=== PATIENT | female | born 1975 | race African-American/Black ===

== ENCOUNTER → 2019-08-10 | Outpatient (CLI) | payer OTHER ==
--- NOTE | 2019-08-10 12:00 | XR ---
EXAM TYPE: LUMBAR SPINE X RAY SERIES COMPARISON: NONE HISTORY: Pain TECHNIQUE: 4 views are submitted. FINDINGS: Alignment is anatomic. The pedicles are intact. The transverse processes are intact. There is no s pondylolysis or spondylolisthesis. Mild degenerative disc disease L4-5. IMPRESSION: 1. Mild degenerative change at L4-L5.
--- NOTE | 2019-08-10 12:00 | XR ---
EXAMINATION TYPE: XR knee limited LT DATE OF EXAM: 08/10/2019 COMPARISON: NONE HISTORY: Pain TECHNIQUE: Four views are submitted. FINDINGS: Joint spaces are preserved. Osseous structures are intact. No acute fracture seen. There is a well -corticated bony density adjacent to the medial femoral condyle. This can be associated with internal derangement of the knee and previous avulsion fracture. IMPRESSION: 1. Bony density adjacent to the medial femoral condyle could be associated with previous avulsion fra cture and internal derangement knee correlate with MRI.
== END | disposition home or self-care (01) ==
LOC: RADXRMAIN 11:30
PROVIDERS: ATTEND Family Medicine
DX: M25.562 Pain in left knee (principal); M47.816 Spondylosis without myelopathy or radiculopathy, lumbar region
CPT/HCPCS: 72110

== ENCOUNTER 2019-10-09 22:20 | Emergency (ER) | payer OTHER ==
[2019-10-09 22:45] VITALS: BP 128/80; PULSE 117; RESP 20; TEMP 98.4
[2019-10-09] MEDS ORDERED: IPRATROPIUM 0.5 MG/2.5 ML NEBU INHALATION STA (23:21)
[2019-10-10 00:13] LABS: ALT 75 U/L (4-34); AST 100 U/L (14-36); African American GFR (CKD) >90 (>60 ml/min/1.73 sqM); Albumin 4.4 g/dL (3.5-5.0); Alkaline Phosphatase 76 U/L (38-126); Anion Gap 11 mmol/L; Blood Urea Nitrogen 10 mg/dL (7-17); Calcium 9.5 mg/dL (8.4-10.2); Carbon Dioxide 27 mmol/L (22-30); Chloride 105 mmol/L (98-107); Glucose 108 mg/dL (74-99); Non-African American GFR(CKD) >90 (>60 ml/min/1.73 sqM); Potassium 3.5 mmol/L (3.5-5.1); Sodium 143 mmol/L (137-145); Total Bilirubin 0.2 mg/dL (0.2-1.3); Total Protein 7.8 g/dL (6.3-8.2)
[2019-10-10 00:20] LABS: Appearance,Urine Clear (Clear); Bilirubin,Urine Negative (Negative); Blood,Urine Negative (Negative); Color,Urine Light Yellow; Glucose,Urine (UA) Negative (Negative); Ketones,Urine Negative (Negative); Leukocyte Esterase,Urine Negative (Negative); Nitrite,Urine Negative (Negative); PH, Urine 5.5 (5.0-8.0); Protein,Urine Trace (Negative); Specific Gravity,Urine 1.008 (1.001-1.035); Urobilinogen,Urine <2.0 mg/dL (<2.0)
[2019-10-10 00:34] LABS: HCT 38.1 % (34.0-46.0); HGB 12.6 gm/dL (11.4-16.0); MCH 31.5 pg (25.0-35.0); MCHC 32.9 g/dL (31.0-37.0); MCV 95.7 fL (80.0-100.0); Mean Platelet Volume 7.3; Platelet Count 288 k/uL (150-450); RBC 3.98 m/uL (3.80-5.40); RDW 14.9 % (11.5-15.5); WBC 4.8 k/uL (3.8-10.6)
[2019-10-10 01:33] LABS: Anisocytosis (M) Present; Hypochromasia (M) Present; Lymphocytes # (M) 3.02 k/uL (1.0-4.8); Monocytes # (M) 0.38 k/uL (0-1.0); Neutrophils % (M) 27 %; Nucleated Red Blood Cells 0 /100 WBC (0-0); Total Cells Counted 100
--- NOTE | 2019-10-10 02:34 | ED ---
General Adult HPI - General Chief complaint: Shortness of Breath Stated complaint: LALITA Time Seen by Provider: 10/09/19 22:30 Source: patient, EMS, RN notes reviewed, old records reviewed Mode of arrival: EMS Limitations: no limitations - History of Present Illness Initial comments: 44-year-old female patient presents with asthma presents to ED for evaluation of shortness of breath since august. Patient reports that she has been coughing started coughing up green phlegm. Denies any chest pain. Denies any other complaints. Systemic: Pt denies fatigue, fever/chills, rash. Pt denies weakness, night sweats, weight loss. Neuro: Pt denies headache, visual disturbances, syncope or pre-syncope. HEENT: Pt denies ocular discharge or irritation, otalgia, rhinorrhea, pharyngitis or notable lymphadenopathy. Cardiopulmonary: Pt denies chest pain, heart palpitations, dyspnea on exertion. Abdominal/GI: Pt denies abdominal pain, n/v/d. : Pt denies dysuria, burning w/ urination, frequency/urgency. Denies new onset urinary or bowel incontinence. MSK: Pt denies myalgia, loss of strength or function in extremities. Neuro: Pt denies new onset weakness, paresthesias. Review of Systems ROS Statement: Those systems with pertinent positive or pertinent negative responses have been documented in the HPI. ROS Other: All systems not noted in ROS Statement are negative. Past Medical History Past Medical History: Asthma History of Any Multi-Drug Resistant Organisms: None Reported Past Surgical History: Section Past Psychological History: Anxiety, Bipolar, Depression, Schizophrenia Smoking Status: Former smoker Past Alcohol Use History: Occasional Past Drug Use History: None Reported General Exam - General Exam Comments Initial Comments: Constitutional: NAD, AOX3, Pt has pleasant affect. HEENT: NC/AT, trachea midline, neck supple, no lymphadenopathy. Posterior pharynx non erythematous, without exudates. External ears appear normal, without discharge. Mucous membranes moist. Eyes PERRLA, EOM intact. There is no scleral icterus. No pallor noted. Cardiopulmonary: RRR, no murmurs, rubs or gallops, no JVD noted. Lungs CTAB in anterior and posterior serrano. No peripheral edema. Abdominal exam: Abdomen soft and non-distended. Abdomen non-tender to palpation in all 4 quadrants. Bowel sounds active in LLQ. No hepatosplenomegaly. No ecchymosis Neuro: CN II-XII grossly intact. No nuchal rigidity. No raccon eyes, no snowden sign, no hemotympanum. No cervical spinal tenderness. MSK: No posterior calf tenderness bilaterally, homans sign negative bilaterally. Posterior tibialis and radial pulse +2 bilaterally. Sensation intact in upper and lower extremities. Full active ROM in upper and lower extremities, 5/5 stregnth. Limitations: no limitations Course Vital Signs 10/09/19 22:34 Temperature 98.4 F Pulse Rate 117 H Respiratory 20 Rate Blood Pressure 128/80 O2 Sat by Pulse 100 Oximetry Medical Decision Making - Medical Decision Making 44-year-old female patient presents with asthma presents to ED for evaluation of shortness of breath since august. Patient reports that she has been coughing st arted coughing up green phlegm. Denies any chest pain. Denies any other complaints. Patient vital signs displayed mild tachycardia. Physical exam didn't display acute pathology. Coughing was noted. Laboratory investigations obtained, overall non-impressive. Patient reportedly fell landing on her gluteal region standing out of bed. Was complaining of chest pain. Patient then reportedly declined any imaging and eloped from hospital. Signed out AMA. CXR was ordered and was not performed. Patient was not evaluated by myself after initial history and physical. Case discussed with Dr. Renteria. - Lab Data Result diagrams: 10/09/19 23:40 10/09/19 23:40 Lab Results 10/09/19 10/09/19 10/09/19 Range/Units 23:40 23:40 23:40 WBC 4.8 (3.8-10.6) k/uL RBC 3.98 (3.80-5.40) m/uL Hgb 12.6 (11.4-16.0) gm/dL Hct 38.1 (34.0-46.0) % MCV 95.7 (80.0-100.0) fL MCH 31.5 (25.0-35.0) pg MCHC 32.9 (31.0-37.0) g/dL RDW 14.9 (11.5-15.5) % Plt Count 288 (150-450) k/uL Neutrophils % (Manual) 27 % Lymphocytes % (Manual) 63 % Monocytes % (Manual) 8 % Eosinophils % (Manual) 2 % Neutrophils # (Manual) 1.30 (1.3-7.7) k/uL Lymphocytes # (Manual) 3.02 (1.0-4.8) k/uL Monocytes # (Manual) 0.38 (0-1.0) k/uL Eosinophils # (Manual) 0.10 (0-0.7) k/uL Nucleated RBCs 0 (0-0) /100 WBC Manual Slide Review Performed Hypochromasia (manual) Present Anisocytosis (manual) Present D-Dimer 0.55 (<0.60) mg/L FEU Sodium 143 (137-145) mmol/L Potassium 3.5 (3.5-5.1) mmol/L Chloride 105 (98-107) mmol/L Carbon Dioxide 27 (22-30) mmol/L Anion Gap 11 mmol/L BUN 10 (7-17) mg/dL Creatinine 0.58 (0.52-1.04) mg/dL Est GFR (CKD-EPI)AfAm >90 (>60 ml/min/1.73 sqM) Est GFR (CKD-EPI)NonAf >90 (>60 ml/min/1.73 sqM) Glucose 108 H (74-99) mg/dL Plasma Lactic Acid Zain (0.7-2.0) mmol/L Calcium 9.5 (8.4-10.2) mg/dL Total Bilirubin 0.2 (0.2-1.3) mg/dL AST 100 H (14-36) U/L ALT 75 H (4-34) U/L Alkaline Phosphatase 76 (38-126) U/L Troponin I (0.000-0.034) ng/mL NT-Pro-B Natriuret Pep pg/mL Total Protein 7.8 (6.3-8.2) g/dL Albumin 4.4 (3.5-5.0) g/dL Urine Color Urine Appearance (Clear) Urine pH (5.0-8.0) Ur Specific [place] (1.001-1.035) Urine Protein (Negative) Urine Glucose (UA) (Negative) Urine Ketones (Negative) Urine Blood (Negative) Urine Nitrite (Negative) Urine Bilirubin (Negative) Urine Urobilinogen (<2.0) mg/dL Ur Leukocyte Esterase (Negative) Urine HCG, Qual (Not Detectd) Coronavirus (PCR) (Not Detectd) 10/09/19 10/09/19 10/09/19 Range/Units 23:40 23:40 23:40 WBC (3.8-10.6) k/uL RBC (3.80-5.40) m/uL Hgb (11.4-16.0) gm/dL Hct (34.0-46.0) % MCV (80.0-100.0) fL MCH (25.0-35.0) pg MCHC (31.0-37.0) g/dL RDW (11.5-15.5) % Plt Count (150-450) k/uL Neutrophils % (Manual) % Lymphocytes % (Manual) % Monocytes % (Manual) % Eosinophils % (Manual) % Neutrophils # (Manual) (1.3-7.7) k/uL Lymphocytes # (Manual) (1.0-4.8) k/uL Monocytes # (Manual) (0-1.0) k/uL Eosinophils # (Manual) (0-0.7) k/uL Nucleated RBCs (0-0) /100 WBC Manual Slide Review Hypochromasia (manual) Anisocytosis (manual) D-Dimer (<0.60) mg/L FEU Sodium (137-145) mmol/L Potassium (3.5-5.1) mmol/L Chloride (98-107) mmol/L Carbon Dioxide (22-30) mmol/L Anion Gap mmol/L BUN (7-17) mg/dL Creatinine (0.52-1.04) mg/dL Est GFR (CKD-EPI)AfAm (>60 ml/min/1.73 sqM) Est GFR (CKD-EPI)NonAf (>60 ml/min/1.73 sqM) Glucose (74-99) mg/dL Plasma Lactic Acid Zain 1.5 (0.7-2.0) mmol/L Calcium (8.4-10.2) mg/dL Total Bilirubin (0.2-1.3) mg/dL AST (14-36) U/L ALT (4-34) U/L Alkaline Phosphatase (38-126) U/L Troponin I <0.012 (0.000-0.034) ng/mL NT-Pro-B Natriuret Pep 29 pg/mL Total Protein (6.3-8.2) g/dL Albumin (3.5-5.0) g/dL Urine Color Urine Appearance (Clear) Urine pH (5.0-8.0) Ur Specific [place] (1.001-1.035) Urine Protein (Negative) Urine Glucose (UA) (Negative) Urine Ketones (Negative) Urine Blood (Negative) Urine Nitrite (Negative) Urine Bilirubin (Negative) Urine Urobilinogen (<2.0) mg/dL Ur Leukocyte Esterase (Negative) Urine HCG, Qual (Not Detectd) Coronavirus (PCR) (Not Detectd) 10/09/19 10/10/19 10/10/19 Range/Units 23:45 00:05 00:05 WBC (3.8-10.6) k/uL RBC (3.80-5.40) m/uL Hgb (11.4-16.0) gm/dL Hct (34.0-46.0) % MCV (80.0-100.0) fL MCH (25.0-35.0) pg MCHC (31.0-37.0) g/dL RDW (11.5-15.5) % Plt Count (150-450) k/uL Neutrophils % (Manual) % Lymphocytes % (Manual) % Monocytes % (Manual) % Eosinophils % (Manual) % Neutrophils # (Manual) (1.3-7.7) k/uL Lymphocytes # (Manual) (1.0-4.8) k/uL Monocytes # (Manual) (0-1.0) k/uL Eosinophils # (Manual) (0-0.7) k/uL Nucleated RBCs (0-0) /100 WBC Manual Slide Review Hypochromasia (manual) Anisocytosis (manual) D-Dimer (<0.60) mg/L FEU Sodium (137-145) mmol/L Potassium (3.5-5.1) mmol/L Chloride (98-107) mmol/L Carbon Dioxide (22-30) mmol/L Anion Gap mmol/L BUN (7-17) mg/dL Creatinine (0.52-1.04) mg/dL Est GFR (CKD-EPI)AfAm (>60 ml/min/1.73 sqM) Est GFR (CKD-EPI)NonAf (>60 ml/min/1.73 sqM) Glucose (74-99) mg/dL Plasma Lactic Acid Zain (0.7-2.0) mmol/L Calcium (8.4-10.2) mg/dL Total Bilirubin (0.2-1.3) mg/dL AST (14-36) U/L ALT (4-34) U/L Alkaline Phosphatase (38-126) U/L Troponin I (0.000-0.034) ng/mL NT-Pro-B Natriuret Pep pg/mL Total Protein (6.3-8.2) g/dL Albumin (3.5-5.0) g/dL Urine Color Light Yellow Urine Appearance Clear (Clear) Urine pH 5.5 (5.0-8.0) Ur Specific [place] 1.008 (1.001-1.035) Urine Protein Trace H (Negative) Urine Glucose (UA) Negative (Negative) Urine Ketones Negative (Negative) Urine Blood Negative (Negative) Urine Nitrite Negative (Negative) Urine Bilirubin Negative (Negative) Urine Urobilinogen <2.0 (<2.0) mg/dL Ur Leukocyte Esterase Negative (Negative) Urine HCG, Qual Not Detected (Not Detectd) Coronavirus (PCR) Not Detected (Not Detectd) - EKG Data -: EKG Interpreted by Me (and Dr. Renteria ) EKG Comments: Ventricular while 6,. Full 96, QRS 92, QT/QTC 320/425. Sinus tachycardia short period. Nonspecific ST and T wave abnormality. Abnormal EKG. No concern for acute ischemia. Disposition Clinical Impression: Cough Disposition: Left Against Medical Advice Condition: Undetermined Is patient prescribed a controlled substance at d/c from ED?: No Referrals: Nonstaff,Physician [Primary Care Provider] - 1-2 days
== END 2019-10-10 00:50 | disposition left against medical advice (07) ==
LOC: EC 22:20
DX: Z03.818 Encounter for observation for suspected exposure to other biological agents ruled out (principal); R05 Cough; R06.02 Shortness of breath; R00.0 Tachycardia, unspecified; R07.9 Chest pain, unspecified; Z53.20 Procedure and treatment not carried out because of patient's decision for unspecified reasons; Z87.891 Personal history of nicotine dependence; Z87.09 Personal history of other diseases of the respiratory system
CPT/HCPCS: 36415; 80053; 81003; 81025; 83605; 83880; 84484; 85025; 85379; 87635; 93005; 99285

== ENCOUNTER 2021-07-01 07:32 | Inpatient (IN) | payer OTHER ==
[2021-07-01] MEDS ORDERED: LORazepam 2 MG/ML INJ IV STA (07:36)
[2021-07-01 07:37] LABS: Glucose,Whole Blood 80 mg/dL (75-99)
[2021-07-01] MEDS ORDERED: SODIUM CHLORIDE 0.9% 500 ML 500 ML IV ONE (07:49)
[2021-07-01] MEDS ORDERED: ALBUTEROL NEBULIZED 2.5 MG/3 ML INHALATION STA ×2 (07:50→11:46)
[2021-07-01] MEDS ORDERED: methylPREDNISolone SOD SUCCI 125 MG/2 ML VIAL IV STA (08:04)
[2021-07-01] MEDS ORDERED: MAGNESIUM SULFATE-D5W PMX 1 GM in DEXTROSE/WATER 1 100ML.BAG IVPB ONE ×2 (08:04→08:42)
--- NOTE | 2021-07-01 08:08 | XR ---
EXAMINATION TYPE: XR chest 1V portable DATE OF EXAM: 07/01/2021 COMPARISON: NONE HISTORY: Difficulty breathing, shortness of breath TECHNIQUE: Single frontal view of the chest is obtained. FINDINGS: Diffuse airspace disease is present in the bilateral lungs. Patient is rotated. Heart may be enlarged but is obscured. No evident pneumothorax or pleural effusion. IMPRESSION: Correlate for pneumonia, congestive heart failure not excluded
[2021-07-01 08:25] LABS: ALT 74 U/L (4-34); AST 173 U/L (14-36); African American GFR (CKD) >90 (>60 ml/min/1.73 sqM); Albumin 4.4 g/dL (3.5-5.0); Alcohol 41 mg/dL; Alkaline Phosphatase 138 U/L (38-126); Anion Gap 26 mmol/L; Blood Urea Nitrogen 8 mg/dL (7-17); Calcium 8.5 mg/dL (8.4-10.2); Carbon Dioxide 12 mmol/L (22-30); Chloride 98 mmol/L (98-107); Creatine Kinase 181 U/L (30-135); Glucose 83 mg/dL (74-99); Lipase 215 U/L (23-300); Magnesium 1.1 mg/dL (1.6-2.3); Non-African American GFR(CKD) >90 (>60 ml/min/1.73 sqM); Potassium 5.4 mmol/L (3.5-5.1); Sodium 136 mmol/L (137-145); Total Bilirubin 2.8 mg/dL (0.2-1.3); Total Protein 7.8 g/dL (6.3-8.2)
[2021-07-01 08:32] LABS: Basophils # (A) 0.1 k/uL (0-0.2); Basophils % (A) 1 %; Eosinophils # (A) 0.1 k/uL (0-0.7); Eosinophils % (A) 1 %; HCT 41.6 % (34.0-46.0); HGB 13.3 gm/dL (11.4-16.0); Hypochromasia Slight; Lymphocytes # (A) 3.2 k/uL (1.0-4.8); Lymphocytes % (A) 43 %; MCH 35.4 pg (25.0-35.0); MCHC 31.9 g/dL (31.0-37.0); MCV 110.9 fL (80.0-100.0); Macrocytosis Marked; Mean Platelet Volume 10.5; Monocytes # (A) 0.3 k/uL (0-1.0); Monocytes % (A) 5 %; Neutrophils # (A) 3.5 k/uL (1.3-7.7); Neutrophils % (A) 48 %; RBC 3.75 m/uL (3.80-5.40); RDW 14.7 % (11.5-15.5); WBC 7.4 k/uL (3.8-10.6)
[2021-07-01] MEDS ORDERED: THIAMINE 100 MG/ML 2 ML VIAL IM STA (08:40)
[2021-07-01] MEDS ORDERED: LORazepam 2 MG/ML INJ IV PRN (08:40)
--- NOTE | 2021-07-01 08:41 | ED ---
Altered Mental Status HPI - General Chief Complaint: Altered Mental Status Stated Complaint: Unresponsive Time Seen by Provider: 07/01/21 07:40 Source: EMS Mode of arrival: EMS Limitations: altered mental status, physical limitation - History of Present Illness Initial Comments: 46-year-old female past history of asthma, hypertension, tachycardia presents to the emergency department for several complaints. EMS was originally called to the house and the patient reported that she has history of alcohol abuse with low magnesium levels. She stated that she had been binging over the past week. Her last drink was last night. When EMS got to the house the patient began reporting shortness of breath. She had clear lung sounds. She was moved onto the EMS stretcher and upon transfer to the hospital the patient had a seizure. EMS states she went unresponsive, eyes rolled back in her head. Incident lasted approximately 2 minutes. No history of seizures. Upon arrival to the trauma bay the patient is confused and agitated. Patient has respiratory distress with audible rales. Remainder of HPI cannot be obtained - Related Data Home Medications Medication Instructions Recorded Confirmed Acetaminophen-Codeine 300-30mg 1 tab PO DAILY 07/01/21 07/01/21 [Tylenol w/codeine #3] Albuterol Sulfate [Ventolin HFA] 2 puff INHALATION RT-Q4H PRN 07/01/21 07/01/21 Amoxicillin 875 mg PO BID 07/01/21 07/01/21 Clotrimazole/Betamethasone Dip 1 applic TOPICAL BID 07/01/21 07/01/21 [Lotrisone Cream] Dexamethasone 6 mg PO DAILY 07/01/21 07/01/21 Ergocalciferol [Vitamin D2 (1250 1,250 mcg PO Q7D 07/01/21 07/01/21 Mcg = 70673 Iu)] Famotidine 20 mg PO BID 07/01/21 07/01/21 Ferrous Sulfate [Feosol] 325 mg PO DAILY 07/01/21 07/01/21 Fluticasone Propionate [Flovent 1 puff INHALATION RT-BID 07/01/21 07/01/21 Hfa 220 mcg] HYDROcodone/APAP 5-325MG [[place] 1 tab PO DAILY 07/01/21 07/01/21 5-325] Pnv,Calcium 72/Iron/Folic Acid 1 tab PO DAILY 07/01/21 07/01/21 [ Plus Tablet] Tiotropium 2.5 Mcg/Puff [Spiriva 2 puff INHALATION RT-DAILY 07/01/21 07/01/21 Respimat 2.5 Mcg] Allergies Allergy/AdvReac Type Severity Reaction Status Date / Time Sulfa (Sulfonamide Allergy Rash/Hives Verified 07/01/21 10:23 Antibiotics) Review of Systems ROS Statement: Those systems with pertinent positive or pertinent negative responses have been documented in the HPI. ROS Other: All systems not noted in ROS Statement are negative. Past Medical History Past Medical History: Asthma History of Any Multi-Drug Resistant Organisms: None Reported Past Surgical History: Section Past Psychological History: Anxiety, Bipolar, Depression, Schizophrenia Smoking Status: Unknown if ever smoked Past Alcohol Use History: Occasional Past Drug Use History: None Reported General Exam Limitations: altered mental status, physical limitation General appearance: obtunded, in distress Head exam: Present: atraumatic, normocephalic, normal inspection Eye exam: Present: normal appearance, PERRL, EOMI. Absent: scleral icterus, conjunctival injection, periorbital swelling ENT exam: Present: normal exam, mucous membranes moist Respiratory exam: Present: respiratory distress, rales, accessory muscle use Cardiovascular Exam: Present: normal rhythm, tachycardia GI/Abdominal exam: Present: soft, normal bowel sounds. Absent: distended, tenderness, guarding, rebound, rigid Extremities exam: Present: normal inspection, full ROM, normal capillary refill. Absent: tenderness, pedal edema, joint swelling, calf tenderness Neurological exam: Present: altered Psychiatric exam: Present: agitated Skin exam: Present: diaphoretic Course Vital Signs 07/01/21 07/01/21 07/01/21 07:39 07:45 07:58 Temperature 98.4 F Pulse Rate 145 H 163 H 165 H Pulse Rate [ Pulse Oximetery ] Respiratory 8 L 20 Rate Blood Pressure 139/106 142/112 Blood Pressure [Right Arm] O2 Sat by Pulse 83 L 99 Oximetry 07/01/21 07/01/21 07/01/21 08:04 08:09 08:20 Temperature Pulse Rate 160 H 158 H 156 H Pulse Rate [ Pulse Oximetery ] Respiratory 30 H 30 H Rate Blood Pressure 142/108 136/109 Blood Pressure [Right Arm] O2 Sat by Pulse 94 L 95 Oximetry 07/01/21 07/01/21 07/01/21 08:31 08:37 09:50 Temperature Pulse Rate 149 H 150 H 163 H Pulse Rate [ Pulse Oximetery ] Respiratory 26 H 28 H Rate Blood Pressure 132/102 146/135 Blood Pressure [Right Arm] O2 Sat by Pulse 100 92 L Oximetry 07/01/21 07/01/21 07/01/21 10:01 10:07 10:12 Temperature Pulse Rate 170 H 168 H 154 H Pulse Rate [ Pulse Oximetery ] Respiratory 18 32 H 21 Rate Blood Pressure 125/84 136/86 Blood Pressure [Right Arm] O2 Sat by Pulse 89 L 88 L 99 Oximetry 07/01/21 07/01/21 07/01/21 10:21 11:00 11:49 Temperature Pulse Rate 142 H 153 H 134 H Pulse Rate [ Pulse Oximetery ] Respiratory 34 H 36 H Rate Blood Pressure 119/76 129/93 Blood Pressure [Right Arm] O2 Sat by Pulse 100 99 Oximetry 07/01/21 07/01/21 07/01/21 12:00 12:03 12:11 Temperature 98.1 F Pulse Rate 132 H 135 H Pulse Rate [ 144 H Pulse Oximetery ] Respiratory 28 H 33 H Rate Blood Pressure 102/80 Blood Pressure 112/63 [Right Arm] O2 Sat by Pulse 99 98 Oximetry 07/01/21 12:34 Temperature 99.4 F Pulse Rate 140 H Pulse Rate [ Pulse Oximetery ] Respiratory 42 H Rate Blood Pressure 113/85 Blood Pressure [Right Arm] O2 Sat by Pulse 99 Oximetry - Reevaluation(s) Reevaluation #1: Spoke with Dr. Fam - recommends lopressor iv 5 mg, echo, 40 mg lasix in 8 hours 07/01/21 09:45 Medical Decision Making - Medical Decision Making Upon arrival patient is probably placed into trauma 1. Seizing has stopped at this time however patient is post ictal. IV was established the patient was given 2 mg of Ativan. She does slowly become arousable. Patient has increased respirations. Reports a history of asthma and therefore breathing treatments are ordered. Laboratory studies are conducted. Portable chest x-ray was performed which does demonstrate pulmonary edema. Patient swabbed for covid. 60 mg IV lasix ordered. Platelets 62. Potassium 5.4. Lactic acid 7.6. Mag 1.1. Ammonia 47. BNP 1350. Troponin 0.139. glucose 41. Chest x-ray demonstrates diffuse airspace disease consistent with pneumonia or pulmonary edema. She does have increased respiratory drive and therefore she is placed on BiPAP. She is also given a sublingual nitro. I spoke with Dr. Quiñones who rec ommended Lopressor IV. Patient's heart rate does improve from 170 to 140. She is resting comfortably at this time and will be admitted to Dr. Reid. Dr. Quiñones will evaluate the patient in the emergency department. Requesting stat echo. Echo department as called and made aware of need for urgent echo. Patient agreed to the treatment plan and remained oriented throughout her treatment - Lab Data Result diagrams: 07/10/21 02:45 07/10/21 09:15 Lab Results 07/01/21 07/01/21 07/01/21 Range/Units 07:36 07:53 07:53 WBC 7.4 (3.8-10.6) k/uL RBC 3.75 L (3.80-5.40) m/uL Hgb 13.3 (11.4-16.0) gm/dL Hct 41.6 (34.0-46.0) % MCV 110.9 H (80.0-100.0) fL MCH 35.4 H (25.0-35.0) pg MCHC 31.9 (31.0-37.0) g/dL RDW 14.7 (11.5-15.5) % Plt Count 62 L (150-450) k/uL MPV 10.5 Neutrophils % 48 % Lymphocytes % 43 % Monocytes % 5 % Eosinophils % 1 % Basophils % 1 % Neutrophils # 3.5 (1.3-7.7) k/uL Lymphocytes # 3.2 (1.0-4.8) k/uL Monocytes # 0.3 (0-1.0) k/uL Eosinophils # 0.1 (0-0.7) k/uL Basophils # 0.1 (0-0.2) k/uL Manual Slide Review Performed Hypochromasia Slight Macrocytosis Marked A PT 11.7 (9.0-12.0) sec INR 1.1 (<1.2) APTT 19.0 L (22.0-30.0) sec Sodium (137-145) mmol/L Potassium (3.5-5.1) mmol/L Chloride (98-107) mmol/L Carbon Dioxide (22-30) mmol/L Anion Gap mmol/L BUN (7-17) mg/dL Creatinine (0.52-1.04) mg/dL Est GFR (CKD-EPI)AfAm (>60 ml/min/1.73 sqM) Est GFR (CKD-EPI)NonAf (>60 ml/min/1.73 sqM) Glucose (74-99) mg/dL POC Glucose (mg/dL) 80 (75-99) mg/dL POC Glu Grocery Clerk ID Terrence Wall Lactic Ac Sepsis Rflx Plasma Lactic Acid Zain (0.7-2.0) mmol/L Calcium (8.4-10.2) mg/dL Magnesium (1.6-2.3) mg/dL Total Bilirubin (0.2-1.3) mg/dL AST (14-36) U/L ALT (4-34) U/L Alkaline Phosphatase (38-126) U/L Ammonia (<30) umol/L Creatine Kinase (30-135) U/L Troponin I (0.000-0.034) ng/mL NT-Pro-B Natriuret Pep pg/mL Total Protein (6.3-8.2) g/dL Albumin (3.5-5.0) g/dL Lipase (23-300) U/L Prolactin (2.800-29.200) ng/mL Serum Alcohol mg/dL Coronavirus (PCR) (Not Detectd) 07/01/21 07/01/21 07/01/21 Range/Units 07:53 07:53 07:53 WBC (3.8-10.6) k/uL RBC (3.80-5.40) m/uL Hgb (11.4-16.0) gm/dL Hct (34.0-46.0) % MCV (80.0-100.0) fL MCH (25.0-35.0) pg MCHC (31.0-37.0) g/dL RDW (11.5-15.5) % Plt Count (150-450) k/uL MPV Neutrophils % % Lymphocytes % % Monocytes % % Eosinophils % % Basophils % % Neutrophils # (1.3-7.7) k/uL Lymphocytes # (1.0-4.8) k/uL Monocytes # (0-1.0) k/uL Eosinophils # (0-0.7) k/uL Basophils # (0-0.2) k/uL Manual Slide Review Hypochromasia Macrocytosis PT (9.0-12.0) sec INR (<1.2) APTT (22.0-30.0) sec Sodium 136 L (137-145) mmol/L Potassium 5.4 H (3.5-5.1) mmol/L Chloride 98 (98-107) mmol/L Carbon Dioxide 12 L (22-30) mmol/L Anion Gap 26 mmol/L BUN 8 (7-17) mg/dL Creatinine 0.75 (0.52-1.04) mg/dL Est GFR (CKD-EPI)AfAm >90 (>60 ml/min/1.73 sqM) Est GFR (CKD-EPI)NonAf >90 (>60 ml/min/1.73 sqM) Glucose 83 (74-99) mg/dL POC Glucose (mg/dL) (75-99) mg/dL POC Glu Grocery Clerk ID Lactic Ac Sepsis Rflx Plasma Lactic Acid Zain 7.6 H* (0.7-2.0) mmol/L Calcium 8.5 (8.4-10.2) mg/dL Magnesium 1.1 L (1.6-2.3) mg/dL Total Bilirubin 2.8 H (0.2-1.3) mg/dL AST 173 H (14-36) U/L ALT 74 H (4-34) U/L Alkaline Phosphatase 138 H (38-126) U/L Ammonia 47 H (<30) umol/L Creatine Kinase 181 H (30-135) U/L Troponin I 0.139 H* (0.000-0.034) ng/mL NT-Pro-B Natriuret Pep pg/mL Total Protein 7.8 (6.3-8.2) g/dL Albumin 4.4 (3.5-5.0) g/dL Lipase 215 (23-300) U/L Prolactin (2.800-29.200) ng/mL Serum Alcohol 41 mg/dL Coronavirus (PCR) (Not Detectd) 07/01/21 07/01/21 07/01/21 Range/Units 07:53 07:53 08:03 WBC (3.8-10.6) k/uL RBC (3.80-5.40) m/uL Hgb (11.4-16.0) gm/dL Hct (34.0-46.0) % MCV (80.0-100.0) fL MCH (25.0-35.0) pg MCHC (31.0-37.0) g/dL RDW (11.5-15.5) % Plt Count (150-450) k/uL MPV Neutrophils % % Lymphocytes % % Monocytes % % Eosinophils % % Basophils % % Neutrophils # (1.3-7.7) k/uL Lymphocytes # (1.0-4.8) k/uL Monocytes # (0-1.0) k/uL Eosinophils # (0-0.7) k/uL Basophils # (0-0.2) k/uL Manual Slide Review Hypochromasia Macrocytosis PT (9.0-12.0) sec INR (<1.2) APTT (22.0-30.0) sec Sodium (137-145) mmol/L Potassium (3.5-5.1) mmol/L Chloride (98-107) mmol/L Carbon Dioxide (22-30) mmol/L Anion Gap mmol/L BUN (7-17) mg/dL Creatinine (0.52-1.04) mg/dL Est GFR (CKD-EPI)AfAm (>60 ml/min/1.73 sqM) Est GFR (CKD-EPI)NonAf (>60 ml/min/1.73 sqM) Glucose (74-99) mg/dL POC Glucose (mg/dL) (75-99) mg/dL POC Glu Grocery Clerk ID Lactic Ac Sepsis Rflx Plasma Lactic Acid [place]ain (0.7-2.0) mmol/L Calcium (8.4-10.2) mg/dL Magnesium (1.6-2.3) mg/dL Total Bilirubin (0.2-1.3) mg/dL AST (14-36) U/L ALT (4-34) U/L Alkaline Phosphatase (38-126) U/L Ammonia (<30) umol/L Creatine Kinase (30-135) U/L Troponin I (0.000-0.034) ng/mL NT-Pro-B Natriuret Pep 1350 pg/mL Total Protein (6.3-8.2) g/dL Albumin (3.5-5.0) g/dL Lipase (23-300) U/L Prolactin 95.300 H (2.800-29.200) ng/mL Serum Alcohol mg/dL Coronavirus (PCR) Not Detected (Not Detectd) 07/01/21 Range/Units 09:11 WBC (3.8-10.6) k/uL RBC (3.80-5.40) m/uL Hgb (11.4-16.0) gm/dL Hct (34.0-46.0) % MCV (80.0-100.0) fL MCH (25.0-35.0) pg MCHC (31.0-37.0) g/dL RDW (11.5-15.5) % Plt Count (150-450) k/uL MPV Neutrophils % % Lymphocytes % % Monocytes % % Eosinophils % % Basophils % % Neutrophils # (1.3-7.7) k/uL Lymphocytes # (1.0-4.8) k/uL Monocytes # (0-1.0) k/uL Eosinophils # (0-0.7) k/uL Basophils # (0-0.2) k/uL Manual Slide Review Hypochromasia Macrocytosis PT (9.0-12.0) sec INR (<1.2) APTT (22.0-30.0) sec Sodium (137-145) mmol/L Potassium (3.5-5.1) mmol/L Chloride (98-107) mmol/L Carbon Dioxide (22-30) mmol/L Anion Gap mmol/L BUN (7-17) mg/dL Creatinine (0.52-1.04) mg/dL Est GFR (CKD-EPI)AfAm (>60 ml/min/1.73 sqM) Est GFR (CKD-EPI)NonAf (>60 ml/min/1.73 sqM) Glucose (74-99) mg/dL POC Glucose (mg/dL) (75-99) mg/dL POC Glu Grocery Clerk ID Lactic Ac Sepsis Rflx Y Plasma Lactic Acid Zain (0.7-2.0) mmol/L Calcium (8.4-10.2) mg/dL Magnesium (1.6-2.3) mg/dL Total Bilirubin (0.2-1.3) mg/dL AST (14-36) U/L ALT (4-34) U/L Alkaline Phosphatase (38-126) U/L Ammonia (<30) umol/L Creatine Kinase (30-135) U/L Troponin I (0.000-0.034) ng/mL NT-Pro-B Natriuret Pep pg/mL Total Protein (6.3-8.2) g/dL Albumin (3.5-5.0) g/dL Lipase (23-300) U/L Prolactin (2.800-29.200) ng/mL Serum Alcohol mg/dL Coronavirus (PCR) (Not Detectd) - EKG Data EKG Comments: Demonstrates sinus tachycardia with a ventricular rate of 147. NV interval 112. QRS 68. QTC of 450. No acute ST segment elevations. Critical Care Time Critical Care Time: Yes Critical Care Time: for management of respiratory distress with bipap management Disposition Clinical Impression: Pulmonary edema, Seizure, Alcohol abuse, BiPAP (biphasic positive airway pressure) dependence, NSTEMI (non-ST elevated myocardial infarction), Thrombocytopenia, Tachycardia Disposition: ADMITTED IP TO THIS HOSP Condition: Serious Is patient prescribed a controlled substance at d/c from ED?: No Decision to Admit Reason: Admit from EC Decision Date: 07/01/21 Decision Time: 10:33
[2021-07-01 08:43] LABS: INR 1.1 (<1.2); Prothrombin Time 11.7 sec (9.0-12.0)
[2021-07-01] MEDS: LORazepam 2 MG/ML INJ IV PRN ×4 (08:46→13:16)
[2021-07-01 09:10] LABS: Lactic Acid, Venous 7.6 mmol/L (0.7-2.0)
[2021-07-01 09:11] LABS: Platelet Count 62 k/uL (150-450)
[2021-07-01] MEDS ORDERED: FUROSEMIDE 10 MG/ML 10 ML VIAL IV STA (09:20)
[2021-07-01] MEDS ORDERED: NITROGLYCERIN SL TABS 0.4 MG TAB SUBLINGUAL STA (09:44)
[2021-07-01] MEDS: METOPROLOL TARTRATE 5 MG/5 ML VIAL IVP SCH ×3 (10:14→13:16)
[2021-07-01] MEDS ORDERED: NALOXONE 0.4 MG/ML 1 ML VIAL IV PRN (10:33)
[2021-07-01 10:45] LABS: ABG Base Excess -10.6 mmol/L; ABG HCO3 16 mmol/L (21-25); ABG PCO2 33 mmHg (35-45); ABG PO2 285 mmHg (83-108); ABG TCO2 17 mmol/L (19-24); Allen Test Performed? Yes
[2021-07-01] MEDS ORDERED: SODIUM BICARB 8.4% 50 ML SYR (1 MEQ/ML) IV STA (11:27)
[2021-07-01 11:47] LABS: Appearance,Urine Clear (Clear); Bacteria,Urine Rare /hpf; Bilirubin,Urine Negative (Negative); Blood,Urine Trace (Negative); Color,Urine Light Yellow; Glucose,Urine (UA) Negative (Negative); Hyaline Casts,Urine 8 /lpf (0-2); Ketones,Urine 2+ (Negative); Leukocyte Esterase,Urine Negative (Negative); Mucus,Urine Rare /hpf; Nitrite,Urine Negative (Negative); PH, Urine 5.5 (5.0-8.0); Protein,Urine Trace (Negative); RBC,Urine 1 /hpf (0-5); Specific Gravity,Urine 1.007 (1.001-1.035); Squamous Epithelial Cell,Urine <1 /hpf (0-4); Urobilinogen,Urine <2.0 mg/dL (<2.0); WBC,Urine <1 /hpf (0-5)
[2021-07-01 12:03] LABS: Urn Cannabinoid Scrn Not Detected (NotDetected)
[2021-07-01 12:04] LABS: Amphetamine Screen,Urine Not Detected (NotDetected); Barbiturate Screen,Urine Not Detected (NotDetected); Benzodiazepines Screen,Urine Not Detected (NotDetected); Cocaine Screen,Urine Not Detected (NotDetected); Methadone Screen, Urine Not Detected (NotDetected); Opiate Screen,Urine Not Detected (NotDetected); Oxycodone Screen, Urine Not Detected (NotDetected); Phencyclidine Screen,Urine Not Detected (NotDetected); Tricyclic Antidepressant,Urine Not Detected (NotDetected)
--- NOTE | 2021-07-01 12:42 | CT ---
EXAMINATION TYPE: CT brain cspine wo con DATE OF EXAM: 07/01/2021 COMPARISON: Chest x-ray same date HISTORY: SEIZURE, AMS CT DLP: 1660.2 mGycm Automated exposure control for dose reduction was used. TECHNIQUE: CT scan of the head and cervical spine are performed without contrast. FINDINGS: There is no acute intracranial hemorrhage, mass effect, or midline shift identified. The ventricles and sulci are within normal limits in size. The globes are intact and the visualized sin uses are clear. Cervical spine is visualized in its entirety from C1 through upper thoracic levels and demonstrates s atisfactory alignment without evidence of acute fracture or dislocation. Prevertebral soft tissue ap pears within normal limits. The C1-C2 articulation is unremarkable. There is motion on exam. Degener ative disc changes are present. Extensive airspace disease present in the upper lobes as noted on ch est x-ray. IMPRESSION: Motion is present on the cervical spine exam could limit evaluation 1. There is no acute fracture or dislocation evident in the cervical spine. 2. No acute intracranial hemorrhage, mass effect, or midline shift is seen. 3. Correlate for pneumonia.
--- NOTE | 2021-07-01 13:30 | P.CRDCN ---
History of Present Illness Consult date: 07/01/21 Consult reason: shortness of breath History of present illness: 46-year-old lady with history of severe asthma alcohol abuse who has been drinking heavily for the last 1 week had seizures at home called the EMS and was brought to the emergency room. I have been consulted by the ER physician because of sinus tachycardia. It is difficult to take care of meaningful history from the patient who currently has a BiPAP on seems in significant resp iratory distress. She denies any chest pain. She has a BiPAP on. EKG shows sinus tachycardia. Troponins are mildly elevated. She had a stat echo that showed severe pulmonary hypertension. There is no history of coronary artery disease or congestive heart failure. I will obtain a d-dimer if necessary do a computed tomography scan of the chest Pulmonary has already been consulted Constitutional: Denies chills. Denies fever. Significant for seizures Eyes: Denies blurred vision. Denies pain. Ears, nose, mouth and throat: Denies headache. Denies sore throat. Cardiovascular: Denies chest pain. Denies shortness of breath. Respiratory: Denies cough. Severe shortness of breath Gastrointestinal: Denies abdominal pain. Denies diarrhea. Denies nausea. Denies vomiting. Musculoskeletal: Denies myalgias. Integumentary: Denies pruritus. Denies rash. Neurological: Denies numbness. Denies weakness. Psychiatric: Denies anxiety. Denies depression. Endocrine: Denies fatigue. Denies weight change. Genitourinary: Denies burning, hematuria, frequency of urination. Hematological: No anemia or excess bleeding. General: The patient is awake and alert, in no distress, and does not appear acutely ill. Skin: Skin is warm and dry and no rashes or lesions are noted. Eye: Pupils are equal, round and reactive to light, extra-ocular movements are intact; there is normal conjunctiva bilaterally. Ears, nose, mouth and throat: There are moist mucous membranes and no oral lesions. Neck: The neck is supple, there is no tenderness or JVD. Cardiovascular: There is a regular rate and rhythm. No murmur, rub or gallop is appreciated. Respiratory: Diminished air entry with bilateral wheeze l. Gastrointestinal: Soft, non-distended, non-tender abdomen without masses or organomegaly noted. There is no rebound or guarding present. Bowel sounds are unremarkable. Back: There is no tenderness to palpation in the midline. There is no obvious deformity. Musculoskeletal: Normal ROM, no tenderness, There is no pedal edema. There is no calf tenderness or swelling. Extremities: No edema. Vascular: Femoral pulse is normal. Posterior tibial pulses are normal .Dorsalis pedis is palpable. Neurological: CN II-XII intact. There are no obvious motor or sensory deficits. Speech is normal. Psychiatric: Cooperative, appropriate mood & affect, normal judgment. Assessment: Respiratory failure EtOH abuse Seizures Sinus tachycardia Severe pulmonary hypertension Plan: I will obtain a d-dimer if it is elevated obtain a computed tomography scan of the chest Patient has sinus tachycardia which is related to her underlying respiratory distress Pulmonary has been consulted Pulmonary hypertension may be related to underlying asthma Past Medical History Past Medical History: Asthma History of Any Multi-Drug Resistant Organisms: None Reported Past Surgical History: Section Past Psychological History: Anxiety, Bipolar, Depression, Schizophrenia Smoking Status: Unknown if ever smoked Past Alcohol Use History: Occasional Past Drug Use History: None Reported Medications and Allergies Home Medications Medication Instructions Recorded Confirmed Type Acetaminophen-Codeine 300-30mg 1 tab PO DAILY 07/01/21 07/01/21 History [Tylenol w/codeine #3] Albuterol Sulfate [Ventolin HFA] 2 puff INHALATION RT-Q4H PRN 07/01/21 07/01/21 History Amoxicillin 875 mg PO BID 07/01/21 07/01/21 History Clotrimazole/Betamethasone Dip 1 applic TOPICAL BID 07/01/21 07/01/21 History [Lotrisone Cream] Dexamethasone 6 mg PO DAILY 07/01/21 07/01/21 History Ergocalciferol [Vitamin D2 (1250 1,250 mcg PO Q7D 07/01/21 07/01/21 History Mcg = 87886 Iu)] Famotidine 20 mg PO BID 07/01/21 07/01/21 History Ferrous Sulfate [Feosol] 325 mg PO DAILY 07/01/21 07/01/21 History Fluticasone Propionate [Flovent 1 puff INHALATION RT-BID 07/01/21 07/01/21 History Hfa 220 mcg] HYDROcodone/APAP 5-325MG [[place] 1 tab PO DAILY 07/01/21 07/01/21 History 5-325] Pnv,Calcium 72/Iron/Folic Acid 1 tab PO DAILY 07/01/21 07/01/21 History [ Plus Tablet] Tiotropium 2.5 Mcg/Puff [Spiriva 2 puff INHALATION RT-DAILY 07/01/21 07/01/21 History Respimat 2.5 Mcg] Allergies Allergy/AdvReac Type Severity Reaction Status Date / Time Sulfa (Sulfonamide Allergy Rash/Hives Verified 07/01/21 10:23 Antibiotics) Physical Exam Vitals: Vital Signs Temp Pulse Pulse Resp BP BP Pulse Ox 07/01/21 12:34 99.4 F 140 H 42 H 113/85 99 07/01/21 12:11 135 H 07/01/21 12:03 132 H 33 H 102/80 98 07/01/21 12:00 98.1 F 144 H 28 H 112/63 99 07/01/21 11:49 134 H 07/01/21 11:00 153 H 36 H 129/93 99 07/01/21 10:21 142 H 34 H 119/76 100 07/01/21 10:12 154 H 21 99 07/01/21 10:07 168 H 32 H 136/86 88 L 07/01/21 10:01 170 H 18 125/84 89 L 07/01/21 09:50 163 H 28 H 146/135 92 L 07/01/21 08:37 150 H 26 H 132/102 100 07/01/21 08:31 149 H 07/01/21 08:20 156 H 30 H 136/109 95 07/01/21 08:09 158 H 07/01/21 08:04 160 H 30 H 142/108 94 L 07/01/21 07:58 165 H 07/01/21 07:45 98.4 F 163 H 20 142/112 99 07/01/21 07:39 145 H 8 L 139/106 83 L Intake and Output 06/30/21 07/01/21 07/01/21 22:59 06:59 14:59 Output Total 700 Balance -700 Output: Urine 700 Uretheral (Matos) 700 Other: Weight 99.79 kg Results 07/01/21 07:53 07/01/21 07:53 Cardiac Enzymes 07/01/21 07/01/21 07/01/21 Range/Units 07:53 07:53 12:27 AST 173 H (14-36) U/L Troponin I 0.139 H* 0.242 H* (0.000-0.034) ng/mL Coagulation 07/01/21 Range/Units 07:53 PT 11.7 (9.0-12.0) sec APTT 19.0 L (22.0-30.0) sec CBC 07/01/21 Range/Units 07:53 WBC 7.4 (3.8-10.6) k/uL RBC 3.75 L (3.80-5.40) m/uL Hgb 13.3 (11.4-16.0) gm/dL Hct 41.6 (34.0-46.0) % Plt Count 62 L (150-450) k/uL Comprehensive Metabolic Panel 07/01/21 Range/Units 07:53 Sodium 136 L (137-145) mmol/L Potassium 5.4 H (3.5-5.1) mmol/L Chloride 98 (98-107) mmol/L Carbon Dioxide 12 L (22-30) mmol/L BUN 8 (7-17) mg/dL Creatinine 0.75 (0.52-1.04) mg/dL Glucose 83 (74-99) mg/dL Calcium 8.5 (8.4-10.2) mg/dL AST 173 H (14-36) U/L ALT 74 H (4-34) U/L Alkaline Phosphatase 138 H (38-126) U/L Total Protein 7.8 (6.3-8.2) g/dL Albumin 4.4 (3.5-5.0) g/dL Current Medications Generic Name Dose Route Start Last Admin Trade Name Freq PRN Reason Stop Dose Admin Furosemide 40 mg 07/01/21 21:00 Furosemide 10 Mg/Ml 4 Ml Vial IV BID DIVYA Lorazepam 1 mg 07/01/21 08:40 07/01/21 13:16 Lorazepam 2 Mg/Ml Inj IV 1 mg Q2HR PRN Administration CIWA 8 or 9 Lorazepam 1 mg 07/01/21 08:40 07/01/21 11:03 Lorazepam 2 Mg/Ml Inj IV 1 mg Q1HR PRN Administration CIWA 10 to 15 Lorazepam 2 mg 07/01/21 08:40 Lorazepam 2 Mg/Ml Inj IV 07/03/21 08:41 Q10M PRN CIWA 16 or higher Naloxone HCl 0.2 mg 07/01/21 10:33 Naloxone 0.4 Mg/Ml 1 Ml Vial IV Q2M PRN Opioid Reversal Thiamine HCl 100 mg 07/01/21 17:30 Thiamine 100 Mg Tab PO BID-W/MEALS DIVYA Intake and Output 06/30/21 07/01/21 07/01/21 22:59 06:59 14:59 Output Total 700 Balance -700 Output: Urine 700 Uretheral (Matos) 700 Other: Weight 99.79 kg Patient Weight 07/02/21 06:59 Weight 99.79 kg 07/01/21 07:53 07/01/21 07:53
--- NOTE | 2021-07-01 14:00 | ECHOF ---
Referral Reason:pulmonary edema MEASUREMENTS -------- HEIGHT: 165.1 cm WEIGHT: 99.8 kg BP: RVIDd: 3.6 cm (< 3.3) IVSd: 0.5 cm (0.6 - 1.1) LVIDd: 4.9 cm (3.9 - 5.3) LVPWd: 1.0 cm (0.6 - 1.1) IVSs: 1.0 cm LVIDs: 4.1 cm LVPWs: 1.2 cm LA Diam: 3.9 cm (2.7 - 3.8) Ao Diam: 2.9 cm (2.0 - 3.7) AV Cusp: 1.8 cm (1.5 - 2.6) LA Diam: 3.8 cm (2.7 - 3.8) MV EXCURSION: 19.783 mm (> 18.000) MV EF SLOPE: 128 mm/s (70 - 150) EPSS: 1.0 cm RAP: 5.00 mmHg RVSP: 91.69 mmHg FINDINGS -------- Resting tachycardia (HR>100bpm). This was a techncally difficult study with suboptimal views, , Definity utilized for enhancement of i mages. There is severe global hypokinesis of LV . Overall left ventricular systolic function is severely i mpaired with, an EF < 20%. The right ventricle is mild to moderately enlarged. The left atrial size is normal. The right atrial size is normal. Lumason used The aortic valve is trileaflet, and appears structurally normal. No aortic stenosis or regurgitation. Moderate mitral regurgitation is present. Severe tricuspid regurgitation present. There is severe pulmonary hypertension. The right ventric ular systolic pressure, as measured by Doppler, is 91.69mmHg. There is no pulmonic regurgitation present. There is no pericardial effusion. CONCLUSIONS -------- 1. This was a techncally difficult study with suboptimal views, , Definity utilized for enhancement o f images. 2. There is severe global hypokinesis of LV . 3. Overall left ventricular systolic function is severely impaired with, an EF < 20%. 4. The right ventricle is mild to moderately enlarged. 5. The left atrial size is normal. 6. The right atrial size is normal. 7. Lumason used 8. The aortic valve is trileaflet, and appears structurally normal. No aortic stenosis or regurgitati on. 9. Moderate mitral regurgitation is present. 10. Severe tricuspid regurgitation present. 11. There is severe pulmonary hypertension. 12. The right ventricular systolic pressure, as measured by Doppler, is 91.69mmHg. 13. There is no pulmonic regurgitation present. 14. There is no pericardial effusion. LEACH RUNNER: Dolores Wilks RDCS
--- NOTE | 2021-07-01 14:44 | P.HPIM ---
History of Present Illness H&P Date: 07/01/21 Chief Complaint: Multiple complaints This is a 46-year-old patient of Dr. CarlosA Reid, for whom I'm rounding today. Patient is very short of breath on the BiPAP unable to give much of a history. History is obtained by the ER notes, physician, nurse. EMS was recently called in the house because patient saturated alcohol abuse and low magnesium levels. She had been binging over the last week. At her last drink was the previous night. When the EMS got there they found her to be short of breath. She was reported to have clear lung serrano. And when patient was being transferred patient became unresponsive and had a witnessed seizure. Her eyes had rolled back and neck. Episodes last about 2 minutes. No prior history of seizures. Initial presentation to the ER in the trauma bay patient was confused and agitated. Patient was found to have respiratory distress with audible rails. Patient did receive 2 mg of IV Ativan in the ER and also nebulized breathing treatment. Also IV magnesium and a dose of IV Solu-Medrol. Also given a dose of IV Lasix. Check stat x-rays showed pulmonary edema. Also 2-D echo showed EF of less than 20% with severe MR pulmonary hypertension. Patient was earlier seen by Dr. Courtney Fam from cardiology. Because of significant tachypnea patient not able to give any history Review of systems: GEN.: Tired EYES: None HEENT: None NECK: None RESPIRATORY: Short of breath CARDIOVASCULAR: Short of breath GASTROINTESTINAL: None GENITOURINARY: None MUSCULOSKELETAL: None LYMPHATICS: None HEMATOLOGICAL: None PSYCHIATRY: Anxious NEUROLOGICAL: None Past medical history to include: Asthma, bipolar disorder, schizophrenia Social history: Patient does live with some family members. Cannot tell. Has been doing binge alcohol for at least 2 weeks. Unclear about smoking Family history: Patient unable to tell Physical examination: VITAL SIGNS: 98.1, 132, 33, 102/80, 98% on BiPAP 70% GENERAL: BMI 35.5, sitting up in bed, short of breath, uncomfortable. EYES: Pupils equal. Conjunctiva normal. HEENT: External appearance of nose and ears normal, oral cavity grossly normal. NECK: JVD unable to assess; masses not palpable. HEART: First and second heart sounds are normal; no edema. LUNGS: Unable to speak in full sentences. Accessory muscles are working. Respiratory rate increased; decreased breath sounds with expiratory crackles. ABDOMEN: Soft, nontender, liver spleen not palpable, no masses palpable. PSYCH: Alert and oriented x3; mood and affect very anxiousl. MUSCULOSKELETAL:No Clubbing/cyanosis;muscles-grossly intact NEUROLOGICAL: Cranial nerves grossly intact; no facial asymmetry, power and sensation grossly intact. LYMPHATICS: No lymph nodes palpable in the axilla and neck INVESTIGATIONS, reviewed in the clinical context: Urine drug screen: Negative Coronavirus [PCR]: Not detected UA positive for ketones 2+ ABG: PH 7.3 pCO2 33 pO2 285 White count 7.4 hemoglobin 13.3 platelets 62 sodium 136 potassium 5.4 BUN 8 creatinine 0.75 Lactic acid 7.6 Total bilirubin 2.8 AST 173 ALT 74 ammonia 47 lipase 215 Chest x-ray film personally reviewed by me-pulmonary edema EKG tracing personally reviewed by me-sinus tachycardia. Rate 147, nonspecific ST abnormality. 2-D echocardiogram: Severe global hypokinesis, EF less than 20% right ventricle mild to moderately enlarged, moderate MR, severe TR, severe pulmonary hypertension Assessment and plan: -Acute congestive heart failure exacerbation, could be acute flashbulb edema given that the patient was not short of breath when EMS had initially arrived to the house. Patient has global hypokinesis. They could be a component of alcohol and/or viral cardiomyopathy. Acute systolic dysfunction. EF less than 20% IV Lasix. Cardiology consulted. Aldactone. Cozaar. -Severe tricuspid regurgitation, moderate mitral regurgitation Follow clinically -Severe pulmonary hypertension secondary to acute congestive heart failure, with a contribution from asthma Follow clinically and with pulmonary -Acute hypoxic respiratory failure from pulmonary edema and possible aspiration following seizure and possible asthma exacerbation Patient currently on BiPAP. Pulmonary consulted -Acute seizure episode, could be from alcohol related Ativan. Valium. -Alcohol use disorder Thiamine -Patient has been acute binge alcohol intake for last 2 weeks history. Component of alcohol withdrawal syndrome. CIWA scale -Acute exacerbation of intermittent asthma Bronchodilators. Steroids. -Obesity BMI 35.5 -Alcoholic hepatitis Follow LFTs. Liver ultrasound. -Positive troponin might likely from acute pulmonary edema Telemetric Consultation to cardiology and pulmonary. BiPAP. DuoNeb. Nebulized Pulmicort, perform wrist. IV Solu-Medrol. Valium. CIWA scale. Thiamine. Subcu Lovenox. Prognosis guarded. Past Medical History Past Medical History: Asthma History of Any Multi-Drug Resistant Organisms: None Reported Past Surgical History: Section Past Psychological History: Anxiety, Bipolar, Depression, Schizophrenia Smoking Status: Unknown if ever smoked Past Alcohol Use History: Occasional Past Drug Use History: None Reported Medications and Allergies Home Medications Medication Instructions Recorded Confirmed Type Acetaminophen-Codeine 300-30mg 1 tab PO DAILY 07/01/21 07/01/21 History [Tylenol w/codeine #3] Albuterol Sulfate [Ventolin HFA] 2 puff INHALATION RT-Q4H PRN 07/01/21 07/01/21 History Amoxicillin 875 mg PO BID 07/01/21 07/01/21 History Clotrimazole/Betamethasone Dip 1 applic TOPICAL BID 07/01/21 07/01/21 History [Lotrisone Cream] Dexamethasone 6 mg PO DAILY 07/01/21 07/01/21 History Ergocalciferol [Vitamin D2 (1250 1,250 mcg PO Q7D 07/01/21 07/01/21 History Mcg = 81766 Iu)] Famotidine 20 mg PO BID 07/01/21 07/01/21 History Ferrous Sulfate [Feosol] 325 mg PO DAILY 07/01/21 07/01/21 History Fluticasone Propionate [Flovent 1 puff INHALATION RT-BID 07/01/21 07/01/21 History Hfa 220 mcg] HYDROcodone/APAP 5-325MG [[place] 1 tab PO DAILY 07/01/21 07/01/21 History 5-325] Pnv,Calcium 72/Iron/Folic Acid 1 tab PO DAILY 07/01/21 07/01/21 History [ Plus Tablet] Tiotropium 2.5 Mcg/Puff [Spiriva 2 puff INHALATION RT-DAILY 07/01/21 07/01/21 History Respimat 2.5 Mcg] Allergies Allergy/AdvReac Type Severity Reaction Status Date / Time Sulfa (Sulfonamide Allergy Rash/Hives Verified 07/01/21 10:23 Antibiotics) Physical Exam Vitals: Vital Signs Temp Pulse Resp BP Pulse Ox 07/01/21 11:00 153 H 36 H 129/93 99 07/01/21 10:21 142 H 34 H 119/76 100 07/01/21 10:12 154 H 21 99 07/01/21 10:07 168 H 32 H 136/86 88 L 07/01/21 10:01 170 H 18 125/84 89 L 07/01/21 09:50 163 H 28 H 146/135 92 L 07/01/21 08:37 150 H 26 H 132/102 100 07/01/21 08:31 149 H 07/01/21 08:20 156 H 30 H 136/109 95 07/01/21 08:09 158 H 07/01/21 08:04 160 H 30 H 142/108 94 L 07/01/21 07:58 165 H 07/01/21 07:45 98.4 F 163 H 20 142/112 99 07/01/21 07:39 145 H 8 L 139/106 83 L Intake and Output 06/30/21 07/01/21 07/01/21 22:59 06:59 14:59 Output Total 700 Balance -700 Output: Urine 700 Uretheral (Matos) 700 Other: Weight 99.79 kg Results CBC & Chem 7: 07/01/21 07:53 07/01/21 07:53 Labs: Abnormal Lab Results - Last 24 Hours (Table) 07/01/21 07/01/21 07/01/21 Range/Units 07:53 07:53 07:53 RBC 3.75 L (3.80-5.40) m/uL MCV 110.9 H (80.0-100.0) fL MCH 35.4 H (25.0-35.0) pg Plt Count 62 L (150-450) k/uL Macrocytosis Marked A APTT 19.0 L (22.0-30.0) sec ABG pH (7.35-7.45) ABG pCO2 (35-45) mmHg ABG pO2 (83-108) mmHg ABG HCO3 (21-25) mmol/L ABG Total CO2 (19-24) mmol/L ABG O2 Saturation (94-97) % Sodium 136 L (137-145) mmol/L Potassium 5.4 H (3.5-5.1) mmol/L Carbon Dioxide 12 L (22-30) mmol/L Plasma Lactic Acid Zain (0.7-2.0) mmol/L Magnesium 1.1 L (1.6-2.3) mg/dL Total Bilirubin 2.8 H (0.2-1.3) mg/dL AST 173 H (14-36) U/L ALT 74 H (4-34) U/L Alkaline Phosphatase 138 H (38-126) U/L Ammonia (<30) umol/L Creatine Kinase 181 H (30-135) U/L Troponin I (0.000-0.034) ng/mL 07/01/21 07/01/21 07/01/21 Range/Units 07:53 07:53 10:37 RBC (3.80-5.40) m/uL MCV (80.0-100.0) fL MCH (25.0-35.0) pg Plt Count (150-450) k/uL Macrocytosis APTT (22.0-30.0) sec ABG pH 7.30 L (7.35-7.45) ABG pCO2 33 L (35-45) mmHg ABG pO2 285 H (83-108) mmHg ABG HCO3 16 L (21-25) mmol/L ABG Total CO2 17 L (19-24) mmol/L ABG O2 Saturation 100.0 H (94-97) % Sodium (137-145) mmol/L Potassium (3.5-5.1) mmol/L Carbon Dioxide (22-30) mmol/L Plasma Lactic Acid Zain 7.6 H* (0.7-2.0) mmol/L Magnesium (1.6-2.3) mg/dL Total Bilirubin (0.2-1.3) mg/dL AST (14-36) U/L ALT (4-34) U/L Alkaline Phosphatase (38-126) U/L Ammonia 47 H (<30) umol/L Creatine Kinase (30-135) U/L Troponin I 0.139 H* (0.000-0.034) ng/mL
[2021-07-01] MEDS ORDERED: SPIRONOLACTONE 25 MG TAB PO SCH (14:45)
[2021-07-01] MEDS ORDERED: ENOXAPARIN 40 MG/0.4 ML SYRINGE SQ SCH (14:45)
[2021-07-01] MEDS ORDERED: DEXMEDETOMIDINE/0.9% NACL(PMX) 400 MCG in EMPTY BAG 1 BAG IV SCH (16:00)
[2021-07-01 16:05] LABS: Glucose,Whole Blood 151 mg/dL (75-99)
[2021-07-01] MEDS: IPRATROPIUM-ALBUTEROL 3 ML NEB INHALATION SCH ×3 (16:08→19:41)
[2021-07-01] MEDS: BUDESONIDE 1 MG/2 ML NEBU INHALATION SCH ×2 (16:08→19:41)
[2021-07-01] MEDS: FORMOTEROL FUMARATE 20 MCG/2 ML NEBU INHALATION SCH ×2 (16:08→19:41)
[2021-07-01] MEDS ORDERED: propofoL 100 ML IV ONE (17:35)
[2021-07-01] MEDS ORDERED: NOREPINEPHRIN 4 MG-0.9% NS PMX 4 MG/250 ML ML IV ONE (18:02)
[2021-07-01] MEDS ORDERED: CISATRACURIUM 2 MG/ML 5 ML VIAL IV ONE ×2 (18:29→18:30)
--- NOTE | 2021-07-01 19:04 | XR ---
EXAMINATION TYPE: XR chest 1V portable DATE OF EXAM: 07/01/2021 COMPARISON: 07/01/2021 HISTORY: Recurrent failure TECHNIQUE: Single view FINDINGS: Endotracheal tube is 3 cm from the dona. There is pulmonary interstitial and airspace mod erate edema. Trachea is midline. There is nasogastric tube in the stomach. There are chest leads. IMPRESSION: Tubing in good position. Pulmonary edema appears not significantly different than exam ea rlier today. This could relate to RDS.
[2021-07-01] MEDS: CISATRACURIUM 200 MG in SODIUM CHLORIDE 0.9% 180 ML IV SCH (19:08)
[2021-07-01 19:35] LABS: ABG Base Excess -6.6 mmol/L; ABG HCO3 18 mmol/L (21-25); ABG PCO2 30 mmHg (35-45); ABG PO2 316 mmHg (83-108); ABG TCO2 19 mmol/L (19-24); Allen Test Performed? Yes
[2021-07-01] MEDS ORDERED: HEPARIN SODIUM 1,000 UN/ML (10ML VL) IV PRN (19:44)
[2021-07-01] MEDS ORDERED: HEPARIN SODIUM 1,000 UN/ML (10ML VL) IV ONE (19:44)
[2021-07-01] MEDS ORDERED: HEPARIN SOD,PORK IN 0.45% NACL 25,000 UNIT in 0.45% NACL 1 250ML.BAG IV SCH (19:45)
[2021-07-01] MEDS: LOSARTAN 25 MG TAB PO SCH (20:06)
[2021-07-01] MEDS: THIAMINE 100 MG TAB PO SCH (20:07)
[2021-07-01] MEDS: diazePAM 2 MG TAB PO SCH ×2 (20:07→23:57)
[2021-07-01] MEDS: methylPREDNISolone SOD SUCCI 40 MG/ML 1 ML VIAL IV SCH (20:07)
[2021-07-01] MEDS: NOREPINEPHRINE 4 MG in SODIUM CHLORIDE 0.9% 250 ML IV SCH ×2 (20:36→22:43)
[2021-07-01 20:41] LABS: Basophils % (A) 0 %; Eosinophils % (A) 0 %; HGB 11.5 gm/dL (11.4-16.0); Lymphocytes # (A) 0.3 k/uL (1.0-4.8); Lymphocytes % (A) 5 %; MCH 35.1 pg (25.0-35.0); MCHC 31.9 g/dL (31.0-37.0); Macrocytosis Marked; Mean Platelet Volume 9.3; Monocytes # (A) 0.2 k/uL (0-1.0); Monocytes % (A) 3 %; Neutrophils # (A) 6.7 k/uL (1.3-7.7); Neutrophils % (A) 91 %; RBC 3.27 m/uL (3.80-5.40); RDW 14.9 % (11.5-15.5); WBC 7.4 k/uL (3.8-10.6)
[2021-07-01 20:44] LABS: Platelet Count 73 k/uL (150-450)
[2021-07-01 20:49] LABS: INR 1.2 (<1.2); Partial Thromboplastin Time 22.4 sec (22.0-30.0); Prothrombin Time 12.8 sec (9.0-12.0)
[2021-07-01] MEDS ORDERED: FUROSEMIDE 10 MG/ML 4 ML VIAL IV SCH (21:00)
[2021-07-01] MEDS: FUROSEMIDE 100 MG in SODIUM CHLORIDE 0.9% 90 ML IV SCH (22:18)
[2021-07-01] MEDS: CHLORHEXIDINE GLUCONATE 15 ML CUP MUCOUS MEM SCH (22:18)
[2021-07-01] MEDS: SODIUM CHLORIDE 0.9% 500 ML 500 ML IV SCH (22:55)
[2021-07-01] MEDS: PANTOPRAZOLE 40 MG/10 ML VIAL IVP SCH (22:55)
[2021-07-01] MEDS: PIPERACILLIN-TAZOBACTAM 3.375 GM in SODIUM CHLORIDE 0.9% 100 ML IVPB SCH (22:56)
[2021-07-01 23:57] LABS: Glucose,Whole Blood 215 mg/dL (75-99)
[2021-07-02] MEDS: methylPREDNISolone SOD SUCCI 40 MG/ML 1 ML VIAL IV SCH ×3 (00:42→16:15)
[2021-07-02] MEDS: INSULIN ASPART (NovoLOG) 100 UNIT/ML VIAL SQ SCH ×4 (01:31→18:20)
[2021-07-02] MEDS: NOREPINEPHRINE 4 MG in SODIUM CHLORIDE 0.9% 250 ML IV SCH ×9 (01:35→22:24)
[2021-07-02] MEDS ORDERED: TERBUTALINE 1 MG/ML VIAL SQ ONE (02:58)
[2021-07-02] MEDS: IPRATROPIUM-ALBUTEROL 3 ML NEB INHALATION SCH ×7 (03:26→23:42)
[2021-07-02 03:39] LABS: Basophils % (A) 0 %; Eosinophils # (A) 0.1 k/uL (0-0.7); Eosinophils % (A) 1 %; HCT 34.9 % (34.0-46.0); HGB 11.4 gm/dL (11.4-16.0); Lymphocytes # (A) 0.3 k/uL (1.0-4.8); Lymphocytes % (A) 3 %; MCH 35.5 pg (25.0-35.0); MCHC 32.6 g/dL (31.0-37.0); Macrocytosis Marked; Mean Platelet Volume 9.8; Monocytes # (A) 0.3 k/uL (0-1.0); Monocytes % (A) 2 %; Neutrophils # (A) 9.6 k/uL (1.3-7.7); Neutrophils % (A) 93 %; RDW 14.8 % (11.5-15.5); WBC 10.3 k/uL (3.8-10.6)
[2021-07-02 03:40] LABS: Platelet Count 81 k/uL (150-450)
[2021-07-02 03:49] LABS: INR 1.3 (<1.2); Partial Thromboplastin Time 54.3 sec (22.0-30.0); Prothrombin Time 13.2 sec (9.0-12.0)
[2021-07-02 04:21] LABS: ALT 67 U/L (4-34); African American GFR (CKD) >90 (>60 ml/min/1.73 sqM); Anion Gap 19 mmol/L; Blood Urea Nitrogen 16 mg/dL (7-17); Calcium 7.5 mg/dL (8.4-10.2); Carbon Dioxide 21 mmol/L (22-30); Chloride 94 mmol/L (98-107); Glucose 214 mg/dL (74-99); Non-African American GFR(CKD) 82 (>60 ml/min/1.73 sqM); Sodium 134 mmol/L (137-145); Total Bilirubin 1.8 mg/dL (0.2-1.3); Total Protein 7.2 g/dL (6.3-8.2)
[2021-07-02 04:29] LABS: AST 159 U/L (14-36); Alkaline Phosphatase 100 U/L (38-126)
[2021-07-02 05:25] LABS: Glucose,Whole Blood 187 mg/dL (75-99)
[2021-07-02] MEDS: FUROSEMIDE 100 MG in SODIUM CHLORIDE 0.9% 90 ML IV SCH ×2 (05:28→22:21)
[2021-07-02 05:44] LABS: ABG Base Excess 5.5 mmol/L; ABG HCO3 29 mmol/L (21-25); ABG PCO2 37 mmHg (35-45); ABG PO2 113 mmHg (83-108); ABG TCO2 30 mmol/L (19-24); Allen Test Performed? Yes
[2021-07-02] MEDS: THIAMINE 100 MG TAB PO SCH ×2 (06:44→18:21)
[2021-07-02] MEDS: BUDESONIDE 1 MG/2 ML NEBU INHALATION SCH ×2 (07:09→19:14)
[2021-07-02] MEDS: FORMOTEROL FUMARATE 20 MCG/2 ML NEBU INHALATION SCH ×2 (07:09→19:14)
--- NOTE | 2021-07-02 07:48 | P.PN ---
Subjective Progress Note Date: 07/02/21 Principal diagnosis: Severe cardiomyopathy The patient is a 46-year-old -[place] female patient with a past medical history significant for excessive alcohol use as well as history of asthma who was admitted to the hospital after she presented with seizure and subsequently she developed respiratory failure requiring intubation and mechanical ventilation. We felt that the respiratory failure secondary to heart failure. The patient underwent an echocardiogram that revealed severe cardiomyopathy with EF of 20% was evidence of moderate mitral regurgitation and severe tricuspid regurgitation as well as severe pulmonary hypertension. Currently the patient is intubated and she is on mechanical ventilation. She is also in sinus tachycardia. Currently also she is on vasopressors was norepinephrine. The patient was seen this morning. She remains intubated and sedated. She remains on norepinephrine at this point with a small dose. She is in sinus tachycardia with a resting heart rate around 120 beats per minutes. She is also on Lasix drip. Her d-dimer came in to be elevated and because she is unstable to undergo a computed tomography scan or VQ scan she was started on heparin IV for possible pulmonary embolism. At this point I would continue the current medical regimen. I'm going to obtain a TSH and free T4 to rule out any thyroid disease contributing to the patient tachycardia. I would avoid any beta simon at this point in view of the acute exacerbation of heart failure. She is on losartan at a small dose which we will continue. Would add Aldactone down the line. And once she is a stable into above heart failure she will benefit from beta simon. Continue IV heparin at this point until we have a definitive diagnosis regarding pulmonary embolism. Objective - Vital Signs Vital signs: Vital Signs Temp 99.3 F 07/02/21 04:00 Pulse 137 H 07/02/21 07:30 Resp 26 H 07/02/21 07:30 BP 110/82 07/02/21 03:45 Pulse Ox 98 07/02/21 07:30 Intake & Output 07/01/21 07/02/21 07/02/21 18:59 06:59 18:59 Intake Total 2.578 1190.579 Output Total 1000 3115 Balance -997.422 -1924.421 Weight 99.79 kg Intake: Intake, IV Titration 2.578 1190.579 Amount Cisatracurium 200 mg In 17.663 Sodium Chloride 0.9% 180 ml @ 1 MCG/KG/MIN 5.987 mls/hr IV .Q24H [facility]YA Rx#: [id number] Dexmedetomidine/0.9% NaCl 2.578 (Pmx) 400 mcg In Empty Bag 1 bag @ 0.2 MCG/KG/HR 4.99 mls/hr IV .Q20H3M [facility]YA Rx#:[id number] Furosemide 100 mg In 71.667 Sodium Chloride 0.9% 90 ml @ 10 MG/HR 10 mls/hr IV .Q10H [facility]YA Rx#: [id number] Norepinephrine 4 mg In 601.249 Sodium Chloride 0.9% 250 ml @ 0.3 MCG/KG/MIN 114. 06 mls/hr IV .Q2H14M [facility]YA Rx#:[id number] Piperacillin-Tazobactam 3 100 .375 gm In Sodium Chloride 0.9% 100 ml @ 25 mls/hr IVPB Q12H [facility]YA Rx# :[id number] Sodium Chloride 0.9% 500 200 ml 500 ml @ 20 mls/hr IV .Q24H [facility]YA Rx#:[id number] propofoL 1,000 mg In 200 Empty Bag 1 bag @ Titrate IV .Q0M DIVYA Rx#: [id number] Output: Urine 1000 3115 Uretheral (Matos) 700 700 Other: Voiding Method Indwelling Catheter Indwelling Catheter ABP, PAP, CO, CI - Last Documented Arterial Blood Pressure 98/67 - Constitutional General appearance: Present: no acute distress - Respiratory Respiratory: bilateral: diminished - Cardiovascular Rhythm: regular - Labs CBC & Chem 7: 07/02/21 03:20 07/02/21 03:20 Labs: Abnormal Lab Results - Last 24 Hours (Table) 07/01/21 07/01/21 07/01/21 Range/Units 07:53 07:53 07:53 RBC 3.75 L (3.80-5.40) m/uL MCV 110.9 H (80.0-100.0) fL MCH 35.4 H (25.0-35.0) pg Plt Count 62 L (150-450) k/uL Neutrophils # (1.3-7.7) k/uL Lymphocytes # (1.0-4.8) k/uL Macrocytosis Marked A PT (9.0-12.0) sec INR (<1.2) APTT 19.0 L (22.0-30.0) sec D-Dimer (<0.60) mg/L FEU ABG pH (7.35-7.45) ABG pCO2 (35-45) mmHg ABG pO2 (83-108) mmHg ABG HCO3 (21-25) mmol/L ABG Total CO2 (19-24) mmol/L ABG O2 Saturation (94-97) % Sodium 136 L (137-145) mmol/L Potassium 5.4 H (3.5-5.1) mmol/L Chloride (98-107) mmol/L Carbon Dioxide 12 L (22-30) mmol/L Glucose (74-99) mg/dL POC Glucose (mg/dL) (75-99) mg/dL Plasma Lactic Acid Zain (0.7-2.0) mmol/L Calcium (8.4-10.2) mg/dL Magnesium 1.1 L (1.6-2.3) mg/dL Total Bilirubin 2.8 H (0.2-1.3) mg/dL AST 173 H (14-36) U/L ALT 74 H (4-34) U/L Alkaline Phosphatase 138 H (38-126) U/L Ammonia (<30) umol/L Creatine Kinase 181 H (30-135) U/L Troponin I (0.000-0.034) ng/mL Prolactin (2.800-29.200) ng/mL Urine Protein (Negative) Urine Ketones (Negative) Urine Blood (Negative) Urine Bacteria (None) /hpf Hyaline Casts (0-2) /lpf Urine Mucus (None) /hpf 07/01/21 07/01/21 07/01/21 Range/Units 07:53 07:53 07:53 RBC (3.80-5.40) m/uL MCV (80.0-100.0) fL MCH (25.0-35.0) pg Plt Count (150-450) k/uL Neutrophils # (1.3-7.7) k/uL Lymphocytes # (1.0-4.8) k/uL Macrocytosis PT (9.0-12.0) sec INR (<1.2) APTT (22.0-30.0) sec D-Dimer (<0.60) mg/L FEU ABG pH (7.35-7.45) ABG pCO2 (35-45) mmHg ABG pO2 (83-108) mmHg ABG HCO3 (21-25) mmol/L ABG Total CO2 (19-24) mmol/L ABG O2 Saturation (94-97) % Sodium (137-145) mmol/L Potassium (3.5-5.1) mmol/L Chloride (98-107) mmol/L Carbon Dioxide (22-30) mmol/L Glucose (74-99) mg/dL POC Glucose (mg/dL) (75-99) mg/dL Plasma Lactic Acid Zain 7.6 H* (0.7-2.0) mmol/L Calcium (8.4-10.2) mg/dL Magnesium (1.6-2.3) mg/dL Total Bilirubin (0.2-1.3) mg/dL AST (14-36) U/L ALT (4-34) U/L Alkaline Phosphatase (38-126) U/L Ammonia 47 H (<30) umol/L Creatine Kinase (30-135) U/L Troponin I 0.139 H* (0.000-0.034) ng/mL Prolactin 95.300 H (2.800-29.200) ng/mL Urine Protein (Negative) Urine Ketones (Negative) Urine Blood (Negative) Urine Bacteria (None) /hpf Hyaline Casts (0-2) /lpf Urine Mucus (None) /hpf 07/01/21 07/01/21 07/01/21 Range/Units 10:37 10:54 12:27 RBC (3.80-5.40) m/uL MCV (80.0-100.0) fL MCH (25.0-35.0) pg Plt Count (150-450) k/uL Neutrophils # (1.3-7.7) k/uL Lymphocytes # (1.0-4.8) k/uL Macrocytosis PT (9.0-12.0) sec INR (<1.2) APTT (22.0-30.0) sec D-Dimer (<0.60) mg/L FEU ABG pH 7.30 L (7.35-7.45) ABG pCO2 33 L (35-45) mmHg ABG pO2 285 H (83-108) mmHg ABG HCO3 16 L (21-25) mmol/L ABG Total CO2 17 L (19-24) mmol/L ABG O2 Saturation 100.0 H (94-97) % Sodium (137-145) mmol/L Potassium (3.5-5.1) mmol/L Chloride (98-107) mmol/L Carbon Dioxide (22-30) mmol/L Glucose (74-99) mg/dL POC Glucose (mg/dL) (75-99) mg/dL Plasma Lactic Acid Zain (0.7-2.0) mmol/L Calcium (8.4-10.2) mg/dL Magnesium (1.6-2.3) mg/dL Total Bilirubin (0.2-1.3) mg/dL AST (14-36) U/L ALT (4-34) U/L Alkaline Phosphatase (38-126) U/L Ammonia (<30) umol/L Creatine Kinase (30-135) U/L Troponin I 0.242 H* (0.000-0.034) ng/mL Prolactin (2.800-29.200) ng/mL Urine Protein Trace H (Negative) Urine Ketones 2+ H (Negative) Urine Blood Trace H (Negative) Urine Bacteria Rare H (None) /hpf Hyaline Casts 8 H (0-2) /lpf Urine Mucus Rare H (None) /hpf 07/01/21 07/01/21 07/01/21 Range/Units 12:27 14:51 15:04 RBC (3.80-5.40) m/uL MCV (80.0-100.0) fL MCH (25.0-35.0) pg Plt Count (150-450) k/uL Neutrophils # (1.3-7.7) k/uL Lymphocytes # (1.0-4.8) k/uL Macrocytosis PT (9.0-12.0) sec INR (<1.2) APTT (22.0-30.0) sec D-Dimer (<0.60) mg/L FEU ABG pH (7.35-7.45) ABG pCO2 (35-45) mmHg ABG pO2 (83-108) mmHg ABG HCO3 (21-25) mmol/L ABG Total CO2 (19-24) mmol/L ABG O2 Saturation (94-97) % Sodium (137-145) mmol/L Potassium (3.5-5.1) mmol/L Chloride (98-107) mmol/L Carbon Dioxide (22-30) mmol/L Glucose (74-99) mg/dL POC Glucose (mg/dL) (75-99) mg/dL Plasma Lactic Acid Zain 3.8 H* 3.4 H* (0.7-2.0) mmol/L Calcium (8.4-10.2) mg/dL Magnesium (1.6-2.3) mg/dL Total Bilirubin (0.2-1.3) mg/dL AST (14-36) U/L ALT (4-34) U/L Alkaline Phosphatase (38-126) U/L Ammonia (<30) umol/L Creatine Kinase (30-135) U/L Troponin I 0.286 H* (0.000-0.034) ng/mL Prolactin (2.800-29.200) ng/mL Urine Protein (Negative) Urine Ketones (Negative) Urine Blood (Negative) Urine Bacteria (None) /hpf Hyaline Casts (0-2) /lpf Urine Mucus (None) /hpf 07/01/21 07/01/21 07/01/21 Range/Units 15:36 16:04 18:14 RBC (3.80-5.40) m/uL MCV (80.0-100.0) fL MCH (25.0-35.0) pg Plt Count (150-450) k/uL Neutrophils # (1.3-7.7) k/uL Lymphocytes # (1.0-4.8) k/uL Macrocytosis PT (9.0-12.0) sec INR (<1.2) APTT (22.0-30.0) sec D-Dimer 2.30 H (<0.60) mg/L FEU ABG pH (7.35-7.45) ABG pCO2 (35-45) mmHg ABG pO2 (83-108) mmHg ABG HCO3 (21-25) mmol/L ABG Total CO2 (19-24) mmol/L ABG O2 Saturation (94-97) % Sodium (137-145) mmol/L Potassium (3.5-5.1) mmol/L Chloride (98-107) mmol/L Carbon Dioxide (22-30) mmol/L Glucose (74-99) mg/dL POC Glucose (mg/dL) 151 H (75-99) mg/dL Plasma Lactic Acid Zain 3.3 H* (0.7-2.0) mmol/L Calcium (8.4-10.2) mg/dL Magnesium (1.6-2.3) mg/dL Total Bilirubin (0.2-1.3) mg/dL AST (14-36) U/L ALT (4-34) U/L Alkaline Phosphatase (38-126) U/L Ammonia (<30) umol/L Creatine Kinase (30-135) U/L Troponin I (0.000-0.034) ng/mL Prolactin (2.800-29.200) ng/mL Urine Protein (Negative) Urine Ketones (Negative) Urine Blood (Negative) Urine Bacteria (None) /hpf Hyaline Casts (0-2) /lpf Urine Mucus (None) /hpf 07/01/21 07/01/21 07/01/21 Range/Units 19:30 19:50 19:50 RBC 3.27 L (3.80-5.40) m/uL MCV 110.0 H (80.0-100.0) fL MCH 35.1 H (25.0-35.0) pg Plt Count 73 L (150-450) k/uL Neutrophils # (1.3-7.7) k/uL Lymphocytes # 0.3 L (1.0-4.8) k/uL Macrocytosis Marked A PT 12.8 H (9.0-12.0) sec INR 1.2 H (<1.2) APTT (22.0-30.0) sec D-Dimer (<0.60) mg/L FEU ABG pH (7.35-7.45) ABG pCO2 30 L (35-45) mmHg ABG pO2 316 H (83-108) mmHg ABG HCO3 18 L (21-25) mmol/L ABG Total CO2 (19-24) mmol/L ABG O2 Saturation 100.0 H (94-97) % Sodium (137-145) mmol/L Potassium (3.5-5.1) mmol/L Chloride (98-107) mmol/L Carbon Dioxide (22-30) mmol/L Glucose (74-99) mg/dL POC Glucose (mg/dL) (75-99) mg/dL Plasma Lactic Acid Zain (0.7-2.0) mmol/L Calcium (8.4-10.2) mg/dL Magnesium (1.6-2.3) mg/dL Total Bilirubin (0.2-1.3) mg/dL AST (14-36) U/L ALT (4-34) U/L Alkaline Phosphatase (38-126) U/L Ammonia (<30) umol/L Creatine Kinase (30-135) U/L Troponin I (0.000-0.034) ng/mL Prolactin (2.800-29.200) ng/mL Urine Protein (Negative) Urine Ketones (Negative) Urine Blood (Negative) Urine Bacteria (None) /hpf Hyaline Casts (0-2) /lpf Urine Mucus (None) /hpf 07/01/21 07/02/21 07/02/21 Range/Units 23:55 03:20 03:20 RBC 3.20 L (3.80-5.40) m/uL MCV 109.0 H (80.0-100.0) fL MCH 35.5 H (25.0-35.0) pg Plt Count 81 L (150-450) k/uL Neutrophils # 9.6 H (1.3-7.7) k/uL Lymphocytes # 0.3 L (1.0-4.8) k/uL Macrocytosis Marked A PT (9.0-12.0) sec INR (<1.2) APTT (22.0-30.0) sec D-Dimer (<0.60) mg/L FEU ABG pH (7.35-7.45) ABG pCO2 (35-45) mmHg ABG pO2 (83-108) mmHg ABG HCO3 (21-25) mmol/L ABG Total CO2 (19-24) mmol/L ABG O2 Saturation (94-97) % Sodium 134 L (137-145) mmol/L Potassium (3.5-5.1) mmol/L Chloride 94 L (98-107) mmol/L Carbon Dioxide 21 L (22-30) mmol/L Glucose 214 H (74-99) mg/dL POC Glucose (mg/dL) 215 H (75-99) mg/dL Plasma Lactic Acid Zain (0.7-2.0) mmol/L Calcium 7.5 L (8.4-10.2) mg/dL Magnesium 1.0 L (1.6-2.3) mg/dL Total Bilirubin 1.8 H (0.2-1.3) mg/dL AST 159 H (14-36) U/L ALT 67 H (4-34) U/L Alkaline Phosphatase (38-126) U/L Ammonia (<30) umol/L Creatine Kinase (30-135) U/L Troponin I (0.000-0.034) ng/mL Prolactin (2.800-29.200) ng/mL Urine Protein (Negative) Urine Ketones (Negative) Urine Blood (Negative) Urine Bacteria (None) /hpf Hyaline Casts (0-2) /lpf Urine Mucus (None) /hpf 07/02/21 07/02/21 07/02/21 Range/Units 03:20 05:20 05:40 RBC (3.80-5.40) m/uL MCV (80.0-100.0) fL MCH (25.0-35.0) pg Plt Count (150-450) k/uL Neutrophils # (1.3-7.7) k/uL Lymphocytes # (1.0-4.8) k/uL Macrocytosis PT 13.2 H (9.0-12.0) sec INR 1.3 H (<1.2) APTT 54.3 H (22.0-30.0) sec D-Dimer (<0.60) mg/L FEU ABG pH 7.50 H (7.35-7.45) ABG pCO2 (35-45) mmHg ABG pO2 113 H (83-108) mmHg ABG HCO3 29 H (21-25) mmol/L ABG Total CO2 30 H (19-24) mmol/L ABG O2 Saturation 99.0 H (94-97) % Sodium (137-145) mmol/L Potassium (3.5-5.1) mmol/L Chloride (98-107) mmol/L Carbon Dioxide (22-30) mmol/L Glucose (74-99) mg/dL POC Glucose (mg/dL) 187 H (75-99) mg/dL Plasma Lactic Acid Zain (0.7-2.0) mmol/L Calcium (8.4-10.2) mg/dL Magnesium (1.6-2.3) mg/dL Total Bilirubin (0.2-1.3) mg/dL AST (14-36) U/L ALT (4-34) U/L Alkaline Phosphatase (38-126) U/L Ammonia (<30) umol/L Creatine Kinase (30-135) U/L Troponin I (0.000-0.034) ng/mL Prolactin (2.800-29.200) ng/mL Urine Protein (Negative) Urine Ketones (Negative) Urine Blood (Negative) Urine Bacteria (None) /hpf Hyaline Casts (0-2) /lpf Urine Mucus (None) /hpf Microbiology - Last 24 Hours (Table) 07/01/21 20:07 Gram Stain - Preliminary Sputum Sputum Culture - Preliminary Assessment and Plan Assessment: Assessment #1 acute hypoxic respiratory failure #2 acute exacerbation of heart failure with reduced ejection fraction #3 severe cardiomyopathy likely to be EtOH-induced versus tachycardia induced versus myocarditis #4 disease with mitral and tricuspid regurgitation secondary to cardiomyopathy #5 sinus tachycardia #6 possible thromboembolic disease #7 excessive alcohol use #8 an episode of seizure Plan #1 try to wean the patient from norepinephrine #2 avoid any beta simon at this point in view of the exacerbation of heart failure and unstable hemodynamics #3 continue diuretics #4 continue monitor the kidney function and electrolytes #5 add Aldactone once the potassium improved #6 continue losartan #7 the patient need to undergo coronary angiogram down the line #8 monitor for arrhythmia #9 obtain sed rate #10 the whole picture could be consistent with myocarditis as well
[2021-07-02] MEDS: CHLORHEXIDINE GLUCONATE 15 ML CUP MUCOUS MEM SCH ×2 (08:30→21:56)
[2021-07-02] MEDS: PANTOPRAZOLE 40 MG/10 ML VIAL IVP SCH (08:30)
--- NOTE | 2021-07-02 09:37 | XR ---
EXAMINATION TYPE: XR chest 1V portable DATE OF EXAM: 07/02/2021 COMPARISON: 07/01/2021 HISTORY: Shortness of breath TECHNIQUE: Single frontal view of the chest is obtained. FINDINGS: ET and NG tube noted and aren't bilateral diffuse infiltrate and pleural effusion and card iomegaly. No pneumothorax. IMPRESSION: Diffuse bilateral infiltrates correlate for CHF versus diffuse pneumonia greater on the left.
--- NOTE | 2021-07-02 10:36 | PCN ---
PROCEDURE NOTE PULMONARY/CRITICAL CARE PROCEDURE NOTE: Placement of left subclavian triple-lumen catheter. PREOPERATIVE DIAGNOSIS: Administration of fluids and pressors. POSTOPERATIVE DIAGNOSIS: Administration of fluids and pressors. OPERATORS: 1. Dr. Thomas. 2. Dr. Escudero. PROCEDURE DESCRIPTION: There was informed consent and universal timeout. A time-out was completed verifying correct patient, procedure, site, positioning, and implant(s) or special equipment if applicable. The patient was placed in a dependent position appropriate for triple lumen catheter placement based on the vein to be cannulated. The patient's left shoulder was prepped and draped in sterile fashion. 1% Lidocaine was used to anesthetize the surrounding skin area. A triple lumen 9F Cordis catheter was introduced into the left subclavian vein using Seldinger technique. The catheter was threaded smoothly over the guide wire and appropriate blood return was obtained. There was good blood return from all 3 ports and good waveform. Each lumen of the catheter was evacuated of air and flushed with sterile saline. The catheter was then sutured in place to the skin and a sterile dressing applied by the nurse. Perfusion to the extremity distal to the point of catheter insertion was checked and found to be adequate. There was no immediate complication. The patient tolerated the procedure well. The tip of the catheter was seen in the junction between the superior vena cava and right atrium. A chest x-ray was ordered. JENNY / NIVIAN: [id number] /
--- NOTE | 2021-07-02 10:55 | XR ---
EXAMINATION TYPE: XR chest 1V portable DATE OF EXAM: 07/02/2021 Comparison: Earlier today Clinical History: 46-year-old female central line placement Findings: ET tube tip just above the level of the medial clavicular heads. NG tube courses below the diaphragm. Left subclavian CVC tip malpositioned, tip in the right axilla. Heart remains mildly enlarged. Diffuse interstitial opacities persist. Previous confluent opacities h ave slightly improved. No sizable pleural effusion or pneumothorax. Impression: 1. Left subclavian CVC tip malpositioned, tip at the right axilla. 2. Diffuse interstitial infiltrates continue with slight interval improvement.
--- NOTE | 2021-07-02 11:24 | P.CNPUL ---
History of Present Illness Consult date: 07/02/21 Requesting physician: Carlos A Reid Reason for consult: hypoxemia, abnormal CXR/CT Chief complaint: Mental status changes, seizure disorder, alcohol withdrawal syndrome. History of present illness: Pulmonary consult dated 07/02/2021. 46-year-old black female, with a history of asthma, and hypertension, who presents to the emergency department, with mental status changes, and being poorly responsive. EMS was called to the house, and the patient apparently has had significant alcohol abuse, and was thought to have alcohol withdrawal syndrome. Apparently, the patient complained about being short of breath. In transport, the patient apparently had a seizure. She became unresponsive in the eyes rolled back in her head. That episode lasted 2 minutes. When she arrived to the trauma bay, she was confused and agitated. She apparently was intubated on the in the emergency department. She came to the intensive care unit on the . She remains on the mechanical ventilator. She is on the volume assist control mode, rate 26, tidal volume 450, FiO2 60%, to be dropped down to 45%, and PEEP of 5. Blood gases show pO2 of 113, pCO2 37, and pH is 7.5. The patient's receiving saline at 20 mL an hour, propofol at 50 mcg/kg/m, norepinephrine 5 mcg/m, Nimbex at 3 mcg/kg/m, heparin via weightbase protocol, Lasix, 10 mg an hour. Lab data includes a white count of 10.3, hemoglobin 11.4, hematocrit 34.9, and platelet count 81,000. PT 13.2, INR 1.3, and PTT 54.3. Sodium 134, potassium 5, chlorides 94, CO2 21, anion gap 19, BUN 16, creatinine 0.87. Calcium 7.5, magnesium 1.0, AST 159, ALT 67. The central line that was placed, was malpositioned. Chest x-ray shows diffuse bilateral infiltrates. Review of Systems REVIEW OF SYSTEMS: CONSTITUTIONAL: [Negative.] NEUROLOGIC: Mental status changes. HEENT: [ Negative.] CARDIAC: [Negative.] PULMONARY: Shortness of breath GI: [Negative.] : [Negative.] RHEUMATOLOGIC: [ Negative.] IMMUNOLOGIC: [ Negative.] ENDOCRINE: [Negative. ] DERMATOLOGIC: [Negative.] Past Medical History Past Medical History: Asthma History of Any Multi-Drug Resistant Organisms: None Reported Past Surgical History: Section Past Anesthesia/Blood Transfusion Reactions: Unable to Obtain Past Psychological History: Anxiety, Bipolar, Depression, Schizophrenia Smoking Status: Unknown if ever smoked Past Alcohol Use History: Occasional Past Drug Use History: None Reported Medications and Allergies Home Medications Medication Instructions Recorded Confirmed Type Acetaminophen-Codeine 300-30mg 1 tab PO DAILY 07/01/21 07/01/21 History [Tylenol w/codeine #3] Albuterol Sulfate [Ventolin HFA] 2 puff INHALATION RT-Q4H PRN 07/01/21 07/01/21 History Amoxicillin 875 mg PO BID 07/01/21 07/01/21 History Clotrimazole/Betamethasone Dip 1 applic TOPICAL BID 07/01/21 07/01/21 History [Lotrisone Cream] Dexamethasone 6 mg PO DAILY 07/01/21 07/01/21 History Ergocalciferol [Vitamin D2 (1250 1,250 mcg PO Q7D 07/01/21 07/01/21 History Mcg = 35162 Iu)] Famotidine 20 mg PO BID 07/01/21 07/01/21 History Ferrous Sulfate [Feosol] 325 mg PO DAILY 07/01/21 07/01/21 History Fluticasone Propionate [Flovent 1 puff INHALATION RT-BID 07/01/21 07/01/21 History Hfa 220 mcg] HYDROcodone/APAP 5-325MG [[place] 1 tab PO DAILY 07/01/21 07/01/21 History 5-325] Pnv,Calcium 72/Iron/Folic Acid 1 tab PO DAILY 07/01/21 07/01/21 History [ Plus Tablet] Tiotropium 2.5 Mcg/Puff [Spiriva 2 puff INHALATION RT-DAILY 07/01/21 07/01/21 History Respimat 2.5 Mcg] Allergies Allergy/AdvReac Type Severity Reaction Status Date / Time Sulfa (Sulfonamide Allergy Rash/Hives Verified 07/01/21 10:23 Antibiotics) Physical Exam Osteopathic Statement: *. No significant issues noted on an osteopathic structural exam other than those noted in the History and Physical/Consult. Vitals: Vital Signs Temp Pulse Pulse Resp BP BP Pulse Ox 07/02/21 11:02 141 H 07/02/21 10:00 137 H 26 H 110/82 94 L 07/02/21 09:30 138 H 26 H 110/82 96 07/02/21 09:15 140 H 26 H 110/82 98 07/02/21 09:00 142 H 26 H 110/82 97 07/02/21 08:45 141 H 26 H 110/82 97 07/02/21 08:30 140 H 26 H 110/82 98 07/02/21 08:15 142 H 26 H 97 07/02/21 08:00 144 H 26 H 97 07/02/21 07:45 142 H 26 H 97 07/02/21 07:30 137 H 26 H 98 07/02/21 07:26 136 H 07/02/21 07:19 138 H 07/02/21 07:18 138 H 07/02/21 07:15 141 H 26 H 99 07/02/21 07:09 140 H 07/02/21 07:00 146 H 26 H 99 07/02/21 06:45 140 H 26 H 98 07/02/21 06:30 140 H 26 H 99 07/02/21 06:15 135 H 26 H 99 07/02/21 06:00 135 H 26 H 100 07/02/21 05:45 133 H 26 H 100 07/02/21 05:30 130 H 26 H 99 07/02/21 05:15 131 H 26 H 97 07/02/21 05:00 131 H 26 H 96 07/02/21 04:45 130 H 26 H 95 07/02/21 04:30 130 H 26 H 95 07/02/21 04:15 126 H 26 H 97 07/02/21 04:00 99.3 F 121 H 26 H 98 07/02/21 03:45 120 H 26 H 110/82 98 07/02/21 03:43 120 H 07/02/21 03:30 122 H 26 H 98 07/02/21 03:26 97 07/02/21 03:15 122 H 26 H 110/82 100 07/02/21 03:00 123 H 26 H 98 07/02/21 02:45 121 H 26 H 98 07/02/21 02:30 120 H 26 H 98 07/02/21 02:15 120 H 26 H 98 07/02/21 02:00 117 H 26 H 98 07/02/21 01:45 117 H 26 H 98 07/02/21 01:30 116 H 26 H 99 07/02/21 01:15 115 H 26 H 97 07/02/21 01:00 117 H 26 H 97 07/02/21 00:45 116 H 26 H 97 07/02/21 00:30 115 H 26 H 98 07/02/21 00:15 115 H 26 H 98 07/02/21 00:00 99.2 F 115 H 26 H 98 07/01/21 23:45 115 H 26 H 102/81 98 07/01/21 23:30 114 H 26 H 98 07/01/21 23:15 115 H 26 H 98 07/01/21 23:11 115 H 26 H 98 07/01/21 23:00 116 H 26 H 98 07/01/21 22:45 118 H 26 H 97 07/01/21 22:30 120 H 26 H 97 07/01/21 22:15 120 H 26 H 96 07/01/21 22:00 120 H 26 H 95 07/01/21 21:45 120 H 26 H 113/86 95 07/01/21 21:30 121 H 26 H 113/86 96 07/01/21 21:15 122 H 26 H 113/86 96 07/01/21 21:00 121 H 26 H 96 07/01/21 20:45 121 H 26 H 96 07/01/21 20:30 120 H 26 H 96 07/01/21 20:15 118 H 26 H 97 07/01/21 20:05 96 07/01/21 20:00 98.8 F 114 H 26 H 99 07/01/21 19:55 100 07/01/21 19:54 100 07/01/21 19:45 110 H 121/89 99 07/01/21 19:42 100 07/01/21 19:30 111 H 121/89 100 07/01/21 19:15 112 H 121/89 100 07/01/21 19:00 114 H 121/89 100 07/01/21 18:45 117 H 133/102 99 07/01/21 18:30 110 H 123/89 100 07/01/21 18:15 108 H 48/30 100 07/01/21 18:00 110 H 19 70/53 100 07/01/21 17:45 138 H 36 H 93/27 75 L 07/01/21 17:30 111 H 45 H 97/24 99 07/01/21 17:15 112 H 63 H 98/22 99 07/01/21 17:00 117 H 37 H 119/35 100 07/01/21 16:45 125 H 63 H 124/68 98 07/01/21 16:30 133 H 82 H 122/62 99 07/01/21 16:18 137 H 07/01/21 16:15 140 H 41 H 119/93 100 07/01/21 16:12 98.6 F 142 H 23 110/76 98 07/01/21 16:09 140 H 07/01/21 16:00 144 H 43 H 07/01/21 12:34 99.4 F 140 H 42 H 113/85 99 07/01/21 12:11 135 H 07/01/21 12:03 132 H 33 H 102/80 98 07/01/21 12:00 98.1 F 144 H 28 H 112/63 99 07/01/21 11:49 134 H Intake and Output 07/01/21 07/02/21 07/02/21 22:59 06:59 14:59 Intake Total 245.905 947.252 248.725 Output Total 890 2525 875 Balance -644.095 -3857.748 -626.275 Intake: Intake, IV Titration 245.905 947.252 248.725 Amount Cisatracurium 200 mg In 17.663 Sodium Chloride 0.9% 180 ml @ 1 MCG/KG/MIN 5.987 mls/hr IV .Q24H [facility]YA Rx#: [id number] Dexmedetomidine/0.9% NaCl 2.578 (Pmx) 400 mcg In Empty Bag 1 bag @ 0.2 MCG/KG/HR 4.99 mls/hr IV .Q20H3M [facility]YA Rx#:[id number] Furosemide 100 mg In 71.667 Sodium Chloride 0.9% 90 ml @ 10 MG/HR 10 mls/hr IV .Q10H DIVYA Rx#: [id number] Heparin Sod,Pork in 0.45% 124.321 NaCl 25,000 unit In 0.45 % NaCl 1 250ml.bag @ 10. 02 UNITS/KG/HR 9.999 mls/ hr IV .Q24H [facility]YA Rx#: [id number] Norepinephrine 4 mg In 185.664 415.585 84.404 Sodium Chloride 0.9% 250 ml @ 0.3 MCG/KG/MIN 114. 06 mls/hr IV .Q2H14M [facility]YA Rx#:[id number] Piperacillin-Tazobactam 3 100 .375 gm In Sodium Chloride 0.9% 100 ml @ 25 mls/hr IVPB Q12H [facility] Rx# :[id number] Sodium Chloride 0.9% 500 40 160 40 ml 500 ml @ 20 mls/hr IV .Q24H [facility]YA Rx#:[id number] propofoL 1,000 mg In 200 Empty Bag 1 bag @ Titrate IV .Q0M DIVYA Rx#: [id number] Output: Urine 890 2525 875 Uretheral (Matos) 700 Other: Voiding Method Indwelling Catheter Indwelling Catheter ABP, PAP, CO, CI - Last 8 Hours Arterial Blood Pressure 89/66 Arterial Blood Pressure 97/69 Arterial Blood Pressure 91/64 Arterial Blood Pressure 86/61 Arterial Blood Pressure 101/70 Arterial Blood Pressure 96/67 Arterial Blood Pressure 100/70 Arterial Blood Pressure 98/68 Arterial Blood Pressure 102/71 Arterial Blood Pressure 98/67 Arterial Blood Pressure 98/74 Arterial Blood Pressure 114/81 Arterial Blood Pressure 108/82 Arterial Blood Pressure 116/80 Arterial Blood Pressure 109/84 Arterial Blood Pressure 119/87 Arterial Blood Pressure 118/86 Arterial Blood Pressure 106/83 Arterial Blood Pressure 87/66 Arterial Blood Pressure 96/71 Arterial Blood Pressure 94/69 Arterial Blood Pressure 98/73 Arterial Blood Pressure 93/73 Arterial Blood Pressure 97/71 Arterial Blood Pressure 104/82 Arterial Blood Pressure 116/93 Arterial Blood Pressure 119/95 No acute distress, sedated, with an orally placed endotracheal tube and NG tube. HEENT examination is grossly unremarkable. Neck supple. Full range of motion. No adenopathy thyromegaly or neck vein distention. Cardiovascular examination reveals regular rhythm rate. S1-S2 normal. No S3 or S4. No discernible murmur noted. Heart rate 140 bpm. Heart sounds are distant. Lungs reveal diffuse coarse bilateral breath sounds. Breath sounds equal bilaterally. Diffuse rhonchi are noted. No crackles. No wheezes. Abdomen soft bowel sounds are heard. No masses or tenderness. Extremities are intact. No cyanosis clubbing or edema. Skin is without rash or lesion. Neurologic examination cannot be adequately assessed as the patient is currently on Nimbex, and propofol. Results - Laboratory Findings CBC and BMP: 07/02/21 03:20 07/02/21 03:20 ABG ABG pH 7.50 (7.35-7.45) H 07/02/21 05:40 ABG pCO2 37 mmHg (35-45) 07/02/21 05:40 ABG pO2 113 mmHg (83-108) H 07/02/21 05:40 ABG O2 Saturation 99.0 % (94-97) H 07/02/21 05:40 PT/INR, D-dimer PT 13.2 sec (9.0-12.0) H 07/02/21 03:20 INR 1.3 (<1.2) H 07/02/21 03:20 D-Dimer 2.30 mg/L FEU (<0.60) H 07/01/21 15:36 Abnormal lab findings: Abnormal Labs 07/01/21 07/01/21 07/01/21 07:53 07:53 07:53 RBC 3.75 L MCV 110.9 H MCH 35.4 H Plt Count 62 L Neutrophils # Lymphocytes # Macrocytosis Marked A PT INR APTT 19.0 L D-Dimer ABG pH ABG pCO2 ABG pO2 ABG HCO3 ABG Total CO2 ABG O2 Saturation Sodium 136 L Potassium 5.4 H Chloride Carbon Dioxide 12 L Glucose POC Glucose (mg/dL) Plasma Lactic Acid Zain Calcium Magnesium 1.1 L Total Bilirubin 2.8 H AST 173 H ALT 74 H Alkaline Phosphatase 138 H Ammonia Creatine Kinase 181 H Troponin I Prolactin Urine Protein Urine Ketones Urine Blood Urine Bacteria Hyaline Casts Urine Mucus 07/01/21 07/01/21 07/01/21 07:53 07:53 07:53 RBC MCV MCH Plt Count Neutrophils # Lymphocytes # Macrocytosis PT INR APTT D-Dimer ABG pH ABG pCO2 ABG pO2 ABG HCO3 ABG Total CO2 ABG O2 Saturation Sodium Potassium Chloride Carbon Dioxide Glucose POC Glucose (mg/dL) Plasma Lactic Acid Zain 7.6 H* Calcium Magnesium Total Bilirubin AST ALT Alkaline Phosphatase Ammonia 47 H Creatine Kinase Troponin I 0.139 H* Prolactin 95.300 H Urine Protein Urine Ketones Urine Blood Urine Bacteria Hyaline Casts Urine Mucus 07/01/21 07/01/21 07/01/21 10:37 10:54 12:27 RBC MCV MCH Plt Count Neutrophils # Lymphocytes # Macrocytosis PT INR APTT D-Dimer ABG pH 7.30 L ABG pCO2 33 L ABG pO2 285 H ABG HCO3 16 L ABG Total CO2 17 L ABG O2 Saturation 100.0 H Sodium Potassium Chloride Carbon Dioxide Glucose POC Glucose (mg/dL) Plasma Lactic Acid Zain Calcium Magnesium Total Bilirubin AST ALT Alkaline Phosphatase Ammonia Creatine Kinase Troponin I 0.242 H* Prolactin Urine Protein Trace H Urine Ketones 2+ H Urine Blood Trace H Urine Bacteria Rare H Hyaline Casts 8 H Urine Mucus Rare H 07/01/21 07/01/21 07/01/21 12:27 14:51 15:04 RBC MCV MCH Plt Count Neutrophils # Lymphocytes # Macrocytosis PT INR APTT D-Dimer ABG pH ABG pCO2 ABG pO2 ABG HCO3 ABG Total CO2 ABG O2 Saturation Sodium Potassium Chloride Carbon Dioxide Glucose POC Glucose (mg/dL) Plasma Lactic Acid Zain 3.8 H* 3.4 H* Calcium Magnesium Total Bilirubin AST ALT Alkaline Phosphatase Ammonia Creatine Kinase Troponin I 0.286 H* Prolactin Urine Protein Urine Ketones Urine Blood Urine Bacteria Hyaline Casts Urine Mucus 07/01/21 07/01/21 07/01/21 15:36 16:04 18:14 RBC MCV MCH Plt Count Neutrophils # Lymphocytes # Macrocytosis PT INR APTT D-Dimer 2.30 H ABG pH ABG pCO2 ABG pO2 ABG HCO3 ABG Total CO2 ABG O2 Saturation Sodium Potassium Chloride Carbon Dioxide Glucose POC Glucose (mg/dL) 151 H Plasma Lactic Acid Zain 3.3 H* Calcium Magnesium Total Bilirubin AST ALT Alkaline Phosphatase Ammonia Creatine Kinase Troponin I Prolactin Urine Protein Urine Ketones Urine Blood Urine Bacteria Hyaline Casts Urine Mucus 07/01/21 07/01/21 07/01/21 19:30 19:50 19:50 RBC 3.27 L MCV 110.0 H MCH 35.1 H Plt Count 73 L Neutrophils # Lymphocytes # 0.3 L Macrocytosis Marked A PT 12.8 H INR 1.2 H APTT D-Dimer ABG pH ABG pCO2 30 L ABG pO2 316 H ABG HCO3 18 L ABG Total CO2 ABG O2 Saturation 100.0 H Sodium Potassium Chloride Carbon Dioxide Glucose POC Glucose (mg/dL) Plasma Lactic Acid Zain Calcium Magnesium Total Bilirubin AST ALT Alkaline Phosphatase Ammonia Creatine Kinase Troponin I Prolactin Urine Protein Urine Ketones Urine Blood Urine Bacteria Hyaline Casts Urine Mucus 07/01/21 07/02/21 07/02/21 23:55 03:20 03:20 RBC 3.20 L MCV 109.0 H MCH 35.5 H Plt Count 81 L Neutrophils # 9.6 H Lymphocytes # 0.3 L Macrocytosis Marked A PT INR APTT D-Dimer ABG pH ABG pCO2 ABG pO2 ABG HCO3 ABG Total CO2 ABG O2 Saturation Sodium 134 L Potassium Chloride 94 L Carbon Dioxide 21 L Glucose 214 H POC Glucose (mg/dL) 215 H Plasma Lactic Acid Zain Calcium 7.5 L Magnesium 1.0 L Total Bilirubin 1.8 H AST 159 H ALT 67 H Alkaline Phosphatase Ammonia Creatine Kinase Troponin I Prolactin Urine Protein Urine Ketones Urine Blood Urine Bacteria Hyaline Casts Urine Mucus 07/02/21 07/02/21 07/02/21 03:20 05:20 05:40 RBC MCV MCH Plt Count Neutrophils # Lymphocytes # Macrocytosis PT 13.2 H INR 1.3 H APTT 54.3 H D-Dimer ABG pH 7.50 H ABG pCO2 ABG pO2 113 H ABG HCO3 29 H ABG Total CO2 30 H ABG O2 Saturation 99.0 H Sodium Potassium Chloride Carbon Dioxide Glucose POC Glucose (mg/dL) 187 H Plasma Lactic Acid Zain Calcium Magnesium Total Bilirubin AST ALT Alkaline Phosphatase Ammonia Creatine Kinase Troponin I Prolactin Urine Protein Urine Ketones Urine Blood Urine Bacteria Hyaline Casts Urine Mucus - Diagnostic Findings Chest x-ray: image reviewed Assessment and Plan Assessment: Acute respiratory failure, with alcohol related seizures, status post intubation on 07/01/2021. Routine ventilator management. Mental status changes, secondary to alcohol withdrawal syndrome and seizure disorder. History of chronic alcohol abuse. History of asthma. History of hypertension. History of anxiety/depression. History of bipolar disorder. Transaminitis secondary to alcohol abuse. Plan: Plan dated 07/02/2021. The patient has a arterial line replaced. His apparently placed by the [employer]ERSON[employer]. A central line will be placed. The patient's FiO2 was dropped down to 45%. 2 feedings will be started. Additional recommendations and suggestions are forthcoming. Prognosis is guarded. The patient remains on propofol, and Nimbex. The patient is also on heparin as per cardiology. In addition, patient remains on norepinephrine at 5 mcg/m. We will continue to follow make recommendations where appropriate. Prognosis is guarded. Time with Patient: Greater than 30
[2021-07-02 11:39] LABS: Glucose,Whole Blood 159 mg/dL (75-99)
[2021-07-02] MEDS: PIPERACILLIN-TAZOBACTAM 3.375 GM in SODIUM CHLORIDE 0.9% 100 ML IVPB SCH ×2 (13:45→21:56)
[2021-07-02] MEDS ORDERED: LIDOCAINE 1% INJ 10MG/ML (20 ML MDV) ONE (14:30)
[2021-07-02] MEDS ORDERED: LIDOCAINE 1% INJ 10MG/ML (20 ML MDV) SQ ONE (15:15)
--- NOTE | 2021-07-02 16:06 | US ---
EXAMINATION TYPE: US venous doppler duplex LE DATE OF EXAM: 07/02/2021 3:02 PM COMPARISON: NONE CLINICAL HISTORY: elevated d-dimer. ICU pt-vented, Elevated D-dimer SIDE PERFORMED: Bilateral TECHNIQUE: The lower extremity deep venous system is examined utilizing real time linear array sonog ying with graded compression, doppler sonography and color-flow sonography. VESSELS IMAGED: Common Femoral Vein Deep Femoral Vein Greater Saphenous Vein * Femoral Vein Popliteal Vein Small Saphenous Vein * Proximal Calf Veins (* superficial vessels) Right Leg: Negative for DVT Left Leg: Negative for DVT IMPRESSION: Grayscale, color doppler, spectral doppler imaging performed of the deep veins of the lo wer extremities. There is normal flow, compressibility, vascular waveforms.
[2021-07-02] MEDS: LOSARTAN 25 MG TAB PO SCH (16:15)
--- NOTE | 2021-07-02 16:20 | XR ---
EXAMINATION TYPE: XR chest 1V portable DATE OF EXAM: 07/02/2021 Comparison: 07/02/2021, earlier today Clinical History: 46-year-old female PICC PLACEMENT Findings: Interval repositioning of the right-sided PICC line. Tip now at the mid SVC level. ET tube satisfacto ry. G-tube courses below the diaphragm. Slight rightward patient rotation. There is some slight asymm etric volume loss in the left hemithorax suggested. Diffuse interstitial change and patchy opacity. L eft hilar prominence is unchanged. Impression: 1. Right PICC tip at the mid SVC level. 2. Continued diffuse interstitial and patchy infiltrates. 3. Continued left hilar soft tissue prominence. When patient able, recommend CT of the chest to estab salima the etiology of this density. Mass, lymphadenopathy, or vascular pathology should be excluded.
--- NOTE | 2021-07-02 16:31 | XR ---
EXAMINATION TYPE: XR chest 1V confirm line [facility] DATE OF EXAM: 07/02/2021 at 0321 hours COMPARISON: Earlier today HISTORY: 46-year-old female confirm PICC line, attempt #1. TECHNIQUE: Single frontal view of the chest is obtained. FINDINGS: ET tube tip at the level of the medial clavicular heads. NG tube courses below the diaphragm. Slight rightward patient rotation. Heart border line in size. Patchy and confluent bilateral airspace opacit ies. Left hilar prominence evaluated with CT when patient able. Right PICC tip heads up into the righ t side of the neck beyond the [id number]. IMPRESSION: 1. Right PICC tip heads up into the right neck the on the [id number]. 2. Continued interstitial changes and left greater right airspace disease. 3. Asymmetric left hilar prominence may be projectional. CT recommended to assess etiology when patie nt able.
[2021-07-02] MEDS: CISATRACURIUM 200 MG in SODIUM CHLORIDE 0.9% 180 ML IV SCH (16:46)
--- NOTE | 2021-07-02 16:55 | XR ---
EXAMINATION TYPE: XR chest 1V confirm line plcde DATE OF EXAM: 07/02/2021 at 0345 hours COMPARISON: Earlier today HISTORY: 46-year-old female confirm line placement, attempt #2. TECHNIQUE: Single frontal view of the chest is obtained. FINDINGS: The right PICC line pulled back slightly. Tip now in the mid right neck/internal jugular vein. Remain montserrat of exam is stable. CT when patient able to assess the left hilar region. IMPRESSION: Malpositioned right PICC line pulled back slightly. Tip now in the right mid neck/internal jugular ve in. CT when patient able to assess the left hilar region.
--- NOTE | 2021-07-02 16:56 | XR ---
EXAMINATION TYPE: XR chest 1V portable DATE OF EXAM: 07/02/2021 at 348 hours Comparison: Earlier today Clinical History: 46-year-old female PICC PLACEMENT, attempt #3. Findings: Unchanged positioning of the right PICC line. Tip in the right mid neck. Similar left hilar prominenc e and otherwise stable exam. Impression: Stable malpositioned right PICC line, tip at the right mid neck. CT with patient unable to assess the left hilum.
--- NOTE | 2021-07-02 16:58 | XR ---
EXAMINATION TYPE: XR chest 1V portable DATE OF EXAM: 07/02/2021 at 0352 hours Comparison: Earlier today Clinical History: 46-year-old female PICC PLACEMENT, attempt # 4. Findings: Right PICC line remains malpositioned, unchanged, tip in the right side of the neck. Left hilar promi nence unchanged as are the interstitial changes and patchy opacity throughout the left lung. Impression: Stable exam. Malpositioned right PICC line. Left hilar prominence. CT to further assess when patient able.
[2021-07-02 17:57] LABS: Glucose,Whole Blood 146 mg/dL (75-99)
--- NOTE | 2021-07-02 17:57 | HP ---
HISTORY AND PHYSICAL This is a 46-year-old -[place] female with a history of asthma and atrial fibrillation. She came in with mental status changes, poorly responsive. EMS was called to the house. She has significant alcohol abuse be going into alcohol withdrawal. She came to the hospital. She was found unresponsive, in possible heart failure. She was admitted to the ICU, intubated in the emergency room. Remains on mechanical ventilator, on propofol, Nimbex, heparin, Lasix. Potassium was 5, CO2 21, anion gap 19, BUN 16, creatinine 0.87, calcium 7.5, magnesium 1. AST is 159, ALT 67. Fourteen-point review of systems positive for shortness of breath. Otherwise negative. PAST MEDICAL HISTORY: History of asthma, COPD, alcohol abuse, possible atrial fibrillation in the past. C- section, anxiety, bipolar depression, schizophrenia. MEDICATIONS AT HOME: See list. ALLERGIES: SULFA. Pulse has been running 140s to 130s on the vent, respiratory rate 18 to 26, blood pressure 110 over 80s. Pulse is 90s. On ET tube, NG tube. HEENT unremarkable. Neck is supple. No thyromegaly. Cardiovascular S1, S2, tachy, regular. Lungs with scattered rhonchi and wheeze. Abdomen is soft. Extremities no edema. Skin no rash, excoriation or bruising. Labs were reviewed. ABGs reviewed. ASSESSMENT: 1. Acute respiratory failure. 2. Alcohol-related seizures. 3. Status post intubation. 4. Alcohol withdrawal syndrome. 5. Seizure disorder. 6. Chronic alcohol abuse. 7. Asthma. 8. Hypertension. 9. Possible congestive heart failure. 10.Elevated transaminases. 11.Bipolar. 12.Anxiety. 13.Depression. Will get Cardiology and Pulmonary involved. Cardiology gave heparin, norepinephrine. Prognosis guarded. MMODL / IJN: [id number] /
--- NOTE | 2021-07-02 18:14 | CT ---
EXAMINATION TYPE: CT chest angio for PE CT DLP: 545.2 mGycm, Automated exposure control for dose reduction was used. DATE OF EXAM: 07/02/2021 5:19 PM COMPARISON: Chest radiograph from 09/26/2021. CLINICAL INDICATION:Female, 46 years old with history of elevated d-dimer; TECHNIQUE/CONTRAST: CTA scan of the thorax is performed with IV Contrast, patient injected with 100 mL of Isovue 370, pul monary embolism protocol. MIP images are created and reviewed. FINDINGS: Motion limits evaluation. Pulmonary Artery: There is no evidence for a filling defect within the pulmonary vasculature to sugge st acute pulmonary embolism. The pulmonary artery is of normal size. Lungs/Pleura: No evidence of focal consolidation, pleural effusion or pneumothorax. Peripheral ground glass opacities are seen throughout the lungs. Airway: Patent and grossly unremarkable. Heart: Within normal limits for size. Vasculature: No evidence of aortic aneurysm. Mediastinum: No gross evidence of adenopathy. Nasogastric tube with distal tip terminating the field of view and likely within the gastric lumen. Musculoskeletal: No acute osseous abnormalities Soft Tissues: Unremarkable. Lower neck: No significant findings. Upper Abdomen: Diffuse low-attenuation to the liver parenchyma. A retrocrural lymph node near the the aorta measures up to 9 mm in short axis likely reactive. IMPRESSION: 1. No evidence of pulmonary embolism. 2. Peripheral groundglass pulmonary opacities consistent with atypical pulmonary infection such as CO VID-19.
[2021-07-02] MEDS: ENOXAPARIN 40 MG/0.4 ML SYRINGE SQ SCH (21:56)
[2021-07-02] MEDS: SODIUM CHLORIDE 0.9% 500 ML 500 ML IV SCH (22:21)
[2021-07-03] MEDS: NOREPINEPHRINE 4 MG in SODIUM CHLORIDE 0.9% 250 ML IV SCH ×11 (00:16→21:25)
[2021-07-03] MEDS: FUROSEMIDE 100 MG in SODIUM CHLORIDE 0.9% 90 ML IV SCH (00:19)
[2021-07-03 00:25] LABS: Glucose,Whole Blood 188 mg/dL (75-99)
[2021-07-03] MEDS: INSULIN ASPART (NovoLOG) 100 UNIT/ML VIAL SQ SCH ×6 (00:42→20:40)
[2021-07-03] MEDS: methylPREDNISolone SOD SUCCI 40 MG/ML 1 ML VIAL IV SCH ×2 (00:42→07:56)
[2021-07-03] MEDS: CISATRACURIUM 200 MG in SODIUM CHLORIDE 0.9% 180 ML IV SCH (02:14)
[2021-07-03] MEDS: IPRATROPIUM-ALBUTEROL 3 ML NEB INHALATION SCH ×6 (03:56→23:12)
[2021-07-03 04:22] LABS: Basophils % (A) 0 %; Eosinophils # (A) 0.1 k/uL (0-0.7); Eosinophils % (A) 1 %; HCT 33.6 % (34.0-46.0); HGB 11.1 gm/dL (11.4-16.0); Lymphocytes # (A) 0.2 k/uL (1.0-4.8); Lymphocytes % (A) 2 %; MCH 34.8 pg (25.0-35.0); MCHC 33.1 g/dL (31.0-37.0); MCV 105.1 fL (80.0-100.0); Macrocytosis Moderate; Mean Platelet Volume 10.9; Monocytes # (A) 0.5 k/uL (0-1.0); Monocytes % (A) 4 %; Neutrophils # (A) 11.7 k/uL (1.3-7.7); Neutrophils % (A) 93 %; RDW 14.3 % (11.5-15.5); WBC 12.5 k/uL (3.8-10.6)
[2021-07-03 04:27] LABS: Platelet Count 95 k/uL (150-450)
[2021-07-03 04:35] LABS: Albumin 3.6 g/dL (3.5-5.0); Calcium 7.3 mg/dL (8.4-10.2); Total Bilirubin 1.4 mg/dL (0.2-1.3); Total Protein 6.7 g/dL (6.3-8.2)
[2021-07-03] MEDS ORDERED: Potassium Replacement Protocol 1 EACH MISC MISCELLANE PRN ×3 (05:14→19:18)
[2021-07-03 05:20] LABS: Glucose,Whole Blood 174 mg/dL (75-99)
[2021-07-03] MEDS: POTASSIUM BICARBONATE/CIT AC 20 MEQ TABLET.EFF NG-TUBE SCH ×6 (05:23→22:26)
[2021-07-03 06:04] LABS: ABG Base Excess 13.9 mmol/L; ABG HCO3 36 mmol/L (21-25); ABG PCO2 38 mmHg (35-45); ABG PO2 139 mmHg (83-108); ABG TCO2 37 mmol/L (19-24)
[2021-07-03 06:08] LABS: ABG PH 7.58 (7.35-7.45); Allen Test Performed? No
[2021-07-03] MEDS ORDERED: Magnesium Replacement Protocol 1 EACH MISC MISCELLANE PRN (06:48)
[2021-07-03] MEDS: MAGNESIUM SULFATE-D5W PMX 1 GM in DEXTROSE/WATER 1 100ML.BAG IVPB SCH ×4 (07:00→10:47)
[2021-07-03] MEDS: THIAMINE 100 MG TAB PO SCH ×2 (07:06→18:27)
--- NOTE | 2021-07-03 07:30 | P.PN ---
Subjective Progress Note Date: 07/03/21 Principal diagnosis: Severe cardiomyopathy The patient is a 46-year-old -[place] female patient with a past medical history significant for excessive alcohol use as well as history of asthma who was admitted to the hospital after she presented with seizure and subsequently she developed respiratory failure requiring intubation and mechanical ventilation. We felt that the respiratory failure secondary to heart failure. The patient underwent an echocardiogram that revealed severe cardiomyopathy with EF of 20% was evidence of moderate mitral regurgitation and severe tricuspid regurgitation as well as severe pulmonary hypertension. Currently the patient is intubated and she is on mechanical ventilation. She is also in sinus tachycardia. Currently also she is on vasopressors was norepinephrine. The patient was seen and evaluated this morning. She remains intubated on mechanical ventilation. She remains hemodynamically unstable and requiring norepinephrine. She continues to be on Lasix drip and she has been diuresing very well. Beside that she is also tachycardic with a resting heart rate of 120 beats per minutes. The echo showed severe cardiomyopathy as noted before. The chest x-ray was if she would as well. I'm going to DC the Lasix drip and start the patient on Lasix IV at 60 mg twice a day hoping that her pressure would get slightly better and we get her off norepinephrine. Beside that on going to start the patient on small dose of beta simon with Toprol-XL because she continues to be tachycardic. Would avoid any vasodilator like losartan which we are going to stop. Continue following up with her and try to wean her from the norepinephrine as soon as possible. The TSH was checked and came in to be within normal limits Objective - Vital Signs Vital signs: Vital Signs Temp 99.2 F 07/03/21 04:00 Pulse 125 H 07/03/21 06:30 Resp 26 H 07/03/21 06:30 BP 103/68 07/03/21 02:30 Pulse Ox 98 07/03/21 06:30 Intake & Output 07/02/21 07/03/21 07/03/21 18:59 06:59 18:59 Intake Total 9721.608 5839.513 146 Output Total 1875 2060 150 Balance -726.472 -843.487 -4 Weight 99.79 kg 80.4 kg Intake: IV 220 240 20 Sodium Chloride 0.9% 500 220 240 20 ml 500 ml @ 20 mls/hr IV .Q24H [facility] Rx#:[id number] Intake, IV Titration 928.528 690.513 100 Amount Cisatracurium 200 mg In 182.337 233.506 Sodium Chloride 0.9% 180 ml @ 1 MCG/KG/MIN 5.987 mls/hr IV .Q24H [facility] Rx#: [id number] Furosemide 100 mg In 100 19.667 Sodium Chloride 0.9% 90 ml @ 10 MG/HR 10 mls/hr IV .Q10H [facility] Rx#: [id number] Heparin Sod,Pork in 0.45% 124.321 NaCl 25,000 unit In 0.45 % NaCl 1 250ml.bag @ 10. 02 UNITS/KG/HR 9.999 mls/ hr IV .Q24H [facility] Rx#: [id number] Norepinephrine 4 mg In 241.870 317.340 Sodium Chloride 0.9% 250 ml @ 0.3 MCG/KG/MIN 114. 06 mls/hr IV .Q2H14M [facility] Rx#:[id number] Sodium Chloride 0.9% 500 180 20 ml 500 ml @ 20 mls/hr IV .Q24H [facility] Rx#:[id number] propofoL 1,000 mg In 100 100 100 Empty Bag 1 bag @ Titrate IV .Q0M [facility] Rx#: [id number] Tube Feeding 286 26 Output: Urine 1875 2060 150 Other: Voiding Method Indwelling Catheter Indwelling Catheter ABP, PAP, CO, CI - Last Documented Arterial Blood Pressure 104/75 - Constitutional General appearance: Present: no acute distress - Respiratory Respiratory: bilateral: diminished - Cardiovascular Rhythm: regular Heart sounds: normal: S1, S2 - Labs CBC & Chem 7: 07/03/21 03:45 07/03/21 03:45 Labs: Abnormal Lab Results - Last 24 Hours (Table) 07/02/21 07/02/21 07/03/21 Range/Units 11:37 17:55 00:24 WBC (3.8-10.6) k/uL RBC (3.80-5.40) m/uL Hgb (11.4-16.0) gm/dL Hct (34.0-46.0) % MCV (80.0-100.0) fL Plt Count (150-450) k/uL Neutrophils # (1.3-7.7) k/uL Lymphocytes # (1.0-4.8) k/uL ABG pH (7.35-7.45) ABG pO2 (83-108) mmHg ABG HCO3 (21-25) mmol/L ABG Total CO2 (19-24) mmol/L ABG O2 Saturation (94-97) % Sodium (137-145) mmol/L Potassium (3.5-5.1) mmol/L Chloride (98-107) mmol/L Carbon Dioxide (22-30) mmol/L BUN (7-17) mg/dL Glucose (74-99) mg/dL POC Glucose (mg/dL) 159 H 146 H 188 H (75-99) mg/dL Calcium (8.4-10.2) mg/dL Magnesium (1.6-2.3) mg/dL Total Bilirubin (0.2-1.3) mg/dL AST (14-36) U/L ALT (4-34) U/L 07/03/21 07/03/21 07/03/21 Range/Units 03:45 03:45 03:45 WBC 12.5 H (3.8-10.6) k/uL RBC 3.20 L (3.80-5.40) m/uL Hgb 11.1 L (11.4-16.0) gm/dL Hct 33.6 L (34.0-46.0) % MCV 105.1 H (80.0-100.0) fL Plt Count 95 L (150-450) k/uL Neutrophils # 11.7 H (1.3-7.7) k/uL Lymphocytes # 0.2 L (1.0-4.8) k/uL ABG pH (7.35-7.45) ABG pO2 (83-108) mmHg ABG HCO3 (21-25) mmol/L ABG Total CO2 (19-24) mmol/L ABG O2 Saturation (94-97) % Sodium 134 L (137-145) mmol/L Potassium 3.0 L (3.5-5.1) mmol/L Chloride 88 L (98-107) mmol/L Carbon Dioxide 34 H (22-30) mmol/L BUN 19 H (7-17) mg/dL Glucose 160 H (74-99) mg/dL POC Glucose (mg/dL) (75-99) mg/dL Calcium 7.3 L (8.4-10.2) mg/dL Magnesium 0.8 L* (1.6-2.3) mg/dL Total Bilirubin 1.4 H (0.2-1.3) mg/dL AST 121 H (14-36) U/L ALT 54 H (4-34) U/L 07/03/21 07/03/21 Range/Units 05:19 05:50 WBC (3.8-10.6) k/uL RBC (3.80-5.40) m/uL Hgb (11.4-16.0) gm/dL Hct (34.0-46.0) % MCV (80.0-100.0) fL Plt Count (150-450) k/uL Neutrophils # (1.3-7.7) k/uL Lymphocytes # (1.0-4.8) k/uL ABG pH 7.58 H* (7.35-7.45) ABG pO2 139 H (83-108) mmHg ABG HCO3 36 H (21-25) mmol/L ABG Total CO2 37 H (19-24) mmol/L ABG O2 Saturation 100.0 H (94-97) % Sodium (137-145) mmol/L Potassium (3.5-5.1) mmol/L Chloride (98-107) mmol/L Carbon Dioxide (22-30) mmol/L BUN (7-17) mg/dL Glucose (74-99) mg/dL POC Glucose (mg/dL) 174 H (75-99) mg/dL Calcium (8.4-10.2) mg/dL Magnesium (1.6-2.3) mg/dL Total Bilirubin (0.2-1.3) mg/dL AST (14-36) U/L ALT (4-34) U/L Assessment and Plan Assessment: Assessment #1 acute hypoxic respiratory failure #2 acute exacerbation of heart failure with reduced ejection fraction #3 severe cardiomyopathy likely to be EtOH-induced versus tachycardia induced versus myocarditis #4 disease with mitral and tricuspid regurgitation secondary to cardiomyopathy #5 sinus tachycardia #6 possible thromboembolic disease #7 excessive alcohol use #8 abnormal liver function tests Plan #1 try to wean the patient from norepinephrine #2 start the patient on a small dose of metoprolol succinate 25 mg by mouth daily trying to slow her heart rate #3 continue diuretics but DC the drip of Lasix and start the patient on IV Lasix #4 continue monitor the kidney function and electrolytes #5 add Aldactone once she is off vasopressors #6 continue monitor for arrhythmia #7 monitor the electrolytes and replace accordingly #8 the patient's picture could be also consistent with myocarditis We will continue following up with the patient
[2021-07-03] MEDS: BUDESONIDE 1 MG/2 ML NEBU INHALATION SCH ×2 (07:41→20:07)
[2021-07-03] MEDS: FORMOTEROL FUMARATE 20 MCG/2 ML NEBU INHALATION SCH ×2 (07:42→20:07)
[2021-07-03 08:17] LABS: Glucose,Whole Blood 215 mg/dL (75-99)
[2021-07-03] MEDS ORDERED: FUROSEMIDE 10 MG/ML 10 ML VIAL IV SCH (09:00)
[2021-07-03] MEDS ORDERED: METOPROLOL SUCCINATE (ER) 25 MG TAB.ER.24H PO SCH (09:00)
[2021-07-03] MEDS: CHLORHEXIDINE GLUCONATE 15 ML CUP MUCOUS MEM SCH ×2 (09:08→21:25)
[2021-07-03] MEDS: PIPERACILLIN-TAZOBACTAM 3.375 GM in SODIUM CHLORIDE 0.9% 100 ML IVPB SCH ×2 (09:08→16:08)
[2021-07-03] MEDS: ENOXAPARIN 40 MG/0.4 ML SYRINGE SQ SCH (09:10)
[2021-07-03] MEDS: PANTOPRAZOLE 40 MG/10 ML VIAL IVP SCH (09:10)
--- NOTE | 2021-07-03 09:11 | IR ---
PICC LINE PLACEMENT: HISTORY: Infection requiring long-term antibiotic therapy PROCEDURE: Ultrasound guidance of PICC line placement. COMPLICATIONS: None ANESTHESIA: 1. 1% Lidocaine locally. FINDINGS/TECHNIQUE: The procedure was explained to the patient. The risks, complications, benefits and alternatives were discussed and any questions were answered. Informed consent was obtained. The patient was placed supine on the fluoroscopic table and prepped and draped in the usual sterile fash ion. Utilizing a 21 gauge needle and sonographic guidance, access in the left right brachial vein w as achieved and there is placement of a 0.018 guidewire. The vein is patent. A 5-F. sheath was plac ed over the guidewire. The guidewire and dilator were removed and a 5-F. Double lumen PICC line was placed through the sheath with the chest x-ray confirming the tip at the level of the SVC. The sheat h was removed, the catheter was flushed and sutured into position. The patient was stable throughout the procedure and remained stable upon discharge from the Department of Radiology. The vein puncture was patent under ultrasound. A colvin scale image was obtained to document patency of the vein punctured. All elements of the maximal barrier technique were utilized. IMPRESSION: 1. Successful PICC line placement under ultrasound performed bedside within the ICU.
--- NOTE | 2021-07-03 09:22 | XR ---
EXAMINATION TYPE: XR chest 1V portable DATE OF EXAM: 07/03/2021 COMPARISON: 07/02/2021 HISTORY: PICC line placement TECHNIQUE: Single frontal view of the chest is obtained. FINDINGS: Right-sided PICC line seen with tip overlying the SVC. Bilateral interstitial changes are noted with more confluent density in the left upper lobe. Tiny bilateral effusions. Heart size stable no suggestion of volume loss on the left. ET and NG tube stable. IMPRESSION: 1. Stable diffuse interstitial and patchy bilateral and drains.
[2021-07-03] MEDS ORDERED: METOPROLOL TARTRATE 12.5 MG TAB PO SCH (09:45)
--- NOTE | 2021-07-03 09:52 | P.PN ---
Subjective Progress Note Date: 07/03/21 Principal diagnosis: Respiratory failure. Pulmonary consult dated 07/02/2021. 46-year-old black female, with a history of asthma, and hypertension, who presents to the emergency department, with mental status changes, and being poorly responsive. EMS was called to the house, and the patient apparently has had significant alcohol abuse, and was thought to have alcohol withdrawal syndrome. Apparently, the patient complained about being short of breath. In transport, the patient apparently had a seizure. She became unresponsive in the eyes rolled back in her head. That episode lasted 2 minutes. When she arrived to the trauma bay, she was confused and agitated. She apparently was intubated on the in the emergency department. She came to the intensive care unit on the . She remains on the mechanical ventilator. She is on the volume assist control mode, rate 26, tidal volume 450, FiO2 60%, to be dropped down to 45%, and PEEP of 5. Blood gases show pO2 of 113, pCO2 37, and pH is 7.5. The patient's receiving saline at 20 mL an hour, propofol at 50 mcg/kg/m, norepinephrine 5 mcg/m, Nimbex at 3 mcg/kg/m, heparin via weightbase protocol, Lasix, 10 mg an hour. Lab data includes a white count of 10.3, hemoglobin 11.4, hematocrit 34.9, and platelet count 81,000. PT 13.2, INR 1.3, and PTT 54.3. Sodium 134, potassium 5, chlorides 94, CO2 21, anion gap 19, BUN 16, creatinine 0.87. Calcium 7.5, magnesium 1.0, AST 159, ALT 67. The central line that was placed, was malpositioned. Chest x-ray shows diffuse bilateral infiltrates. Progress note dated 07/03/2021. 46-year-old white female, seen yesterday in consultation. She has a history of both asthma, and hypertension. The patient was brought to the emergency department with mental status changes, and she was very poorly responsive and was intubated. She was found to have a seizure, and was having alcohol withdrawal syndrome. Currently, the patient remains on the volume assist contro l mode, rate 26, tidal volume 450, FiO2 45%, and PEEP of 5. Blood gases show pO2 of 139, pCO2 of 38, and a pH is 7.58. She's currently on norepinephrine at 0.08 mcg/kg/m, Nimbex at 2 mcg/kg/m, propofol at 50 mcg/kg/m, and vital high protein at 26 mL an hour, which is goal. The patient's currently on Zosyn. We are going to do a daily interruption of sedation, and a spontaneous breathing trial today. We'll hoping to get the patient extubated. The FiO2 was dropped down to 35%. White count 12.5, hemoglobin 11.1, hematocrit 33.6, platelet count 95,000. Sodium 134, potassium 3.2, chloride 88, CO2 34, anion gap 12, BUN 19, creatinine 0.96. Magnesium 0.8. AST was 121. ALT 54. Chest x-ray shows a stable diffuse interstitial/patchy pattern. Objective - Vital Signs Vital signs: Vital Signs Temp 98.8 F 07/03/21 08:00 Pulse 121 H 07/03/21 09:00 Resp 26 H 07/03/21 09:00 BP 103/68 07/03/21 09:00 Pulse Ox 96 07/03/21 09:00 Intake & Output 07/02/21 07/03/21 07/03/21 18:59 06:59 18:59 Intake Total 2489.854 1493.513 431.488 Output Total 1875 2060 575 Balance -726.472 -743.487 -143.512 Weight 99.79 kg 80.4 kg Intake: IV 220 240 60 Sodium Chloride 0.9% 500 220 240 60 ml 500 ml @ 20 mls/hr IV .Q24H [facility] Rx#:[id number] Intake, IV Titration 928.528 790.513 345.488 Amount Cisatracurium 200 mg In 182.337 233.506 47.452 Sodium Chloride 0.9% 180 ml @ 1 MCG/KG/MIN 5.987 mls/hr IV .Q24H [facility] Rx#: [id number] Furosemide 100 mg In 100 19.667 Sodium Chloride 0.9% 90 ml @ 10 MG/HR 10 mls/hr IV .Q10H [facility] Rx#: [id number] Heparin Sod,Pork in 0.45% 124.321 NaCl 25,000 unit In 0.45 % NaCl 1 250ml.bag @ 10. 02 UNITS/KG/HR 9.999 mls/ hr IV .Q24H [facility] Rx#: [id number] Norepinephrine 4 mg In 241.870 317.340 123.692 Sodium Chloride 0.9% 250 ml @ 0.3 MCG/KG/MIN 114. 06 mls/hr IV .Q2H14M [facility] Rx#:[id number] Piperacillin-Tazobactam 3 100 .375 gm In Sodium Chloride 0.9% 100 ml @ 25 mls/hr IVPB Q12H [facility] Rx# :[id number] Sodium Chloride 0.9% 500 180 20 ml 500 ml @ 20 mls/hr IV .Q24H [facility] Rx#:[id number] propofoL 1,000 mg In 100 100 174.344 Empty Bag 1 bag @ Titrate IV .Q0M [facility] Rx#: [id number] Tube Feeding 286 26 Output: Urine 1875 2060 575 Other: Voiding Method Indwelling Catheter Indwelling Catheter Indwelling Catheter ABP, PAP, CO, CI - Last Documented Arterial Blood Pressure 93/64 - Exam No acute distress, sedated, with an orally placed endotracheal tube and NG tube. HEENT examination is grossly unremarkable. Neck supple. Full range of motion. No adenopathy thyromegaly or neck vein distention. Cardiovascular examination reveals regular rhythm rate. S1-S2 normal. No S3 or S4. No discernible murmur noted. Heart rate 121 bpm. Heart sounds are distant. Lungs reveal diffuse coarse bilateral breath sounds. Breath sounds equal bilat erally. Diffuse rhonchi are noted. No crackles. No wheezes. Abdomen soft bowel sounds are heard. No masses or tenderness. Extremities are intact. No cyanosis clubbing or edema. Skin is without rash or lesion. Neurologic examination cannot be adequately assessed as the patient is currently on Nimbex, and propofol. - Labs CBC & Chem 7: 07/03/21 03:45 07/03/21 08:15 Labs: Abnormal Lab Results - Last 24 Hours (Table) 07/02/21 07/02/21 07/03/21 Range/Units 11:37 17:55 00:24 WBC (3.8-10.6) k/uL RBC (3.80-5.40) m/uL Hgb (11.4-16.0) gm/dL Hct (34.0-46.0) % MCV (80.0-100.0) fL Plt Count (150-450) k/uL Neutrophils # (1.3-7.7) k/uL Lymphocytes # (1.0-4.8) k/uL ABG pH (7.35-7.45) ABG pO2 (83-108) mmHg ABG HCO3 (21-25) mmol/L ABG Total CO2 (19-24) mmol/L ABG O2 Saturation (94-97) % Sodium (137-145) mmol/L Potassium (3.5-5.1) mmol/L Chloride (98-107) mmol/L Carbon Dioxide (22-30) mmol/L BUN (7-17) mg/dL Glucose (74-99) mg/dL POC Glucose (mg/dL) 159 H 146 H 188 H (75-99) mg/dL Calcium (8.4-10.2) mg/dL Magnesium (1.6-2.3) mg/dL Total Bilirubin (0.2-1.3) mg/dL AST (14-36) U/L ALT (4-34) U/L 07/03/21 07/03/21 07/03/21 Range/Units 03:45 03:45 03:45 WBC 12.5 H (3.8-10.6) k/uL RBC 3.20 L (3.80-5.40) m/uL Hgb 11.1 L (11.4-16.0) gm/dL Hct 33.6 L (34.0-46.0) % MCV 105.1 H (80.0-100.0) fL Plt Count 95 L (150-450) k/uL Neutrophils # 11.7 H (1.3-7.7) k/uL Lymphocytes # 0.2 L (1.0-4.8) k/uL ABG pH (7.35-7.45) ABG pO2 (83-108) mmHg ABG HCO3 (21-25) mmol/L ABG Total CO2 (19-24) mmol/L ABG O2 Saturation (94-97) % Sodium 134 L (137-145) mmol/L Potassium 3.0 L (3.5-5.1) mmol/L Chloride 88 L (98-107) mmol/L Carbon Dioxide 34 H (22-30) mmol/L BUN 19 H (7-17) mg/dL Glucose 160 H (74-99) mg/dL POC Glucose (mg/dL) (75-99) mg/dL Calcium 7.3 L (8.4-10.2) mg/dL Magnesium 0.8 L* (1.6-2.3) mg/dL Total Bilirubin 1.4 H (0.2-1.3) mg/dL AST 121 H (14-36) U/L ALT 54 H (4-34) U/L 07/03/21 07/03/21 07/03/21 Range/Units 05:19 05:50 08:15 WBC (3.8-10.6) k/uL RBC (3.80-5.40) m/uL Hgb (11.4-16.0) gm/dL Hct (34.0-46.0) % MCV (80.0-100.0) fL Plt Count (150-450) k/uL Neutrophils # (1.3-7.7) k/uL Lymphocytes # (1.0-4.8) k/uL ABG pH 7.58 H* (7.35-7.45) ABG pO2 139 H (83-108) mmHg ABG HCO3 36 H (21-25) mmol/L ABG Total CO2 37 H (19-24) mmol/L ABG O2 Saturation 100.0 H (94-97) % Sodium (137-145) mmol/L Potassium (3.5-5.1) mmol/L Chloride (98-107) mmol/L Carbon Dioxide (22-30) mmol/L BUN (7-17) mg/dL Glucose (74-99) mg/dL POC Glucose (mg/dL) 174 H 215 H (75-99) mg/dL Calcium (8.4-10.2) mg/dL Magnesium (1.6-2.3) mg/dL Total Bilirubin (0.2-1.3) mg/dL AST (14-36) U/L ALT (4-34) U/L 07/03/21 Range/Units 08:15 WBC (3.8-10.6) k/uL RBC (3.80-5.40) m/uL Hgb (11.4-16.0) gm/dL Hct (34.0-46.0) % MCV (80.0-100.0) fL Plt Count (150-450) k/uL Neutrophils # (1.3-7.7) k/uL Lymphocytes # (1.0-4.8) k/uL ABG pH (7.35-7.45) ABG pO2 (83-108) mmHg ABG HCO3 (21-25) mmol/L ABG Total CO2 (19-24) mmol/L ABG O2 Saturation (94-97) % Sodium (137-145) mmol/L Potassium 3.2 L (3.5-5.1) mmol/L Chloride (98-107) mmol/L Carbon Dioxide (22-30) mmol/L BUN (7-17) mg/dL Glucose (74-99) mg/dL POC Glucose (mg/dL) (75-99) mg/dL Calcium (8.4-10.2) mg/dL Magnesium (1.6-2.3) mg/dL Total Bilirubin (0.2-1.3) mg/dL AST (14-36) U/L ALT (4-34) U/L Assessment and Plan Assessment: Acute respiratory failure, with alcohol related seizures, status post intubation on 07/01/2021. Routine ventilator management. Mental status changes, secondary to alcohol withdrawal syndrome and seizure disorder. History of chronic alcohol abuse. History of asthma. History of hypertension. History of anxiety/depression. History of bipolar disorder. Transaminitis secondary to alcohol abuse. Plan: Plan dated 07/02/2021. The patient has a arterial line replaced. His apparently placed by the [employer]. A central line will be placed. The patient's FiO2 was dropped down to 45%. 2 feedings will be started. Additional recommendations and suggestions are forthcoming. Prognosis is guarded. The patient remains on propofol, and Nimbex. The patient is also on heparin as per cardiology. In addition, patient remains on norepinephrine at 5 mcg/m. We will continue to follow make recommendations where appropriate. Prognosis is guarded. Plan dated 07/03/2021. Patient's FiO2 was dropped from 45%, down to 35%. Her blood gases were excellent. The patient's currently on Nimbex at 2 mcg/kg/m, and propofol at 50 mcg/kg/m. The patient remains on a small amount of norepinephrine. The patient is currently also on Zosyn. Today, we will do a daily interruption of sedation and a spontaneous breathing trial. Chest x-ray, labs, and medications are all reviewed. The patient is receiving tube feedings at goal. Overall prognosis remains guarded. We will continue to follow make recommendations where ap propriate. Her Time with Patient: Greater than 30
[2021-07-03] MEDS ORDERED: SODIUM CHLORIDE 0.9% 1,000 ML IV ONE (10:53)
[2021-07-03 11:17] LABS: ABG Base Excess 12.2 mmol/L; ABG HCO3 35 mmol/L (21-25); ABG Oxygen Saturation 96.5 % (94-97); ABG PCO2 40 mmHg (35-45); ABG PH 7.55 (7.35-7.45); ABG PO2 79 mmHg (83-108); ABG TCO2 36 mmol/L (19-24)
[2021-07-03 12:23] LABS: Glucose,Whole Blood 172 mg/dL (75-99)
[2021-07-03 16:04] LABS: Glucose,Whole Blood 161 mg/dL (75-99)
[2021-07-03 18:07] LABS: Glucose,Whole Blood 155 mg/dL (75-99)
[2021-07-03 19:50] LABS: Glucose,Whole Blood 144 mg/dL (75-99)
[2021-07-03 20:26] LABS: Glucose,Whole Blood 131 mg/dL (75-99)
[2021-07-03] MEDS: SODIUM CHLORIDE 0.9% 500 ML 500 ML IV SCH (21:45)
[2021-07-03 23:40] LABS: Glucose,Whole Blood 142 mg/dL (75-99)
[2021-07-04] MEDS: PIPERACILLIN-TAZOBACTAM 3.375 GM in SODIUM CHLORIDE 0.9% 100 ML IVPB SCH ×4 (00:50→23:41)
[2021-07-04] MEDS: INSULIN ASPART (NovoLOG) 100 UNIT/ML VIAL SQ SCH ×6 (00:50→20:52)
[2021-07-04] MEDS: NOREPINEPHRINE 4 MG in SODIUM CHLORIDE 0.9% 250 ML IV SCH ×10 (00:52→20:45)
[2021-07-04] MEDS: IPRATROPIUM-ALBUTEROL 3 ML NEB INHALATION SCH ×6 (03:21→23:40)
[2021-07-04 04:08] LABS: Glucose,Whole Blood 131 mg/dL (75-99)
[2021-07-04 04:28] LABS: Basophils % (A) 0 %; Eosinophils # (A) 0.1 k/uL (0-0.7); Eosinophils % (A) 1 %; HCT 35.3 % (34.0-46.0); HGB 11.2 gm/dL (11.4-16.0); Lymphocytes # (A) 0.6 k/uL (1.0-4.8); Lymphocytes % (A) 5 %; MCH 34.2 pg (25.0-35.0); MCHC 31.7 g/dL (31.0-37.0); MCV 107.9 fL (80.0-100.0); Macrocytosis Marked; Mean Platelet Volume 9.8; Monocytes # (A) 0.7 k/uL (0-1.0); Monocytes % (A) 5 %; Neutrophils # (A) 10.7 k/uL (1.3-7.7); Neutrophils % (A) 88 %; Platelet Count 124 k/uL (150-450); RBC 3.27 m/uL (3.80-5.40); WBC 12.1 k/uL (3.8-10.6)
[2021-07-04 04:43] LABS: Sodium 133 mmol/L (137-145)
[2021-07-04 04:46] LABS: African American GFR (CKD) >90 (>60 ml/min/1.73 sqM); Anion Gap 9 mmol/L; Blood Urea Nitrogen 23 mg/dL (7-17); Calcium 7.2 mg/dL (8.4-10.2); Carbon Dioxide 35 mmol/L (22-30); Chloride 89 mmol/L (98-107); Glucose 146 mg/dL (74-99); Magnesium 1.7 mg/dL (1.6-2.3); Non-African American GFR(CKD) >90 (>60 ml/min/1.73 sqM)
--- NOTE | 2021-07-04 04:57 | PN ---
PROGRESS NOTE 46-year-old female. Remains on the ventilator. Intensive consult noted. Hemoglobin 11.1, white count 12.5, platelets 95, BUN 19, creatinine 0.96, magnesium 0.8. Chest x-ray shows stable interstitial diffuse pattern. Blood pressure 103/68, respiratory 18-20, 100-120, temp 98.8. Cardiovascular S1, S2. Lungs clear. GI soft, hematology: Negative Homans. ASSESSMENT: 1. Acute respiratory failure. 2. Alcohol-related seizures. 3. Post intubation. 4. Alcohol withdrawal syndrome. 5. Seizure disorder. 6. Asthma. 7. Hypertension. 8. Anxiety. 9. Depression. 10.Bipolar. Continue current treatment. Wean vent as tolerated. Seizure precautions. MMODL / NIVIAN: [id number] /
[2021-07-04 05:42] LABS: Glucose,Whole Blood 140 mg/dL (75-99)
[2021-07-04 05:59] LABS: ABG Base Excess 15.1 mmol/L; ABG HCO3 37 mmol/L (21-25); ABG Oxygen Saturation 98.4 % (94-97); ABG PCO2 42 mmHg (35-45); ABG PO2 95 mmHg (83-108); ABG TCO2 39 mmol/L (19-24); Allen Test Performed? Yes
[2021-07-04 06:00] LABS: ABG PH 7.56 (7.35-7.45)
[2021-07-04] MEDS: MAGNESIUM SULFATE-D5W PMX 1 GM in DEXTROSE/WATER 1 100ML.BAG IVPB SCH ×2 (06:23→10:37)
--- NOTE | 2021-07-04 07:34 | P.PN ---
Subjective Progress Note Date: 07/04/21 Principal diagnosis: Severe cardiomyopathy The patient is a 46-year-old -Citizen Of [place] female patient with a past medical history significant for excessive alcohol use as well as history of asthma who was admitted to the hospital after she presented with seizure and subsequently she developed respiratory failure requiring intubation and mechanical ventilation. We felt that the respiratory failure secondary to heart failure. The patient underwent an echocardiogram that revealed severe cardiomyopathy with EF of 20% was evidence of moderate mitral regurgitation and severe tricuspid regurgitation as well as severe pulmonary hypertension. Currently the patient is intubated and she is on mechanical ventilation. She is also in sinus tachycardia. Currently also she is on vasopressors was norepinephrine. The patient was seen this morning. Her heart rate has came down slightly beach she continues to be hemodynamically unstable and requiring norepinephrine. She was on metoprolol succinate which we stopped yesterday because of the low blood pressure. I could not open her chest x-ray to evaluate if she still have any pulmonary edema at this point. Currently she is not on Lasix and told. I'll I discussed that with the critical care team to see if the patient would benefit from small dose of Lasix IV and stent of the drip. She failed an attempt of weaning him yesterday in trying to extubate the patient which would be very helpful in terms off blood pressure. Objective - Vital Signs Vital signs: Vital Signs Temp 98.5 F 07/04/21 04:00 Pulse 112 H 07/04/21 06:00 Resp 26 H 07/04/21 06:00 BP 89/55 07/04/21 05:00 Pulse Ox 95 07/04/21 06:00 Intake & Output 07/03/21 07/04/21 07/04/21 18:59 06:59 18:59 Intake Total 2095.418 1257.282 Output Total 1255 570 Balance 840.418 687.282 Weight 83.8 kg Intake: IV 1240 310 Sodium Chloride 0.9% 500 1240 310 ml 500 ml @ 20 mls/hr IV .Q24H [facility] Rx#:[id number] Intake, IV Titration 724.418 362.282 Amount Cisatracurium 200 mg In 51.244 Sodium Chloride 0.9% 180 ml @ 1 MCG/KG/MIN 5.987 mls/hr IV .Q24H [facility] Rx#: [id number] Norepinephrine 4 mg In 473.174 125.085 Sodium Chloride 0.9% 250 ml @ 0.3 MCG/KG/MIN 114. 06 mls/hr IV .Q2H14M [facility] Rx#:[id number] propofoL 1,000 mg In 200.000 237.197 Empty Bag 1 bag @ Titrate IV .Q0M [facility] Rx#: [id number] Tube Feeding 101 375 Other 30 210 Output: Urine 1255 570 Other: Voiding Method Indwelling Catheter Indwelling Catheter ABP, PAP, CO, CI - Last Documented Arterial Blood Pressure 123/82 - Constitutional General appearance: Present: no acute distress - Respiratory Respiratory: bilateral: diminished - Cardiovascular Rhythm: regular - Labs CBC & Chem 7: 07/04/21 04:00 07/04/21 04:00 Labs: Abnormal Lab Results - Last 24 Hours (Table) 07/03/21 07/03/21 07/03/21 Range/Units 08:15 08:15 08:15 WBC (3.8-10.6) k/uL RBC (3.80-5.40) m/uL Hgb (11.4-16.0) gm/dL MCV (80.0-100.0) fL Plt Count (150-450) k/uL Neutrophils # (1.3-7.7) k/uL Lymphocytes # (1.0-4.8) k/uL Macrocytosis ABG pH (7.35-7.45) ABG pO2 (83-108) mmHg ABG HCO3 (21-25) mmol/L ABG Total CO2 (19-24) mmol/L ABG O2 Saturation (94-97) % Sodium (137-145) mmol/L Potassium 3.2 L (3.5-5.1) mmol/L Chloride (98-107) mmol/L Carbon Dioxide (22-30) mmol/L BUN (7-17) mg/dL Glucose (74-99) mg/dL POC Glucose (mg/dL) 215 H (75-99) mg/dL Calcium (8.4-10.2) mg/dL Procalcitonin 0.80 H (0.02-0.09) ng/mL 07/03/21 07/03/21 07/03/21 Range/Units 11:14 12:22 16:03 WBC (3.8-10.6) k/uL RBC (3.80-5.40) m/uL Hgb (11.4-16.0) gm/dL MCV (80.0-100.0) fL Plt Count (150-450) k/uL Neutrophils # (1.3-7.7) k/uL Lymphocytes # (1.0-4.8) k/uL Macrocytosis ABG pH 7.55 H (7.35-7.45) ABG pO2 79 L (83-108) mmHg ABG HCO3 35 H (21-25) mmol/L ABG Total CO2 36 H (19-24) mmol/L ABG O2 Saturation (94-97) % Sodium (137-145) mmol/L Potassium (3.5-5.1) mmol/L Chloride (98-107) mmol/L Carbon Dioxide (22-30) mmol/L BUN (7-17) mg/dL Glucose (74-99) mg/dL POC Glucose (mg/dL) 172 H 161 H (75-99) mg/dL Calcium (8.4-10.2) mg/dL Procalcitonin (0.02-0.09) ng/mL 07/03/21 07/03/21 07/03/21 Range/Units 18:05 19:48 20:24 WBC (3.8-10.6) k/uL RBC (3.80-5.40) m/uL Hgb (11.4-16.0) gm/dL MCV (80.0-100.0) fL Plt Count (150-450) k/uL Neutrophils # (1.3-7.7) k/uL Lymphocytes # (1.0-4.8) k/uL Macrocytosis ABG pH (7.35-7.45) ABG pO2 (83-108) mmHg ABG HCO3 (21-25) mmol/L ABG Total CO2 (19-24) mmol/L ABG O2 Saturation (94-97) % Sodium (137-145) mmol/L Potassium (3.5-5.1) mmol/L Chloride (98-107) mmol/L Carbon Dioxide (22-30) mmol/L BUN (7-17) mg/dL Glucose (74-99) mg/dL POC Glucose (mg/dL) 155 H 144 H 131 H (75-99) mg/dL Calcium (8.4-10.2) mg/dL Procalcitonin (0.02-0.09) ng/mL 07/03/21 07/04/21 07/04/21 Range/Units 23:38 04:00 04:00 WBC 12.1 H (3.8-10.6) k/uL RBC 3.27 L (3.80-5.40) m/uL Hgb 11.2 L (11.4-16.0) gm/dL MCV 107.9 H (80.0-100.0) fL Plt Count 124 L (150-450) k/uL Neutrophils # 10.7 H (1.3-7.7) k/uL Lymphocytes # 0.6 L (1.0-4.8) k/uL Macrocytosis Marked A ABG pH (7.35-7.45) ABG pO2 (83-108) mmHg ABG HCO3 (21-25) mmol/L ABG Total CO2 (19-24) mmol/L ABG O2 Saturation (94-97) % Sodium 133 L (137-145) mmol/L Potassium (3.5-5.1) mmol/L Chloride 89 L (98-107) mmol/L Carbon Dioxide 35 H (22-30) mmol/L BUN 23 H (7-17) mg/dL Glucose 146 H (74-99) mg/dL POC Glucose (mg/dL) 142 H (75-99) mg/dL Calcium 7.2 L (8.4-10.2) mg/dL Procalcitonin (0.02-0.09) ng/mL 07/04/21 07/04/21 07/04/21 Range/Units 04:06 05:41 05:55 WBC (3.8-10.6) k/uL RBC (3.80-5.40) m/uL Hgb (11.4-16.0) gm/dL MCV (80.0-100.0) fL Plt Count (150-450) k/uL Neutrophils # (1.3-7.7) k/uL Lymphocytes # (1.0-4.8) k/uL Macrocytosis ABG pH 7.56 H* (7.35-7.45) ABG pO2 (83-108) mmHg ABG HCO3 37 H (21-25) mmol/L ABG Total CO2 39 H (19-24) mmol/L ABG O2 Saturation 98.4 H (94-97) % Sodium (137-145) mmol/L Potassium (3.5-5.1) mmol/L Chloride (98-107) mmol/L Carbon Dioxide (22-30) mmol/L BUN (7-17) mg/dL Glucose (74-99) mg/dL POC Glucose (mg/dL) 131 H 140 H (75-99) mg/dL Calcium (8.4-10.2) mg/dL Procalcitonin (0.02-0.09) ng/mL Microbiology - Last 24 Hours (Table) 07/01/21 20:07 Gram Stain - Final Sputum Sputum Culture - Final Assessment and Plan Assessment: Assessment #1 acute hypoxic respiratory failure #2 acute exacerbation of heart failure with reduced ejection fraction #3 severe cardiomyopathy likely to be EtOH-induced versus tachycardia induced versus myocarditis #4 disease with mitral and tricuspid regurgitation secondary to cardiomyopathy #5 sinus tachycardia which has improved #6 possible thromboembolic disease #7 excessive alcohol use #8 abnormal liver function tests Plan #1 the patient failed an attempt of weaning him yesterday #2 she might benefit from small dose of Lasix IV #3 avoid any medication can lower her blood pressure including beta simon #4 continue monitor the kidney function and electrolytes #5 follow-up with the patient
--- NOTE | 2021-07-04 08:13 | XR ---
EXAMINATION TYPE: XR chest 1V portable DATE OF EXAM: 07/04/2021 COMPARISON: Chest x-ray 07/03/2021 HISTORY: Intubated TECHNIQUE: Single frontal view of the chest is obtained. FINDINGS: Endotracheal tube and NG tube, right-sided PICC line are overlying stable and appropriate positions. Patient is rotated. There is no evident pneumothorax or pleural effusion. Heart is likely enlarged. Bilateral airspace disease is again seen. Lung volumes are lower. Apical pleural thickening on the left is again noted. There are overlying artifacts. IMPRESSION: Correlate for pneumonia, congestive heart failure and pulmonary edema not excluded, ther e is cardiomegaly
[2021-07-04] MEDS: FORMOTEROL FUMARATE 20 MCG/2 ML NEBU INHALATION SCH ×2 (08:24→19:40)
[2021-07-04] MEDS: BUDESONIDE 1 MG/2 ML NEBU INHALATION SCH ×2 (08:24→19:40)
--- NOTE | 2021-07-04 09:31 | P.PN ---
Subjective Progress Note Date: 07/04/21 Principal diagnosis: Respiratory failure. Pulmonary consult dated 07/02/2021. 46-year-old black female, with a history of asthma, and hypertension, who presents to the emergency department, with mental status changes, and being poorly responsive. EMS was called to the house, and the patient apparently has had significant alcohol abuse, and was thought to have alcohol withdrawal syndrome. Apparently, the patient complained about being short of breath. In transport, the patient apparently had a seizure. She became unresponsive in the eyes rolled back in her head. That episode lasted 2 minutes. When she arrived to the trauma bay, she was confused and agitated. She apparently was intubated on the in the emergency department. She came to the intensive care unit on the . She remains on the mechanical ventilator. She is on the volume assist control mode, rate 26, tidal volume 450, FiO2 60%, to be dropped down to 45%, and PEEP of 5. Blood gases show pO2 of 113, pCO2 37, and pH is 7.5. The patient's receiving saline at 20 mL an hour, propofol at 50 mcg/kg/m, norepinephrine 5 mcg/m, Nimbex at 3 mcg/kg/m, heparin via weightbase protocol, Lasix, 10 mg an hour. Lab data includes a white count of 10.3, hemoglobin 11.4, hematocrit 34.9, and platelet count 81,000. PT 13.2, INR 1.3, and PTT 54.3. Sodium 134, potassium 5, chlorides 94, CO2 21, anion gap 19, BUN 16, creatinine 0.87. Calcium 7.5, magnesium 1.0, AST 159, ALT 67. The central line that was placed, was malpositioned. Chest x-ray shows diffuse bilateral infiltrates. Progress note dated 07/03/2021. 46-year-old white female, seen yesterday in consultation. She has a history of both asthma, and hypertension. The patient was brought to the emergency department with mental status changes, and she was very poorly responsive and was intubated. She was found to have a seizure, and was having alcohol withdrawal syndrome. Currently, the patient remains on the volume assist contro l mode, rate 26, tidal volume 450, FiO2 45%, and PEEP of 5. Blood gases show pO2 of 139, pCO2 of 38, and a pH is 7.58. She's currently on norepinephrine at 0.08 mcg/kg/m, Nimbex at 2 mcg/kg/m, propofol at 50 mcg/kg/m, and vital high protein at 26 mL an hour, which is goal. The patient's currently on Zosyn. We are going to do a daily interruption of sedation, and a spontaneous breathing trial today. We'll hoping to get the patient extubated. The FiO2 was dropped down to 35%. White count 12.5, hemoglobin 11.1, hematocrit 33.6, platelet count 95,000. Sodium 134, potassium 3.2, chloride 88, CO2 34, anion gap 12, BUN 19, creatinine 0.96. Magnesium 0.8. AST was 121. ALT 54. Chest x-ray shows a stable diffuse interstitial/patchy pattern. Progress note dated 07/04/2021. 46-year-old black female who was seen 2 days ago consultation. She is again seen today in room 264. She has a history of hypertension and asthma. She was initially brought into the emergency department with mental status changes, and was very poorly responsive. The patient was found to have a seizure, and was intubated in the emergency department. Yesterday, we attempted a daily interruption of sedation, a spontaneous breathing trial, but her weaning parameters were not very good, hence, she was not extubated. The patient remains on the volume assist control mode of ventilation, rate 26, tidal volume at 375, FiO2 35%, and PEEP of 5. Blood gases show pO2 of 95, pCO2 42, and a pH is 7.56. Her chest x-ray shows some left lower lobe atelectasis and/or infiltrate. There is also some volume loss in the left hemithorax. We will attempt another daily interruption of sedation and spontaneous breathing trial today. Currently, the patient's on saline at 30 mL an hour, propofol at 60 mcg/kg/m, and norepinephrine at 0.08 mcg/kg/m. The patient's getting vital high protein at 25 mL an hour, which is goal. The patient did have some bright red blood from her endotracheal tube earlier today. White count 12.1, hemoglobin 11.2, hematocrit 35.3, platelet count 124,000. Sodium 133, potassium 4, chlo rides 89, CO2 35, anion gap 9, BUN 23, creatinine 0.8. Objective - Vital Signs Vital signs: Vital Signs Temp 98.5 F 07/04/21 04:00 Pulse 98 07/04/21 08:45 Resp 26 H 07/04/21 07:45 BP 89/55 07/04/21 05:00 Pulse Ox 94 L 07/04/21 07:45 Intake & Output 07/03/21 07/04/21 07/04/21 18:59 06:59 18:59 Intake Total 2095.418 1257.282 Output Total 1255 570 Balance 840.418 687.282 Weight 83.8 kg Intake: IV 1240 310 Sodium Chloride 0.9% 500 1240 310 ml 500 ml @ 20 mls/hr IV .Q24H [facility] Rx#:[id number] Intake, IV Titration 724.418 362.282 Amount Cisatracurium 200 mg In 51.244 Sodium Chloride 0.9% 180 ml @ 1 MCG/KG/MIN 5.987 mls/hr IV .Q24H [facility] Rx#: [id number] Norepinephrine 4 mg In 473.174 125.085 Sodium Chloride 0.9% 250 ml @ 0.3 MCG/KG/MIN 114. 06 mls/hr IV .Q2H14M [facility] Rx#:[id number] propofoL 1,000 mg In 200.000 237.197 Empty Bag 1 bag @ Titrate IV .Q0M [facility] Rx#: [id number] Tube Feeding 101 375 Other 30 210 Output: Urine 1255 570 Other: Voiding Method Indwelling Catheter Indwelling Catheter ABP, PAP, CO, CI - Last Documented Arterial Blood Pressure 97/66 - Exam No acute distress, sedated, with an orally placed endotracheal tube and NG tube. Saturations are 94%. HEENT examination is grossly unremarkable. Neck supple. Full range of motion. No adenopathy thyromegaly or neck vein distention. Cardiovascular examination reveals regular rhythm rate. S1-S2 normal. No S3 or S4. No discernible murmur noted. Heart rate 98 bpm. Heart sounds are distant. Lungs reveal diffuse coarse bilateral breath sounds. Breath sounds equal bilaterally. Diffuse rhonchi are noted. No crackles. No wheezes. Abdomen soft bowel sounds are heard. No masses or tenderness. Extremities are intact. No cyanosis clubbing or edema. Skin is without rash or lesion. Neurologic examination cannot be adequately assessed as the patient is currently on propofol. - Labs CBC & Chem 7: 07/04/21 04:00 07/04/21 04:00 Labs: Abnormal Lab Results - Last 24 Hours (Table) 07/03/21 07/03/21 07/03/21 Range/Units 08:15 11:14 12:22 WBC (3.8-10.6) k/uL RBC (3.80-5.40) m/uL Hgb (11.4-16.0) gm/dL MCV (80.0-100.0) fL Plt Count (150-450) k/uL Neutrophils # (1.3-7.7) k/uL Lymphocytes # (1.0-4.8) k/uL Macrocytosis ABG pH 7.55 H (7.35-7.45) ABG pO2 79 L (83-108) mmHg ABG HCO3 35 H (21-25) mmol/L ABG Total CO2 36 H (19-24) mmol/L ABG O2 Saturation (94-97) % Sodium (137-145) mmol/L Chloride (98-107) mmol/L Carbon Dioxide (22-30) mmol/L BUN (7-17) mg/dL Glucose (74-99) mg/dL POC Glucose (mg/dL) 172 H (75-99) mg/dL Calcium (8.4-10.2) mg/dL Procalcitonin 0.80 H (0.02-0.09) ng/mL 07/03/21 07/03/21 07/03/21 Range/Units 16:03 18:05 19:48 WBC (3.8-10.6) k/uL RBC (3.80-5.40) m/uL Hgb (11.4-16.0) gm/dL MCV (80.0-100.0) fL Plt Count (150-450) k/uL Neutrophils # (1.3-7.7) k/uL Lymphocytes # (1.0-4.8) k/uL Macrocytosis ABG pH (7.35-7.45) ABG pO2 (83-108) mmHg ABG HCO3 (21-25) mmol/L ABG Total CO2 (19-24) mmol/L ABG O2 Saturation (94-97) % Sodium (137-145) mmol/L Chloride (98-107) mmol/L Carbon Dioxide (22-30) mmol/L BUN (7-17) mg/dL Glucose (74-99) mg/dL POC Glucose (mg/dL) 161 H 155 H 144 H (75-99) mg/dL Calcium (8.4-10.2) mg/dL Procalcitonin (0.02-0.09) ng/mL 07/03/21 07/03/21 07/04/21 Range/Units 20:24 23:38 04:00 WBC (3.8-10.6) k/uL RBC (3.80-5.40) m/uL Hgb (11.4-16.0) gm/dL MCV (80.0-100.0) fL Plt Count (150-450) k/uL Neutrophils # (1.3-7.7) k/uL Lymphocytes # (1.0-4.8) k/uL Macrocytosis ABG pH (7.35-7.45) ABG pO2 (83-108) mmHg ABG HCO3 (21-25) mmol/L ABG Total CO2 (19-24) mmol/L ABG O2 Saturation (94-97) % Sodium 133 L (137-145) mmol/L Chloride 89 L (98-107) mmol/L Carbon Dioxide 35 H (22-30) mmol/L BUN 23 H (7-17) mg/dL Glucose 146 H (74-99) mg/dL POC Glucose (mg/dL) 131 H 142 H (75-99) mg/dL Calcium 7.2 L (8.4-10.2) mg/dL Procalcitonin (0.02-0.09) ng/mL 07/04/21 07/04/21 07/04/21 Range/Units 04:00 04:06 05:41 WBC 12.1 H (3.8-10.6) k/uL RBC 3.27 L (3.80-5.40) m/uL Hgb 11.2 L (11.4-16.0) gm/dL MCV 107.9 H (80.0-100.0) fL Plt Count 124 L (150-450) k/uL Neutrophils # 10.7 H (1.3-7.7) k/uL Lymphocytes # 0.6 L (1.0-4.8) k/uL Macrocytosis Marked A ABG pH (7.35-7.45) ABG pO2 (83-108) mmHg ABG HCO3 (21-25) mmol/L ABG Total CO2 (19-24) mmol/L ABG O2 Saturation (94-97) % Sodium (137-145) mmol/L Chloride (98-107) mmol/L Carbon Dioxide (22-30) mmol/L BUN (7-17) mg/dL Glucose (74-99) mg/dL POC Glucose (mg/dL) 131 H 140 H (75-99) mg/dL Calcium (8.4-10.2) mg/dL Procalcitonin (0.02-0.09) ng/mL 07/04/21 Range/Units 05:55 WBC (3.8-10.6) k/uL RBC (3.80-5.40) m/uL Hgb (11.4-16.0) gm/dL MCV (80.0-100.0) fL Plt Count (150-450) k/uL Neutrophils # (1.3-7.7) k/uL Lymphocytes # (1.0-4.8) k/uL Macrocytosis ABG pH 7.56 H* (7.35-7.45) ABG pO2 (83-108) mmHg ABG HCO3 37 H (21-25) mmol/L ABG Total CO2 39 H (19-24) mmol/L ABG O2 Saturation 98.4 H (94-97) % Sodium (137-145) mmol/L Chloride (98-107) mmol/L Carbon Dioxide (22-30) mmol/L BUN (7-17) mg/dL Glucose (74-99) mg/dL POC Glucose (mg/dL) (75-99) mg/dL Calcium (8.4-10.2) mg/dL Procalcitonin (0.02-0.09) ng/mL Microbiology - Last 24 Hours (Table) 07/01/21 20:07 Gram Stain - Final Sputum Sputum Culture - Final Assessment and Plan Assessment: Acute respiratory failure, with alcohol related seizures, status post intubation on 07/01/2021. Routine ventilator management. Mental status changes, secondary to alcohol withdrawal syndrome and seizure disorder. History of chronic alcohol abuse. History of asthma. History of hypertension. History of anxiety/depression. History of bipolar disorder. Transaminitis secondary to alcohol abuse. Plan: Plan dated 07/02/2021. The patient has a arterial line replaced. His apparently placed by the [employer]. A central line will be placed. The patient's FiO2 was dropped down to 45%. 2 feedings will be started. Additional recommendations and suggestions are forthcoming. Prognosis is guarded. The patient remains on propofol, and Nimbex. The patient is also on heparin as per cardiology. In addition, patient remains on norepinephrine at 5 mcg/m. We will continue to follow make recommendations where appropriate. Prognosis is guarded. Plan dated 07/03/2021. Patient's FiO2 was dropped from 45%, down to 35%. Her blood gases were excellen t. The patient's currently on Nimbex at 2 mcg/kg/m, and propofol at 50 mcg/kg/m. The patient remains on a small amount of norepinephrine. The patient is currently also on Zosyn. Today, we will do a daily interruption of sedation and a spontaneous breathing trial. Chest x-ray, labs, and medications are all reviewed. The patient is receiving tube feedings at goal. Overall prognosis remains guarded. We will continue to follow make recommendations where appropriate. Plan dated 07/04/2021. The patient will have another attempt at extubation today. We would do a daily interruption of sedation. The patient remains on propofol, and norepinephrine. The patient is receiving tube feeds. Labs, x-rays, medications are reviewed. The patient did have some additional bright red blood from the endotracheal tube earlier today. We will continue to monitor that. We will continue to follow make recommendations where appropriate. Microbiology is negative. The patient remains on Zosyn. Time with Patient: Greater than 30
[2021-07-04] MEDS: CHLORHEXIDINE GLUCONATE 15 ML CUP MUCOUS MEM SCH (10:32)
[2021-07-04] MEDS: THIAMINE 100 MG TAB PO SCH ×2 (10:32→17:53)
[2021-07-04] MEDS: ENOXAPARIN 40 MG/0.4 ML SYRINGE SQ SCH (10:37)
[2021-07-04] MEDS: PANTOPRAZOLE 40 MG/10 ML VIAL IVP SCH (10:37)
[2021-07-04 11:00] LABS: Glucose,Whole Blood 131 mg/dL (75-99)
[2021-07-04 17:02] LABS: Glucose,Whole Blood 123 mg/dL (75-99)
[2021-07-04] MEDS: LORazepam 2 MG/ML INJ IV PRN (17:19)
[2021-07-04] MEDS ORDERED: SODIUM CHLORIDE 0.9% 500 ML 500 ML IV ONE (18:36)
[2021-07-04] MEDS: METOPROLOL TARTRATE 12.5 MG TAB PO SCH (20:40)
[2021-07-04] MEDS: SODIUM CHLORIDE 0.9% 500 ML 500 ML IV SCH (20:41)
[2021-07-04 20:49] LABS: Glucose,Whole Blood 145 mg/dL (75-99)
[2021-07-05] MEDS: IPRATROPIUM-ALBUTEROL 3 ML NEB INHALATION SCH ×6 (03:53→23:37)
[2021-07-05] MEDS: NOREPINEPHRINE 4 MG in SODIUM CHLORIDE 0.9% 250 ML IV SCH ×6 (04:35→23:46)
[2021-07-05 04:53] LABS: Basophils % (A) 0 %; Eosinophils # (A) 0.1 k/uL (0-0.7); Eosinophils % (A) 2 %; HCT 35.4 % (34.0-46.0); HGB 11.1 gm/dL (11.4-16.0); Lymphocytes # (A) 1.1 k/uL (1.0-4.8); Lymphocytes % (A) 15 %; MCH 34.3 pg (25.0-35.0); MCHC 31.5 g/dL (31.0-37.0); MCV 108.8 fL (80.0-100.0); Macrocytosis Marked; Mean Platelet Volume 8.8; Monocytes # (A) 0.3 k/uL (0-1.0); Monocytes % (A) 5 %; Neutrophils # (A) 5.7 k/uL (1.3-7.7); Neutrophils % (A) 77 %; Platelet Count 149 k/uL (150-450); RBC 3.25 m/uL (3.80-5.40); WBC 7.3 k/uL (3.8-10.6)
[2021-07-05 05:13] LABS: African American GFR (CKD) >90 (>60 ml/min/1.73 sqM); Anion Gap 5 mmol/L; Blood Urea Nitrogen 20 mg/dL (7-17); Calcium 7.8 mg/dL (8.4-10.2); Carbon Dioxide 33 mmol/L (22-30); Chloride 95 mmol/L (98-107); Glucose 126 mg/dL (74-99); Non-African American GFR(CKD) >90 (>60 ml/min/1.73 sqM); Potassium 3.4 mmol/L (3.5-5.1); Sodium 133 mmol/L (137-145)
[2021-07-05 06:49] LABS: Glucose,Whole Blood 119 mg/dL (75-99)
--- NOTE | 2021-07-05 07:56 | P.PN ---
Subjective Progress Note Date: 07/05/21 Principal diagnosis: Severe cardiomyopathy The patient is a 46-year-old -[place] female patient with a past medical history significant for excessive alcohol use as well as history of asthma who was admitted to the hospital after she presented with seizure and subsequently she developed respiratory failure requiring intubation and mechanical ventilation. We felt that the respiratory failure secondary to heart failure. The patient underwent an echocardiogram that revealed severe cardiomyopathy with EF of 20% was evidence of moderate mitral regurgitation and severe tricuspid regurgitation as well as severe pulmonary hypertension. Currently the patient is intubated and she is on mechanical ventilation. She is also in sinus tachycardia. Currently also she is on vasopressors was norepinephrine. The patient was evaluated today. She was extubated yesterday. Unfortunately she continues to be unstable hemodynamically terms off low blood pressure requiring norepinephrine and also tachycardia with a resting heart rate in the 130 beats per minutes. She stated that she is short of breath at this point. On examination she seems to be euvolemic. I really had heart bypass assessing her fluid status and I think she will benefit from at least a right heart c atheterization to assess her right and left filling pressures and the need for diuretics. With that being seated going to schedule her to have that. Also would do coronary angiogram at the same setting to rule out severe underlying coronary artery disease. Meanwhile we'll try small dose of Primacor to assess if she improved her contractility and potentially improve her blood pressure. The tachycardia could be related to hypovolemia. Further information will be obtained after the right heart catheterization and knowing her filling pressure. Meanwhile we'll continue supportive care including norepinephrine to achieve a systolic pressure above 90 or immune a pressure of 65 mmHg. Continue the small dose of metoprolol she was started on yesterday. Objective - Vital Signs Vital signs: Vital Signs Temp 98.2 F 07/05/21 04:00 Pulse 138 H 07/05/21 07:00 Resp 14 07/05/21 07:00 BP 112/90 07/05/21 07:00 Pulse Ox 92 L 07/05/21 07:00 Intake & Output 07/04/21 07/05/21 07/05/21 18:59 06:59 18:59 Intake Total 254.363 5509.634 23 Output Total 560 405 20 Balance 39.738 986.634 3 Weight 83.8 kg 86.8 kg Intake: IV 160 873 23 Fluid bolus 500 Pressure Bag 33 3 Sodium Chloride 0.9% 500 160 240 20 ml 500 ml @ 20 mls/hr IV .Q24H [facility] Rx#:[id number] Zosyn IVPB 100 Intake, IV Titration 439.738 318.634 Amount Norepinephrine 4 mg In 372.876 318.634 Sodium Chloride 0.9% 250 ml @ 0.3 MCG/KG/MIN 114. 06 mls/hr IV .Q2H14M [facility] Rx#:[id number] propofoL 1,000 mg In 66.862 Empty Bag 1 bag @ Titrate IV .Q0M [facility] Rx#: [id number] Oral 200 Output: Urine 560 405 20 Other: Voiding Method Indwelling Catheter Indwelling Catheter ABP, PAP, CO, CI - Last Documented Arterial Blood Pressure 101/95 - Constitutional General appearance: Present: no acute distress - Respiratory Respiratory: bilateral: CTA - Cardiovascular Rhythm: regular - Labs CBC & Chem 7: 07/05/21 04:30 07/05/21 04:30 Labs: Abnormal Lab Results - Last 24 Hours (Table) 07/04/21 07/04/21 07/04/21 Range/Units 10:58 16:59 20:47 RBC (3.80-5.40) m/uL Hgb (11.4-16.0) gm/dL MCV (80.0-100.0) fL Plt Count (150-450) k/uL Macrocytosis Sodium (137-145) mmol/L Potassium (3.5-5.1) mmol/L Chloride (98-107) mmol/L Carbon Dioxide (22-30) mmol/L BUN (7-17) mg/dL Glucose (74-99) mg/dL POC Glucose (mg/dL) 131 H 123 H 145 H (75-99) mg/dL Calcium (8.4-10.2) mg/dL 07/05/21 07/05/21 07/05/21 Range/Units 04:30 04:30 06:47 RBC 3.25 L (3.80-5.40) m/uL Hgb 11.1 L (11.4-16.0) gm/dL MCV 108.8 H (80.0-100.0) fL Plt Count 149 L (150-450) k/uL Macrocytosis Marked A Sodium 133 L (137-145) mmol/L Potassium 3.4 L (3.5-5.1) mmol/L Chloride 95 L (98-107) mmol/L Carbon Dioxide 33 H (22-30) mmol/L BUN 20 H (7-17) mg/dL Glucose 126 H (74-99) mg/dL POC Glucose (mg/dL) 119 H (75-99) mg/dL Calcium 7.8 L (8.4-10.2) mg/dL Assessment and Plan Assessment: Assessment #1 acute hypoxic respiratory failure. The patient was extubated yesterday #2 acute exacerbation of heart failure with reduced ejection fraction #3 severe cardiomyopathy likely to be EtOH-induced versus tachycardia induced versus myocarditis #4 disease with mitral and tricuspid regurgitation secondary to cardiomyopathy #5 sinus tachycardia which has improved #6 possible thromboembolic disease #7 excessive alcohol use #8 abnormal liver function tests Plan #1 continue supporting the blood pressure using norepinephrine #2 continue the current small dose of metoprolol tartrate #3 try to start the patient on Ivabradine #4 proceed with a right and left heart catheterization to assess the filling pressure #5 follow-up with the patient
[2021-07-05] MEDS: FORMOTEROL FUMARATE 20 MCG/2 ML NEBU INHALATION SCH ×2 (08:10→21:32)
[2021-07-05] MEDS: BUDESONIDE 1 MG/2 ML NEBU INHALATION SCH ×2 (08:10→21:32)
[2021-07-05] MEDS ORDERED: ASPIRIN 325 MG TAB PO STA (09:06)
[2021-07-05] MEDS ORDERED: ALPRAZolam 0.5 MG TAB PO PRN (09:06)
[2021-07-05] MEDS ORDERED: ALPRAZolam 0.25 MG TAB PO PRN (09:06)
[2021-07-05] MEDS ORDERED: NITROGLYCERIN SL TABS 0.4 MG TAB SUBLINGUAL PRN (09:06)
[2021-07-05] MEDS ORDERED: ATORVASTATIN 80 MG TAB PO STA (09:06)
[2021-07-05] MEDS: INSULIN ASPART (NovoLOG) 100 UNIT/ML VIAL SQ SCH ×4 (09:21→20:44)
[2021-07-05] MEDS: POTASSIUM CHLORIDE 10 MEQ in WATER FOR INJECTION 1 100ML.BAG IVPB SCH ×4 (09:27→15:02)
[2021-07-05] MEDS: PIPERACILLIN-TAZOBACTAM 3.375 GM in SODIUM CHLORIDE 0.9% 100 ML IVPB SCH ×2 (09:27→17:18)
[2021-07-05] MEDS: THIAMINE 100 MG TAB PO SCH ×2 (09:27→17:06)
[2021-07-05] MEDS: ENOXAPARIN 40 MG/0.4 ML SYRINGE SQ SCH (09:28)
[2021-07-05] MEDS: METOPROLOL TARTRATE 12.5 MG TAB PO SCH ×2 (09:28→20:44)
[2021-07-05] MEDS: PANTOPRAZOLE 40 MG/10 ML VIAL IVP SCH (09:28)
--- NOTE | 2021-07-05 10:12 | XR ---
EXAMINATION TYPE: XR chest 1V portable DATE OF EXAM: 07/05/2021 COMPARISON: Chest x-ray dated 07/04/2021, chest CT 120 07/02/2021 HISTORY: Extubated abnormal chest x-ray TECHNIQUE: Single frontal view of the chest is obtained. FINDINGS: Endotracheal tube and NG tube have been removed. Right-sided PICC line shows a loop, there is prolapse into the internal jugular vein on the right distal tips overlying the distal innominate vein on the right or superior vena cava. The heart is markedly enlarged. Interstitium is increased, a s bilateral airspace disease. Bilateral apical pleural thickening is noted. There is no evident pneum othorax or pleural effusion. Lung volumes are somewhat low, right hemidiaphragm is elevated. There ar e overlying artifacts. IMPRESSION: There is underlying cardiomegaly. Correlate for pneumonia, pulmonary edema with congesti ve heart failure.
[2021-07-05] MEDS: MILRINONE-D5W PMX 20 MG in DEXTROSE/WATER 1 100ML.BAG IV SCH ×2 (10:20→20:14)
--- NOTE | 2021-07-05 10:23 | P.PN ---
Subjective Progress Note Date: 07/05/21 Principal diagnosis: Respiratory failure. Pulmonary consult dated 07/02/2021. 46-year-old black female, with a history of asthma, and hypertension, who presents to the emergency department, with mental status changes, and being poorly responsive. EMS was called to the house, and the patient apparently has had significant alcohol abuse, and was thought to have alcohol withdrawal syndrome. Apparently, the patient complained about being short of breath. In transport, the patient apparently had a seizure. She became unresponsive in the eyes rolled back in her head. That episode lasted 2 minutes. When she arrived to the trauma bay, she was confused and agitated. She apparently was intubated on the in the emergency department. She came to the intensive care unit on the . She remains on the mechanical ventilator. She is on the volume assist control mode, rate 26, tidal volume 450, FiO2 60%, to be dropped down to 45%, and PEEP of 5. Blood gases show pO2 of 113, pCO2 37, and pH is 7.5. The patient's receiving saline at 20 mL an hour, propofol at 50 mcg/kg/m, norepinephrine 5 mcg/m, Nimbex at 3 mcg/kg/m, heparin via weightbase protocol, Lasix, 10 mg an hour. Lab data includes a white count of 10.3, hemoglobin 11.4, hematocrit 34.9, and platelet count 81,000. PT 13.2, INR 1.3, and PTT 54.3. Sodium 134, potassium 5, chlorides 94, CO2 21, anion gap 19, BUN 16, creatinine 0.87. Calcium 7.5, magnesium 1.0, AST 159, ALT 67. The central line that was placed, was malpositioned. Chest x-ray shows diffuse bilateral infiltrates. Progress note dated 07/03/2021. 46-year-old white female, seen yesterday in consultation. She has a history of both asthma, and hypertension. The patient was brought to the emergency department with mental status changes, and she was very poorly responsive and was intubated. She was found to have a seizure, and was having alcohol withdrawal syndrome. Currently, the patient remains on the volume assist contro l mode, rate 26, tidal volume 450, FiO2 45%, and PEEP of 5. Blood gases show pO2 of 139, pCO2 of 38, and a pH is 7.58. She's currently on norepinephrine at 0.08 mcg/kg/m, Nimbex at 2 mcg/kg/m, propofol at 50 mcg/kg/m, and vital high protein at 26 mL an hour, which is goal. The patient's currently on Zosyn. We are going to do a daily interruption of sedation, and a spontaneous breathing trial today. We'll hoping to get the patient extubated. The FiO2 was dropped down to 35%. White count 12.5, hemoglobin 11.1, hematocrit 33.6, platelet count 95,000. Sodium 134, potassium 3.2, chloride 88, CO2 34, anion gap 12, BUN 19, creatinine 0.96. Magnesium 0.8. AST was 121. ALT 54. Chest x-ray shows a stable diffuse interstitial/patchy pattern. Progress note dated 07/04/2021. 46-year-old black female who was seen 2 days ago consultation. She is again seen today in room 264. She has a history of hypertension and asthma. She was initially brought into the emergency department with mental status changes, and was very poorly responsive. The patient was found to have a seizure, and was intubated in the emergency department. Yesterday, we attempted a daily interruption of sedation, a spontaneous breathing trial, but her weaning parameters were not very good, hence, she was not extubated. The patient remains on the volume assist control mode of ventilation, rate 26, tidal volume at 375, FiO2 35%, and PEEP of 5. Blood gases show pO2 of 95, pCO2 42, and a pH is 7.56. Her chest x-ray shows some left lower lobe atelectasis and/or infiltrate. There is also some volume loss in the left hemithorax. We will attempt another daily interruption of sedation and spontaneous breathing trial today. Currently, the patient's on saline at 30 mL an hour, propofol at 60 mcg/kg/m, and norepinephrine at 0.08 mcg/kg/m. The patient's getting vital high protein at 25 mL an hour, which is goal. The patient did have some bright red blood from her endotracheal tube earlier today. White count 12.1, hemoglobin 11.2, hematocrit 35.3, platelet count 124,000. Sodium 133, potassium 4, chlo rides 89, CO2 35, anion gap 9, BUN 23, creatinine 0.8. Progress note dated 07/05/2021. 46-year-old black female who was seen in consultation 3 days ago. She is again seen in room 264. Yesterday, we were able to successfully extubate her from the mechanical ventilator. The patient is currently on 6 L nasal cannula. She's getting saline at 20 mL an hour. She is on norepinephrine at 9 mcg/m. Today, she's scheduled for a left and right heart catheterization, and soon be placed on Primacor. In addition, we asked for a stat random cortisol level, and a urinalysis. White count 7.3, hemoglobin 11.1, hematocrit 35.4, and platelet count 149,000. Sodium 133, potassium 3.4, chlorides 95, CO2 33, anion gap 5, BUN 20, creatinine 0.67. Chest x-ray shows significant cardiomegaly, with diffuse bilateral infiltrates, most likely related to fluid overload/CHF. The patient did admit to us that she drinks a pint of [place] liquor, 2-3 times per week. Objective - Vital Signs Vital signs: Vital Signs Temp 98.2 F 07/05/21 04:00 Pulse 141 H 07/05/21 09:00 Resp 28 H 07/05/21 09:00 BP 87/70 07/05/21 08:30 Pulse Ox 91 L 07/05/21 09:00 Intake & Output 07/04/21 07/05/21 07/05/21 18:59 06:59 18:59 Intake Total 259.835 2920.634 69 Output Total 560 405 40 Balance 39.738 986.634 29 Weight 83.8 kg 86.8 kg Intake: IV 160 873 69 Fluid bolus 500 Pressure Bag 33 9 Sodium Chloride 0.9% 500 160 240 60 ml 500 ml @ 20 mls/hr IV .Q24H [facility] Rx#:[id number] Zosyn IVPB 100 Intake, IV Titration 439.738 318.634 Amount Norepinephrine 4 mg In 372.876 318.634 Sodium Chloride 0.9% 250 ml @ 0.3 MCG/KG/MIN 114. 06 mls/hr IV .Q2H14M [facility] Rx#:[id number] propofoL 1,000 mg In 66.862 Empty Bag 1 bag @ Titrate IV .Q0M [facility]YA Rx#: [id number] Oral 200 Output: Urine 560 405 40 Other: Voiding Method Indwelling Catheter Indwelling Catheter ABP, PAP, CO, CI - Last Documented Arterial Blood Pressure 114/77 - Exam No acute distress, on 6 L nasal cannula, with adequate saturations. HEENT examination is grossly unremarkable. Neck supple. Full range of motion. No adenopathy thyromegaly or neck vein distention. Cardiovascular examination reveals regular rhythm rate. S1-S2 normal. No S3 or S4. No discernible murmur noted. Heart rate 122 bpm. Heart sounds are distant. Lungs reveal diffuse coarse bilateral breath sounds. Breath sounds equal bilaterally. Diffuse rhonchi are noted. No crackles. No wheezes. Abdomen soft bowel sounds are heard. No masses or tenderness. Extremities are intact. No cyanosis clubbing or edema. Skin is without rash or lesion. Neurologic examination is brief but nonfocal. - Labs CBC & Chem 7: 07/05/21 04:30 07/05/21 04:30 Labs: Abnormal Lab Results - Last 24 Hours (Table) 07/04/21 07/04/21 07/04/21 Range/Units 10:58 16:59 20:47 RBC (3.80-5.40) m/uL Hgb (11.4-16.0) gm/dL MCV (80.0-100.0) fL Plt Count (150-450) k/uL Macrocytosis Sodium (137-145) mmol/L Potassium (3.5-5.1) mmol/L Chloride (98-107) mmol/L Carbon Dioxide (22-30) mmol/L BUN (7-17) mg/dL Glucose (74-99) mg/dL POC Glucose (mg/dL) 131 H 123 H 145 H (75-99) mg/dL Calcium (8.4-10.2) mg/dL 07/05/21 07/05/21 07/05/21 Range/Units 04:30 04:30 06:47 RBC 3.25 L (3.80-5.40) m/uL Hgb 11.1 L (11.4-16.0) gm/dL MCV 108.8 H (80.0-100.0) fL Plt Count 149 L (150-450) k/uL Macrocytosis Marked A Sodium 133 L (137-145) mmol/L Potassium 3.4 L (3.5-5.1) mmol/L Chloride 95 L (98-107) mmol/L Carbon Dioxide 33 H (22-30) mmol/L BUN 20 H (7-17) mg/dL Glucose 126 H (74-99) mg/dL POC Glucose (mg/dL) 119 H (75-99) mg/dL Calcium 7.8 L (8.4-10.2) mg/dL Assessment and Plan Assessment: Acute respiratory failure, with alcohol related seizures, status post intubation on 07/01/2021. Routine ventilator management, status post successful extubation on 07/04/2021. Mental status changes, secondary to alcohol withdrawal syndrome and seizure disorder. Severe cardiomyopathy with an ejection fraction of about 20%. History of chronic alcohol abuse. History of asthma. History of hypertension. History of anxiety/depression. History of bipolar disorder. Transaminitis secondary to alcohol abuse. Plan: Plan dated 07/02/2021. The patient has a arterial line replaced. His apparently placed by the [facility]. A central line will be placed. The patient's FiO2 was dropped down to 45%. 2 feedings will be started. Additional recommendations and suggestions are forthcoming. Prognosis is guarded. The patient remains on propofol, and Nimbex. The patient is also on heparin as per cardiology. In addition, patient remains on norepinephrine at 5 mcg/m. We will continue to follow make recommendations where appropriate. Prognosis is guarded. Plan dated 07/03/2021. Patient's FiO2 was dropped from 45%, down to 35%. Her blood gases were excellent. The patient's currently on Nimbex at 2 mcg/kg/m, and propofol at 50 mcg/kg/m. The patient remains on a small amount of norepinephrine. The patient is currently also on Zosyn. Today, we will do a daily interruption of sedation and a spontaneous breathing trial. Chest x-ray, labs, and medications are all reviewed. The patient is receiving tube feedings at goal. Overall prognosis remains guarded. We will continue to follow make recommendations where appropriate. Plan dated 07/04/2021. The patient will have another attempt at extubation today. We would do a daily interruption of sedation. The patient remains on propofol, and norepinephrine. The patient is receiving tube feeds. Labs, x-rays, medications are reviewed. The patient did have some additional bright red blood from the endotracheal tube earlier today. We will continue to monitor that. We will continue to follow make recommendations where appropriate. Microbiology is negative. The patient remains on Zosyn. Plan dated 07/05/2021. The patient is scheduled for a right and left heart catheterization today. The patient is going to be placed on Primacor by cardiology. She remains on norepinephrine at 9 mcg/m. She was successfully extubated yesterday, 07/04/2021. She has a severe cardiomyopathy. Chest x-ray shows significant ca rdiomegaly, and diffuse infiltrates, consistent with fluid overload. I've asked for a urinalysis, and a stat cortisol level. Additional recommendations and suggestions are forthcoming. Prognosis is guarded. We will continue to follow make recommendations where appropriate. Time with Patient: Greater than 30
[2021-07-05] MEDS: SODIUM CHLORIDE 0.9% 500 ML 500 ML IV SCH (10:25)
[2021-07-05 12:04] LABS: Glucose,Whole Blood 115 mg/dL (75-99)
[2021-07-05 17:14] LABS: Glucose,Whole Blood 107 mg/dL (75-99)
[2021-07-05] MEDS: LORazepam 2 MG/ML INJ IV PRN (18:35)
[2021-07-05] MEDS: SODIUM CHLORIDE 0.9% 1,000 ML in EMPTY BAG 1 BAG IV SCH ×2 (20:29→20:30)
[2021-07-05 20:40] LABS: Glucose,Whole Blood 113 mg/dL (75-99)
[2021-07-06] MEDS: PIPERACILLIN-TAZOBACTAM 3.375 GM in SODIUM CHLORIDE 0.9% 100 ML IVPB SCH ×3 (00:49→16:47)
[2021-07-06] MEDS: ACETAMINOPHEN IV (For NPO) 1,000 MG in EMPTY BAG 1 BAG IVPB STA ×2 (00:54→00:55)
[2021-07-06] MEDS: LORazepam 2 MG/ML INJ IV PRN ×4 (01:57→08:00)
[2021-07-06] MEDS: NOREPINEPHRINE 4 MG in SODIUM CHLORIDE 0.9% 250 ML IV SCH ×6 (02:30→13:59)
[2021-07-06] MEDS: IPRATROPIUM-ALBUTEROL 3 ML NEB INHALATION SCH ×5 (03:47→21:29)
[2021-07-06 04:18] LABS: Basophils % (A) 0 %; Eosinophils # (A) 0.1 k/uL (0-0.7); Eosinophils % (A) 1 %; HCT 31.9 % (34.0-46.0); HGB 10.5 gm/dL (11.4-16.0); Lymphocytes # (A) 0.7 k/uL (1.0-4.8); Lymphocytes % (A) 10 %; MCH 35.3 pg (25.0-35.0); MCHC 32.8 g/dL (31.0-37.0); MCV 107.6 fL (80.0-100.0); Macrocytosis Moderate; Mean Platelet Volume 9.4; Monocytes # (A) 0.6 k/uL (0-1.0); Monocytes % (A) 8 %; Neutrophils # (A) 6.1 k/uL (1.3-7.7); Neutrophils % (A) 80 %; Platelet Count 181 k/uL (150-450); RBC 2.97 m/uL (3.80-5.40); RDW 14.3 % (11.5-15.5); WBC 7.5 k/uL (3.8-10.6)
[2021-07-06 04:46] LABS: ALT 60 U/L (4-34); AST 142 U/L (14-36); African American GFR (CKD) >90 (>60 ml/min/1.73 sqM); Albumin 2.9 g/dL (3.5-5.0); Alkaline Phosphatase 139 U/L (38-126); Anion Gap 8 mmol/L; Blood Urea Nitrogen 21 mg/dL (7-17); Calcium 7.9 mg/dL (8.4-10.2); Carbon Dioxide 28 mmol/L (22-30); Chloride 98 mmol/L (98-107); Glucose 119 mg/dL (74-99); Non-African American GFR(CKD) >90 (>60 ml/min/1.73 sqM); Potassium 3.7 mmol/L (3.5-5.1); Sodium 134 mmol/L (137-145); Total Protein 5.7 g/dL (6.3-8.2)
[2021-07-06] MEDS: POTASSIUM CHLORIDE 10 MEQ in WATER FOR INJECTION 1 100ML.BAG IVPB SCH ×2 (04:52→05:00)
[2021-07-06] MEDS: INSULIN ASPART (NovoLOG) 100 UNIT/ML VIAL SQ SCH ×3 (06:40→18:42)
[2021-07-06] MEDS ORDERED: HEPARIN SODIUM,PORCINE 2,500 UNIT in SODIUM CHLORIDE 0.9% 250 ML IRRIGATION PRN (07:00)
[2021-07-06] MEDS ORDERED: HEPARIN SODIUM,PORCINE 10,000 UNIT in SODIUM CHLORIDE 0.9% 1,000 ML IRRIGATION PRN (07:00)
[2021-07-06] MEDS: MILRINONE-D5W PMX 20 MG in DEXTROSE/WATER 1 100ML.BAG IV SCH (07:12)
[2021-07-06] MEDS ORDERED: CHLORHEXIDINE GLUCONATE 15 ML CUP MUCOUS MEM ONE (07:15)
[2021-07-06] MEDS: BUDESONIDE 1 MG/2 ML NEBU INHALATION SCH (07:20)
[2021-07-06] MEDS: FORMOTEROL FUMARATE 20 MCG/2 ML NEBU INHALATION SCH (07:20)
--- NOTE | 2021-07-06 07:42 | P.PN ---
Subjective Progress Note Date: 07/06/21 Principal diagnosis: Severe cardiomyopathy The patient is a 46-year-old -[place] female patient with a past medical history significant for excessive alcohol use as well as history of asthma and sarcoidosis who was admitted to the hospital after she presented with seizure and subsequently she developed respiratory failure requiring intubation and mechanical ventilation. We felt that the respiratory failure secondary to heart failure. The patient underwent an echocardiogram that revealed severe cardiomyopathy with EF of 20% was evidence of moderate mitral regurgitation and severe tricuspid regurgitation as well as severe pulmonary hypertension. The patient was seen and evaluated this morning. Unfortunately she is worse and she is in mild respiratory distress and potentially need to be reintubated again. She is tachycardic with a resting heart rate around 130 beats per minutes. Currently she is on milrinone as well as norepinephrine. We are trying to wean her from norepinephrine. She is not on any blood pressure medication in terms of beta simon or a sore artery at this point. On examination she does have crackles in both lung serrano. The chest x-ray showed findings consistent with pulmonary edema. I'm going to start the patient on Lasix 40 mg IV twice a day. Continue supporting her blood pressure and hopefully we can wean the patient from norepinephrine. Continue monitor her kidney function as well as electrolytes. Please note that the patient also febrile and her temperature was handed Fahrenheit which has been contributing to the sinus tachycardia as well. Overall the prognosis is poor getting her severe cardiomyopathy as well as pulmonary hypertension. Objective - Vital Signs Vital signs: Vital Signs Temp 100.8 F H 07/06/21 04:00 Pulse 144 H 07/06/21 07:00 Resp 33 H 07/06/21 07:00 BP 109/98 07/06/21 07:00 Pulse Ox 96 07/06/21 07:00 Intake & Output 07/05/21 07/06/21 07/06/21 18:59 06:59 18:59 Intake Total 950.200 793.327 85.672 Output Total 203 165 Balance 747.200 628.327 85.672 Weight 91.2 kg Intake: IV 546.2 283.8 Milrinone-D5w Pmx 20 mg 70.2 7.8 In Dextrose/Water 1 100ml .bag @ 0.3 MCG/KG/MIN 7. 812 mls/hr IV .[id number] [facility] Rx#:[id number] Piperacillin-Tazobactam 3 200 .375 gm In Sodium Chloride 0.9% 100 ml @ 25 mls/hr IVPB Q8HR [facility] Rx# :[id number] Pressure Bag 36 36 Sodium Chloride 0.9% 500 240 240 ml 500 ml @ 20 mls/hr IV .Q24H [facility] Rx#:[id number] Intake, IV Titration 254.000 509.527 85.672 Amount Milrinone-D5w Pmx 20 mg 77.339 85.672 In Dextrose/Water 1 100ml .bag @ 0.3 MCG/KG/MIN 7. 812 mls/hr IV .[id number] [facility] Rx#:[id number] Norepinephrine 4 mg In 254.000 432.188 Sodium Chloride 0.9% 250 ml @ 0.3 MCG/KG/MIN 114. 06 mls/hr IV .Q2H14M [facility] Rx#:[id number] Oral 100 Other 50 Output: Urine 203 165 Other: Voiding Method Indwelling Catheter Indwelling Catheter # Bowel Movements 1 1 ABP, PAP, CO, CI - Last Documented Arterial Blood Pressure 111/92 - Constitutional General appearance: Present: no acute distress - Respiratory Respiratory: bilateral: rales - Cardiovascular Rhythm: regular - Labs CBC & Chem 7: 07/06/21 03:28 07/06/21 03:28 Labs: Abnormal Lab Results - Last 24 Hours (Table) 07/05/21 07/05/21 07/05/21 Range/Units 12:02 17:13 20:38 RBC (3.80-5.40) m/uL Hgb (11.4-16.0) gm/dL Hct (34.0-46.0) % MCV (80.0-100.0) fL MCH (25.0-35.0) pg Lymphocytes # (1.0-4.8) k/uL Sodium (137-145) mmol/L BUN (7-17) mg/dL Glucose (74-99) mg/dL POC Glucose (mg/dL) 115 H 107 H 113 H (75-99) mg/dL Calcium (8.4-10.2) mg/dL Total Bilirubin (0.2-1.3) mg/dL AST (14-36) U/L ALT (4-34) U/L Alkaline Phosphatase (38-126) U/L Total Protein (6.3-8.2) g/dL Albumin (3.5-5.0) g/dL 07/06/21 07/06/21 Range/Units 03:28 03:28 RBC 2.97 L (3.80-5.40) m/uL Hgb 10.5 L (11.4-16.0) gm/dL Hct 31.9 L (34.0-46.0) % MCV 107.6 H (80.0-100.0) fL MCH 35.3 H (25.0-35.0) pg Lymphocytes # 0.7 L (1.0-4.8) k/uL Sodium 134 L (137-145) mmol/L BUN 21 H (7-17) mg/dL Glucose 119 H (74-99) mg/dL POC Glucose (mg/dL) (75-99) mg/dL Calcium 7.9 L (8.4-10.2) mg/dL Total Bilirubin 2.0 H (0.2-1.3) mg/dL AST 142 H (14-36) U/L ALT 60 H (4-34) U/L Alkaline Phosphatase 139 H (38-126) U/L Total Protein 5.7 L (6.3-8.2) g/dL Albumin 2.9 L (3.5-5.0) g/dL Microbiology - Last 24 Hours (Table) 07/05/21 12:08 Urine Culture - Preliminary Urine,Catheterized Assessment and Plan Assessment: Assessment #1 mild respiratory distress #2 heart failure exacerbation related to heart failure with reduced ejection fraction #3 severe cardiomyopathy, differential diagnosis sarcoidosis versus tachycardia- induced cardiomyopathy versus other etiology #4 pulmonary hypertension, group 2 #5 possible underlying pneumonia #6 shock likely to be multi-factorial including septic shock and cardiogenic shock Plan #1 continue supporting the blood pressure #2 start the patient on Lasix #3 monitor the kidney function and electrolytes #4 cancel a heart catheterization at this point #5 follow-up with the patient
--- NOTE | 2021-07-06 08:06 | XR ---
EXAMINATION TYPE: XR chest 1V portable DATE OF EXAM: 07/06/2021 COMPARISON: Chest x-ray 07/05/2021 HISTORY: Shortness of breath TECHNIQUE: Single frontal view of the chest is obtained. FINDINGS: Right-sided PICC line shows interval reposition, distal tip overlying the superior vena ca va. Bilateral airspace disease is again noted. No evident pneumothorax or pleural effusion. Heart is enlarged and patient is rotated. There are overlying artifacts. IMPRESSION: Cardiomegaly, correlate for pneumonia, congestive heart failure is not excluded.
[2021-07-06 08:25] LABS: ABG Base Excess 3.3 mmol/L; ABG HCO3 28 mmol/L (21-25); ABG Oxygen Saturation 86.9 % (94-97); ABG PCO2 42 mmHg (35-45); ABG PH 7.43 (7.35-7.45); ABG TCO2 29 mmol/L (19-24); Allen Test Performed? Yes
[2021-07-06] MEDS ORDERED: DEXMEDETOMIDINE/0.9% NACL(PMX) 400 MCG in EMPTY BAG 1 BAG IV SCH (08:30)
[2021-07-06] MEDS ORDERED: FUROSEMIDE 10 MG/ML 4 ML VIAL IV SCH (09:00)
[2021-07-06] MEDS ORDERED: LORazepam 2 MG/ML INJ IV STA (09:08)
[2021-07-06] MEDS ORDERED: MORPHINE SULFATE 10 MG/ML 1ML VIAL IVP STA (09:10)
[2021-07-06] MEDS ORDERED: CISATRACURIUM 2 MG/ML 5 ML VIAL IV ONE (09:10)
[2021-07-06] MEDS ORDERED: SUCCINYLCHOLINE CHLORIDE VIAL 200 MG/10 ML VIAL IV ONE (09:19)
[2021-07-06] MEDS ORDERED: propofoL 100 ML IV ONE (09:29)
[2021-07-06] MEDS: SODIUM CHLORIDE 0.9% 1,000 ML in EMPTY BAG 1 BAG IV SCH (09:41)
[2021-07-06] MEDS: ENOXAPARIN 40 MG/0.4 ML SYRINGE SQ SCH (09:44)
[2021-07-06] MEDS: THIAMINE 100 MG TAB PO SCH (09:44)
[2021-07-06] MEDS: PANTOPRAZOLE 40 MG/10 ML VIAL IVP SCH (09:44)
--- NOTE | 2021-07-06 09:49 | PCN ---
PROCEDURE NOTE PROCEDURE: Endotracheal intubation. PREOPERATIVE DIAGNOSIS: Respiratory failure. POSTOPERATIVE DIAGNOSIS: Respiratory failure. OPERATORS: 1. Dr. Thomas. 2. Dr. Gordillo. PROCEDURE DESCRIPTION: The patient was sedated prior to intubation with 2 mg of Ativan, 5 mg of morphine, and 3 mL or 60 mg of succinylcholine. A number 7-1/2 endotracheal tube was used. We used a number 3 Heron blade with a standard laryngoscope. There was direct visualization of the glottic opening. The endotracheal tube was seen to go through the glottic opening into the trachea. There was good change on the qualitative capnography. The patient's tube was secured. The patient was connected to the mechanical ventilator. A chest x-ray will be ordered. There was no immediate complication. The patient tolerated the procedure well. MMODL / IJN: [id number] /
--- NOTE | 2021-07-06 10:13 | XR ---
EXAMINATION TYPE: XR chest 1V portable DATE OF EXAM: 07/06/2021 COMPARISON: Chest x-ray same dated earlier time HISTORY: Intubated TECHNIQUE: Single frontal view of the chest is obtained. FINDINGS: Endotracheal tube and NG tube have been placed in the interval and are overlying appropria te positions. No other significant interval change. IMPRESSION: No evident complication status post intubation.
[2021-07-06] MEDS ORDERED: SODIUM CHLORIDE 0.9% 500 ML 500 ML IV ONE ×3 (10:23→20:16)
[2021-07-06] MEDS: METOPROLOL TARTRATE 12.5 MG TAB PO SCH ×3 (10:56→21:16)
--- NOTE | 2021-07-06 11:01 | P.PN ---
Subjective Progress Note Date: 07/06/21 Principal diagnosis: Respiratory failure. Pulmonary consult dated 07/02/2021. 46-year-old black female, with a history of asthma, and hypertension, who presents to the emergency department, with mental status changes, and being poorly responsive. EMS was called to the house, and the patient apparently has had significant alcohol abuse, and was thought to have alcohol withdrawal syndrome. Apparently, the patient complained about being short of breath. In transport, the patient apparently had a seizure. She became unresponsive in the eyes rolled back in her head. That episode lasted 2 minutes. When she arrived to the trauma bay, she was confused and agitated. She apparently was intubated on the in the emergency department. She came to the intensive care unit on the . She remains on the mechanical ventilator. She is on the volume assist control mode, rate 26, tidal volume 450, FiO2 60%, to be dropped down to 45%, and PEEP of 5. Blood gases show pO2 of 113, pCO2 37, and pH is 7.5. The patient's receiving saline at 20 mL an hour, propofol at 50 mcg/kg/m, norepinephrine 5 mcg/m, Nimbex at 3 mcg/kg/m, heparin via weightbase protocol, Lasix, 10 mg an hour. Lab data includes a white count of 10.3, hemoglobin 11.4, hematocrit 34.9, and platelet count 81,000. PT 13.2, INR 1.3, and PTT 54.3. Sodium 134, potassium 5, chlorides 94, CO2 21, anion gap 19, BUN 16, creatinine 0.87. Calcium 7.5, magnesium 1.0, AST 159, ALT 67. The central line that was placed, was malpositioned. Chest x-ray shows diffuse bilateral infiltrates. Progress note dated 07/03/2021. 46-year-old white female, seen yesterday in consultation. She has a history of both asthma, and hypertension. The patient was brought to the emergency department with mental status changes, and she was very poorly responsive and was intubated. She was found to have a seizure, and was having alcohol withdrawal syndrome. Currently, the patient remains on the volume assist contro l mode, rate 26, tidal volume 450, FiO2 45%, and PEEP of 5. Blood gases show pO2 of 139, pCO2 of 38, and a pH is 7.58. She's currently on norepinephrine at 0.08 mcg/kg/m, Nimbex at 2 mcg/kg/m, propofol at 50 mcg/kg/m, and vital high protein at 26 mL an hour, which is goal. The patient's currently on Zosyn. We are going to do a daily interruption of sedation, and a spontaneous breathing trial today. We'll hoping to get the patient extubated. The FiO2 was dropped down to 35%. White count 12.5, hemoglobin 11.1, hematocrit 33.6, platelet count 95,000. Sodium 134, potassium 3.2, chloride 88, CO2 34, anion gap 12, BUN 19, creatinine 0.96. Magnesium 0.8. AST was 121. ALT 54. Chest x-ray shows a stable diffuse interstitial/patchy pattern. Progress note dated 07/04/2021. 46-year-old black female who was seen 2 days ago consultation. She is again seen today in room 264. She has a history of hypertension and asthma. She was initially brought into the emergency department with mental status changes, and was very poorly responsive. The patient was found to have a seizure, and was intubated in the emergency department. Yesterday, we attempted a daily interruption of sedation, a spontaneous breathing trial, but her weaning parameters were not very good, hence, she was not extubated. The patient remains on the volume assist control mode of ventilation, rate 26, tidal volume at 375, FiO2 35%, and PEEP of 5. Blood gases show pO2 of 95, pCO2 42, and a pH is 7.56. Her chest x-ray shows some left lower lobe atelectasis and/or infiltrate. There is also some volume loss in the left hemithorax. We will attempt another daily interruption of sedation and spontaneous breathing trial today. Currently, the patient's on saline at 30 mL an hour, propofol at 60 mcg/kg/m, and norepinephrine at 0.08 mcg/kg/m. The patient's getting vital high protein at 25 mL an hour, which is goal. The patient did have some bright red blood from her endotracheal tube earlier today. White count 12.1, hemoglobin 11.2, hematocrit 35.3, platelet count 124,000. Sodium 133, potassium 4, chlo rides 89, CO2 35, anion gap 9, BUN 23, creatinine 0.8. Progress note dated 07/05/2021. 46-year-old black female who was seen in consultation 3 days ago. She is again seen in room 264. Yesterday, we were able to successfully extubate her from the mechanical ventilator. The patient is currently on 6 L nasal cannula. She's getting saline at 20 mL an hour. She is on norepinephrine at 9 mcg/m. Today, she's scheduled for a left and right heart catheterization, and soon be placed on Primacor. In addition, we asked for a stat random cortisol level, and a urinalysis. White count 7.3, hemoglobin 11.1, hematocrit 35.4, and platelet count 149,000. Sodium 133, potassium 3.4, chlorides 95, CO2 33, anion gap 5, BUN 20, creatinine 0.67. Chest x-ray shows significant cardiomegaly, with diffuse bilateral infiltrates, most likely related to fluid overload/CHF. The patient did admit to us that she drinks a pint of [place] liquor, 2-3 times per week. Progress note dated 07/06/2021. 46-year-old black female, again seen in room 264. Unfortunately, the patient's respiratory status has declined, and she was reintubated today by myself. We used a #7-1/2 endotracheal tube, a standard laryngoscope, the #3 Flora blade. She was sedated with Ativan, and morphine prior to the procedure, and had succinylcholine administered, before the procedure. Afterwards, she received Nimbex. Prior to this, she was on BiPAP at 15/5 and 100%. On BiPAP, at 80%, her pO2 is 67, pCO2 was 42, pH is 7.43. She was breathing at about 40 breast per minute. She also was on saline at 20 mL an hour, Primacor at 0.3 mcg/kg/m, Precedex at 0.5 mcg/kg/h, and norepinephrine at 0.12 mcg/kg/m. Post intubation, the Precedex was discontinued in favor of propofol. The patient was to go to the catheterization laboratory today for a right and left heart catheterization. It could probably still be done and we will notify cardiology of the fact the patient is intubated. White count 7.5, hemoglobin 10.5, pako tocrit 31.9, and platelet count 181,000. Sodium 134, potassium 3.7, chlorides 98, CO2 28, anion gap 8, BUN 21, creatinine 0.75. Chest x-ray shows a properly placed NG tube and endotracheal tube. Objective - Vital Signs Vital signs: Vital Signs Temp 97.7 F 07/06/21 08:00 Pulse 156 H 07/06/21 10:00 Resp 37 H 07/06/21 10:00 BP 100/75 07/06/21 10:00 Pulse Ox 93 L 07/06/21 10:00 Intake & Output 07/05/21 07/06/21 07/06/21 18:59 06:59 18:59 Intake Total 950.200 971.604 3790.608 Output Total 203 165 110 Balance 747.200 628.327 891.608 Weight 91.2 kg Intake: IV 546.2 283.8 169 Milrinone-D5w Pmx 20 mg 70.2 7.8 In Dextrose/Water 1 100ml .bag @ 0.3 MCG/KG/MIN 7. 812 mls/hr IV .[id number] [facility] Rx#:[id number] Piperacillin-Tazobactam 3 200 100 .375 gm In Sodium Chloride 0.9% 100 ml @ 25 mls/hr IVPB Q8HR [facility] Rx# :[id number] Pressure Bag 36 36 9 Sodium Chloride 0.9% 500 240 240 60 ml 500 ml @ 20 mls/hr IV .Q24H [facility] Rx#:[id number] Intake, IV Titration 254.000 509.527 832.608 Amount Dexmedetomidine/0.9% NaCl 9.576 (Pmx) 400 mcg In Empty Bag 1 bag @ 0.4 MCG/KG/HR 9.12 mls/hr IV .[id number] [facility] Rx#:[id number] Milrinone-D5w Pmx 20 mg 77.339 85.672 In Dextrose/Water 1 100ml .bag @ 0.3 MCG/KG/MIN 7. 812 mls/hr IV .[id number] [facility] Rx#:[id number] Norepinephrine 4 mg In 254.000 432.188 206.133 Sodium Chloride 0.9% 250 ml @ 0.3 MCG/KG/MIN 114. 06 mls/hr IV .Q2H14M [facility] Rx#:[id number] Sodium Chloride 0.9% 500 500 ml 500 ml @ 999 mls/hr IV .Q31M ONE Rx#:[id number] propofoL 1,000 mg In 31.227 Empty Bag 1 bag @ Titrate IV .Q0M [facility] Rx#: [id number] Oral 100 Other 50 Output: Urine 203 165 110 Other: Voiding Method Indwelling Catheter Indwelling Catheter # Bowel Movements 1 1 ABP, PAP, CO, CI - Last Documented Arterial Blood Pressure 66/51 - Exam Sedated, and paralyzed, with an orally placed endotracheal tube and NG tube. HEENT examination is grossly unremarkable. Neck supple. Full range of motion. No adenopathy thyromegaly or neck vein distention. Cardiovascular examination reveals regular rhythm rate. S1-S2 normal. No S3 or S4. No discernible murmur noted. Heart rate 141 bpm. Heart sounds are distant. Lungs reveal diffuse coarse bilateral breath sounds. Breath sounds equal bilaterally. Diffuse rhonchi are noted. No crackles. No wheezes. Abdomen soft, without bowel sounds. No masses. Extremities are intact. No cyanosis clubbing or edema. Skin is without rash or lesion. Neurologic examination cannot be assessed as the patient is now sedated and paralyzed. - Labs CBC & Chem 7: 07/06/21 03:28 07/06/21 03:28 Labs: Abnormal Lab Results - Last 24 Hours (Table) 07/05/21 07/05/21 07/05/21 Range/Units 12:02 17:13 20:38 RBC (3.80-5.40) m/uL Hgb (11.4-16.0) gm/dL Hct (34.0-46.0) % MCV (80.0-100.0) fL MCH (25.0-35.0) pg Lymphocytes # (1.0-4.8) k/uL Sodium (137-145) mmol/L BUN (7-17) mg/dL Glucose (74-99) mg/dL POC Glucose (mg/dL) 115 H 107 H 113 H (75-99) mg/dL Calcium (8.4-10.2) mg/dL Total Bilirubin (0.2-1.3) mg/dL AST (14-36) U/L ALT (4-34) U/L Alkaline Phosphatase (38-126) U/L Total Protein (6.3-8.2) g/dL Albumin (3.5-5.0) g/dL 07/06/21 07/06/21 Range/Units 03:28 03:28 RBC 2.97 L (3.80-5.40) m/uL Hgb 10.5 L (11.4-16.0) gm/dL Hct 31.9 L (34.0-46.0) % MCV 107.6 H (80.0-100.0) fL MCH 35.3 H (25.0-35.0) pg Lymphocytes # 0.7 L (1.0-4.8) k/uL Sodium 134 L (137-145) mmol/L BUN 21 H (7-17) mg/dL Glucose 119 H (74-99) mg/dL POC Glucose (mg/dL) (75-99) mg/dL Calcium 7.9 L (8.4-10.2) mg/dL Total Bilirubin 2.0 H (0.2-1.3) mg/dL AST 142 H (14-36) U/L ALT 60 H (4-34) U/L Alkaline Phosphatase 139 H (38-126) U/L Total Protein 5.7 L (6.3-8.2) g/dL Albumin 2.9 L (3.5-5.0) g/dL Microbiology - Last 24 Hours (Table) 07/05/21 12:08 Urine Culture - Preliminary Urine,Catheterized Assessment and Plan Assessment: Acute respiratory failure, with alcohol related seizures, status post intubation on 07/01/2021. Routine ventilator management, status post successful extubation on 07/04/2021, with worsening respiratory status, and reintubation on 07/06/2021. Mental status changes, secondary to alcohol withdrawal syndrome and seizure disorder. Severe cardiomyopathy with an ejection fraction of about 20%. History of chronic alcohol abuse. History of asthma. History of hypertension. History of anxiety/depression. History of bipolar disorder. Transaminitis secondary to alcohol abuse. Plan: Plan dated 07/02/2021. The patient has a arterial line replaced. His apparently placed by the STRATEGIES ANALYST. A central line will be placed. The patient's FiO2 was dropped down to 45%. 2 feedings will be started. Additional recommendations and suggestions are forthcoming. Prognosis is guarded. The patient remains on propofol, and Nimbex. The patient is also on heparin as per cardiology. In addition, patient remains on norepinephrine at 5 mcg/m. We will continue to follow make recomme ndations where appropriate. Prognosis is guarded. Plan dated 07/03/2021. Patient's FiO2 was dropped from 45%, down to 35%. Her blood gases were excellent. The patient's currently on Nimbex at 2 mcg/kg/m, and propofol at 50 mcg/kg/m. The patient remains on a small amount of norepinephrine. The patient is currently also on Zosyn. Today, we will do a daily interruption of sedation and a spontaneous breathing trial. Chest x-ray, labs, and medications are all reviewed. The patient is receiving tube feedings at goal. Overall prognosis remains guarded. We will continue to follow make recommendations where appropriate. Plan dated 07/04/2021. The patient will have another attempt at extubation today. We would do a daily interruption of sedation. The patient remains on propofol, and norepinephrine. The patient is receiving tube feeds. Labs, x-rays, medications are reviewed. The patient did have some additional bright red blood from the endotracheal tube earlier today. We will continue to monitor that. We will continue to follow make recommendations where appropriate. Microbiology is negative. The patient remains on Zosyn. Plan dated 07/05/2021. The patient is scheduled for a right and left heart catheterization today. The patient is going to be placed on Primacor by cardiology. She remains on norepinephrine at 9 mcg/m. She was successfully extubated yesterday, 07/04/2021. She has a severe cardiomyopathy. Chest x-ray shows significant cardiomegaly, and diffuse infiltrates, consistent with fluid overload. I've asked for a urinalysis, and a stat cortisol level. Additional recommendations and suggestions are forthcoming. Prognosis is guarded. We will continue to follow make recommendations where appropriate. Plan dated 07/06/2021. The patient was scheduled for a right and left heart catheterization today. Unfortunately, because of worsening respiratory status, and a respiratory rate is a 40 breaths per minute, I went ahead and reintubated the patient for her safety. The patient is now on the ventilator. A chest x-ray shows a properly placed endotracheal tube and NG tube. The patient was placed on propofol in place of Precedex. She remains on Primacor and norepinephrine. A repeat blood gas will be done. She does have a PICC line in, and an arterial line in. Additional recommendations and suggestions are forthcoming. Prognosis is poor. Time with Patient: Greater than 30
[2021-07-06] MEDS: NOREPINEPHRINE 32 MG in SODIUM CHLORIDE 0.9% 218 ML IV SCH ×2 (11:16→15:22)
[2021-07-06 11:32] LABS: ABG Base Excess -5.7 mmol/L; ABG HCO3 22 mmol/L (21-25); ABG Oxygen Saturation 82.8 % (94-97); ABG PCO2 49 mmHg (35-45); ABG PH 7.25 (7.35-7.45); ABG PO2 61 mmHg (83-108); ABG TCO2 23 mmol/L (19-24); Allen Test Performed? Yes
[2021-07-06 11:33] LABS: ABG PO2 57 mmHg (83-108)
[2021-07-06] MEDS: SODIUM CHLORIDE 0.9% 150 ML with VASOPRESSIN 60 UNIT IV SCH ×2 (11:56)
[2021-07-06 12:20] LABS: ALT 60 U/L (4-34); AST 206 U/L (14-36); African American GFR (CKD) 72 (>60 ml/min/1.73 sqM); Albumin 3.1 g/dL (3.5-5.0); Alkaline Phosphatase 161 U/L (38-126); Anion Gap 13 mmol/L; Blood Urea Nitrogen 22 mg/dL (7-17); Calcium 7.9 mg/dL (8.4-10.2); Carbon Dioxide 17 mmol/L (22-30); Chloride 104 mmol/L (98-107); Glucose 66 mg/dL (74-99); Non-African American GFR(CKD) 63 (>60 ml/min/1.73 sqM); Potassium 4.8 mmol/L (3.5-5.1); Sodium 134 mmol/L (137-145); Total Bilirubin 3.4 mg/dL (0.2-1.3)
[2021-07-06] MEDS ORDERED: DEXTROSE 50% SYRINGE 50 ML IVP STA (12:28)
[2021-07-06] MEDS ORDERED: LIDOCAINE 1% INJ 10MG/ML (20 ML MDV) ONE (13:01)
[2021-07-06] MEDS ORDERED: LIDOCAINE 1% INJ 10MG/ML (20 ML MDV) SQ ONE (13:31)
[2021-07-06] MEDS: HEPARIN SODIUM 1,000 UN/ML (10ML VL) IVP ONE ×2 (13:40→13:42)
[2021-07-06 13:59] LABS: T4, Free (Free Thyroxine) 1.35 ng/dL (0.78-2.19)
[2021-07-06] MEDS: DEXTROSE 50% SYRINGE 50 ML IVP ONE ×2 (14:00→15:11)
[2021-07-06] MEDS ORDERED: SODIUM CHLORIDE 0.9% 1,000 ML IV ONE ×2 (14:15→14:43)
[2021-07-06] MEDS: PHENYLEPHRINE-0.9% NACL SYG 1,000 MCG/10 ML SYRINGE IV ONE ×2 (14:17→14:22)
[2021-07-06] MEDS ORDERED: SODIUM BICARB 8.4% 50 ML SYR (1 MEQ/ML) IV ONE (14:19)
[2021-07-06] MEDS ORDERED: IOPAMIDOL-370 100ML BTL INJ ONE (14:27)
[2021-07-06 14:28] LABS: O2 Sat Blood Gas 27.6 %
[2021-07-06] MEDS: EPINEPHrine 4 MG in DEXTROSE 5% IN WATER 250 ML IV SCH ×4 (14:29→17:16)
[2021-07-06 14:31] LABS: O2 Sat Blood Gas 26.2 %
[2021-07-06 14:33] LABS: O2 Sat Blood Gas 28.5 %
[2021-07-06] MEDS ORDERED: HEPARIN SODIUM 1,000 UN/ML (10ML VL) ONE (14:35)
[2021-07-06] MEDS ORDERED: HEPARIN SOD,PORK IN 0.45% NACL 25,000 UNIT in 0.45% NACL 1 250ML.BAG IV ONE (14:38)
[2021-07-06] MEDS ORDERED: EPINEPHrine 10 ML SYRINGE (0.1 MG/ML) IV ONE (14:40)
[2021-07-06] MEDS ORDERED: methylPREDNISolone SOD SUCCI 125 MG/2 ML VIAL IV STA (14:41)
[2021-07-06 14:52] LABS: ABG Base Excess -6.8 mmol/L; ABG HCO3 20 mmol/L (21-25); ABG Oxygen Saturation 91.1 % (94-97); ABG PCO2 53 mmHg (35-45); ABG PH 7.21 (7.35-7.45); ABG PO2 77 mmHg (83-108)
[2021-07-06 14:54] LABS: Allen Test Performed? Yes
[2021-07-06 15:03] LABS: Glucose,Whole Blood 26 mg/dL (75-99)
[2021-07-06 15:22] LABS: Glucose,Whole Blood 105 mg/dL (75-99)
[2021-07-06] MEDS ORDERED: HEPARIN SODIUM 1,000 UN/ML (10ML VL) IV PRN (15:24)
[2021-07-06] MEDS ORDERED: HEPARIN SOD,PORK IN 0.45% NACL 25,000 UNIT in 0.45% NACL 1 250ML.BAG IV SCH (15:30)
[2021-07-06 15:48] LABS: ABG Base Excess -11.7 mmol/L; ABG HCO3 18 mmol/L (21-25); ABG Oxygen Saturation 84.2 % (94-97); ABG PCO2 53 mmHg (35-45); ABG PO2 68 mmHg (83-108); ABG TCO2 19 mmol/L (19-24); Allen Test Performed? Yes
[2021-07-06 15:53] LABS: ABG PH 7.13 (7.35-7.45)
[2021-07-06] MEDS ORDERED: methylPREDNISolone SOD SUCCI 125 MG/2 ML VIAL IV SCH (16:00)
[2021-07-06] MEDS: DEXTROSE 5% IN WATER 1,000 ML with SODIUM BICARB (1 MEQ/ML) 100 ML IV SCH ×2 (17:15→17:17)
[2021-07-06] MEDS: LEVOTHYROXINE IVP 100 MCG/5 ML VIAL IV SCH (17:16)
[2021-07-06] MEDS: HYDROCORTISONE SUCCINATE 100 MG/2 ML VIAL IV SCH (17:17)
--- NOTE | 2021-07-06 17:29 | P.PCN ---
Date of Procedure: 07/06/21 Operative Findings: CARDIAC CATHETERIZATION PERFORMING PHYSICIAN: Darius Estrella MD, RPVI PROCEDURE PERFORMED: #1 Placement of into less Impella CP in the left ventricle #2 Left heart catheterization #3 Right heart catheterization #4 Selective left and right coronary angiogram #5 Ultrasound-guided access of the right common femoral artery and left common femoral vein INDICATION: Cardiogenic shock in this 46-year-old female patient who continues to be in shock in spite of multiple vasopressors and inotropic. COMPLICATION: None APPROACH: Right common femoral artery and left common femoral vein LEVEL OF SEDATION: Moderate with a sedation length of stay 30 minutes PROCEDURE DESCRIPTION: After obtaining an informed consent, the patient was brought to cardiac chemical lab supervisor. Local anesthesia was performed using lidocaine subcutaneously. The right common femoral artery was cannulated using Stefan puncture technique under ultrasound guidance, the micropuncture wire passed easily then I placed a 6-Ugandan sheath at the right common femoral artery. Initially I placed 2 Perclose at 2 and 10:00. Subsequently I predilated the artery using an 8-Ugandan and then 10-Ugandan and subsequently a placed a 14-Ugandan sheath at the right common femoral artery. At that point anticoagulation was initiated using heparin with continuous ACT monitoring throughout the case. After that and under fluoroscopy guidance I advanced a pigtail catheter. Left ventricle overall 35 regular J-wire. Subsequently I pulled the J-wire and I advanced an 018 wire. After that the Impella was advanced over the 018 wire to the LV where we made sure that the position was good under fluoroscopy guidance without any ectopy. Subsequently the ampulla was turned on. Before that I did left heart catheterization using the pigtail catheter. After that I did right heart catheterization after that I did access the left common femoral vein using micropuncture technique under ultrasound guidance. We did cardiac output using Yahaira method. Then I did by the end selective right common femoral artery angiogram. That was performed with injection through the femoral sheath. The procedure was completed there was no complication. HEMODYNAMICS: #1 the pulmonary capillary wedge pressure was 45 mmHg #2 PA pressures where systolic 68 and diastolic of 27 and mean of 45 mmHg #3 RV pressures where systolic 64 and end-diastolic of 26 mmHg #4 RA pressure was 23 mmHg #5 cardiac output using Yahaira method was 4.4 L/m with a cardiac index of 2.2 L/m. Meter square #6 the left ventricular end-diastolic pressure was 14 mmHg SELECTIVE CORONARY ANGIOGRAM: The right coronary artery: Is a large caliber vessel and dominant vessel and appears to be angiographically normal. Left main: Is angiographically normal. Bifurcates into LCx and LAD The left circumflex: Is a large caliber vessel and nondominant vessel. Its angiographically normal. Gives rises to an OM branch which has mild disease only. The left anterior descending artery: Is angiographically normal. It is a large caliber vessel. CONCLUSION: 1. Placement of Impella CP in the left ventricle was performed and was successful 2. Severly elevated right-sided filling pressure and mildly elevated left-sided filling pressure 3. Severe pulmonary hypertension, group II
[2021-07-06 18:36] LABS: Glucose,Whole Blood 152 mg/dL (75-99)
[2021-07-06] MEDS: EPINEPHrine 16 MG in DEXTROSE 5% IN WATER 250 ML IV SCH ×2 (18:41)
[2021-07-06 19:58] LABS: Glucose,Whole Blood 139 mg/dL (75-99)
[2021-07-06] MEDS: DEXTROSE 5% IN WATER 1,000 ML with SODIUM BICARB (1 MEQ/ML) 150 ML IV SCH (21:16)
[2021-07-06 23:59] LABS: Glucose,Whole Blood 135 mg/dL (75-99)
[2021-07-07] MEDS: HYDROCORTISONE SUCCINATE 100 MG/2 ML VIAL IV SCH ×5 (00:08→23:08)
[2021-07-07] MEDS: INSULIN ASPART (NovoLOG) 100 UNIT/ML VIAL SQ SCH ×5 (00:08→22:51)
[2021-07-07] MEDS: PIPERACILLIN-TAZOBACTAM 3.375 GM in SODIUM CHLORIDE 0.9% 100 ML IVPB SCH ×4 (00:08→23:09)
[2021-07-07] MEDS: EPINEPHrine 16 MG in DEXTROSE 5% IN WATER 250 ML IV SCH ×10 (00:43→22:55)
[2021-07-07] MEDS: NOREPINEPHRINE 32 MG in SODIUM CHLORIDE 0.9% 218 ML IV SCH ×3 (00:43→11:49)
[2021-07-07] MEDS: SODIUM CHLORIDE 0.9% 150 ML with VASOPRESSIN 60 UNIT IV SCH ×4 (00:44→23:50)
[2021-07-07] MEDS: IPRATROPIUM-ALBUTEROL 3 ML NEB INHALATION SCH ×6 (02:33→23:30)
[2021-07-07 04:17] LABS: INR 2.9 (<1.2); Prothrombin Time 28.7 sec (9.0-12.0)
[2021-07-07 04:43] LABS: Albumin 2.8 g/dL (3.5-5.0); Calcium 6.5 mg/dL (8.4-10.2); Potassium 5.2 mmol/L (3.5-5.1); Total Bilirubin 7.5 mg/dL (0.2-1.3); Total Protein 5.9 g/dL (6.3-8.2)
[2021-07-07 04:47] LABS: HCT 35.3 % (34.0-46.0); HGB 10.4 gm/dL (11.4-16.0); Hypochromasia Marked; MCHC 29.6 g/dL (31.0-37.0); Macrocytosis Marked; Mean Platelet Volume 12.3; Platelet Count 184 k/uL (150-450); RBC 2.99 m/uL (3.80-5.40); RDW 14.7 % (11.5-15.5); WBC 11.6 k/uL (3.8-10.6)
[2021-07-07 04:48] LABS: MCV 118.2 fL (80.0-100.0)
[2021-07-07 06:07] LABS: Anisocytosis (M) Present; Band Neutrophils % 8 %; Lymphocytes # (M) 0.81 k/uL (1.0-4.8); Neutrophils % (M) 79 %; Nucleated Red Blood Cells 0 /100 WBC (0-0); Total Cells Counted 100
[2021-07-07 06:08] LABS: Polychromasia Present
--- NOTE | 2021-07-07 06:29 | XR ---
EXAMINATION TYPE: XR chest 1V portable DATE OF EXAM: 07/07/2021 COMPARISON: 07/06/2021 HISTORY: Tube placement TECHNIQUE: Single frontal view of the chest is obtained. FINDINGS: There are diffuse interstitial and airspace infiltrates unchanged compared to previous. Th ere is an ET tube 3.5 cm above the dona. No change in right No pneumothorax. The osseous structures are intact. IMPRESSION: No change in the diffuse lung infiltrates when allowing for differences in technique. Th e ET tube is 3.5 cm above the dona.
[2021-07-07 06:30] LABS: ABG HCO3 15 mmol/L (21-25); ABG Oxygen Saturation 91.7 % (94-97); ABG PCO2 47 mmHg (35-45); ABG PO2 77 mmHg (83-108); ABG TCO2 16 mmol/L (19-24); Allen Test Performed? Yes
[2021-07-07] MEDS ORDERED: SODIUM BICARB 8.4% 50 ML SYR (1 MEQ/ML) IV STA (06:50)
[2021-07-07 07:24] LABS: Glucose,Whole Blood 178 mg/dL (75-99)
--- NOTE | 2021-07-07 07:24 | P.PN ---
Subjective Progress Note Date: 07/07/21 Principal diagnosis: Severe cardiomyopathy The patient is a 46-year-old -[place] female patient with a past medical history significant for excessive alcohol use as well as history of asthma and sarcoidosis who was admitted to the hospital after she presented with seizure and subsequently she developed respiratory failure requiring intubation and mechanical ventilation. We felt that the respiratory failure secondary to heart failure. The patient underwent an echocardiogram that revealed severe cardiomyopathy with EF of 20% was evidence of moderate mitral regurgitation and severe tricuspid regurgitation as well as severe pulmonary hypertension. Because the patient continues to deteriorate hemodynamically yesterday and because we could not find any other tertiary center to be transferred to, we took the patient to the [facility] and replaced Impella CP after right and left heart catheterization performed. Right heart catheterization revealed severe group to pulmonary hypertension with elevated left-sided and right-sided filling pressures. The left heart catheterization revealed normal coronaries. The patient was seen this morning. She seems to be requiring less vasopressors and we are coming down with them. Hair creatinine has increased which is expected because of the low blood pressure and the shock. Nephrology is on the case. Her potassium is elevated. Her hemoglobin seems to be stable. At this point we'll continue the hemodynamic support using mechanical and pharmacological support. We'll try to wean the patient from vasopressors. Continue monitor her kidney function and electrolytes. Continue following up with the patient. C ontinue IV heparin. Objective - Vital Signs Vital signs: Vital Signs Temp 98.3 F 07/07/21 04:00 Pulse 134 H 07/07/21 07:00 Resp 26 H 07/07/21 07:00 BP 122/85 07/06/21 22:00 Pulse Ox 86 L 07/07/21 01:45 Intake & Output 07/06/21 07/07/21 07/07/21 18:59 06:59 18:59 Intake Total 3657.081 2714.280 150.831 Output Total 165 99 0 Balance 3492.081 2615.280 150.831 Weight 91.2 kg 105.2 kg Intake: IV 1327 1216 63 Dextrose 5% in Water 1, 660 60 000 ml @ 60 mls/hr IV . [id number] [facility] with Sodium Bicarb (1 Meq/ml) 150 ml Rx#:[id number] Piperacillin-Tazobactam 3 200 .375 gm In Sodium Chloride 0.9% 100 ml @ 25 mls/hr IVPB Q8HR [facility] Rx# :[id number] Pressure Bag 24 36 3 Sodium Chloride 0.9% 500 150 520 ml 500 ml @ 10 mls/hr IV .Q24H [facility] Rx#:[id number] Intake, IV Titration 2330.081 1298.280 67.831 Amount Dexmedetomidine/0.9% NaCl 9.576 (Pmx) 400 mcg In Empty Bag 1 bag @ 0.4 MCG/KG/HR 9.12 mls/hr IV .[id number] [facility] Rx#:[id number] Dextrose 5% in Water 1, 150 75 000 ml @ 75 mls/hr IV . [id number] [facility] with Sodium Bicarb (1 Meq/ml) 100 ml Rx#:[id number] EPINEPHrine 16 mg In 543 Dextrose 5% in Water 250 ml @ 0.5 MCG/KG/MIN 42.75 mls/hr IV .Q5H51M [facility] Rx #:[id number] EPINEPHrine 4 mg In 464.85 Dextrose 5% in Water 250 ml @ 0.01 MCG/KG/MIN 3.42 mls/hr IV .Q24H [facility] Rx#: [id number] Heparin Sod,Pork in 0.45% 27.3 90.359 NaCl 25,000 unit In 0.45 % NaCl 1 250ml.bag @ 10 UNITS/KG/HR 9.12 mls/hr IV .Q24H [facility] Rx#: [id number] Milrinone-D5w Pmx 20 mg 85.672 In Dextrose/Water 1 100ml .bag @ 0.3 MCG/KG/MIN 7. 812 mls/hr IV .H29C43M [facility] Rx#:[id number] Norepinephrine 32 mg In 185.249 397.951 67.831 Sodium Chloride 0.9% 218 ml @ 0.4 MCG/KG/MIN 17.1 mls/hr IV .[id number] [facility] Rx #:[id number] Norepinephrine 4 mg In 272.034 Sodium Chloride 0.9% 250 ml @ 0.3 MCG/KG/MIN 114. 06 mls/hr IV .Q2H14M [facility] Rx#:[id number] Sodium Chloride 0.9% 150 18.4 4.6 ml @ 0.03 UNITS/MIN 4.59 mls/hr IV .Q24H [facility] with Vasopressin 60 unit Rx#: [id number] Sodium Chloride 0.9% 500 1000 ml 500 ml @ 999 mls/hr IV .Q31M ONE Rx#:[id number] propofoL 1,000 mg In 117.000 187.370 Empty Bag 1 bag @ Titrate IV .Q0M [facility] Rx#: [id number] Tube Feeding 140 20 Other 60 Output: Urine 165 99 0 Other: Voiding Method Indwelling Catheter Indwelling Catheter ABP, PAP, CO, CI - Last Documented Arterial Blood Pressure 137/96 - Constitutional General appearance: Present: no acute distress - Respiratory Respiratory: bilateral: diminished - Cardiovascular Rhythm: regular Heart sounds: normal: S1, S2 - Labs CBC & Chem 7: 07/07/21 03:25 07/07/21 03:25 Labs: Abnormal Lab Results - Last 24 Hours (Table) 07/06/21 07/06/21 07/06/21 Range/Units 11:30 11:30 11:50 WBC (3.8-10.6) k/uL RBC (3.80-5.40) m/uL Hgb (11.4-16.0) gm/dL MCV (80.0-100.0) fL MCHC (31.0-37.0) g/dL Neutrophils # (Manual) (1.3-7.7) k/uL Lymphocytes # (Manual) (1.0-4.8) k/uL Macrocytosis PT (9.0-12.0) sec INR (<1.2) APTT (22.0-30.0) sec ABG pH (7.35-7.45) ABG pCO2 (35-45) mmHg ABG pO2 57 L* (83-108) mmHg ABG HCO3 28 H (21-25) mmol/L ABG Total CO2 29 H (19-24) mmol/L ABG O2 Saturation 86.9 L (94-97) % ABG Lactic Acid 7.7 H* (0.5-1.6) mmol/L Sodium 134 L (137-145) mmol/L Potassium (3.5-5.1) mmol/L Carbon Dioxide 17 L (22-30) mmol/L BUN 22 H (7-17) mg/dL Creatinine 1.08 H (0.52-1.04) mg/dL Glucose 66 L (74-99) mg/dL POC Glucose (mg/dL) (75-99) mg/dL Plasma Lactic Acid Zain (0.7-2.0) mmol/L Calcium 7.9 L (8.4-10.2) mg/dL Total Bilirubin 3.4 H (0.2-1.3) mg/dL AST 206 H (14-36) U/L ALT 60 H (4-34) U/L Alkaline Phosphatase 161 H (38-126) U/L Total Protein 6.0 L (6.3-8.2) g/dL Albumin 3.1 L (3.5-5.0) g/dL Procalcitonin (0.02-0.09) ng/mL TSH 4.900 H (0.465-4.680) mIU/L 07/06/21 07/06/21 07/06/21 Range/Units 11:50 14:25 15:02 WBC (3.8-10.6) k/uL RBC (3.80-5.40) m/uL Hgb (11.4-16.0) gm/dL MCV (80.0-100.0) fL MCHC (31.0-37.0) g/dL Neutrophils # (Manual) (1.3-7.7) k/uL Lymphocytes # (Manual) (1.0-4.8) k/uL Macrocytosis PT (9.0-12.0) sec INR (<1.2) APTT (22.0-30.0) sec ABG pH 7.21 L (7.35-7.45) ABG pCO2 53 H (35-45) mmHg ABG pO2 77 L (83-108) mmHg ABG HCO3 20 L (21-25) mmol/L ABG Total CO2 (19-24) mmol/L ABG O2 Saturation 91.1 L (94-97) % ABG Lactic Acid (0.5-1.6) mmol/L Sodium (137-145) mmol/L Potassium (3.5-5.1) mmol/L Carbon Dioxide (22-30) mmol/L BUN (7-17) mg/dL Creatinine (0.52-1.04) mg/dL Glucose (74-99) mg/dL POC Glucose (mg/dL) 26 L (75-99) mg/dL Plasma Lactic Acid Zain (0.7-2.0) mmol/L Calcium (8.4-10.2) mg/dL Total Bilirubin (0.2-1.3) mg/dL AST (14-36) U/L ALT (4-34) U/L Alkaline Phosphatase (38-126) U/L Total Protein (6.3-8.2) g/dL Albumin (3.5-5.0) g/dL Procalcitonin 1.19 H (0.02-0.09) ng/mL TSH (0.465-4.680) mIU/L 07/06/21 07/06/21 07/06/21 Range/Units 15:10 15:19 15:46 WBC (3.8-10.6) k/uL RBC (3.80-5.40) m/uL Hgb (11.4-16.0) gm/dL MCV (80.0-100.0) fL MCHC (31.0-37.0) g/dL Neutrophils # (Manual) (1.3-7.7) k/uL Lymphocytes # (Manual) (1.0-4.8) k/uL Macrocytosis PT (9.0-12.0) sec INR (<1.2) APTT (22.0-30.0) sec ABG pH 7.13 L* (7.35-7.45) ABG pCO2 53 H (35-45) mmHg ABG pO2 68 L (83-108) mmHg ABG HCO3 18 L (21-25) mmol/L ABG Total CO2 (19-24) mmol/L ABG O2 Saturation 84.2 L (94-97) % ABG Lactic Acid (0.5-1.6) mmol/L Sodium (137-145) mmol/L Potassium (3.5-5.1) mmol/L Carbon Dioxide (22-30) mmol/L BUN (7-17) mg/dL Creatinine (0.52-1.04) mg/dL Glucose (74-99) mg/dL POC Glucose (mg/dL) 105 H (75-99) mg/dL Plasma Lactic Acid Zain 6.9 H* (0.7-2.0) mmol/L Calcium (8.4-10.2) mg/dL Total Bilirubin (0.2-1.3) mg/dL AST (14-36) U/L ALT (4-34) U/L Alkaline Phosphatase (38-126) U/L Total Protein (6.3-8.2) g/dL Albumin (3.5-5.0) g/dL Procalcitonin (0.02-0.09) ng/mL TSH (0.465-4.680) mIU/L 07/06/21 07/06/21 07/06/21 Range/Units 15:47 18:33 19:57 WBC (3.8-10.6) k/uL RBC (3.80-5.40) m/uL Hgb (11.4-16.0) gm/dL MCV (80.0-100.0) fL MCHC (31.0-37.0) g/dL Neutrophils # (Manual) (1.3-7.7) k/uL Lymphocytes # (Manual) (1.0-4.8) k/uL Macrocytosis PT (9.0-12.0) sec INR (<1.2) APTT (22.0-30.0) sec ABG pH 7.25 L (7.35-7.45) ABG pCO2 49 H (35-45) mmHg ABG pO2 61 L (83-108) mmHg ABG HCO3 (21-25) mmol/L ABG Total CO2 (19-24) mmol/L ABG O2 Saturation 82.8 L (94-97) % ABG Lactic Acid (0.5-1.6) mmol/L Sodium (137-145) mmol/L Potassium (3.5-5.1) mmol/L Carbon Dioxide (22-30) mmol/L BUN (7-17) mg/dL Creatinine (0.52-1.04) mg/dL Glucose (74-99) mg/dL POC Glucose (mg/dL) 152 H 139 H (75-99) mg/dL Plasma Lactic Acid Zain (0.7-2.0) mmol/L Calcium (8.4-10.2) mg/dL Total Bilirubin (0.2-1.3) mg/dL AST (14-36) U/L ALT (4-34) U/L Alkaline Phosphatase (38-126) U/L Total Protein (6.3-8.2) g/dL Albumin (3.5-5.0) g/dL Procalcitonin (0.02-0.09) ng/mL TSH (0.465-4.680) mIU/L 07/06/21 07/06/21 07/06/21 Range/Units 20:33 21:18 23:57 WBC (3.8-10.6) k/uL RBC (3.80-5.40) m/uL Hgb (11.4-16.0) gm/dL MCV (80.0-100.0) fL MCHC (31.0-37.0) g/dL Neutrophils # (Manual) (1.3-7.7) k/uL Lymphocytes # (Manual) (1.0-4.8) k/uL Macrocytosis PT (9.0-12.0) sec INR (<1.2) APTT >200.0 H* (22.0-30.0) sec ABG pH (7.35-7.45) ABG pCO2 (35-45) mmHg ABG pO2 (83-108) mmHg ABG HCO3 (21-25) mmol/L ABG Total CO2 (19-24) mmol/L ABG O2 Saturation (94-97) % ABG Lactic Acid (0.5-1.6) mmol/L Sodium (137-145) mmol/L Potassium (3.5-5.1) mmol/L Carbon Dioxide (22-30) mmol/L BUN (7-17) mg/dL Creatinine (0.52-1.04) mg/dL Glucose (74-99) mg/dL POC Glucose (mg/dL) 135 H (75-99) mg/dL Plasma Lactic Acid Zain 12.8 H* (0.7-2.0) mmol/L Calcium (8.4-10.2) mg/dL Total Bilirubin (0.2-1.3) mg/dL AST (14-36) U/L ALT (4-34) U/L Alkaline Phosphatase (38-126) U/L Total Protein (6.3-8.2) g/dL Albumin (3.5-5.0) g/dL Procalcitonin (0.02-0.09) ng/mL TSH (0.465-4.680) mIU/L 07/07/21 07/07/21 07/07/21 Range/Units 03:25 03:25 03:25 WBC 11.6 H (3.8-10.6) k/uL RBC 2.99 L (3.80-5.40) m/uL Hgb 10.4 L (11.4-16.0) gm/dL MCV 118.2 H D (80.0-100.0) fL MCHC 29.6 L (31.0-37.0) g/dL Neutrophils # (Manual) 10.00 H (1.3-7.7) k/uL Lymphocytes # (Manual) 0.81 L (1.0-4.8) k/uL Macrocytosis Marked A PT 28.7 H (9.0-12.0) sec INR 2.9 H (<1.2) APTT (22.0-30.0) sec ABG pH (7.35-7.45) ABG pCO2 (35-45) mmHg ABG pO2 (83-108) mmHg ABG HCO3 (21-25) mmol/L ABG Total CO2 (19-24) mmol/L ABG O2 Saturation (94-97) % ABG Lactic Acid (0.5-1.6) mmol/L Sodium 133 L (137-145) mmol/L Potassium 5.2 H (3.5-5.1) mmol/L Carbon Dioxide 12 L (22-30) mmol/L BUN 24 H (7-17) mg/dL Creatinine 2.20 H (0.52-1.04) mg/dL Glucose 158 H (74-99) mg/dL POC Glucose (mg/dL) (75-99) mg/dL Plasma Lactic Acid Zain (0.7-2.0) mmol/L Calcium 6.5 L (8.4-10.2) mg/dL Total Bilirubin 7.5 H (0.2-1.3) mg/dL AST 8515 H (14-36) U/L ALT 804 H (4-34) U/L Alkaline Phosphatase 130 H (38-126) U/L Total Protein 5.9 L (6.3-8.2) g/dL Albumin 2.8 L (3.5-5.0) g/dL Procalcitonin (0.02-0.09) ng/mL TSH (0.465-4.680) mIU/L 07/07/21 07/07/21 Range/Units 03:25 06:25 WBC (3.8-10.6) k/uL RBC (3.80-5.40) m/uL Hgb (11.4-16.0) gm/dL MCV (80.0-100.0) fL MCHC (31.0-37.0) g/dL Neutrophils # (Manual) (1.3-7.7) k/uL Lymphocytes # (Manual) (1.0-4.8) k/uL Macrocytosis PT (9.0-12.0) sec INR (<1.2) APTT 89.9 H (22.0-30.0) sec ABG pH 7.10 L* (7.35-7.45) ABG pCO2 47 H (35-45) mmHg ABG pO2 77 L (83-108) mmHg ABG HCO3 15 L (21-25) mmol/L ABG Total CO2 16 L (19-24) mmol/L ABG O2 Saturation 91.7 L (94-97) % ABG Lactic Acid (0.5-1.6) mmol/L Sodium (137-145) mmol/L Potassium (3.5-5.1) mmol/L Carbon Dioxide (22-30) mmol/L BUN (7-17) mg/dL Creatinine (0.52-1.04) mg/dL Glucose (74-99) mg/dL POC Glucose (mg/dL) (75-99) mg/dL Plasma Lactic Acid Zain (0.7-2.0) mmol/L Calcium (8.4-10.2) mg/dL Total Bilirubin (0.2-1.3) mg/dL AST (14-36) U/L ALT (4-34) U/L Alkaline Phosphatase (38-126) U/L Total Protein (6.3-8.2) g/dL Albumin (3.5-5.0) g/dL Procalcitonin (0.02-0.09) ng/mL TSH (0.465-4.680) mIU/L Microbiology - Last 24 Hours (Table) 07/06/21 11:00 Gram Stain - Preliminary Sputum Sputum Culture - Preliminary 07/05/21 12:08 Urine Culture - Final Urine,Catheterized Assessment and Plan Assessment: Assessment #1 acute hypoxic respiratory failure #2 cardiogenic and septic shock #3 severe cardiomyopathy of unknown etiology, the fatty nonischemic #4 severe pulmonary hypertension, group 2 #5 acute renal failure #6 history of sarcoidosis Plan #1 right wean the patient from vasopressors as soon as possible #2 continue mechanical support using Impella #3 continue monitor the kidney function and electrolytes #4 continue heparin IV #5 follow-up with the patient
--- NOTE | 2021-07-07 08:26 | PN ---
PROGRESS NOTE 46-year-old female, systolic heart failure who went and had Impella placed today due to poor cardiac output. Failing all treatments at this point. Failed transfer for ECMO machine turned down by two hospitals. She had Impella placed as mentioned above today. She was reintubated yesterday. Remains in severe cardiac arrest. She is on norepinephrine, Nimbex, propofol, Ativan, morphine. Impella procedure done. BiPAP prior to the ventilator. Labs reviewed. Pulse is in the 150s. Blood pressure 100/75, O2 93 on the vent. IV Zosyn. Cardiovascular S1, S2, tachy. Lungs: Rales at the bases. Hematology: Negative Homans. Psych: Fair mood and affect. ASSESSMENT: 1. Acute respiratory failure. 2. Alcohol-related seizures. 3. Alcohol withdrawal syndrome. 4. Severe cardiomyopathy. 5. Chronic alcohol abuse. 6. Asthma. 7. Hypertension. 8. Anxiety. 9. Depression. 10.Bipolar. 11.Systolic heart failure. PROGNOSIS: Extremely guarded. Unable to transfer for ECMO machine. Will see how Impella machine works. Prognosis poor. MMODL / IJN: [id number] /
[2021-07-07] MEDS: SODIUM CHLORIDE 0.9% 500 ML 500 ML IV SCH ×2 (08:45→22:54)
[2021-07-07] MEDS: LEVOTHYROXINE IVP 100 MCG/5 ML VIAL IV SCH (08:51)
[2021-07-07] MEDS: PANTOPRAZOLE 40 MG/10 ML VIAL IVP SCH (08:51)
[2021-07-07] MEDS: CHLORHEXIDINE GLUCONATE 15 ML CUP MUCOUS MEM SCH ×2 (08:52→20:03)
--- NOTE | 2021-07-07 09:10 | P.NPCON ---
History of Present Illness - Reason for Consult acute renal failure - History of Present Illness Reason for consultation: Acute kidney injury History of present illness: Patient is a 46-year-old female seen in renal consultation for acute kidney injury. Patient's baseline creatinine is near 1 and is up to 2.2 today. Patient is oliguric. She presented to the hospital on 07/01/2021 with electrolyte imbalance. Patient has history of alcohol abuse. She is also complaining of shortness of breath and was brought to the hospital by the EMS. Patient had seizures and was intubated. She was subsequently extubated but then had to be reintubated. Patient is noted to have severe cardiomyopathy with eje ction fraction of 20% with moderate mitral regurgitation, severe tricuspid regurgitation and severe pulmonary hypertension. Patient subsequently went into cardiogenic shock and had Impella placed on 07/06/2021. She is currently on Levophed, vasopressin and epinephrine. She is noted to be acidotic and is maintained on bicarb drip. On 100% FiO2. Vital signs are unstable. On multiple vasopressors. HEENT: Intubated. LUNGS: Breath sounds decreased. HEART: Tachycardic. ABDOMEN: Obese. No distention. EXTREMITITES: No edema. Past Medical History Past Medical History: Asthma Additional Past Medical History / Comment(s): Sarcoidosis History of Any Multi-Drug Resistant Organisms: None Reported Past Surgical History: Section Past Anesthesia/Blood Transfusion Reactions: Unable to Obtain Past Psychological History: Anxiety, Bipolar, Depression, Schizophrenia Smoking Status: Unknown if ever smoked Past Alcohol Use History: Occasional Past Drug Use History: None Reported Medications and Allergies Home Medications Medication Instructions Recorded Confirmed Type Acetaminophen-Codeine 300-30mg 1 tab PO DAILY 07/01/21 07/01/21 History [Tylenol w/codeine #3] Albuterol Sulfate [Ventolin HFA] 2 puff INHALATION RT-Q4H PRN 07/01/21 07/01/21 History Amoxicillin 875 mg PO BID 07/01/21 07/01/21 History Clotrimazole/Betamethasone Dip 1 applic TOPICAL BID 07/01/21 07/01/21 History [Lotrisone Cream] Dexamethasone 6 mg PO DAILY 07/01/21 07/01/21 History Ergocalciferol [Vitamin D2 (1250 1,250 mcg PO Q7D 07/01/21 07/01/21 History Mcg = 56462 Iu)] Famotidine 20 mg PO BID 07/01/21 07/01/21 History Ferrous Sulfate [Feosol] 325 mg PO DAILY 07/01/21 07/01/21 History Fluticasone Propionate [Flovent 1 puff INHALATION RT-BID 07/01/21 07/01/21 History Hfa 220 mcg] HYDROcodone/APAP 5-325MG [Keene 1 tab PO DAILY 07/01/21 07/01/21 History 5-325] Pnv,Calcium 72/Iron/Folic Acid 1 tab PO DAILY 07/01/21 07/01/21 History [ Plus Tablet] Tiotropium 2.5 Mcg/Puff [Spiriva 2 puff INHALATION RT-DAILY 07/01/21 07/01/21 History Respimat 2.5 Mcg] Allergies Allergy/AdvReac Type Severity Reaction Status Date / Time Sulfa (Sulfonamide Allergy Rash/Hives Verified 07/01/21 10:23 Antibiotics) Physical Exam Vitals: Vital Signs Temp Pulse Resp BP Pulse Ox 07/07/21 08:00 98.7 F 141 H 34 H 119/50 07/07/21 07:45 138 H 33 H 07/07/21 07:30 138 H 34 H 07/07/21 07:15 138 H 34 H 07/07/21 07:00 134 H 26 H 07/07/21 06:45 134 H 22 07/07/21 06:30 134 H 24 07/07/21 06:15 133 H 30 H 07/07/21 06:00 133 H 07/07/21 05:45 133 H 38 H 07/07/21 05:30 133 H 07/07/21 05:15 134 H 39 H 07/07/21 05:00 134 H 38 H 07/07/21 04:45 133 H 38 H 07/07/21 04:30 134 H 36 H 07/07/21 04:15 133 H 36 H 07/07/21 04:00 98.3 F 133 H 36 H 07/07/21 03:45 133 H 36 H 07/07/21 03:30 133 H 36 H 07/07/21 03:15 133 H 40 H 07/07/21 03:00 133 H 40 H 07/07/21 02:45 134 H 40 H 07/07/21 02:30 135 H 38 H 07/07/21 02:15 135 H 34 H 07/07/21 02:00 98.5 F 135 H 34 H 07/07/21 01:45 137 H 86 L 07/07/21 01:30 137 H 07/07/21 01:15 138 H 96 07/07/21 01:00 138 H 34 H 07/07/21 00:45 140 H 07/07/21 00:30 141 H 07/07/21 00:15 142 H 07/07/21 00:10 142 H 07/07/21 00:00 100.4 F H 142 H 35 H 07/06/21 23:45 142 H 34 H 07/06/21 23:30 144 H 34 H 07/06/21 23:25 36 H 07/06/21 23:15 146 H 34 H 07/06/21 23:00 100.4 F H 146 H 54 H 07/06/21 22:45 147 H 71 H 07/06/21 22:30 146 H 33 H 07/06/21 22:15 149 H 43 H 07/06/21 22:00 151 H 35 H 122/85 27 L 07/06/21 21:45 152 H 35 H 33 L 07/06/21 21:30 152 H 34 H 105/58 83 L 07/06/21 21:15 101 F H 154 H 105/58 94 L 07/06/21 21:00 156 H 34 H 07/06/21 20:45 158 H 85 L 07/06/21 20:30 160 H 107/29 97 07/06/21 20:15 160 H 107/29 97 07/06/21 20:00 163 H 34 H 07/06/21 19:45 160 H 34 H 98/49 07/06/21 19:30 102.1 F H 160 H 34 H 92/34 07/06/21 18:00 160 H 32 H 07/06/21 17:45 160 H 38 H 07/06/21 17:30 160 H 32 H 07/06/21 17:15 156 H 44 H 131/30 85 L 07/06/21 17:00 160 H 31 H 07/06/21 16:45 158 H 40 H 07/06/21 16:30 158 H 38 H 07/06/21 16:15 160 H 30 H 07/06/21 16:00 100 F H 160 H 38 H 90 L 07/06/21 15:45 152 H 45 H 07/06/21 15:30 161 H 39 H 07/06/21 15:15 156 H 34 H 90 L 07/06/21 12:30 163 H 34 H 114/59 86 L 07/06/21 12:15 165 H 34 H 99/45 92 L 07/06/21 12:00 161 H 35 H 82/28 87 L 07/06/21 11:45 165 H 34 H 86 L 07/06/21 11:30 170 H 36 H 84/68 07/06/21 11:15 163 H 37 H 81/27 85 L 07/06/21 11:00 115 H 30 H 71/49 95 07/06/21 10:45 156 H 41 H 60/24 88 L 07/06/21 10:30 158 H 43 H 64/50 90 L 07/06/21 10:00 156 H 37 H 100/75 93 L Intake and Output 07/06/21 07/07/21 07/07/21 22:59 06:59 14:59 Intake Total 5844.994 1449.722 587.334 Output Total 115 39 0 Balance 2934.259 5850.722 587.334 Intake: IV 894 504 236 Dextrose 5% in Water 1, 180 480 120 000 ml @ 60 mls/hr IV . [id number] [facility] with Sodium Bicarb (1 Meq/ml) 150 ml Rx#:[id number] Piperacillin-Tazobactam 3 100 100 .375 gm In Sodium Chloride 0.9% 100 ml @ 25 mls/hr IVPB Q8HR [facility] Rx# :[id number] Pressure Bag 24 24 6 Sodium Chloride 0.9% 500 590 10 ml 500 ml @ 10 mls/hr IV .Q24H [facility] Rx#:[id number] Intake, IV Titration 0880.471 2806.722 111.334 Amount Dextrose 5% in Water 1, 225 000 ml @ 75 mls/hr IV . [id number] [facility] with Sodium Bicarb (1 Meq/ml) 100 ml Rx#:[id number] EPINEPHrine 16 mg In 43 500 Dextrose 5% in Water 250 ml @ 0.5 MCG/KG/MIN 42.75 mls/hr IV .Q5H51M [facility] Rx #:[id number] EPINEPHrine 4 mg In 464.85 Dextrose 5% in Water 250 ml @ 0.01 MCG/KG/MIN 3.42 mls/hr IV .Q24H [facility] Rx#: [id number] Heparin Sod,Pork in 0.45% 84.888 32.771 NaCl 25,000 unit In 0.45 % NaCl 1 250ml.bag @ 10 UNITS/KG/HR 9.12 mls/hr IV .Q24H [facility] Rx#: [id number] Norepinephrine 32 mg In 154.612 397.951 106.734 Sodium Chloride 0.9% 218 ml @ 0.4 MCG/KG/MIN 17.1 mls/hr IV .Q97H13M [facility] Rx #:[id number] Sodium Chloride 0.9% 150 23.0 4.6 ml @ 0.03 UNITS/MIN 4.59 mls/hr IV .Q24H [facility] with Vasopressin 60 unit Rx#: [id number] propofoL 1,000 mg In 87.370 100 Empty Bag 1 bag @ Titrate IV .Q0M [facility] Rx#: [id number] Tube Feeding 140 40 Other 60 200 Output: Urine 115 39 0 Other: Voiding Method Indwelling Catheter Indwelling Catheter Weight 105.2 kg ABP, PAP, CO, CI - Last 8 Hours Arterial Blood Pressure 110/89 Arterial Blood Pressure 92/76 Arterial Blood Pressure 94/77 Arterial Blood Pressure 100/80 Arterial Blood Pressure 137/96 Arterial Blood Pressure 91/78 Arterial Blood Pressure 91/77 Arterial Blood Pressure 85/74 Arterial Blood Pressure 105/88 Arterial Blood Pressure 83/73 Arterial Blood Pressure 99/83 Arterial Blood Pressure 98/86 Arterial Blood Pressure 96/85 Arterial Blood Pressure 90/81 Arterial Blood Pressure 94/83 Arterial Blood Pressure 88/79 Arterial Blood Pressure 89/80 Arterial Blood Pressure 88/78 Arterial Blood Pressure 86/77 Arterial Blood Pressure 92/80 Arterial Blood Pressure 94/82 Arterial Blood Pressure 99/84 Arterial Blood Pressure 94/82 Arterial Blood Pressure 92/81 Arterial Blood Pressure 94/82 Arterial Blood Pressure 88/79 Arterial Blood Pressure 94/83 Results - Lab Results Most recent lab results ABG pH 7.10 (7.35-7.45) L* 07/07/21 06:25 ABG pCO2 47 mmHg (35-45) H 07/07/21 06:25 ABG pO2 77 mmHg (83-108) L 07/07/21 06:25 ABG HCO3 15 mmol/L (21-25) L 07/07/21 06:25 ABG O2 Saturation 91.7 % (94-97) L 07/07/21 06:25 Calcium 6.5 mg/dL (8.4-10.2) L 07/07/21 03:25 Magnesium 2.0 mg/dL (1.6-2.3) 07/05/21 04:30 07/07/21 03:25 07/07/21 03:25 Assessment and Plan Plan: Assessment: 1. Acute kidney injury secondary to ATN secondary to cardiogenic shock. Creatinine 2.2 today. Oliguric. Baseline creatinine near 1 - 2.2 today. UA fairly benign. 2. Severe cardiomyopathy with ejection fraction of 20% with moderate mitral regurgitation, severe tricuspid regurgitation and severe pulmonary hypertension. 3. Metabolic acidosis secondary to acute kidney injury. 4. Cardiogenic shock on multiple vasopressors. 5. Mild hyperkalemia secondary to acute kidney injury and metabolic acidosis. Plan: Maintain bicarb drip. Patient also received sodium bicarb IV push this morning. Lokelma 10 g once now. Repeat BMP this evening. Wean FiO2 and vasopressors. Continue to assess daily for need for renal replacement therapy. Currently the patient is hemodynamically unstable to tolerate renal replacement therapy. Thank you for the consultation. I will continue to follow the patient with you during her hospital stay.
[2021-07-07] MEDS ORDERED: SODIUM ZIRCONIUM CYCLOSILICATE 10 GM PACKET PO ONE (09:15)
[2021-07-07] MEDS: METOPROLOL TARTRATE 12.5 MG TAB PO SCH ×2 (09:43→20:03)
[2021-07-07 11:16] LABS: Glucose,Whole Blood 182 mg/dL (75-99)
--- NOTE | 2021-07-07 11:53 | P.PN ---
Subjective Progress Note Date: 07/07/21 Principal diagnosis: Respiratory failure. Pulmonary consult dated 07/02/2021. 46-year-old black female, with a history of asthma, and hypertension, who presents to the emergency department, with mental status changes, and being poorly responsive. EMS was called to the house, and the patient apparently has had significant alcohol abuse, and was thought to have alcohol withdrawal syndrome. Apparently, the patient complained about being short of breath. In transport, the patient apparently had a seizure. She became unresponsive in the eyes rolled back in her head. That episode lasted 2 minutes. When she arrived to the trauma bay, she was confused and agitated. She apparently was intubated on the in the emergency department. She came to the intensive care unit on the . She remains on the mechanical ventilator. She is on the volume assist control mode, rate 26, tidal volume 450, FiO2 60%, to be dropped down to 45%, and PEEP of 5. Blood gases show pO2 of 113, pCO2 37, and pH is 7.5. The patient's receiving saline at 20 mL an hour, propofol at 50 mcg/kg/m, norepinephrine 5 mcg/m, Nimbex at 3 mcg/kg/m, heparin via weightbase protocol, Lasix, 10 mg an hour. Lab data includes a white count of 10.3, hemoglobin 11.4, hematocrit 34.9, and platelet count 81,000. PT 13.2, INR 1.3, and PTT 54.3. Sodium 134, potassium 5, chlorides 94, CO2 21, anion gap 19, BUN 16, creatinine 0.87. Calcium 7.5, magnesium 1.0, AST 159, ALT 67. The central line that was placed, was malpositioned. Chest x-ray shows diffuse bilateral infiltrates. Progress note dated 07/03/2021. 46-year-old white female, seen yesterday in consultation. She has a history of both asthma, and hypertension. The patient was brought to the emergency department with mental status changes, and she was very poorly responsive and was intubated. She was found to have a seizure, and was having alcohol withdrawal syndrome. Currently, the patient remains on the volume assist contro l mode, rate 26, tidal volume 450, FiO2 45%, and PEEP of 5. Blood gases show pO2 of 139, pCO2 of 38, and a pH is 7.58. She's currently on norepinephrine at 0.08 mcg/kg/m, Nimbex at 2 mcg/kg/m, propofol at 50 mcg/kg/m, and vital high protein at 26 mL an hour, which is goal. The patient's currently on Zosyn. We are going to do a daily interruption of sedation, and a spontaneous breathing trial today. We'll hoping to get the patient extubated. The FiO2 was dropped down to 35%. White count 12.5, hemoglobin 11.1, hematocrit 33.6, platelet count 95,000. Sodium 134, potassium 3.2, chloride 88, CO2 34, anion gap 12, BUN 19, creatinine 0.96. Magnesium 0.8. AST was 121. ALT 54. Chest x-ray shows a stable diffuse interstitial/patchy pattern. Progress note dated 07/04/2021. 46-year-old black female who was seen 2 days ago consultation. She is again seen today in room 264. She has a history of hypertension and asthma. She was initially brought into the emergency department with mental status changes, and was very poorly responsive. The patient was found to have a seizure, and was intubated in the emergency department. Yesterday, we attempted a daily interruption of sedation, a spontaneous breathing trial, but her weaning parameters were not very good, hence, she was not extubated. The patient remains on the volume assist control mode of ventilation, rate 26, tidal volume at 375, FiO2 35%, and PEEP of 5. Blood gases show pO2 of 95, pCO2 42, and a pH is 7.56. Her chest x-ray shows some left lower lobe atelectasis and/or infiltrate. There is also some volume loss in the left hemithorax. We will attempt another daily interruption of sedation and spontaneous breathing trial today. Currently, the patient's on saline at 30 mL an hour, propofol at 60 mcg/kg/m, and norepinephrine at 0.08 mcg/kg/m. The patient's getting vital high protein at 25 mL an hour, which is goal. The patient did have some bright red blood from her endotracheal tube earlier today. White count 12.1, hemoglobin 11.2, hematocrit 35.3, platelet count 124,000. Sodium 133, potassium 4, chlo rides 89, CO2 35, anion gap 9, BUN 23, creatinine 0.8. Progress note dated 07/05/2021. 46-year-old black female who was seen in consultation 3 days ago. She is again seen in room 264. Yesterday, we were able to successfully extubate her from the mechanical ventilator. The patient is currently on 6 L nasal cannula. She's getting saline at 20 mL an hour. She is on norepinephrine at 9 mcg/m. Today, she's scheduled for a left and right heart catheterization, and soon be placed on Primacor. In addition, we asked for a stat random cortisol level, and a urinalysis. White count 7.3, hemoglobin 11.1, hematocrit 35.4, and platelet count 149,000. Sodium 133, potassium 3.4, chlorides 95, CO2 33, anion gap 5, BUN 20, creatinine 0.67. Chest x-ray shows significant cardiomegaly, with diffuse bilateral infiltrates, most likely related to fluid overload/CHF. The patient did admit to us that she drinks a pint of [place] liquor, 2-3 times per week. Progress note dated 07/06/2021. 46-year-old black female, again seen in room 264. Unfortunately, the patient's respiratory status has declined, and she was reintubated today by myself. We used a #7-1/2 endotracheal tube, a standard laryngoscope, the #3 Flora blade. She was sedated with Ativan, and morphine prior to the procedure, and had succinylcholine administered, before the procedure. Afterwards, she received Nimbex. Prior to this, she was on BiPAP at 15/5 and 100%. On BiPAP, at 80%, her pO2 is 67, pCO2 was 42, pH is 7.43. She was breathing at about 40 breast per minute. She also was on saline at 20 mL an hour, Primacor at 0.3 mcg/kg/m, Precedex at 0.5 mcg/kg/h, and norepinephrine at 0.12 mcg/kg/m. Post intubation, the Precedex was discontinued in favor of propofol. The patient was to go to the catheterization laboratory today for a right and left heart catheterization. It could probably still be done and we will notify cardiology of the fact the patient is intubated. White count 7.5, hemoglobin 10.5, pako tocrit 31.9, and platelet count 181,000. Sodium 134, potassium 3.7, chlorides 98, CO2 28, anion gap 8, BUN 21, creatinine 0.75. Chest x-ray shows a properly placed NG tube and endotracheal tube. Progress note dated 07/07/2021. 46-year-old black female, again seen in room 264. The patient had an Impella device placed yesterday. This was done to augment her cardiac output. The patient was intubated on July 06, because of worsening respiratory status. She remains on the ventilator. She is on the volume assist control, rate 34, tidal volume 350, FiO2 100%, and PEEP of 10. Blood gases show pO2 76, CO2 47, and a pH is 7.10. She is currently on saline at 20 mL an hour, norepinephrine at 64 mcg/m, vasopressin at 0.03 units per minute, epinephrine of 0.5 mcg/kg/m, heparin via weightbase protocol, D5W with 3 ampules of sodium bicarbonate at 60 mL an hour, propofol at 30 mcg/kg/m, and vital high protein at 30 mL an hour, with a goal of 40 mL an hour. The patient's also getting hydrocortisone 50 mg IV push every 6 hours for anticipated adrenal insufficiency. The Impella device was placed yesterday. Microbiology is currently on negative. She remains on Zosyn empirically. White count 11.6, hemoglobin 10.4, hematocrit 35.3, and platelet count 184,000. PTT was 28.7, INR 2.9, PTT was 89.9. Sodium 133, potassium 5.2, chlorides 101, CO2 12, anion gap 20, BUN 24, and creatinine 2.20. AST was 8515. ALT 804. Albumin 2.8. Chest x-ray shows diffuse bilateral infiltrates, with an endotracheal tube 3.5 cm above the dona. Objective - Vital Signs Vital signs: Vital Signs Temp 98.7 F 07/07/21 08:00 Pulse 147 H 07/07/21 11:00 Resp 33 H 07/07/21 11:00 BP 119/50 07/07/21 08:00 Pulse Ox 85 L 07/07/21 10:15 Intake & Output 07/06/21 07/07/21 07/07/21 18:59 06:59 18:59 Intake Total 3657.081 2714.280 1233.629 Output Total 165 99 15 Balance 3492.081 2615.280 1218.629 Weight 91.2 kg 105.2 kg Intake: IV 1327 1216 500 Dextrose 5% in Water 1, 660 345 000 ml @ 75 mls/hr IV . [id number] [facility] with Sodium Bicarb (1 Meq/ml) 150 ml Rx#:[id number] Piperacillin-Tazobactam 3 200 100 .375 gm In Sodium Chloride 0.9% 100 ml @ 25 mls/hr IVPB Q8HR [facility] Rx# :[id number] Pressure Bag 24 36 15 Sodium Chloride 0.9% 500 150 520 40 ml 500 ml @ 10 mls/hr IV .Q24H [facility] Rx#:[id number] Intake, IV Titration 2330.081 1298.280 383.629 Amount Dexmedetomidine/0.9% NaCl 9.576 (Pmx) 400 mcg In Empty Bag 1 bag @ 0.4 MCG/KG/HR 9.12 mls/hr IV .[id number] [facility] Rx#:[id number] Dextrose 5% in Water 1, 150 75 000 ml @ 75 mls/hr IV . [id number] [facility] with Sodium Bicarb (1 Meq/ml) 100 ml Rx#:[id number] EPINEPHrine 16 mg In 543 168.863 Dextrose 5% in Water 250 ml @ 0.5 MCG/KG/MIN 42.75 mls/hr IV .Q5H51M [facility] Rx #:[id number] EPINEPHrine 4 mg In 464.85 Dextrose 5% in Water 250 ml @ 0.01 MCG/KG/MIN 3.42 mls/hr IV .Q24H [facility] Rx#: [id number] Heparin Sod,Pork in 0.45% 27.3 90.359 NaCl 25,000 unit In 0.45 % NaCl 1 250ml.bag @ 10 UNITS/KG/HR 9.12 mls/hr IV .Q24H [facility] Rx#: [id number] Milrinone-D5w Pmx 20 mg 85.672 In Dextrose/Water 1 100ml .bag @ 0.3 MCG/KG/MIN 7. 812 mls/hr IV .[id number] [facility] Rx#:[id number] Norepinephrine 32 mg In 185.249 397.951 196.366 Sodium Chloride 0.9% 218 ml @ 0.4 MCG/KG/MIN 17.1 mls/hr IV .[id number] [facility] Rx #:[id number] Norepinephrine 4 mg In 272.034 Sodium Chloride 0.9% 250 ml @ 0.3 MCG/KG/MIN 114. 06 mls/hr IV .Q2H14M [facility] Rx#:[id number] Sodium Chloride 0.9% 150 18.4 4.6 18.4 ml @ 0.03 UNITS/MIN 4.59 mls/hr IV .Q24H [facility] with Vasopressin 60 unit Rx#: [id number] Sodium Chloride 0.9% 500 1000 ml 500 ml @ 999 mls/hr IV .Q31M [facility] Rx#:[id number] propofoL 1,000 mg In 117.000 187.370 Empty Bag 1 bag @ Titrate IV .Q0M [facility] Rx#: [id number] Tube Feeding 140 130 Other 60 220 Output: Urine 165 99 15 Other: Voiding Method Indwelling Catheter Indwelling Catheter Indwelling Catheter ABP, PAP, CO, CI - Last Documented Arterial Blood Pressure 82/71 - Exam Sedated, with an orally placed endotracheal tube and NG tube. HEENT examination is grossly unremarkable. Neck supple. Full range of motion. No adenopathy thyromegaly or neck vein distention. Cardiovascular examination reveals regular rhythm rate. S1-S2 normal. No S3 or S4. No discernible murmur noted. Heart rate 147 bpm. Heart sounds are dista nt. Lungs reveal diffuse coarse bilateral breath sounds. Breath sounds equal bilaterally. Diffuse rhonchi are noted. No crackles. No wheezes. Abdomen soft, without bowel sounds. No masses. Extremities are intact. No cyanosis clubbing or edema. Skin is without rash or lesion. Neurologic examination cannot be assessed as the patient is sedated. - Labs CBC & Chem 7: 07/07/21 03:25 07/07/21 03:25 Labs: Abnormal Lab Results - Last 24 Hours (Table) 07/06/21 07/06/21 07/06/21 Range/Units 11:30 11:50 11:50 WBC (3.8-10.6) k/uL RBC (3.80-5.40) m/uL Hgb (11.4-16.0) gm/dL MCV (80.0-100.0) fL MCHC (31.0-37.0) g/dL Neutrophils # (Manual) (1.3-7.7) k/uL Lymphocytes # (Manual) (1.0-4.8) k/uL Macrocytosis PT (9.0-12.0) sec INR (<1.2) APTT (22.0-30.0) sec ABG pH (7.35-7.45) ABG pCO2 (35-45) mmHg ABG pO2 (83-108) mmHg ABG HCO3 (21-25) mmol/L ABG Total CO2 (19-24) mmol/L ABG O2 Saturation (94-97) % ABG Lactic Acid 7.7 H* (0.5-1.6) mmol/L Sodium 134 L (137-145) mmol/L Potassium (3.5-5.1) mmol/L Carbon Dioxide 17 L (22-30) mmol/L BUN 22 H (7-17) mg/dL Creatinine 1.08 H (0.52-1.04) mg/dL Glucose 66 L (74-99) mg/dL POC Glucose (mg/dL) (75-99) mg/dL Plasma Lactic Acid Zain (0.7-2.0) mmol/L Calcium 7.9 L (8.4-10.2) mg/dL Total Bilirubin 3.4 H (0.2-1.3) mg/dL AST 206 H (14-36) U/L ALT 60 H (4-34) U/L Alkaline Phosphatase 161 H (38-126) U/L Total Protein 6.0 L (6.3-8.2) g/dL Albumin 3.1 L (3.5-5.0) g/dL Procalcitonin 1.19 H (0.02-0.09) ng/mL TSH 4.900 H (0.465-4.680) mIU/L 07/06/21 07/06/21 07/06/21 Range/Units 14:25 15:02 15:10 WBC (3.8-10.6) k/uL RBC (3.80-5.40) m/uL Hgb (11.4-16.0) gm/dL MCV (80.0-100.0) fL MCHC (31.0-37.0) g/dL Neutrophils # (Manual) (1.3-7.7) k/uL Lymphocytes # (Manual) (1.0-4.8) k/uL Macrocytosis PT (9.0-12.0) sec INR (<1.2) APTT (22.0-30.0) sec ABG pH 7.21 L (7.35-7.45) ABG pCO2 53 H (35-45) mmHg ABG pO2 77 L (83-108) mmHg ABG HCO3 20 L (21-25) mmol/L ABG Total CO2 (19-24) mmol/L ABG O2 Saturation 91.1 L (94-97) % ABG Lactic Acid (0.5-1.6) mmol/L Sodium (137-145) mmol/L Potassium (3.5-5.1) mmol/L Carbon Dioxide (22-30) mmol/L BUN (7-17) mg/dL Creatinine (0.52-1.04) mg/dL Glucose (74-99) mg/dL POC Glucose (mg/dL) 26 L (75-99) mg/dL Plasma Lactic Acid Zain 6.9 H* (0.7-2.0) mmol/L Calcium (8.4-10.2) mg/dL Total Bilirubin (0.2-1.3) mg/dL AST (14-36) U/L ALT (4-34) U/L Alkaline Phosphatase (38-126) U/L Total Protein (6.3-8.2) g/dL Albumin (3.5-5.0) g/dL Procalcitonin (0.02-0.09) ng/mL TSH (0.465-4.680) mIU/L 07/06/21 07/06/21 07/06/21 Range/Units 15:19 15:46 15:47 WBC (3.8-10.6) k/uL RBC (3.80-5.40) m/uL Hgb (11.4-16.0) gm/dL MCV (80.0-100.0) fL MCHC (31.0-37.0) g/dL Neutrophils # (Manual) (1.3-7.7) k/uL Lymphocytes # (Manual) (1.0-4.8) k/uL Macrocytosis PT (9.0-12.0) sec INR (<1.2) APTT (22.0-30.0) sec ABG pH 7.13 L* 7.25 L (7.35-7.45) ABG pCO2 53 H 49 H (35-45) mmHg ABG pO2 68 L 61 L (83-108) mmHg ABG HCO3 18 L (21-25) mmol/L ABG Total CO2 (19-24) mmol/L ABG O2 Saturation 84.2 L 82.8 L (94-97) % ABG Lactic Acid (0.5-1.6) mmol/L Sodium (137-145) mmol/L Potassium (3.5-5.1) mmol/L Carbon Dioxide (22-30) mmol/L BUN (7-17) mg/dL Creatinine (0.52-1.04) mg/dL Glucose (74-99) mg/dL POC Glucose (mg/dL) 105 H (75-99) mg/dL Plasma Lactic Acid Zain (0.7-2.0) mmol/L Calcium (8.4-10.2) mg/dL Total Bilirubin (0.2-1.3) mg/dL AST (14-36) U/L ALT (4-34) U/L Alkaline Phosphatase (38-126) U/L Total Protein (6.3-8.2) g/dL Albumin (3.5-5.0) g/dL Procalcitonin (0.02-0.09) ng/mL TSH (0.465-4.680) mIU/L 07/06/21 07/06/21 07/06/21 Range/Units 18:33 19:57 20:33 WBC (3.8-10.6) k/uL RBC (3.80-5.40) m/uL Hgb (11.4-16.0) gm/dL MCV (80.0-100.0) fL MCHC (31.0-37.0) g/dL Neutrophils # (Manual) (1.3-7.7) k/uL Lymphocytes # (Manual) (1.0-4.8) k/uL Macrocytosis PT (9.0-12.0) sec INR (<1.2) APTT (22.0-30.0) sec ABG pH (7.35-7.45) ABG pCO2 (35-45) mmHg ABG pO2 (83-108) mmHg ABG HCO3 (21-25) mmol/L ABG Total CO2 (19-24) mmol/L ABG O2 Saturation (94-97) % ABG Lactic Acid (0.5-1.6) mmol/L Sodium (137-145) mmol/L Potassium (3.5-5.1) mmol/L Carbon Dioxide (22-30) mmol/L BUN (7-17) mg/dL Creatinine (0.52-1.04) mg/dL Glucose (74-99) mg/dL POC Glucose (mg/dL) 152 H 139 H (75-99) mg/dL Plasma Lactic Acid Zain 12.8 H* (0.7-2.0) mmol/L Calcium (8.4-10.2) mg/dL Total Bilirubin (0.2-1.3) mg/dL AST (14-36) U/L ALT (4-34) U/L Alkaline Phosphatase (38-126) U/L Total Protein (6.3-8.2) g/dL Albumin (3.5-5.0) g/dL Procalcitonin (0.02-0.09) ng/mL TSH (0.465-4.680) mIU/L 07/06/21 07/06/21 07/07/21 Range/Units 21:18 23:57 03:25 WBC 11.6 H (3.8-10.6) k/uL RBC 2.99 L (3.80-5.40) m/uL Hgb 10.4 L (11.4-16.0) gm/dL MCV 118.2 H D (80.0-100.0) fL MCHC 29.6 L (31.0-37.0) g/dL Neutrophils # (Manual) 10.00 H (1.3-7.7) k/uL Lymphocytes # (Manual) 0.81 L (1.0-4.8) k/uL Macrocytosis Marked A PT (9.0-12.0) sec INR (<1.2) APTT >200.0 H* (22.0-30.0) sec ABG pH (7.35-7.45) ABG pCO2 (35-45) mmHg ABG pO2 (83-108) mmHg ABG HCO3 (21-25) mmol/L ABG Total CO2 (19-24) mmol/L ABG O2 Saturation (94-97) % ABG Lactic Acid (0.5-1.6) mmol/L Sodium (137-145) mmol/L Potassium (3.5-5.1) mmol/L Carbon Dioxide (22-30) mmol/L BUN (7-17) mg/dL Creatinine (0.52-1.04) mg/dL Glucose (74-99) mg/dL POC Glucose (mg/dL) 135 H (75-99) mg/dL Plasma Lactic Acid Zain (0.7-2.0) mmol/L Calcium (8.4-10.2) mg/dL Total Bilirubin (0.2-1.3) mg/dL AST (14-36) U/L ALT (4-34) U/L Alkaline Phosphatase (38-126) U/L Total Protein (6.3-8.2) g/dL Albumin (3.5-5.0) g/dL Procalcitonin (0.02-0.09) ng/mL TSH (0.465-4.680) mIU/L 07/07/21 07/07/21 07/07/21 Range/Units 03:25 03:25 03:25 WBC (3.8-10.6) k/uL RBC (3.80-5.40) m/uL Hgb (11.4-16.0) gm/dL MCV (80.0-100.0) fL MCHC (31.0-37.0) g/dL Neutrophils # (Manual) (1.3-7.7) k/uL Lymphocytes # (Manual) (1.0-4.8) k/uL Macrocytosis PT 28.7 H (9.0-12.0) sec INR 2.9 H (<1.2) APTT 89.9 H (22.0-30.0) sec ABG pH (7.35-7.45) ABG pCO2 (35-45) mmHg ABG pO2 (83-108) mmHg ABG HCO3 (21-25) mmol/L ABG Total CO2 (19-24) mmol/L ABG O2 Saturation (94-97) % ABG Lactic Acid (0.5-1.6) mmol/L Sodium 133 L (137-145) mmol/L Potassium 5.2 H (3.5-5.1) mmol/L Carbon Dioxide 12 L (22-30) mmol/L BUN 24 H (7-17) mg/dL Creatinine 2.20 H (0.52-1.04) mg/dL Glucose 158 H (74-99) mg/dL POC Glucose (mg/dL) (75-99) mg/dL Plasma Lactic Acid Zain (0.7-2.0) mmol/L Calcium 6.5 L (8.4-10.2) mg/dL Total Bilirubin 7.5 H (0.2-1.3) mg/dL AST 8515 H (14-36) U/L ALT 804 H (4-34) U/L Alkaline Phosphatase 130 H (38-126) U/L Total Protein 5.9 L (6.3-8.2) g/dL Albumin 2.8 L (3.5-5.0) g/dL Procalcitonin (0.02-0.09) ng/mL TSH (0.465-4.680) mIU/L 07/07/21 07/07/21 07/07/21 Range/Units 06:25 07:22 11:14 WBC (3.8-10.6) k/uL RBC (3.80-5.40) m/uL Hgb (11.4-16.0) gm/dL MCV (80.0-100.0) fL MCHC (31.0-37.0) g/dL Neutrophils # (Manual) (1.3-7.7) k/uL Lymphocytes # (Manual) (1.0-4.8) k/uL Macrocytosis PT (9.0-12.0) sec INR (<1.2) APTT (22.0-30.0) sec ABG pH 7.10 L* (7.35-7.45) ABG pCO2 47 H (35-45) mmHg ABG pO2 77 L (83-108) mmHg ABG HCO3 15 L (21-25) mmol/L ABG Total CO2 16 L (19-24) mmol/L ABG O2 Saturation 91.7 L (94-97) % ABG Lactic Acid (0.5-1.6) mmol/L Sodium (137-145) mmol/L Potassium (3.5-5.1) mmol/L Carbon Dioxide (22-30) mmol/L BUN (7-17) mg/dL Creatinine (0.52-1.04) mg/dL Glucose (74-99) mg/dL POC Glucose (mg/dL) 178 H 182 H (75-99) mg/dL Plasma Lactic Acid Zain (0.7-2.0) mmol/L Calcium (8.4-10.2) mg/dL Total Bilirubin (0.2-1.3) mg/dL AST (14-36) U/L ALT (4-34) U/L Alkaline Phosphatase (38-126) U/L Total Protein (6.3-8.2) g/dL Albumin (3.5-5.0) g/dL Procalcitonin (0.02-0.09) ng/mL TSH (0.465-4.680) mIU/L 07/07/21 Range/Units 11:18 WBC (3.8-10.6) k/uL RBC (3.80-5.40) m/uL Hgb (11.4-16.0) gm/dL MCV (80.0-100.0) fL MCHC (31.0-37.0) g/dL Neutrophils # (Manual) (1.3-7.7) k/uL Lymphocytes # (Manual) (1.0-4.8) k/uL Macrocytosis PT (9.0-12.0) sec INR (<1.2) APTT 40.6 H (22.0-30.0) sec ABG pH (7.35-7.45) ABG pCO2 (35-45) mmHg ABG pO2 (83-108) mmHg ABG HCO3 (21-25) mmol/L ABG Total CO2 (19-24) mmol/L ABG O2 Saturation (94-97) % ABG Lactic Acid (0.5-1.6) mmol/L Sodium (137-145) mmol/L Potassium (3.5-5.1) mmol/L Carbon Dioxide (22-30) mmol/L BUN (7-17) mg/dL Creatinine (0.52-1.04) mg/dL Glucose (74-99) mg/dL POC Glucose (mg/dL) (75-99) mg/dL Plasma Lactic Acid Zain (0.7-2.0) mmol/L Calcium (8.4-10.2) mg/dL Total Bilirubin (0.2-1.3) mg/dL AST (14-36) U/L ALT (4-34) U/L Alkaline Phosphatase (38-126) U/L Total Protein (6.3-8.2) g/dL Albumin (3.5-5.0) g/dL Procalcitonin (0.02-0.09) ng/mL TSH (0.465-4.680) mIU/L Microbiology - Last 24 Hours (Table) 07/06/21 11:00 Gram Stain - Preliminary Sputum Sputum Culture - Preliminary 07/05/21 12:08 Urine Culture - Final Urine,Catheterized Assessment and Plan Assessment: Acute respiratory failure, with alcohol related seizures, status post intubation on 07/01/2021. Routine ventilator management, status post successful extubation on 07/04/2021, with worsening respiratory status, and reintubation on 07/06/2021. Cardiogenic shock, and possibly septic shock, status post placement of a Impella device on 07/06/2021. Acute kidney injury. Anion gap metabolic acidosis. Mental status changes, secondary to alcohol withdrawal syndrome and seizure disorder. Severe cardiomyopathy with an ejection fraction of about 20%. History of chronic alcohol abuse. History of asthma. History of hypertension. History of anxiety/depression. History of bipolar disorder. Septic and congestive hepatopathy. Plan: Plan dated 07/02/2021. The patient has a arterial line replaced. His apparently placed by the [facility]. A central line will be placed. The patient's FiO2 was dropped down to 45%. 2 feedings will be started. Additional recommendations and suggestions are forthcoming. Prognosis is guarded. The patient remains on propofol, and Nimbex. The patient is also on heparin as per cardiology. In addition, patient remains on norepinephrine at 5 mcg/m. We will continue to follow make recommendations where appropriate. Prognosis is guarded. Plan dated 07/03/2021. Patient's FiO2 was dropped from 45%, down to 35%. Her blood gases were excellent. The patient's currently on Nimbex at 2 mcg/kg/m, and propofol at 50 mcg/kg/m. The patient remains on a small amount of norepinephrine. The patient is currently also on Zosyn. Today, we will do a daily interruption of sedation and a spontaneous breathing trial. Chest x-ray, labs, and medications are all reviewed. The patient is receiving tube feedings at goal. Overall prognosis remains guarded. We will continue to follow make recommendations where appropriate. Plan dated 07/04/2021. The patient will have another attempt at extubation today. We would do a daily interruption of sedation. The patient remains on propofol, and norepinephrine. The patient is receiving tube feeds. Labs, x-rays, medications are reviewed. The patient did have some additional bright red blood from the endotracheal tube earlier today. We will continue to monitor that. We will continue to follow make recommendations where appropriate. Microbiology is negative. The patient remains on Zosyn. Plan dated 07/05/2021. The patient is scheduled for a right and left heart catheterization today. The patient is going to be placed on Primacor by cardiology. She remains on norepinephrine at 9 mcg/m. She was successfully extubated yesterday, 07/04/2021. She has a severe cardiomyopathy. Chest x-ray shows significant cardiomegaly, and diffuse infiltrates, consistent with fluid overload. I've asked for a urinalysis, and a stat cortisol level. Additional recommendations and suggestions are forthcoming. Prognosis is guarded. We will continue to follow make recommendations where appropriate. Plan dated 07/06/2021. The patient was scheduled for a right and left heart catheterization today. Unfortunately, because of worsening respiratory status, and a respiratory rate is a 40 breaths per minute, I went ahead and reintubated the patient for her safety. The patient is now on the ventilator. A chest x-ray shows a properly placed endotracheal tube and NG tube. The patient was placed on propofol in [facility]. She remains on Primacor and norepinephrine. A repeat blood gas will be done. She does have a PICC line in, and an arterial line in. Additional recommendations and suggestions are forthcoming. Prognosis is poor. Plan dated 07/07/2021. The patient was reintubated yesterday, July 06. Because of cardiogenic shock, cardiology placed an Impella device to augment the patient's cardiac output. The patient remains on Zosyn empirically. Culture data thus far is negative. The patient is not on a number of vasopressors including norepinephrine, vasopressin, and epinephrine. The patient also remains on IV heparin, and propofol for sedation. We will continue to follow make recommendations where appropriate. We have consult dated nephrology, for poor urine output, acute kidney injury, and developing anion gap metabolic acidosis. The patient is on a sodium bicarbonate drip. Prognosis is very poor. Time with Patient: Greater than 30
[2021-07-07] MEDS ORDERED: CISATRACURIUM 2 MG/ML 5 ML VIAL IV ONE (12:15)
[2021-07-07] MEDS: CISATRACURIUM 200 MG in SODIUM CHLORIDE 0.9% 180 ML IV SCH (12:31)
[2021-07-07] MEDS: HEPARIN SOD,PORK IN 0.45% NACL 25,000 UNIT in 0.45% NACL 1 250ML.BAG IV SCH (14:36)
[2021-07-07] MEDS: HEPARIN SODIUM,PORCINE 12,500 UNIT in DEXTROSE 5% IN WATER 500 ML IV SCH ×2 (16:02)
[2021-07-07] MEDS: ARTIFICIAL TEARS-HYPROMELLOSE DROPS 15 ML BTL BOTH EYES SCH ×3 (16:11→23:08)
[2021-07-07] MEDS: DEXTROSE 5% IN WATER 1,000 ML with SODIUM BICARB (1 MEQ/ML) 150 ML IV SCH ×2 (16:11→22:53)
[2021-07-07 16:47] LABS: African American GFR (CKD) 24 (>60 ml/min/1.73 sqM); Albumin 2.9 g/dL (3.5-5.0); Alkaline Phosphatase 155 U/L (38-126); Anion Gap 14 mmol/L; Blood Urea Nitrogen 30 mg/dL (7-17); Carbon Dioxide 23 mmol/L (22-30); Chloride 95 mmol/L (98-107); Glucose 170 mg/dL (74-99); Non-African American GFR(CKD) 21 (>60 ml/min/1.73 sqM); Potassium 4.5 mmol/L (3.5-5.1); Sodium 132 mmol/L (137-145); Total Bilirubin 9.3 mg/dL (0.2-1.3)
[2021-07-07 17:19] LABS: ALT 2207 U/L (4-34); AST >15000 U/L (14-36)
[2021-07-07] MEDS ORDERED: CALCIUM GLUCONATE 2 GM in SODIUM CHLORIDE 0.9% 100 ML IVPB ONE (17:32)
[2021-07-07 17:47] LABS: Glucose,Whole Blood 177 mg/dL (75-99)
[2021-07-07] MEDS: HEPARIN SODIUM 1,000 UN/ML (10ML VL) IV PRN (19:09)
[2021-07-07] MEDS: METOCLOPRAMIDE 5 MG/ML 2 ML VIAL IVP SCH (21:13)
[2021-07-07 21:26] LABS: Hepatitis B Surface AB- Quant 3.5 mIU/mL; Hepatitis B Surface Antibody Nonreactive (Nonreactive)
[2021-07-07 22:24] LABS: Glucose,Whole Blood 181 mg/dL (75-99)
[2021-07-07 23:10] LABS: Hepatitis B Surface Antigen Nonreactive (Nonreactive)
[2021-07-08] MEDS: HEPARIN SODIUM 1,000 UN/ML (10ML VL) IV PRN (01:31)
[2021-07-08] MEDS: METOCLOPRAMIDE 5 MG/ML 2 ML VIAL IVP SCH ×4 (01:33→19:05)
[2021-07-08] MEDS: IPRATROPIUM-ALBUTEROL 3 ML NEB INHALATION SCH ×6 (03:34→23:18)
[2021-07-08] MEDS: ARTIFICIAL TEARS-HYPROMELLOSE DROPS 15 ML BTL BOTH EYES SCH ×5 (04:00→20:16)
[2021-07-08] MEDS: EPINEPHrine 16 MG in DEXTROSE 5% IN WATER 250 ML IV SCH ×4 (04:22→10:09)
[2021-07-08 04:30] LABS: HCT 27.2 % (34.0-46.0); Hypochromasia Slight; MCH 35.2 pg (25.0-35.0); MCHC 32.3 g/dL (31.0-37.0); Macrocytosis Marked; Platelet Count 149 k/uL (150-450); RBC 2.49 m/uL (3.80-5.40)
[2021-07-08 04:32] LABS: HGB 8.8 gm/dL (11.4-16.0)
[2021-07-08 04:33] LABS: MCV 109.1 fL (80.0-100.0)
[2021-07-08 04:44] LABS: African American GFR (CKD) 19 (>60 ml/min/1.73 sqM); Anion Gap 14 mmol/L; Blood Urea Nitrogen 34 mg/dL (7-17); Carbon Dioxide 24 mmol/L (22-30); Chloride 93 mmol/L (98-107); Glucose 169 mg/dL (74-99); Magnesium 1.6 mg/dL (1.6-2.3); Non-African American GFR(CKD) 16 (>60 ml/min/1.73 sqM); Potassium 4.1 mmol/L (3.5-5.1); Sodium 131 mmol/L (137-145)
[2021-07-08 04:46] LABS: INR 3.4 (<1.2); Prothrombin Time 33.5 sec (9.0-12.0)
[2021-07-08 05:03] LABS: Band Neutrophils % 7 %; Large Platelets Present; Metamyelocytes # (M) 0.26 k/uL (0); Metamyelocytes % 2 %; Monocytes # (M) 0.52 k/uL (0-1.0); Neutrophils % (M) 81 %; Nucleated Red Blood Cells 9 /100 WBC (0-0); Polychromasia Present; Total Cells Counted 200; WBC 12.9 k/uL (3.8-10.6)
[2021-07-08 05:04] LABS: Poikilocytosis (M) Present
[2021-07-08 05:31] LABS: Calcium 6.2 mg/dL (8.4-10.2)
[2021-07-08 05:32] LABS: LDH >21500 U/L (313-618)
[2021-07-08 05:56] LABS: Glucose,Whole Blood 182 mg/dL (75-99)
[2021-07-08 06:06] LABS: ABG Base Excess -0.3 mmol/L; ABG HCO3 26 mmol/L (21-25); ABG PCO2 53 mmHg (35-45); ABG PO2 279 mmHg (83-108); ABG TCO2 28 mmol/L (19-24)
[2021-07-08] MEDS: HYDROCORTISONE SUCCINATE 100 MG/2 ML VIAL IV SCH ×3 (06:06→17:44)
[2021-07-08] MEDS: INSULIN ASPART (NovoLOG) 100 UNIT/ML VIAL SQ SCH ×3 (06:06→17:52)
[2021-07-08 06:07] LABS: Allen Test Performed? no
--- NOTE | 2021-07-08 06:38 | XR ---
EXAMINATION TYPE: XR chest 1V portable DATE OF EXAM: 07/08/2021 COMPARISON: 07/07/2021 HISTORY: Shortness of breath TECHNIQUE: Single frontal view of the chest is obtained. FINDINGS: ET tube 4.2 cm above the dona. NG tube within the stomach. The LVAD tube appears to be i n appropriate position projecting over the left ventricle and aorta. Decreased lung opacity bilateral ly but mild to moderate diffuse interstitial infiltrates persist particularly in the left upper lung zone. No pneumothorax or large pleural effusion. Osseous structures are intact. IMPRESSION: Significant improvement in aeration of both lungs with decrease lung opacity. ET tube 4. 2 cm above the dona. The LVAD tube appears to be in appropriate position.
[2021-07-08] MEDS: CISATRACURIUM 200 MG in SODIUM CHLORIDE 0.9% 180 ML IV SCH ×3 (07:26→15:45)
--- NOTE | 2021-07-08 07:31 | P.PN ---
Subjective Progress Note Date: 07/08/21 Principal diagnosis: Severe cardiomyopathy The patient is a 46-year-old -[place] female patient with a past medical history significant for excessive alcohol use as well as history of asthma and sarcoidosis who was admitted to the hospital after she presented with seizure and subsequently she developed respiratory failure requiring intubation and mechanical ventilation. The patient subsequently developed shock related to both septic and cardiogenic shock. The shock did not response to multiple vasopressors at the same time. The patient was advised to be transferred to tertiary center for mechanical support but unfortunately no hospital accepted the patient. In the light of need of multiple vasopressors with low blood pressure the patient was taken to the cardiac laboratory mechanical technician and she underwent right and left heart catheterization along with placement of Impella CP in the left ventricle from right groin approach. The patient was seen this morning. She continues to be intubated on mechanical ventilation and she continues to be in respiratory failure. Fortunately she was weaned from norepinephrine and vasopressin's over the last 24 hours. She continues to be on epinephrine drip. Her heart rate has a slightly improved. She was started on metoprolol tartrate 12.5 mg by mouth twice a day. She continues to be tachycardic with a resting heart rate around 130 beats per minutes. I'm going to increase the dose of metoprolol tartrate to 25 mg by mouth twice a day. She is in acute renal failure which is expected being in shock. Nephrology is on the case. Her creatinine this morning is a 3.28. Her hemoglobin is 8.8. Electrolytes are within normal limits. She continues to be on heparin IV. We are able to obtain a Doppler signal in the right foot so far. At this point we'll try to wean the patient from the epinephrine drip which is only vasopressors she is on. I would still transfer the patient into tertiary facility as soon as we have a bed available for her. Meanwhile continue mechanical support. Continue monitor the kidney function and electrolytes and continue monitor the hemoglobin as well as continue monitoring the perfusion in the right leg. Objective - Vital Signs Vital signs: Vital Signs Temp 98.6 F 07/08/21 07:00 Pulse 130 H 07/08/21 07:00 Resp 35 H 07/08/21 07:00 BP 106/81 07/08/21 05:15 Pulse Ox 92 L 07/07/21 22:00 Intake & Output 01/07/08/21 07/08/21 18:59 06:59 18:59 Intake Total 3240.738 2101.108 88 Output Total 15 10 0 Balance 3225.738 2091.108 88 Weight 101 kg Intake: IV 1216 976 78 Dextrose 5% in Water 1, 870 900 75 000 ml @ 75 mls/hr IV . [id number] [facility] with Sodium Bicarb (1 Meq/ml) 150 ml Rx#:[id number] Piperacillin-Tazobactam 3 200 .375 gm In Sodium Chloride 0.9% 100 ml @ 25 mls/hr IVPB Q8HR [facility] Rx# :[id number] Pressure Bag 36 36 3 Sodium Chloride 0.9% 500 110 40 ml 500 ml @ 10 mls/hr IV .Q24H [facility] Rx#:[id number] Intake, IV Titration 1334.738 815.108 Amount Calcium Gluconate 2 gm In 100 Sodium Chloride 0.9% 100 ml @ 100 mls/hr IVPB ONCE ONE Rx#:[id number] Cisatracurium 200 mg In 75.6 212.600 Sodium Chloride 0.9% 180 ml @ 2 MCG/KG/MIN 12.624 mls/hr IV .[id number] [facility] Rx #:[id number] EPINEPHrine 16 mg In 418.863 482.988 Dextrose 5% in Water 250 ml @ 0.5 MCG/KG/MIN 42.75 mls/hr IV .Q5H51M [facility] Rx #:[id number] Heparin Sod,Pork in 0.45% 32.604 NaCl 25,000 unit In 0.45 % NaCl 1 250ml.bag @ 10 UNITS/KG/HR 9.12 mls/hr IV .Q24H [facility] Rx#: [id number] Heparin Sod,Pork in 0.45% 32.077 81.734 NaCl 25,000 unit In 0.45 % NaCl 1 250ml.bag @ Per Protocol IV .Q0M [facility] Rx#: [id number] Heparin Sodium,Porcine 12 65 13 ,500 unit In Dextrose 5% in Water 500 ml @ Per Protocol IV DIRECTED [facility] Rx#:[id number] Norepinephrine 32 mg In 359.994 20.186 Sodium Chloride 0.9% 218 ml @ 0.4 MCG/KG/MIN 17.1 mls/hr IV .[id number] [facility] Rx #:[id number] Sodium Chloride 0.9% 150 50.6 4.6 ml @ 0.03 UNITS/MIN 4.59 mls/hr IV .Q24H [facility] with Vasopressin 60 unit Rx#: [id number] propofoL 1,000 mg In 200 Empty Bag 1 bag @ Titrate IV .Q0M [facility] Rx#: [id number] Tube Feeding 410 220 10 Other 280 90 Output: Urine 15 10 0 Other: Voiding Method Indwelling Catheter Indwelling Catheter ABP, PAP, CO, CI - Last Documented Arterial Blood Pressure 92/76 - Constitutional General appearance: Present: no acute distress - Respiratory Respiratory: bilateral: rales - Cardiovascular Rhythm: regular - Labs CBC & Chem 7: 07/08/21 04:05 07/08/21 04:05 Labs: Abnormal Lab Results - Last 24 Hours (Table) 07/07/21 07/07/21 07/07/21 Range/Units 07:22 11:14 11:18 WBC (3.8-10.6) k/uL RBC (3.80-5.40) m/uL Hgb (11.4-16.0) gm/dL Hct (34.0-46.0) % MCV (80.0-100.0) fL MCH (25.0-35.0) pg Plt Count (150-450) k/uL Neutrophils # (Manual) (1.3-7.7) k/uL Lymphocytes # (Manual) (1.0-4.8) k/uL Metamyelocytes # (Man) (0) k/uL Nucleated RBCs (0-0) /100 WBC Macrocytosis PT (9.0-12.0) sec INR (<1.2) APTT 40.6 H (22.0-30.0) sec ABG pH (7.35-7.45) ABG pCO2 (35-45) mmHg ABG pO2 (83-108) mmHg ABG HCO3 (21-25) mmol/L ABG Total CO2 (19-24) mmol/L ABG O2 Saturation (94-97) % ABG Lactic Acid (0.5-1.6) mmol/L Sodium (137-145) mmol/L Chloride (98-107) mmol/L BUN (7-17) mg/dL Creatinine (0.52-1.04) mg/dL Glucose (74-99) mg/dL POC Glucose (mg/dL) 178 H 182 H (75-99) mg/dL Plasma Lactic Acid Zain (0.7-2.0) mmol/L Calcium (8.4-10.2) mg/dL Total Bilirubin (0.2-1.3) mg/dL AST (14-36) U/L ALT (4-34) U/L Alkaline Phosphatase (38-126) U/L Lactate Dehydrogenase (313-618) U/L Total Protein (6.3-8.2) g/dL Albumin (3.5-5.0) g/dL 07/07/21 07/07/21 07/07/21 Range/Units 16:20 17:45 17:45 WBC (3.8-10.6) k/uL RBC (3.80-5.40) m/uL Hgb (11.4-16.0) gm/dL Hct (34.0-46.0) % MCV (80.0-100.0) fL MCH (25.0-35.0) pg Plt Count (150-450) k/uL Neutrophils # (Manual) (1.3-7.7) k/uL Lymphocytes # (Manual) (1.0-4.8) k/uL Metamyelocytes # (Man) (0) k/uL Nucleated RBCs (0-0) /100 WBC Macrocytosis PT (9.0-12.0) sec INR (<1.2) APTT 40.8 H (22.0-30.0) sec ABG pH (7.35-7.45) ABG pCO2 (35-45) mmHg ABG pO2 (83-108) mmHg ABG HCO3 (21-25) mmol/L ABG Total CO2 (19-24) mmol/L ABG O2 Saturation (94-97) % ABG Lactic Acid (0.5-1.6) mmol/L Sodium 132 L (137-145) mmol/L Chloride 95 L (98-107) mmol/L BUN 30 H (7-17) mg/dL Creatinine 2.69 H (0.52-1.04) mg/dL Glucose 170 H (74-99) mg/dL POC Glucose (mg/dL) 177 H (75-99) mg/dL Plasma Lactic Acid Zain (0.7-2.0) mmol/L Calcium 6.0 L* (8.4-10.2) mg/dL Total Bilirubin 9.3 H (0.2-1.3) mg/dL AST >19048 H (14-36) U/L ALT 2207 H (4-34) U/L Alkaline Phosphatase 155 H (38-126) U/L Lactate Dehydrogenase (313-618) U/L Total Protein 6.0 L (6.3-8.2) g/dL Albumin 2.9 L (3.5-5.0) g/dL 07/07/21 07/07/21 07/07/21 Range/Units 17:45 22:20 22:22 WBC (3.8-10.6) k/uL RBC (3.80-5.40) m/uL Hgb (11.4-16.0) gm/dL Hct (34.0-46.0) % MCV (80.0-100.0) fL MCH (25.0-35.0) pg Plt Count (150-450) k/uL Neutrophils # (Manual) (1.3-7.7) k/uL Lymphocytes # (Manual) (1.0-4.8) k/uL Metamyelocytes # (Man) (0) k/uL Nucleated RBCs (0-0) /100 WBC Macrocytosis PT (9.0-12.0) sec INR (<1.2) APTT (22.0-30.0) sec ABG pH (7.35-7.45) ABG pCO2 (35-45) mmHg ABG pO2 (83-108) mmHg ABG HCO3 (21-25) mmol/L ABG Total CO2 (19-24) mmol/L ABG O2 Saturation (94-97) % ABG Lactic Acid 6.8 H* (0.5-1.6) mmol/L Sodium (137-145) mmol/L Chloride (98-107) mmol/L BUN (7-17) mg/dL Creatinine (0.52-1.04) mg/dL Glucose (74-99) mg/dL POC Glucose (mg/dL) 181 H (75-99) mg/dL Plasma Lactic Acid Zain 6.1 H* (0.7-2.0) mmol/L Calcium (8.4-10.2) mg/dL Total Bilirubin (0.2-1.3) mg/dL AST (14-36) U/L ALT (4-34) U/L Alkaline Phosphatase (38-126) U/L Lactate Dehydrogenase (313-618) U/L Total Protein (6.3-8.2) g/dL Albumin (3.5-5.0) g/dL 07/08/21 07/08/21 07/08/21 Range/Units 00:27 04:05 04:05 WBC 12.9 H (3.8-10.6) k/uL RBC 2.49 L (3.80-5.40) m/uL Hgb 8.8 L D (11.4-16.0) gm/dL Hct 27.2 L (34.0-46.0) % MCV 109.1 H D (80.0-100.0) fL MCH 35.2 H (25.0-35.0) pg Plt Count 149 L (150-450) k/uL Neutrophils # (Manual) 11.30 H (1.3-7.7) k/uL Lymphocytes # (Manual) 0.90 L (1.0-4.8) k/uL Metamyelocytes # (Man) 0.26 H (0) k/uL Nucleated RBCs 9 H (0-0) /100 WBC Macrocytosis Marked A PT (9.0-12.0) sec INR (<1.2) APTT 42.9 H (22.0-30.0) sec ABG pH (7.35-7.45) ABG pCO2 (35-45) mmHg ABG pO2 (83-108) mmHg ABG HCO3 (21-25) mmol/L ABG Total CO2 (19-24) mmol/L ABG O2 Saturation (94-97) % ABG Lactic Acid (0.5-1.6) mmol/L Sodium (137-145) mmol/L Chloride (98-107) mmol/L BUN (7-17) mg/dL Creatinine (0.52-1.04) mg/dL Glucose (74-99) mg/dL POC Glucose (mg/dL) (75-99) mg/dL Plasma Lactic Acid Zain 6.7 H* (0.7-2.0) mmol/L Calcium (8.4-10.2) mg/dL Total Bilirubin (0.2-1.3) mg/dL AST (14-36) U/L ALT (4-34) U/L Alkaline Phosphatase (38-126) U/L Lactate Dehydrogenase (313-618) U/L Total Protein (6.3-8.2) g/dL Albumin (3.5-5.0) g/dL 07/08/21 07/08/21 07/08/21 Range/Units 04:05 04:05 05:54 WBC (3.8-10.6) k/uL RBC (3.80-5.40) m/uL Hgb (11.4-16.0) gm/dL Hct (34.0-46.0) % MCV (80.0-100.0) fL MCH (25.0-35.0) pg Plt Count (150-450) k/uL Neutrophils # (Manual) (1.3-7.7) k/uL Lymphocytes # (Manual) (1.0-4.8) k/uL Metamyelocytes # (Man) (0) k/uL Nucleated RBCs (0-0) /100 WBC Macrocytosis PT 33.5 H (9.0-12.0) sec INR 3.4 H (<1.2) APTT (22.0-30.0) sec ABG pH (7.35-7.45) ABG pCO2 (35-45) mmHg ABG pO2 (83-108) mmHg ABG HCO3 (21-25) mmol/L ABG Total CO2 (19-24) mmol/L ABG O2 Saturation (94-97) % ABG Lactic Acid (0.5-1.6) mmol/L Sodium 131 L (137-145) mmol/L Chloride 93 L (98-107) mmol/L BUN 34 H (7-17) mg/dL Creatinine 3.28 H (0.52-1.04) mg/dL Glucose 169 H (74-99) mg/dL POC Glucose (mg/dL) 182 H (75-99) mg/dL Plasma Lactic Acid Zain (0.7-2.0) mmol/L Calcium 6.2 L* (8.4-10.2) mg/dL Total Bilirubin (0.2-1.3) mg/dL AST (14-36) U/L ALT (4-34) U/L Alkaline Phosphatase (38-126) U/L Lactate Dehydrogenase >07364 H (313-618) U/L Total Protein (6.3-8.2) g/dL Albumin (3.5-5.0) g/dL 07/08/21 Range/Units 06:03 WBC (3.8-10.6) k/uL RBC (3.80-5.40) m/uL Hgb (11.4-16.0) gm/dL Hct (34.0-46.0) % MCV (80.0-100.0) fL MCH (25.0-35.0) pg Plt Count (150-450) k/uL Neutrophils # (Manual) (1.3-7.7) k/uL Lymphocytes # (Manual) (1.0-4.8) k/uL Metamyelocytes # (Man) (0) k/uL Nucleated RBCs (0-0) /100 WBC Macrocytosis PT (9.0-12.0) sec INR (<1.2) APTT (22.0-30.0) sec ABG pH 7.30 L (7.35-7.45) ABG pCO2 53 H (35-45) mmHg ABG pO2 279 H (83-108) mmHg ABG HCO3 26 H (21-25) mmol/L ABG Total CO2 28 H (19-24) mmol/L ABG O2 Saturation 100.0 H (94-97) % ABG Lactic Acid (0.5-1.6) mmol/L Sodium (137-145) mmol/L Chloride (98-107) mmol/L BUN (7-17) mg/dL Creatinine (0.52-1.04) mg/dL Glucose (74-99) mg/dL POC Glucose (mg/dL) (75-99) mg/dL Plasma Lactic Acid Zain (0.7-2.0) mmol/L Calcium (8.4-10.2) mg/dL Total Bilirubin (0.2-1.3) mg/dL AST (14-36) U/L ALT (4-34) U/L Alkaline Phosphatase (38-126) U/L Lactate Dehydrogenase (313-618) U/L Total Protein (6.3-8.2) g/dL Albumin (3.5-5.0) g/dL Microbiology - Last 24 Hours (Table) 07/06/21 18:25 Blood Culture - Preliminary Blood No Growth after 24 hours 07/06/21 11:50 Blood Culture - Preliminary Blood No Growth after 24 hours 07/06/21 11:00 Gram Stain - Preliminary Sputum Sputum Culture - Preliminary Assessment and Plan Assessment: Assessment #1 acute hypoxic respiratory failure #2 cardiogenic and septic shock #3 severe nonischemic cardiomyopathy #4 severe pulmonary hypertension, group 2 #5 acute renal failure #6 history of sarcoidosis Plan #1 continue to wean the patient from epinephrine drip #2 continue mechanical support #3 continue heparin IV #4 monitor the kidney function and electrolytes #5 monitor the hemoglobin #6 transfer the patient into tertiary facility as soon as they're his bed available #7 increase the dose of metoprolol #8 continue monitoring the perfusion in the right leg
[2021-07-08] MEDS: CHLORHEXIDINE GLUCONATE 15 ML CUP MUCOUS MEM SCH ×2 (08:09→20:16)
[2021-07-08] MEDS: PANTOPRAZOLE 40 MG/10 ML VIAL IVP SCH (08:09)
[2021-07-08] MEDS: LEVOTHYROXINE IVP 100 MCG/5 ML VIAL IV SCH (08:09)
[2021-07-08] MEDS: METOPROLOL TARTRATE 25 MG TAB PO SCH ×2 (08:09→20:16)
[2021-07-08] MEDS: PIPERACILLIN-TAZOBACTAM 3.375 GM in SODIUM CHLORIDE 0.9% 100 ML IVPB SCH ×2 (08:10→16:29)
[2021-07-08] MEDS: SODIUM CHLORIDE 0.9% 1,000 ML IV SCH (08:30)
[2021-07-08] MEDS: MAGNESIUM SULFATE-D5W PMX 1 GM in DEXTROSE/WATER 1 100ML.BAG IVPB SCH ×2 (08:32→10:18)
--- NOTE | 2021-07-08 08:57 | P.PN ---
Subjective Patient is seen in follow-up for acute kidney injury. Creatinine 3.28. Oliguric. On vasopressin and epinephrine. Levophed discontinued. Receiving IV fluids and tube feeds. Intubated. Vital signs are stable on vasopressor support. HEENT: Intubated. LUNGS: Breath sounds decreased. HEART: Tachycardic. ABDOMEN: Soft, no distention. EXTREMITITES: No edema. Objective - Vital Signs Vital signs: Vital Signs Temp 98.6 F 07/08/21 08:00 Pulse 133 H 07/08/21 08:15 Resp 34 H 07/08/21 08:15 BP 117/94 07/08/21 08:00 Pulse Ox 92 L 07/07/21 22:00 Intake & Output 07/07/21 07/08/21 07/08/21 18:59 06:59 18:59 Intake Total 3240.738 2101.108 429.5 Output Total 15 10 0 Balance 3225.738 2091.108 429.5 Weight 101 kg Intake: IV 1216 976 266 Dextrose 5% in Water 1, 870 900 150 000 ml @ 75 mls/hr IV . [id number] [facility] with Sodium Bicarb (1 Meq/ml) 150 ml Rx#:[id number] Piperacillin-Tazobactam 3 200 100 .375 gm In Sodium Chloride 0.9% 100 ml @ 25 mls/hr IVPB Q8HR COUNTS INCLUDE 234 BEDS AT THE [facility] Rx# :[id number] Pressure Bag 36 36 6 Sodium Chloride 0.9% 500 110 40 10 ml 500 ml @ 10 mls/hr IV .Q24H COUNTS INCLUDE 234 BEDS AT THE [facility] Rx#:[id number] Intake, IV Titration 1334.738 815.108 113.5 Amount Calcium Gluconate 2 gm In 100 Sodium Chloride 0.9% 100 ml @ 100 mls/hr IVPB ONCE ONE Rx#:[id number] Cisatracurium 200 mg In 75.6 212.600 Sodium Chloride 0.9% 180 ml @ 2 MCG/KG/MIN 12.624 mls/hr IV .[id number] COUNTS INCLUDE 234 BEDS AT THE [facility] Rx #:[id number] EPINEPHrine 16 mg In 418.863 482.988 Dextrose 5% in Water 250 ml @ 0.5 MCG/KG/MIN 42.75 mls/hr IV .Q5H51M COUNTS INCLUDE 234 BEDS AT THE [facility] Rx #:[id number] Heparin Sod,Pork in 0.45% 32.604 NaCl 25,000 unit In 0.45 % NaCl 1 250ml.bag @ 10 UNITS/KG/HR 9.12 mls/hr IV .Q24H COUNTS INCLUDE 234 BEDS AT THE [facility] Rx#: [id number] Heparin Sod,Pork in 0.45% 32.077 81.734 NaCl 25,000 unit In 0.45 % NaCl 1 250ml.bag @ Per Protocol IV .Q0M [facility] Rx#: [id number] Heparin Sodium,Porcine 12 65 13 12 ,500 unit In Dextrose 5% in Water 500 ml @ Per Protocol IV DIRECTED [facility] Rx#:[id number] Magnesium Sulfate-D5w Pmx 100 1 gm In Dextrose/Water 1 100ml.bag @ 100 mls/hr IVPB Q1H COUNTS INCLUDE 234 BEDS AT THE [facility] Rx#: [id number] Norepinephrine 32 mg In 359.994 20.186 Sodium Chloride 0.9% 218 ml @ 0.4 MCG/KG/MIN 17.1 mls/hr IV .[id number] COUNTS INCLUDE 234 BEDS AT THE [facility] Rx #:[id number] Sodium Chloride 0.9% 150 50.6 4.6 1.5 ml @ 0.03 UNITS/MIN 4.59 mls/hr IV .Q24H [facility] with Vasopressin 60 unit Rx#: [id number] propofoL 1,000 mg In 200 Empty Bag 1 bag @ Titrate IV .Q0M COUNTS INCLUDE 234 BEDS AT THE [facility] Rx#: [id number] Tube Feeding 410 220 20 Other 280 90 30 Output: Urine 15 10 0 Other: Voiding Method Indwelling Catheter Indwelling Catheter Indwelling Catheter ABP, PAP, CO, CI - Last Documented Arterial Blood Pressure 102/83 - Labs CBC & Chem 7: 07/08/21 04:05 07/08/21 04:05 Labs: Abnormal Lab Results - Last 24 Hours (Table) 07/07/21 07/07/21 07/07/21 Range/Units 11:14 11:18 16:20 WBC (3.8-10.6) k/uL RBC (3.80-5.40) m/uL Hgb (11.4-16.0) gm/dL Hct (34.0-46.0) % MCV (80.0-100.0) fL MCH (25.0-35.0) pg Plt Count (150-450) k/uL Neutrophils # (Manual) (1.3-7.7) k/uL Lymphocytes # (Manual) (1.0-4.8) k/uL Metamyelocytes # (Man) (0) k/uL Nucleated RBCs (0-0) /100 WBC Macrocytosis PT (9.0-12.0) sec INR (<1.2) APTT 40.6 H (22.0-30.0) sec ABG pH (7.35-7.45) ABG pCO2 (35-45) mmHg ABG pO2 (83-108) mmHg ABG HCO3 (21-25) mmol/L ABG Total CO2 (19-24) mmol/L ABG O2 Saturation (94-97) % ABG Lactic Acid (0.5-1.6) mmol/L Sodium 132 L (137-145) mmol/L Chloride 95 L (98-107) mmol/L BUN 30 H (7-17) mg/dL Creatinine 2.69 H (0.52-1.04) mg/dL Glucose 170 H (74-99) mg/dL POC Glucose (mg/dL) 182 H (75-99) mg/dL Plasma Lactic Acid Zain (0.7-2.0) mmol/L Calcium 6.0 L* (8.4-10.2) mg/dL Total Bilirubin 9.3 H (0.2-1.3) mg/dL AST >51938 H (14-36) U/L ALT 2207 H (4-34) U/L Alkaline Phosphatase 155 H (38-126) U/L Lactate Dehydrogenase (313-618) U/L Total Protein 6.0 L (6.3-8.2) g/dL Albumin 2.9 L (3.5-5.0) g/dL 07/07/21 07/07/21 07/07/21 Range/Units 17:45 17:45 17:45 WBC (3.8-10.6) k/uL RBC (3.80-5.40) m/uL Hgb (11.4-16.0) gm/dL Hct (34.0-46.0) % MCV (80.0-100.0) fL MCH (25.0-35.0) pg Plt Count (150-450) k/uL Neutrophils # (Manual) (1.3-7.7) k/uL Lymphocytes # (Manual) (1.0-4.8) k/uL Metamyelocytes # (Man) (0) k/uL Nucleated RBCs (0-0) /100 WBC Macrocytosis PT (9.0-12.0) sec INR (<1.2) APTT 40.8 H (22.0-30.0) sec ABG pH (7.35-7.45) ABG pCO2 (35-45) mmHg ABG pO2 (83-108) mmHg ABG HCO3 (21-25) mmol/L ABG Total CO2 (19-24) mmol/L ABG O2 Saturation (94-97) % ABG Lactic Acid 6.8 H* (0.5-1.6) mmol/L Sodium (137-145) mmol/L Chloride (98-107) mmol/L BUN (7-17) mg/dL Creatinine (0.52-1.04) mg/dL Glucose (74-99) mg/dL POC Glucose (mg/dL) 177 H (75-99) mg/dL Plasma Lactic Acid Zain (0.7-2.0) mmol/L Calcium (8.4-10.2) mg/dL Total Bilirubin (0.2-1.3) mg/dL AST (14-36) U/L ALT (4-34) U/L Alkaline Phosphatase (38-126) U/L Lactate Dehydrogenase (313-618) U/L Total Protein (6.3-8.2) g/dL Albumin (3.5-5.0) g/dL 07/07/21 07/07/21 07/08/21 Range/Units 22:20 22:22 00:27 WBC (3.8-10.6) k/uL RBC (3.80-5.40) m/uL Hgb (11.4-16.0) gm/dL Hct (34.0-46.0) % MCV (80.0-100.0) fL MCH (25.0-35.0) pg Plt Count (150-450) k/uL Neutrophils # (Manual) (1.3-7.7) k/uL Lymphocytes # (Manual) (1.0-4.8) k/uL Metamyelocytes # (Man) (0) k/uL Nucleated RBCs (0-0) /100 WBC Macrocytosis PT (9.0-12.0) sec INR (<1.2) APTT 42.9 H (22.0-30.0) sec ABG pH (7.35-7.45) ABG pCO2 (35-45) mmHg ABG pO2 (83-108) mmHg ABG HCO3 (21-25) mmol/L ABG Total CO2 (19-24) mmol/L ABG O2 Saturation (94-97) % ABG Lactic Acid (0.5-1.6) mmol/L Sodium (137-145) mmol/L Chloride (98-107) mmol/L BUN (7-17) mg/dL Creatinine (0.52-1.04) mg/dL Glucose (74-99) mg/dL POC Glucose (mg/dL) 181 H (75-99) mg/dL Plasma Lactic Acid Zain 6.1 H* (0.7-2.0) mmol/L Calcium (8.4-10.2) mg/dL Total Bilirubin (0.2-1.3) mg/dL AST (14-36) U/L ALT (4-34) U/L Alkaline Phosphatase (38-126) U/L Lactate Dehydrogenase (313-618) U/L Total Protein (6.3-8.2) g/dL Albumin (3.5-5.0) g/dL 07/08/21 07/08/21 07/08/21 Range/Units 04:05 04:05 04:05 WBC 12.9 H (3.8-10.6) k/uL RBC 2.49 L (3.80-5.40) m/uL Hgb 8.8 L D (11.4-16.0) gm/dL Hct 27.2 L (34.0-46.0) % MCV 109.1 H D (80.0-100.0) fL MCH 35.2 H (25.0-35.0) pg Plt Count 149 L (150-450) k/uL Neutrophils # (Manual) 11.30 H (1.3-7.7) k/uL Lymphocytes # (Manual) 0.90 L (1.0-4.8) k/uL Metamyelocytes # (Man) 0.26 H (0) k/uL Nucleated RBCs 9 H (0-0) /100 WBC Macrocytosis Marked A PT 33.5 H (9.0-12.0) sec INR 3.4 H (<1.2) APTT (22.0-30.0) sec ABG pH (7.35-7.45) ABG pCO2 (35-45) mmHg ABG pO2 (83-108) mmHg ABG HCO3 (21-25) mmol/L ABG Total CO2 (19-24) mmol/L ABG O2 Saturation (94-97) % ABG Lactic Acid (0.5-1.6) mmol/L Sodium (137-145) mmol/L Chloride (98-107) mmol/L BUN (7-17) mg/dL Creatinine (0.52-1.04) mg/dL Glucose (74-99) mg/dL POC Glucose (mg/dL) (75-99) mg/dL Plasma Lactic Acid Zain 6.7 H* (0.7-2.0) mmol/L Calcium (8.4-10.2) mg/dL Total Bilirubin (0.2-1.3) mg/dL AST (14-36) U/L ALT (4-34) U/L Alkaline Phosphatase (38-126) U/L Lactate Dehydrogenase (313-618) U/L Total Protein (6.3-8.2) g/dL Albumin (3.5-5.0) g/dL 07/08/21 07/08/21 07/08/21 Range/Units 04:05 05:54 06:03 WBC (3.8-10.6) k/uL RBC (3.80-5.40) m/uL Hgb (11.4-16.0) gm/dL Hct (34.0-46.0) % MCV (80.0-100.0) fL MCH (25.0-35.0) pg Plt Count (150-450) k/uL Neutrophils # (Manual) (1.3-7.7) k/uL Lymphocytes # (Manual) (1.0-4.8) k/uL Metamyelocytes # (Man) (0) k/uL Nucleated RBCs (0-0) /100 WBC Macrocytosis PT (9.0-12.0) sec INR (<1.2) APTT (22.0-30.0) sec ABG pH 7.30 L (7.35-7.45) ABG pCO2 53 H (35-45) mmHg ABG pO2 279 H (83-108) mmHg ABG HCO3 26 H (21-25) mmol/L ABG Total CO2 28 H (19-24) mmol/L ABG O2 Saturation 100.0 H (94-97) % ABG Lactic Acid (0.5-1.6) mmol/L Sodium 131 L (137-145) mmol/L Chloride 93 L (98-107) mmol/L BUN 34 H (7-17) mg/dL Creatinine 3.28 H (0.52-1.04) mg/dL Glucose 169 H (74-99) mg/dL POC Glucose (mg/dL) 182 H (75-99) mg/dL Plasma Lactic Acid Zain (0.7-2.0) mmol/L Calcium 6.2 L* (8.4-10.2) mg/dL Total Bilirubin (0.2-1.3) mg/dL AST (14-36) U/L ALT (4-34) U/L Alkaline Phosphatase (38-126) U/L Lactate Dehydrogenase >05096 H (313-618) U/L Total Protein (6.3-8.2) g/dL Albumin (3.5-5.0) g/dL 07/08/21 Range/Units 07:28 WBC (3.8-10.6) k/uL RBC (3.80-5.40) m/uL Hgb (11.4-16.0) gm/dL Hct (34.0-46.0) % MCV (80.0-100.0) fL MCH (25.0-35.0) pg Plt Count (150-450) k/uL Neutrophils # (Manual) (1.3-7.7) k/uL Lymphocytes # (Manual) (1.0-4.8) k/uL Metamyelocytes # (Man) (0) k/uL Nucleated RBCs (0-0) /100 WBC Macrocytosis PT (9.0-12.0) sec INR (<1.2) APTT 48.1 H (22.0-30.0) sec ABG pH (7.35-7.45) ABG pCO2 (35-45) mmHg ABG pO2 (83-108) mmHg ABG HCO3 (21-25) mmol/L ABG Total CO2 (19-24) mmol/L ABG O2 Saturation (94-97) % ABG Lactic Acid (0.5-1.6) mmol/L Sodium (137-145) mmol/L Chloride (98-107) mmol/L BUN (7-17) mg/dL Creatinine (0.52-1.04) mg/dL Glucose (74-99) mg/dL POC Glucose (mg/dL) (75-99) mg/dL Plasma Lactic Acid Zain (0.7-2.0) mmol/L Calcium (8.4-10.2) mg/dL Total Bilirubin (0.2-1.3) mg/dL AST (14-36) U/L ALT (4-34) U/L Alkaline Phosphatase (38-126) U/L Lactate Dehydrogenase (313-618) U/L Total Protein (6.3-8.2) g/dL Albumin (3.5-5.0) g/dL Microbiology - Last 24 Hours (Table) 07/06/21 18:25 Blood Culture - Preliminary Blood No Growth after 24 hours 07/06/21 11:50 Blood Culture - Preliminary Blood No Growth after 24 hours 07/06/21 11:00 Gram Stain - Preliminary Sputum Sputum Culture - Preliminary Assessment and Plan Plan: Assessment: 1. Acute kidney injury secondary to ATN secondary to cardiogenic shock. Creatinine 3.28 today. Oliguric. Baseline creatinine near 1. UA fairly benign. 2. Severe cardiomyopathy with ejection fraction of 20% with moderate mitral regurgitation, severe tricuspid regurgitation and severe pulmonary hypertension. 3. Metabolic acidosis secondary to acute kidney injury. Maintained on bicarb drip. Improved. 4. Cardiogenic shock on multiple vasopressors. 5. Mild hyperkalemia secondary to acute kidney injury and metabolic acidosis. Improved. 6. Hypocalcemia secondary to acute kidney injury. Plan: Stop bicarb drip. Start normal saline at 75 mL an hour. Maintain tube feeds. Replace calcium. Repeat BMP this evening. Wean FiO2 and vasopressors. Continue to assess daily for need for renal replacement therapy. If no improvement in urine output in the next 24 hours, will initiate renal replacement therapy. Dose of metoprolol increased due to sinus tachycardia per cardiology.
[2021-07-08] MEDS ORDERED: CALCIUM GLUCONATE 2 GM in SODIUM CHLORIDE 0.9% 100 ML IVPB ONE ×2 (09:00→17:42)
--- NOTE | 2021-07-08 11:34 | PN ---
PROGRESS NOTE 46-year-old female with acute kidney injury. Creatinine went from 1 up to 2.2, being seen by Nephrology today. He has seizures systolic ejection fracture status post Impella implant, moderate mitral regurg, severe tricuspid regurg. He is on Levophed and vasopressin, epinephrine. He has elevated creatinine, acidotic on bicarb drip, FiO2 100%. Hematology: Negative Homans. Cardiovascular S1-S2. Patient is comfortably on the vent. Pulse is in the 130s to 140s, respiratory 20s to 30s, blood pressure is low 100s over 60s to 80s. ASSESSMENT: 1. Acute kidney injury secondary to acute tubular necrosis. 2. Cardiogenic shock. 3. Severe cardiomyopathy, ejection fraction 20%. 4. Severe tricuspid regurgitation. 5. Moderate mitral regurg. 6. Metabolic acidosis. 7. Mild hyperkalemia. Continue with bicarb drip. Wean FiO2 and vasopressors. PROGNOSIS: Extremely guarded status post Impella placement. MMODL / IJN: [id number] /
[2021-07-08 12:05] LABS: Glucose,Whole Blood 140 mg/dL (75-99)
[2021-07-08] MEDS: NOREPINEPHRINE 32 MG in SODIUM CHLORIDE 0.9% 218 ML IV SCH (12:35)
--- NOTE | 2021-07-08 12:48 | P.PN ---
Subjective Progress Note Date: 07/08/21 Principal diagnosis: Respiratory failure. Pulmonary consult dated 07/02/2021. 46-year-old black female, with a history of asthma, and hypertension, who presents to the emergency department, with mental status changes, and being poorly responsive. EMS was called to the house, and the patient apparently has had significant alcohol abuse, and was thought to have alcohol withdrawal syndrome. Apparently, the patient complained about being short of breath. In transport, the patient apparently had a seizure. She became unresponsive in the eyes rolled back in her head. That episode lasted 2 minutes. When she arrived to the trauma bay, she was confused and agitated. She apparently was intubated on the in the emergency department. She came to the intensive care unit on the . She remains on the mechanical ventilator. She is on the volume assist control mode, rate 26, tidal volume 450, FiO2 60%, to be dropped down to 45%, and PEEP of 5. Blood gases show pO2 of 113, pCO2 37, and pH is 7.5. The patient's receiving saline at 20 mL an hour, propofol at 50 mcg/kg/m, norepinephrine 5 mcg/m, Nimbex at 3 mcg/kg/m, heparin via weightbase protocol, Lasix, 10 mg an hour. Lab data includes a white count of 10.3, hemoglobin 11.4, hematocrit 34.9, and platelet count 81,000. PT 13.2, INR 1.3, and PTT 54.3. Sodium 134, potassium 5, chlorides 94, CO2 21, anion gap 19, BUN 16, creatinine 0.87. Calcium 7.5, magnesium 1.0, AST 159, ALT 67. The central line that was placed, was malpositioned. Chest x-ray shows diffuse bilateral infiltrates. Progress note dated 07/03/2021. 46-year-old white female, seen yesterday in consultation. She has a history of both asthma, and hypertension. The patient was brought to the emergency department with mental status changes, and she was very poorly responsive and was intubated. She was found to have a seizure, and was having alcohol withdrawal syndrome. Currently, the patient remains on the volume assist contro l mode, rate 26, tidal volume 450, FiO2 45%, and PEEP of 5. Blood gases show pO2 of 139, pCO2 of 38, and a pH is 7.58. She's currently on norepinephrine at 0.08 mcg/kg/m, Nimbex at 2 mcg/kg/m, propofol at 50 mcg/kg/m, and vital high protein at 26 mL an hour, which is goal. The patient's currently on Zosyn. We are going to do a daily interruption of sedation, and a spontaneous breathing trial today. We'll hoping to get the patient extubated. The FiO2 was dropped down to 35%. White count 12.5, hemoglobin 11.1, hematocrit 33.6, platelet count 95,000. Sodium 134, potassium 3.2, chloride 88, CO2 34, anion gap 12, BUN 19, creatinine 0.96. Magnesium 0.8. AST was 121. ALT 54. Chest x-ray shows a stable diffuse interstitial/patchy pattern. Progress note dated 07/04/2021. 46-year-old black female who was seen 2 days ago consultation. She is again seen today in room 264. She has a history of hypertension and asthma. She was initially brought into the emergency department with mental status changes, and was very poorly responsive. The patient was found to have a seizure, and was intubated in the emergency department. Yesterday, we attempted a daily interruption of sedation, a spontaneous breathing trial, but her weaning parameters were not very good, hence, she was not extubated. The patient remains on the volume assist control mode of ventilation, rate 26, tidal volume at 375, FiO2 35%, and PEEP of 5. Blood gases show pO2 of 95, pCO2 42, and a pH is 7.56. Her chest x-ray shows some left lower lobe atelectasis and/or infiltrate. There is also some volume loss in the left hemithorax. We will attempt another daily interruption of sedation and spontaneous breathing trial today. Currently, the patient's on saline at 30 mL an hour, propofol at 60 mcg/kg/m, and norepinephrine at 0.08 mcg/kg/m. The patient's getting vital high protein at 25 mL an hour, which is goal. The patient did have some bright red blood from her endotracheal tube earlier today. White count 12.1, hemoglobin 11.2, hematocrit 35.3, platelet count 124,000. Sodium 133, potassium 4, chlo rides 89, CO2 35, anion gap 9, BUN 23, creatinine 0.8. Progress note dated 07/05/2021. 46-year-old black female who was seen in consultation 3 days ago. She is again seen in room 264. Yesterday, we were able to successfully extubate her from the mechanical ventilator. The patient is currently on 6 L nasal cannula. She's getting saline at 20 mL an hour. She is on norepinephrine at 9 mcg/m. Today, she's scheduled for a left and right heart catheterization, and soon be placed on Primacor. In addition, we asked for a stat random cortisol level, and a urinalysis. White count 7.3, hemoglobin 11.1, hematocrit 35.4, and platelet count 149,000. Sodium 133, potassium 3.4, chlorides 95, CO2 33, anion gap 5, BUN 20, creatinine 0.67. Chest x-ray shows significant cardiomegaly, with diffuse bilateral infiltrates, most likely related to fluid overload/CHF. The patient did admit to us that she drinks a pint of [place] liquor, 2-3 times per week. Progress note dated 07/06/2021. 46-year-old black female, again seen in room 264. Unfortunately, the patient's respiratory status has declined, and she was reintubated today by myself. We used a #7-1/2 endotracheal tube, a standard laryngoscope, the #3 Flora blade. She was sedated with Ativan, and morphine prior to the procedure, and had succinylcholine administered, before the procedure. Afterwards, she received Nimbex. Prior to this, she was on BiPAP at 15/5 and 100%. On BiPAP, at 80%, her pO2 is 67, pCO2 was 42, pH is 7.43. She was breathing at about 40 breast per minute. She also was on saline at 20 mL an hour, Primacor at 0.3 mcg/kg/m, Precedex at 0.5 mcg/kg/h, and norepinephrine at 0.12 mcg/kg/m. Post intubation, the Precedex was discontinued in favor of propofol. The patient was to go to the catheterization laboratory today for a right and left heart catheterization. It could probably still be done and we will notify cardiology of the fact the patient is intubated. White count 7.5, hemoglobin 10.5, pako tocrit 31.9, and platelet count 181,000. Sodium 134, potassium 3.7, chlorides 98, CO2 28, anion gap 8, BUN 21, creatinine 0.75. Chest x-ray shows a properly placed NG tube and endotracheal tube. Progress note dated 07/07/2021. 46-year-old black female, again seen in room 264. The patient had an Impella device placed yesterday. This was done to augment her cardiac output. The patient was intubated on July 06, because of worsening respiratory status. She remains on the ventilator. She is on the volume assist control, rate 34, tidal volume 350, FiO2 100%, and PEEP of 10. Blood gases show pO2 76, CO2 47, and a pH is 7.10. She is currently on saline at 20 mL an hour, norepinephrine at 64 mcg/m, vasopressin at 0.03 units per minute, epinephrine of 0.5 mcg/kg/m, heparin via weightbase protocol, D5W with 3 ampules of sodium bicarbonate at 60 mL an hour, propofol at 30 mcg/kg/m, and vital high protein at 30 mL an hour, with a goal of 40 mL an hour. The patient's also getting hydrocortisone 50 mg IV push every 6 hours for anticipated adrenal insufficiency. The Impella device was placed yesterday. Microbiology is currently on negative. She remains on Zosyn empirically. White count 11.6, hemoglobin 10.4, hematocrit 35.3, and platelet count 184,000. PTT was 28.7, INR 2.9, PTT was 89.9. Sodium 133, potassium 5.2, chlorides 101, CO2 12, anion gap 20, BUN 24, and creatinine 2.20. AST was 8515. ALT 804. Albumin 2.8. Chest x-ray shows diffuse bilateral infiltrates, with an endotracheal tube 3.5 cm above the dona. Progress note dated 07/08/2021. 46-year-old black female, again seen in room 264. The patient had an Impella device placed on July 06. This device is providing about 2.3-2.5 L/m cardiac output. The patient's intrinsic cardiac output is about 1.1-1.3 L/m. The patient's respiratory status was severe and she was intubated on 07/06/2021. She remains on the ventilator. She is on the volume assist control mode, rate is 34, tidal volume is 350, FiO2 80%, and PEEP of 15. Blood gases show pO2 is 279, pCO2 52, and pH is 7.3. This was on 100% FiO2, and the FiO2 was turned down. The patient's on saline at 75 mL an hour, norepinephrine has been weaned off, she remains on vasopressin at 0.03 units per minute, epinephrine 0.5 mcg/kg/m, Nimbex at 2.5 mcg/kg/m, propofol at 30 mcg/kg/m, heparin via weightbase protocol, and vital high protein at 10 mL an hour, which is goal. Laboratory data includes a white count of 12.9, hemoglobin 8.8, hematocrit 27.2, and platelet count 149,000. Sodium 131, potassium 4.1, chloride 93, CO2 24, anion gap 14, BUN 34, and creatinine 3.28. The patient's LDH is 21,500. Microbiologic studies are currently all negative. Chest x-ray shows significant bilateral improvement in both lungs. Endotracheal tube is 4.2 cm above the dona. Objective - Vital Signs Vital signs: Vital Signs Temp 99.2 F 07/08/21 12:00 Pulse 129 H 07/08/21 12:00 Resp 34 H 07/08/21 12:00 BP 111/83 07/08/21 12:00 Pulse Ox 98 07/08/21 12:00 Intake & Output 07/07/21 07/08/21 07/08/21 18:59 06:59 18:59 Intake Total 3240.738 2201.108 1434.049 Output Total 15 10 0 Balance 3225.738 2191.108 1434.049 Weight 101 kg Intake: IV 1216 976 278 Dextrose 5% in Water 1, 870 900 150 000 ml @ 75 mls/hr IV . [id number] [facility]YA with Sodium Bicarb (1 Meq/ml) 150 ml Rx#:[id number] Piperacillin-Tazobactam 3 200 100 .375 gm In Sodium Chloride 0.9% 100 ml @ 25 mls/hr IVPB Q8HR [facility]YA Rx# :[id number] Pressure Bag 36 36 18 Sodium Chloride 0.9% 500 110 40 10 ml 500 ml @ 10 mls/hr IV .Q24H [facility]YA Rx#:[id number] Intake, IV Titration 1334.738 915.108 986.049 Amount Calcium Gluconate 2 gm In 100 Sodium Chloride 0.9% 100 ml @ 100 mls/hr IVPB ONCE ONE Rx#:[id number] Calcium Gluconate 2 gm In 100 Sodium Chloride 0.9% 100 ml @ 100 mls/hr IVPB ONCE ONE Rx#:[id number] Cisatracurium 200 mg In 75.6 212.600 Sodium Chloride 0.9% 180 ml @ 2 MCG/KG/MIN 12.624 mls/hr IV .[id number] [facility] Rx #:[id number] EPINEPHrine 16 mg In 418.863 482.988 274.598 Dextrose 5% in Water 250 ml @ 0.5 MCG/KG/MIN 42.75 mls/hr IV .[id number] [facility] Rx #:[id number] Heparin Sod,Pork in 0.45% 32.604 NaCl 25,000 unit In 0.45 % NaCl 1 250ml.bag @ 10 UNITS/KG/HR 9.12 mls/hr IV .Q24H [facility] Rx#: [id number] Heparin Sod,Pork in 0.45% 32.077 81.734 NaCl 25,000 unit In 0.45 % NaCl 1 250ml.bag @ Per Protocol IV .Q0M [facility] Rx#: [id number] Heparin Sodium,Porcine 12 65 13 60 ,500 unit In Dextrose 5% in Water 500 ml @ Per Protocol IV DIRECTED [facility] Rx#:[id number] Magnesium Sulfate-D5w Pmx 200 1 gm In Dextrose/Water 1 100ml.bag @ 100 mls/hr IVPB Q1H [facility] Rx#: [id number] Norepinephrine 32 mg In 359.994 20.186 31.551 Sodium Chloride 0.9% 218 ml @ 0.4 MCG/KG/MIN 17.1 mls/hr IV .[id number] [facility] Rx #:[id number] Sodium Chloride 0.9% 1, 300 000 ml @ 75 mls/hr IV . [id number] [facility] Rx#:[id number] Sodium Chloride 0.9% 150 50.6 4.6 19.9 ml @ 0.03 UNITS/MIN 4.59 mls/hr IV .Q24H [facility] with Vasopressin 60 unit Rx#: [id number] propofoL 1,000 mg In 200 100 Empty Bag 1 bag @ Titrate IV .Q0M [facility] Rx#: [id number] Tube Feeding 410 220 70 Other 280 90 100 Output: Urine 15 10 0 Other: Voiding Method Indwelling Catheter Indwelling Catheter Indwelling Catheter ABP, PAP, CO, CI - Last Documented Arterial Blood Pressure 105/83 - Exam Sedated, with an orally placed endotracheal tube and NG tube. HEENT examination is grossly unremarkable. Neck supple. Full range of motion. No adenopathy thyromegaly or neck vein d istention. Cardiovascular examination reveals regular rhythm rate. S1-S2 normal. No S3 or S4. No discernible murmur noted. Heart rate 129 bpm. Heart sounds are distant. Lungs reveal diffuse coarse bilateral breath sounds. Breath sounds equal bilaterally. Diffuse rhonchi are noted. No crackles. No wheezes. Saturations are 98%. Abdomen soft, without bowel sounds. No masses. Extremities are intact. No cyanosis clubbing or edema. Skin is without rash or lesion. Neurologic examination cannot be assessed as the patient is sedated. - Labs CBC & Chem 7: 07/08/21 04:05 07/08/21 04:05 Labs: Abnormal Lab Results - Last 24 Hours (Table) 07/07/21 07/07/21 07/07/21 Range/Units 16:20 17:45 17:45 WBC (3.8-10.6) k/uL RBC (3.80-5.40) m/uL Hgb (11.4-16.0) gm/dL Hct (34.0-46.0) % MCV (80.0-100.0) fL MCH (25.0-35.0) pg Plt Count (150-450) k/uL Neutrophils # (Manual) (1.3-7.7) k/uL Lymphocytes # (Manual) (1.0-4.8) k/uL Metamyelocytes # (Man) (0) k/uL Nucleated RBCs (0-0) /100 WBC Macrocytosis PT (9.0-12.0) sec INR (<1.2) APTT 40.8 H (22.0-30.0) sec ABG pH (7.35-7.45) ABG pCO2 (35-45) mmHg ABG pO2 (83-108) mmHg ABG HCO3 (21-25) mmol/L ABG Total CO2 (19-24) mmol/L ABG O2 Saturation (94-97) % ABG Lactic Acid (0.5-1.6) mmol/L Sodium 132 L (137-145) mmol/L Chloride 95 L (98-107) mmol/L BUN 30 H (7-17) mg/dL Creatinine 2.69 H (0.52-1.04) mg/dL Glucose 170 H (74-99) mg/dL POC Glucose (mg/dL) 177 H (75-99) mg/dL Plasma Lactic Acid Zain (0.7-2.0) mmol/L Calcium 6.0 L* (8.4-10.2) mg/dL Total Bilirubin 9.3 H (0.2-1.3) mg/dL AST >98332 H (14-36) U/L ALT 2207 H (4-34) U/L Alkaline Phosphatase 155 H (38-126) U/L Lactate Dehydrogenase (313-618) U/L Total Protein 6.0 L (6.3-8.2) g/dL Albumin 2.9 L (3.5-5.0) g/dL 07/07/21 07/07/21 07/07/21 Range/Units 17:45 22:20 22:22 WBC (3.8-10.6) k/uL RBC (3.80-5.40) m/uL Hgb (11.4-16.0) gm/dL Hct (34.0-46.0) % MCV (80.0-100.0) fL MCH (25.0-35.0) pg Plt Count (150-450) k/uL Neutrophils # (Manual) (1.3-7.7) k/uL Lymphocytes # (Manual) (1.0-4.8) k/uL Metamyelocytes # (Man) (0) k/uL Nucleated RBCs (0-0) /100 WBC Macrocytosis PT (9.0-12.0) sec INR (<1.2) APTT (22.0-30.0) sec ABG pH (7.35-7.45) ABG pCO2 (35-45) mmHg ABG pO2 (83-108) mmHg ABG HCO3 (21-25) mmol/L ABG Total CO2 (19-24) mmol/L ABG O2 Saturation (94-97) % ABG Lactic Acid 6.8 H* (0.5-1.6) mmol/L Sodium (137-145) mmol/L Chloride (98-107) mmol/L BUN (7-17) mg/dL Creatinine (0.52-1.04) mg/dL Glucose (74-99) mg/dL POC Glucose (mg/dL) 181 H (75-99) mg/dL Plasma Lactic Acid Zain 6.1 H* (0.7-2.0) mmol/L Calcium (8.4-10.2) mg/dL Total Bilirubin (0.2-1.3) mg/dL AST (14-36) U/L ALT (4-34) U/L Alkaline Phosphatase (38-126) U/L Lactate Dehydrogenase (313-618) U/L Total Protein (6.3-8.2) g/dL Albumin (3.5-5.0) g/dL 07/08/21 07/08/21 07/08/21 Range/Units 00:27 04:05 04:05 WBC 12.9 H (3.8-10.6) k/uL RBC 2.49 L (3.80-5.40) m/uL Hgb 8.8 L D (11.4-16.0) gm/dL Hct 27.2 L (34.0-46.0) % MCV 109.1 H D (80.0-100.0) fL MCH 35.2 H (25.0-35.0) pg Plt Count 149 L (150-450) k/uL Neutrophils # (Manual) 11.30 H (1.3-7.7) k/uL Lymphocytes # (Manual) 0.90 L (1.0-4.8) k/uL Metamyelocytes # (Man) 0.26 H (0) k/uL Nucleated RBCs 9 H (0-0) /100 WBC Macrocytosis Marked A PT (9.0-12.0) sec INR (<1.2) APTT 42.9 H (22.0-30.0) sec ABG pH (7.35-7.45) ABG pCO2 (35-45) mmHg ABG pO2 (83-108) mmHg ABG HCO3 (21-25) mmol/L ABG Total CO2 (19-24) mmol/L ABG O2 Saturation (94-97) % ABG Lactic Acid (0.5-1.6) mmol/L Sodium (137-145) mmol/L Chloride (98-107) mmol/L BUN (7-17) mg/dL Creatinine (0.52-1.04) mg/dL Glucose (74-99) mg/dL POC Glucose (mg/dL) (75-99) mg/dL Plasma Lactic Acid Zain 6.7 H* (0.7-2.0) mmol/L Calcium (8.4-10.2) mg/dL Total Bilirubin (0.2-1.3) mg/dL AST (14-36) U/L ALT (4-34) U/L Alkaline Phosphatase (38-126) U/L Lactate Dehydrogenase (313-618) U/L Total Protein (6.3-8.2) g/dL Albumin (3.5-5.0) g/dL 07/08/21 07/08/21 07/08/21 Range/Units 04:05 04:05 05:54 WBC (3.8-10.6) k/uL RBC (3.80-5.40) m/uL Hgb (11.4-16.0) gm/dL Hct (34.0-46.0) % MCV (80.0-100.0) fL MCH (25.0-35.0) pg Plt Count (150-450) k/uL Neutrophils # (Manual) (1.3-7.7) k/uL Lymphocytes # (Manual) (1.0-4.8) k/uL Metamyelocytes # (Man) (0) k/uL Nucleated RBCs (0-0) /100 WBC Macrocytosis PT 33.5 H (9.0-12.0) sec INR 3.4 H (<1.2) APTT (22.0-30.0) sec ABG pH (7.35-7.45) ABG pCO2 (35-45) mmHg ABG pO2 (83-108) mmHg ABG HCO3 (21-25) mmol/L ABG Total CO2 (19-24) mmol/L ABG O2 Saturation (94-97) % ABG Lactic Acid (0.5-1.6) mmol/L Sodium 131 L (137-145) mmol/L Chloride 93 L (98-107) mmol/L BUN 34 H (7-17) mg/dL Creatinine 3.28 H (0.52-1.04) mg/dL Glucose 169 H (74-99) mg/dL POC Glucose (mg/dL) 182 H (75-99) mg/dL Plasma Lactic Acid Zain (0.7-2.0) mmol/L Calcium 6.2 L* (8.4-10.2) mg/dL Total Bilirubin (0.2-1.3) mg/dL AST (14-36) U/L ALT (4-34) U/L Alkaline Phosphatase (38-126) U/L Lactate Dehydrogenase >63818 H (313-618) U/L Total Protein (6.3-8.2) g/dL Albumin (3.5-5.0) g/dL 07/08/21 07/08/21 07/08/21 Range/Units 06:03 07:28 12:03 WBC (3.8-10.6) k/uL RBC (3.80-5.40) m/uL Hgb (11.4-16.0) gm/dL Hct (34.0-46.0) % MCV (80.0-100.0) fL MCH (25.0-35.0) pg Plt Count (150-450) k/uL Neutrophils # (Manual) (1.3-7.7) k/uL Lymphocytes # (Manual) (1.0-4.8) k/uL Metamyelocytes # (Man) (0) k/uL Nucleated RBCs (0-0) /100 WBC Macrocytosis PT (9.0-12.0) sec INR (<1.2) APTT 48.1 H (22.0-30.0) sec ABG pH 7.30 L (7.35-7.45) ABG pCO2 53 H (35-45) mmHg ABG pO2 279 H (83-108) mmHg ABG HCO3 26 H (21-25) mmol/L ABG Total CO2 28 H (19-24) mmol/L ABG O2 Saturation 100.0 H (94-97) % ABG Lactic Acid (0.5-1.6) mmol/L Sodium (137-145) mmol/L Chloride (98-107) mmol/L BUN (7-17) mg/dL Creatinine (0.52-1.04) mg/dL Glucose (74-99) mg/dL POC Glucose (mg/dL) 140 H (75-99) mg/dL Plasma Lactic Acid Zain (0.7-2.0) mmol/L Calcium (8.4-10.2) mg/dL Total Bilirubin (0.2-1.3) mg/dL AST (14-36) U/L ALT (4-34) U/L Alkaline Phosphatase (38-126) U/L Lactate Dehydrogenase (313-618) U/L Total Protein (6.3-8.2) g/dL Albumin (3.5-5.0) g/dL Microbiology - Last 24 Hours (Table) 07/06/21 11:00 Gram Stain - Final Sputum Sputum Culture - Final 07/06/21 18:25 Blood Culture - Preliminary Blood No Growth after 24 hours 07/06/21 11:50 Blood Culture - Preliminary Blood No Growth after 24 hours Assessment and Plan Assessment: Acute respiratory failure, with alcohol related seizures, status post intubation on 07/01/2021. Routine ventilator management, status post successful extubation on 07/04/2021, with worsening respiratory status, and reintubation on 07/06/2021. Cardiogenic shock, and possibly septic shock, status post placement of a Impella device on 07/06/2021. Acute kidney injury. Anion gap metabolic acidosis. Mental status changes, secondary to alcohol withdrawal syndrome and seizure disorder. Severe cardiomyopathy with an ejection fraction of about 20%. History of chronic alcohol abuse. History of asthma. History of hypertension. History of anxiety/depression. History of bipolar disorder. Septic and congestive hepatopathy. Plan: Plan dated 07/02/2021. The patient has a arterial line replaced. His apparently placed by the [employer]. A central line will be placed. The patient's FiO2 was dropped down to 45%. 2 feedings will be started. Additional recommendations and suggestions are forthcoming. Prognosis is guarded. The patient remains on propofol, and Nimbex. The patient is also on heparin as per cardiology. In addition, patient remains on norepinephrine at 5 mcg/m. We will continue to follow make recommendations where appropriate. Prognosis is guarded. Plan dated 07/03/2021. Patient's FiO2 was dropped from 45%, down to 35%. Her blood gases were excellen t. The patient's currently on Nimbex at 2 mcg/kg/m, and propofol at 50 mcg/kg/m. The patient remains on a small amount of norepinephrine. The patient is currently also on Zosyn. Today, we will do a daily interruption of sedation and a spontaneous breathing trial. Chest x-ray, labs, and medications are all reviewed. The patient is receiving tube feedings at goal. Overall prognosis remains guarded. We will continue to follow make recommendations where appropriate. Plan dated 07/04/2021. The patient will have another attempt at extubation today. We would do a daily interruption of sedation. The patient remains on propofol, and norepinephrine. The patient is receiving tube feeds. Labs, x-rays, medications are reviewed. The patient did have some additional bright red blood from the endotracheal tube earlier today. We will continue to monitor that. We will continue to follow make recommendations where appropriate. Microbiology is negative. The patient remains on Zosyn. Plan dated 07/05/2021. The patient is scheduled for a right and left heart catheterization today. The patient is going to be placed on Primacor by cardiology. She remains on norepinephrine at 9 mcg/m. She was successfully extubated yesterday, 07/04/2021. She has a severe cardiomyopathy. Chest x-ray shows significant cardiomegaly, and diffuse infiltrates, consistent with fluid overload. I've asked for a urinalysis, and a stat cortisol level. Additional recommendations and suggestions are forthcoming. Prognosis is guarded. We will continue to follow make recommendations where appropriate. Plan dated 07/06/2021. The patient was scheduled for a right and left heart catheterization today. Unfortunately, because of worsening respiratory status, and a respiratory rate is a 40 breaths per minute, I went ahead and reintubated the patient for her safety. The patient is now on the ventilator. A chest x-ray shows a properly placed endotracheal tube and NG tube. The patient was placed on propofol in place of Precedex. She remains on Primacor and norepinephrine. A repeat blood gas will be done. She does have a PICC line in, and an arterial line in. Additional recommendations and suggestions are forthcoming. Prognosis is poor. Plan dated 07/07/2021. The patient was reintubated yesterday, July 06. Because of cardiogenic shock, cardiology placed an Impella device to augment the patient's cardiac output. The patient remains on Zosyn empirically. Culture data thus far is negative. The patient is not on a number of vasopressors including norepinephrine, vasopressin, and epinephrine. The patient also remains on IV heparin, and propofol for sedation. We will continue to follow make recommendations where appropriate. We have consult dated nephrology, for poor urine output, acute kidney injury, and developing anion gap metabolic acidosis. The patient is on a sodium bicarbonate drip. Prognosis is very poor. Plan dated 07/08/2021. The patient was reintubated on July 06. The patient has developed cardiogenic shock. A left ventricular assist device, was placed. His augmenting her cardiac output and is significantly. The patient remains on multiple vasopressors including vasopressin, and epinephrine. I did tell the nurse, that I would prefer the patient to be on norepinephrine, because the patient's quite tachycardic on the epinephrine. I believe that if we can slow her heart rate down a bit, we can allow her left heart to fill a bit better, which will improve her cardiac output and her blood pressure. The patient remains on propofol and Nimbex. The patient remains on IV heparin. The patient is receiving vital HP at goal. We will continue to follow make recommendations where appropriate. We will continue to wean the FiO2. Microbiology is currently negative. Prognosis is guarded. Time with Patient: Greater than 30
--- NOTE | 2021-07-08 13:26 | ECHOF ---
Referral Reason:Placement of Left Ventricular Assist Device MEASUREMENTS -------- HEIGHT: 15.2 cm WEIGHT: 104.8 kg BP: 124/94 IVSd: 1.1 cm (0.6 - 1.1) LVIDd: 2.7 cm (3.9 - 5.3) LVPWd: 1.5 cm (0.6 - 1.1) IVSs: 1.3 cm LVIDs: 1.8 cm LVPWs: 1.5 cm FINDINGS -------- Resting tachycardia (HR>100bpm). The left ventricular size is normal. Overall left ventricular systolic function is mild-moderately impaired with, an EF between 40 - 45 %. LVAD in place There is mild aortic regurgitation. There is no pericardial effusion. CONCLUSIONS -------- 1. Overall left ventricular systolic function is mild-moderately impaired with, an EF between 40 - 45 %. 2. There is mild aortic regurgitation. [employer] COMPLIANCE COORDINATOR: Salma Abad RDCS
[2021-07-08] MEDS: HEPARIN SOD,PORK IN 0.45% NACL 25,000 UNIT in 0.45% NACL 1 250ML.BAG IV SCH (15:24)
[2021-07-08] MEDS: HEPARIN SODIUM,PORCINE 12,500 UNIT in DEXTROSE 5% IN WATER 500 ML IV SCH ×2 (15:39)
[2021-07-08] MEDS ORDERED: EPINEPHrine 16 MG in DEXTROSE 5% IN WATER 250 ML IV SCH ×2 (15:45)
[2021-07-08] MEDS: SODIUM CHLORIDE 0.9% 150 ML with VASOPRESSIN 60 UNIT IV SCH ×2 (15:45)
[2021-07-08 16:36] LABS: African American GFR (CKD) 17 (>60 ml/min/1.73 sqM); Albumin 2.8 g/dL (3.5-5.0); Alkaline Phosphatase 195 U/L (38-126); Anion Gap 11 mmol/L; Blood Urea Nitrogen 37 mg/dL (7-17); Carbon Dioxide 25 mmol/L (22-30); Chloride 94 mmol/L (98-107); Glucose 81 mg/dL (74-99); Non-African American GFR(CKD) 15 (>60 ml/min/1.73 sqM); Potassium 4.6 mmol/L (3.5-5.1); Sodium 130 mmol/L (137-145); Total Bilirubin 11.3 mg/dL (0.2-1.3); Total Protein 6.1 g/dL (6.3-8.2)
[2021-07-08 17:06] LABS: AST >15000 U/L (14-36); Calcium 6.3 mg/dL (8.4-10.2)
[2021-07-08 17:07] LABS: ALT 3172 U/L (4-34)
[2021-07-08 17:37] LABS: Glucose,Whole Blood 73 mg/dL (75-99)
[2021-07-08] MEDS ORDERED: DEXTROSE 50% SYRINGE 50 ML IVP STA (17:41)
[2021-07-08] MEDS: DEXTROSE 50% SYRINGE 50 ML IVP ONE (17:45)
[2021-07-08 18:22] LABS: Glucose,Whole Blood 149 mg/dL (75-99)
[2021-07-08 23:56] LABS: Glucose,Whole Blood 86 mg/dL (75-99)
[2021-07-09] MEDS: SODIUM CHLORIDE 0.9% 1,000 ML IV SCH (00:34)
[2021-07-09] MEDS: ARTIFICIAL TEARS-HYPROMELLOSE DROPS 15 ML BTL BOTH EYES SCH ×7 (00:35→23:22)
[2021-07-09] MEDS: HYDROCORTISONE SUCCINATE 100 MG/2 ML VIAL IV SCH ×5 (00:36→23:25)
[2021-07-09] MEDS: METOCLOPRAMIDE 5 MG/ML 2 ML VIAL IVP SCH ×5 (00:37→23:25)
[2021-07-09] MEDS: PIPERACILLIN-TAZOBACTAM 3.375 GM in SODIUM CHLORIDE 0.9% 100 ML IVPB SCH ×3 (00:39→23:25)
[2021-07-09] MEDS: INSULIN ASPART (NovoLOG) 100 UNIT/ML VIAL SQ SCH ×5 (00:40→23:22)
[2021-07-09] MEDS: NOREPINEPHRINE 32 MG in SODIUM CHLORIDE 0.9% 218 ML IV SCH ×3 (00:50→16:28)
[2021-07-09] MEDS: IPRATROPIUM-ALBUTEROL 3 ML NEB INHALATION SCH ×6 (02:58→22:48)
[2021-07-09 04:20] LABS: African American GFR (CKD) 13 (>60 ml/min/1.73 sqM); Anion Gap 16 mmol/L; Blood Urea Nitrogen 41 mg/dL (7-17); Carbon Dioxide 20 mmol/L (22-30); Chloride 94 mmol/L (98-107); Glucose 69 mg/dL (74-99); Non-African American GFR(CKD) 12 (>60 ml/min/1.73 sqM); Potassium 5.2 mmol/L (3.5-5.1); Sodium 130 mmol/L (137-145)
[2021-07-09 04:33] LABS: HCT 27.6 % (34.0-46.0); HGB 9.4 gm/dL (11.4-16.0); Hypochromasia Slight; MCV 108.7 fL (80.0-100.0); Macrocytosis Marked; Mean Platelet Volume 12.2; Platelet Count 138 k/uL (150-450); RBC 2.54 m/uL (3.80-5.40)
[2021-07-09 04:59] LABS: Calcium 6.2 mg/dL (8.4-10.2)
[2021-07-09 05:00] LABS: LDH >21500 U/L (313-618)
[2021-07-09 05:21] LABS: Glucose,Whole Blood 66 mg/dL (75-99)
[2021-07-09 05:26] LABS: INR 3.9 (<1.2); Partial Thromboplastin Time 75.9 sec (22.0-30.0); Prothrombin Time 39.3 sec (9.0-12.0)
[2021-07-09] MEDS: DEXTROSE 50% SYRINGE 50 ML IVP ONE (05:28)
[2021-07-09 05:42] LABS: ABG Base Excess -5.7 mmol/L; ABG HCO3 21 mmol/L (21-25); ABG Oxygen Saturation 99.3 % (94-97); ABG PCO2 46 mmHg (35-45); ABG PH 7.27 (7.35-7.45); ABG PO2 148 mmHg (83-108); ABG TCO2 23 mmol/L (19-24); Allen Test Performed? Yes
[2021-07-09 05:43] LABS: Glucose,Whole Blood 156 mg/dL (75-99)
[2021-07-09] MEDS ORDERED: CALCIUM GLUCONATE 2 GM in SODIUM CHLORIDE 0.9% 100 ML IVPB ONE ×2 (06:30→16:07)
[2021-07-09 06:53] LABS: Band Neutrophils % 18 %; Metamyelocytes % 1 %; Neutrophils % (M) 75 %; Nucleated Red Blood Cells 20 /100 WBC (0-0); Total Cells Counted 100
[2021-07-09 06:54] LABS: Anisocytosis (M) Present; Lymphocytes # (M) 0.56 k/uL (1.0-4.8); Metamyelocytes # (M) 0.14 k/uL (0); Monocytes # (M) 0.28 k/uL (0-1.0); Poikilocytosis (M) Present; Polychromasia Present; Target Cells Present; WBC 13.9 k/uL (3.8-10.6)
[2021-07-09] MEDS: EPINEPHrine 4 MG in DEXTROSE 5% IN WATER 250 ML IV SCH ×2 (07:04)
--- NOTE | 2021-07-09 07:51 | XR ---
EXAMINATION TYPE: XR chest 1V portable DATE OF EXAM: 07/09/2021 COMPARISON: Chest x-ray 07/08/2021 HISTORY: Intubated TECHNIQUE: Single frontal view of the chest is obtained. FINDINGS: Endotracheal tube and NG tube are overlying appropriate positions. There is a left ventric ular assist device, distal tip is overlying the midthoracic spine. No evident pneumothorax or pleural effusion. There is a right-sided PICC line in place as on prior exam, distal tip not well seen. Ther e are overlying artifacts. Radiodense material thought present within the stomach. Ventricular assist device present over the left ventricle. Patchy density in the left lung, pleural thickening shows a similar appearance, lung lines are low. The heart is enlarged. IMPRESSION: Catheter marker is present over the ascending aorta. Cardiomegaly. Additional findings a jesus.
[2021-07-09] MEDS ORDERED: SODIUM ZIRCONIUM CYCLOSILICATE 10 GM PACKET PO ONE ×2 (07:54→16:09)
--- NOTE | 2021-07-09 08:06 | P.PN ---
Subjective Progress Note Date: 07/09/21 The patient presented with acute respiratory distress, she has a prior history of cardiomyopathy, possible sarcoidosis. Required mechanical ventilation initially, extubated and reintubated. On Friday she underwent cardiac catheterization that showed no evidence of obstructive disease with significant elevation of her filling pressures. She underwent placement of Impella support. Initial echocardiogram showed a severely impaired systolic function subsequently repeat echocardiogram showed improvement with severe dilatation of the right ventricle. She has no significant urinary output and has required vasopressors. She continues to be in sinus tachycardia. She is on epinephrine, norepinephrine and vasopressin. She continues to be on IV heparin. Her renal function shows significant worsening and she continues to have significant infiltrate on the left side. She is very unstable to undergo dialysis. Her case apparently was discussed with [facility] in the hope that she will be accepted to undergo ECMO treatment. The prognosis remains very poor. Head: Normocephalic. Intubated, not responsive Eyes: Sclerae nonicteric. Neck: Good carotid upstroke, no bruit, no jugular venous distention. Lungs: Decreased breath sounds bilaterally Heart: Rapid rate and rhythm, S1-S2, no S3, no rub. Systolic murmur at the base Abdomen: Soft , positive bowel sounds no organomegaly. Extremities: No edema, decreased distal pulses bilaterally with cold foot, impellla catheter in the left groin Impression: 1. [ Cardiogenic shock with severely impaired systolic function, repeat echocardiogram showed improvement after placement of mechanical support with dilatation of the right ventricle] 2. [ Septic shock] 3. [ Acute kidney injury with anuria] 4. [ Prior history of chronic alcohol intake] 5. [ Respiratory failure requiring mechanical ventilation Plan: 1. [ Continue supportive care] 2. [ Restart bicarb drip] 3. [ Prognosis is very poor] 4. [ Await response from [facility] for possible transfer] ] Objective - Vital Signs Vital signs: Vital Signs Temp 98.2 F 07/09/21 04:00 Pulse 123 H 07/09/21 07:00 Resp 34 H 07/09/21 07:00 BP 100/45 07/09/21 06:30 Pulse Ox 99 07/09/21 07:00 Intake & Output 07/08/21 07/09/21 07/09/21 18:59 06:59 18:59 Intake Total 3242.960 1468.114 171.451 Output Total 0 5 Balance 3242.960 1463.114 171.451 Intake: IV 396 961 0.9 NaCl- 825 Dextrose 5% in Water 1, 150 000 ml @ 75 mls/hr IV . [id number] [facility]YA with Sodium Bicarb (1 Meq/ml) 150 ml Rx#:[id number] Piperacillin-Tazobactam 3 200 100 .375 gm In Sodium Chloride 0.9% 100 ml @ 25 mls/hr IVPB Q8HR [facility] Rx# :[id number] Pressure Bag 36 36 Sodium Chloride 0.9% 500 10 ml 500 ml @ 10 mls/hr IV .Q24H [facility] Rx#:[id number] Intake, IV Titration 2086.960 507.114 171.451 Amount Calcium Gluconate 2 gm In 100 Sodium Chloride 0.9% 100 ml @ 100 mls/hr IVPB ONCE ONE Rx#:[id number] Calcium Gluconate 2 gm In 100 Sodium Chloride 0.9% 100 ml @ 100 mls/hr IVPB ONCE ONE Rx#:[id number] Cisatracurium 200 mg In 91.734 Sodium Chloride 0.9% 180 ml @ 2 MCG/KG/MIN 12.624 mls/hr IV .[id number] [facility] Rx #:[id number] EPINEPHrine 16 mg In 274.598 Dextrose 5% in Water 250 ml @ 0.5 MCG/KG/MIN 42.75 mls/hr IV .Q5H51M [facility] Rx #:[id number] Heparin Sod,Pork in 0.45% 147.384 171.451 NaCl 25,000 unit In 0.45 % NaCl 1 250ml.bag @ Per Protocol IV .Q0M [facility] Rx#: [id number] Heparin Sodium,Porcine 12 132 12 ,500 unit In Dextrose 5% in Water 500 ml @ Per Protocol IV DIRECTED [facility] Rx#:[id number] Magnesium Sulfate-D5w Pmx 200 1 gm In Dextrose/Water 1 100ml.bag @ 100 mls/hr IVPB Q1H [facility] Rx#: [id number] Norepinephrine 32 mg In 143.744 215.514 Sodium Chloride 0.9% 218 ml @ 0.4 MCG/KG/MIN 17.1 mls/hr IV .[id number] [facility] Rx #:[id number] Sodium Chloride 0.9% 1, 750 75 000 ml @ 75 mls/hr IV . [id number] [facility] Rx#:[id number] Sodium Chloride 0.9% 150 47.5 4.6 ml @ 0.03 UNITS/MIN 4.59 mls/hr IV .Q24H [facility] with Vasopressin 60 unit Rx#: [id number] propofoL 1,000 mg In 100 200 Empty Bag 1 bag @ Titrate IV .Q0M [facility] Rx#: [id number] Tube Feeding 110 0 Other 650 Output: Urine 0 5 Other: Voiding Method Indwelling Catheter Indwelling Catheter ABP, PAP, CO, CI - Last Documented Arterial Blood Pressure 83/70 Cardiac Output 4.2 - Labs CBC & Chem 7: 07/09/21 03:51 07/09/21 03:51 Labs: Abnormal Lab Results - Last 24 Hours (Table) 07/08/21 07/08/21 07/08/21 Range/Units 12:03 16:05 17:36 WBC (3.8-10.6) k/uL RBC (3.80-5.40) m/uL Hgb (11.4-16.0) gm/dL Hct (34.0-46.0) % MCV (80.0-100.0) fL MCH (25.0-35.0) pg Plt Count (150-450) k/uL Neutrophils # (Manual) (1.3-7.7) k/uL Lymphocytes # (Manual) (1.0-4.8) k/uL Metamyelocytes # (Man) (0) k/uL Nucleated RBCs (0-0) /100 WBC Macrocytosis PT (9.0-12.0) sec INR (<1.2) APTT (22.0-30.0) sec ABG pH (7.35-7.45) ABG pCO2 (35-45) mmHg ABG pO2 (83-108) mmHg ABG O2 Saturation (94-97) % Sodium 130 L (137-145) mmol/L Potassium (3.5-5.1) mmol/L Chloride 94 L (98-107) mmol/L Carbon Dioxide (22-30) mmol/L BUN 37 H (7-17) mg/dL Creatinine 3.60 H (0.52-1.04) mg/dL Glucose (74-99) mg/dL POC Glucose (mg/dL) 140 H 73 L (75-99) mg/dL Calcium 6.3 L* (8.4-10.2) mg/dL Total Bilirubin 11.3 H (0.2-1.3) mg/dL AST >35294 H (14-36) U/L ALT 3172 H (4-34) U/L Alkaline Phosphatase 195 H (38-126) U/L Lactate Dehydrogenase (313-618) U/L Total Protein 6.1 L (6.3-8.2) g/dL Albumin 2.8 L (3.5-5.0) g/dL 07/08/21 07/09/21 07/09/21 Range/Units 18:20 03:51 03:51 WBC 13.9 H (3.8-10.6) k/uL RBC 2.54 L (3.80-5.40) m/uL Hgb 9.4 L (11.4-16.0) gm/dL Hct 27.6 L (34.0-46.0) % MCV 108.7 H (80.0-100.0) fL MCH 37.0 H (25.0-35.0) pg Plt Count 138 L (150-450) k/uL Neutrophils # (Manual) 12.90 H (1.3-7.7) k/uL Lymphocytes # (Manual) 0.56 L (1.0-4.8) k/uL Metamyelocytes # (Man) 0.14 H (0) k/uL Nucleated RBCs 20 H (0-0) /100 WBC Macrocytosis Marked A PT 39.3 H (9.0-12.0) sec INR 3.9 H (<1.2) APTT 75.9 H (22.0-30.0) sec ABG pH (7.35-7.45) ABG pCO2 (35-45) mmHg ABG pO2 (83-108) mmHg ABG O2 Saturation (94-97) % Sodium (137-145) mmol/L Potassium (3.5-5.1) mmol/L Chloride (98-107) mmol/L Carbon Dioxide (22-30) mmol/L BUN (7-17) mg/dL Creatinine (0.52-1.04) mg/dL Glucose (74-99) mg/dL POC Glucose (mg/dL) 149 H (75-99) mg/dL Calcium (8.4-10.2) mg/dL Total Bilirubin (0.2-1.3) mg/dL AST (14-36) U/L ALT (4-34) U/L Alkaline Phosphatase (38-126) U/L Lactate Dehydrogenase (313-618) U/L Total Protein (6.3-8.2) g/dL Albumin (3.5-5.0) g/dL 07/09/21 07/09/21 07/09/21 Range/Units 03:51 05:17 05:40 WBC (3.8-10.6) k/uL RBC (3.80-5.40) m/uL Hgb (11.4-16.0) gm/dL Hct (34.0-46.0) % MCV (80.0-100.0) fL MCH (25.0-35.0) pg Plt Count (150-450) k/uL Neutrophils # (Manual) (1.3-7.7) k/uL Lymphocytes # (Manual) (1.0-4.8) k/uL Metamyelocytes # (Man) (0) k/uL Nucleated RBCs (0-0) /100 WBC Macrocytosis PT (9.0-12.0) sec INR (<1.2) APTT (22.0-30.0) sec ABG pH 7.27 L (7.35-7.45) ABG pCO2 46 H (35-45) mmHg ABG pO2 148 H (83-108) mmHg ABG O2 Saturation 99.3 H (94-97) % Sodium 130 L (137-145) mmol/L Potassium 5.2 H (3.5-5.1) mmol/L Chloride 94 L (98-107) mmol/L Carbon Dioxide 20 L (22-30) mmol/L BUN 41 H (7-17) mg/dL Creatinine 4.33 H (0.52-1.04) mg/dL Glucose 69 L (74-99) mg/dL POC Glucose (mg/dL) 66 L (75-99) mg/dL Calcium 6.2 L* (8.4-10.2) mg/dL Total Bilirubin (0.2-1.3) mg/dL AST (14-36) U/L ALT (4-34) U/L Alkaline Phosphatase (38-126) U/L Lactate Dehydrogenase >21906 H (313-618) U/L Total Protein (6.3-8.2) g/dL Albumin (3.5-5.0) g/dL 07/09/21 Range/Units 05:41 WBC (3.8-10.6) k/uL RBC (3.80-5.40) m/uL Hgb (11.4-16.0) gm/dL Hct (34.0-46.0) % MCV (80.0-100.0) fL MCH (25.0-35.0) pg Plt Count (150-450) k/uL Neutrophils # (Manual) (1.3-7.7) k/uL Lymphocytes # (Manual) (1.0-4.8) k/uL Metamyelocytes # (Man) (0) k/uL Nucleated RBCs (0-0) /100 WBC Macrocytosis PT (9.0-12.0) sec INR (<1.2) APTT (22.0-30.0) sec ABG pH (7.35-7.45) ABG pCO2 (35-45) mmHg ABG pO2 (83-108) mmHg ABG O2 Saturation (94-97) % Sodium (137-145) mmol/L Potassium (3.5-5.1) mmol/L Chloride (98-107) mmol/L Carbon Dioxide (22-30) mmol/L BUN (7-17) mg/dL Creatinine (0.52-1.04) mg/dL Glucose (74-99) mg/dL POC Glucose (mg/dL) 156 H (75-99) mg/dL Calcium (8.4-10.2) mg/dL Total Bilirubin (0.2-1.3) mg/dL AST (14-36) U/L ALT (4-34) U/L Alkaline Phosphatase (38-126) U/L Lactate Dehydrogenase (313-618) U/L Total Protein (6.3-8.2) g/dL Albumin (3.5-5.0) g/dL Microbiology - Last 24 Hours (Table) 07/06/21 18:25 Blood Culture - Preliminary Blood No Growth after 48 hours 07/06/21 11:50 Blood Culture - Preliminary Blood No Growth after 48 hours 07/06/21 11:00 Gram Stain - Final Sputum Sputum Culture - Final
[2021-07-09] MEDS: CISATRACURIUM 200 MG in SODIUM CHLORIDE 0.9% 180 ML IV SCH (08:11)
[2021-07-09] MEDS: DEXTROSE 5% IN WATER 1,000 ML with SODIUM BICARB (1 MEQ/ML) 150 ML IV SCH ×2 (08:20→23:14)
[2021-07-09] MEDS: CHLORHEXIDINE GLUCONATE 15 ML CUP MUCOUS MEM SCH ×2 (08:34→20:42)
[2021-07-09] MEDS: PANTOPRAZOLE 40 MG/10 ML VIAL IVP SCH (08:35)
[2021-07-09] MEDS: METOPROLOL TARTRATE 25 MG TAB PO SCH ×2 (08:35→20:42)
--- NOTE | 2021-07-09 08:44 | P.PN ---
<Dipti Escudero M - Last Filed: 07/09/21 08:44> Subjective Progress Note Date: 07/09/21 Principal diagnosis: Shortness of breath On 07/09/2021 patient seen in follow-up in the intensive care unit, patient was reintubated and placed on mechanical support on the 07/06/2021 following her heart catheterization or worsening hypoxemia. Patient's right heart cath showed pulmonary capillary wedge pressure of 45 mmHg, PA pressure was 68/27 and anemia 45, RV pressure was 64 and end-diastolic pressure of 26 mmHg, cardiac outputs was 4.4 L/m and the cardiac index of 2.2 L/m. LVEDP was 14 mmHg. Heart cath showed no evidence of coronary artery disease. Did show severe pulmonary hypertension with severely elevated right-sided filling pressures and mildly elevated left-sided filling pressures. Patient had the placement of Impella device. Over last 48 hours patient's has remained critical, patient is requiring multiple vasopressors. Her kidney function continued to worsen. Today on 07/09/2021 patient remains intubated and sedated, on assist-control mode of ventilation with a rate of 34, tidal labs 350, FiO2 of 80% and PEEP of 15, this morning's blood gas shows pO2 of 148, pCO2 46, pH is 7.27. Peak airway pressure is 39, and plateau is 35. Today's chest x-ray shows cardiomegaly, no evident pneumothorax or pleural effusion, this does show infiltrates bilaterally, left greater than right. Patient is sedated and paralyzed, she is on Diprivan at 30 mics per kilo per minute, Nimbex is a 2 mics per kilo per minute, 0.9 at 55 ML per hour, norepinephrine is at 0.55 mics per kilo per minute, vasopressin is a 0.03 units per minute, and epinephrine has been added this morning at 0.01 mics per kilo per minute. Today labs have been reviewed showing white blood cell count of 13.9, hemoglobin of 9.4, INR is 3.9, sodium is 1:30, potassium is 5.2, chloride is 94, CO2 is 20, BUN is 41, creatinine is 4.3, calcium 6.2, LDH is greater than 21,500. Patient tested negative for COVID-19. Her culture data is negative, patient did have elevated procalcitonin level of 1.19. she did have low-grade fevers 24 hours with a T-max of 100.7F, she is afebrile this morning, Matos catheter is in, patient is anuric. Enbrel otherwise remains in place at P6, with cardiac output of 4.3 L/m. Nephrology is following, however patient has been extremely hemodynamically unstable and unlikely to be able to tolerate hemodialysis initiation. Currently transfer process has been initiated and transfer was requested to the [facility], [facility], and [facility]. There are currently no available beds at the [facility], and we're told that patient was not accepted at the [facility] or [facility] for the reason unknown to us at this time. Objective - Vital Signs Vital signs: Vital Signs Temp 98.2 F 07/09/21 04:00 Pulse 123 H 07/09/21 07:00 Resp 34 H 07/09/21 07:00 BP 100/45 07/09/21 06:30 Pulse Ox 99 07/09/21 07:00 Intake & Output 07/08/21 07/09/21 07/09/21 18:59 06:59 18:59 Intake Total 3242.960 1468.114 449.451 Output Total 0 5 0 Balance 3242.960 1463.114 449.451 Intake: IV 396 961 78 0.9 NaCl- 825 75 Dextrose 5% in Water 1, 150 000 ml @ 75 mls/hr IV . [id number] [facility] with Sodium Bicarb (1 Meq/ml) 150 ml Rx#:[id number] Piperacillin-Tazobactam 3 200 100 .375 gm In Sodium Chloride 0.9% 100 ml @ 25 mls/hr IVPB Q8HR [facility] Rx# :[id number] Pressure Bag 36 36 3 Sodium Chloride 0.9% 500 10 ml 500 ml @ 10 mls/hr IV .Q24H [facility] Rx#:[id number] Intake, IV Titration 2086.960 507.114 371.451 Amount Calcium Gluconate 2 gm In 100 Sodium Chloride 0.9% 100 ml @ 100 mls/hr IVPB ONCE ONE Rx#:[id number] Calcium Gluconate 2 gm In 100 Sodium Chloride 0.9% 100 ml @ 100 mls/hr IVPB ONCE ONE Rx#:[id number] Cisatracurium 200 mg In 91.734 200 Sodium Chloride 0.9% 180 ml @ 2 MCG/KG/MIN 12.624 mls/hr IV .[id number] [facility] Rx #:[id number] EPINEPHrine 16 mg In 274.598 Dextrose 5% in Water 250 ml @ 0.5 MCG/KG/MIN 42.75 mls/hr IV .Q5H51M [facility] Rx #:[id number] Heparin Sod,Pork in 0.45% 147.384 171.451 NaCl 25,000 unit In 0.45 % NaCl 1 250ml.bag @ Per Protocol IV .Q0M [facility] Rx#: [id number] Heparin Sodium,Porcine 12 132 12 ,500 unit In Dextrose 5% in Water 500 ml @ Per Protocol IV DIRECTED [facility] Rx#:[id number] Magnesium Sulfate-D5w Pmx 200 1 gm In Dextrose/Water 1 100ml.bag @ 100 mls/hr IVPB Q1H [facility] Rx#: [id number] Norepinephrine 32 mg In 143.744 215.514 Sodium Chloride 0.9% 218 ml @ 0.4 MCG/KG/MIN 17.1 mls/hr IV .[id number] [facility] Rx #:[id number] Sodium Chloride 0.9% 1, 750 75 000 ml @ 75 mls/hr IV . [id number] [facility] Rx#:[id number] Sodium Chloride 0.9% 150 47.5 4.6 ml @ 0.03 UNITS/MIN 4.59 mls/hr IV .Q24H [facility] with Vasopressin 60 unit Rx#: [id number] propofoL 1,000 mg In 100 200 Empty Bag 1 bag @ Titrate IV .Q0M [facility] Rx#: [id number] Tube Feeding 110 0 0 Other 650 Output: Urine 0 5 0 Other: Voiding Method Indwelling Catheter Indwelling Catheter ABP, PAP, CO, CI - Last Documented Arterial Blood Pressure 83/70 Cardiac Output 4.2 - Exam GENERAL EXAM: The data, intubated and paralyzed 46-year-old -[place] female, on assist-control with a rate of 34, TV is 350, FiO2 of 70% and PEEP of 15 on multiple vasopressors, in no apparent distress. HEAD: Normocephalic/atraumatic. EYES: Normal reaction of pupils, equal size. Conjunctiva pink, sclera white. NOSE: Clear with pink turbinates. THROAT: No erythema or exudates. NECK: No masses, no JVD, no thyroid enlargement, no adenopathy. CHEST: No chest wall deformity. Symmetrical expansion. LUNGS: Equal air entry with no crackles, wheeze, rhonchi or dullness. CVS: Regular rate and rhythm, normal S1 and S2, no gallops, no murmurs, no rubs ABDOMEN: Soft, nontender. No hepatosplenomegaly, normal bowel sounds, no guarding or rigidity. EXTREMITIES: No clubbing, no edema, no cyanosis, and upper and lower extremities. Patient has mottling of bilateral lower extremities below the a nkle, the skin is cool to touch, and patient has Doppler pulses in the posterior tibial and posterior popliteal pulse in the left lower extremity, and Doppler popliteal pulse in the right lower extremity. Right groin arterial sheath for Impella device with P6 flow, venous sheath in the left groin MUSCULOSKELETAL: Muscle strength and tone normal. SPINE: No scoliosis or deformity SKIN: No rashes CENTRAL NERVOUS SYSTEM: Intubated, sedated and paralyzed No focal deficits, tone is normal in all 4 extremities. - Labs CBC & Chem 7: 07/09/21 03:51 07/09/21 03:51 Labs: Abnormal Lab Results - Last 24 Hours (Table) 07/08/21 07/08/21 07/08/21 Range/Units 12:03 16:05 17:36 WBC (3.8-10.6) k/uL RBC (3.80-5.40) m/uL Hgb (11.4-16.0) gm/dL Hct (34.0-46.0) % MCV (80.0-100.0) fL MCH (25.0-35.0) pg Plt Count (150-450) k/uL Neutrophils # (Manual) (1.3-7.7) k/uL Lymphocytes # (Manual) (1.0-4.8) k/uL Metamyelocytes # (Man) (0) k/uL Nucleated RBCs (0-0) /100 WBC Macrocytosis PT (9.0-12.0) sec INR (<1.2) APTT (22.0-30.0) sec ABG pH (7.35-7.45) ABG pCO2 (35-45) mmHg ABG pO2 (83-108) mmHg ABG O2 Saturation (94-97) % Sodium 130 L (137-145) mmol/L Potassium (3.5-5.1) mmol/L Chloride 94 L (98-107) mmol/L Carbon Dioxide (22-30) mmol/L BUN 37 H (7-17) mg/dL Creatinine 3.60 H (0.52-1.04) mg/dL Glucose (74-99) mg/dL POC Glucose (mg/dL) 140 H 73 L (75-99) mg/dL Calcium 6.3 L* (8.4-10.2) mg/dL Total Bilirubin 11.3 H (0.2-1.3) mg/dL AST >84078 H (14-36) U/L ALT 3172 H (4-34) U/L Alkaline Phosphatase 195 H (38-126) U/L Lactate Dehydrogenase (313-618) U/L Total Protein 6.1 L (6.3-8.2) g/dL Albumin 2.8 L (3.5-5.0) g/dL 07/08/21 07/09/21 07/09/21 Range/Units 18:20 03:51 03:51 WBC 13.9 H (3.8-10.6) k/uL RBC 2.54 L (3.80-5.40) m/uL Hgb 9.4 L (11.4-16.0) gm/dL Hct 27.6 L (34.0-46.0) % MCV 108.7 H (80.0-100.0) fL MCH 37.0 H (25.0-35.0) pg Plt Count 138 L (150-450) k/uL Neutrophils # (Manual) 12.90 H (1.3-7.7) k/uL Lymphocytes # (Manual) 0.56 L (1.0-4.8) k/uL Metamyelocytes # (Man) 0.14 H (0) k/uL Nucleated RBCs 20 H (0-0) /100 WBC Macrocytosis Marked A PT 39.3 H (9.0-12.0) sec INR 3.9 H (<1.2) APTT 75.9 H (22.0-30.0) sec ABG pH (7.35-7.45) ABG pCO2 (35-45) mmHg ABG pO2 (83-108) mmHg ABG O2 Saturation (94-97) % Sodium (137-145) mmol/L Potassium (3.5-5.1) mmol/L Chloride (98-107) mmol/L Carbon Dioxide (22-30) mmol/L BUN (7-17) mg/dL Creatinine (0.52-1.04) mg/dL Glucose (74-99) mg/dL POC Glucose (mg/dL) 149 H (75-99) mg/dL Calcium (8.4-10.2) mg/dL Total Bilirubin (0.2-1.3) mg/dL AST (14-36) U/L ALT (4-34) U/L Alkaline Phosphatase (38-126) U/L Lactate Dehydrogenase (313-618) U/L Total Protein (6.3-8.2) g/dL Albumin (3.5-5.0) g/dL 07/09/21 07/09/21 07/09/21 Range/Units 03:51 05:17 05:40 WBC (3.8-10.6) k/uL RBC (3.80-5.40) m/uL Hgb (11.4-16.0) gm/dL Hct (34.0-46.0) % MCV (80.0-100.0) fL MCH (25.0-35.0) pg Plt Count (150-450) k/uL Neutrophils # (Manual) (1.3-7.7) k/uL Lymphocytes # (Manual) (1.0-4.8) k/uL Metamyelocytes # (Man) (0) k/uL Nucleated RBCs (0-0) /100 WBC Macrocytosis PT (9.0-12.0) sec INR (<1.2) APTT (22.0-30.0) sec ABG pH 7.27 L (7.35-7.45) ABG pCO2 46 H (35-45) mmHg ABG pO2 148 H (83-108) mmHg ABG O2 Saturation 99.3 H (94-97) % Sodium 130 L (137-145) mmol/L Potassium 5.2 H (3.5-5.1) mmol/L Chloride 94 L (98-107) mmol/L Carbon Dioxide 20 L (22-30) mmol/L BUN 41 H (7-17) mg/dL Creatinine 4.33 H (0.52-1.04) mg/dL Glucose 69 L (74-99) mg/dL POC Glucose (mg/dL) 66 L (75-99) mg/dL Calcium 6.2 L* (8.4-10.2) mg/dL Total Bilirubin (0.2-1.3) mg/dL AST (14-36) U/L ALT (4-34) U/L Alkaline Phosphatase (38-126) U/L Lactate Dehydrogenase >52589 H (313-618) U/L Total Protein (6.3-8.2) g/dL Albumin (3.5-5.0) g/dL 07/09/21 Range/Units 05:41 WBC (3.8-10.6) k/uL RBC (3.80-5.40) m/uL Hgb (11.4-16.0) gm/dL Hct (34.0-46.0) % MCV (80.0-100.0) fL MCH (25.0-35.0) pg Plt Count (150-450) k/uL Neutrophils # (Manual) (1.3-7.7) k/uL Lymphocytes # (Manual) (1.0-4.8) k/uL Metamyelocytes # (Man) (0) k/uL Nucleated RBCs (0-0) /100 WBC Macrocytosis PT (9.0-12.0) sec INR (<1.2) APTT (22.0-30.0) sec ABG pH (7.35-7.45) ABG pCO2 (35-45) mmHg ABG pO2 (83-108) mmHg ABG O2 Saturation (94-97) % Sodium (137-145) mmol/L Potassium (3.5-5.1) mmol/L Chloride (98-107) mmol/L Carbon Dioxide (22-30) mmol/L BUN (7-17) mg/dL Creatinine (0.52-1.04) mg/dL Glucose (74-99) mg/dL POC Glucose (mg/dL) 156 H (75-99) mg/dL Calcium (8.4-10.2) mg/dL Total Bilirubin (0.2-1.3) mg/dL AST (14-36) U/L ALT (4-34) U/L Alkaline Phosphatase (38-126) U/L Lactate Dehydrogenase (313-618) U/L Total Protein (6.3-8.2) g/dL Albumin (3.5-5.0) g/dL Microbiology - Last 24 Hours (Table) 07/06/21 18:25 Blood Culture - Preliminary Blood No Growth after 48 hours 07/06/21 11:50 Blood Culture - Preliminary Blood No Growth after 48 hours 07/06/21 11:00 Gram Stain - Final Sputum Sputum Culture - Final Assessment and Plan Plan: Assessment: #1. Acute hypoxic respiratory failure, multifactorial, related to cardiogenic shock. Patient was admitted to the hospital on 07/01/2021 with altered mental status, shortness of breath, and acute hypoxic respiratory failure. Was intubated on 07/01/2021, was successfully extubated on 07/04/2021 and reintubated again on 07/06/2021 and currently remains on the ventilator, sedated and paralyzed. Note the COVID-19 PCR was negative. #2. Acute cardiogenic shock, status post right and left heart catheterization and placement of an Impala device on 06/28/2021. #3. Acute kidney injury, likely cardiorenal #4. Anion gap metabolic acidosis likely related to lactic acidosis secondary to acute cardiogenic shock #4. Possible sepsis, rule out possibility of aspiration pneumonia, on Zosyn. So far sputum blood cultures and urine culture have shown no growth #5. Severe nonischemic cardiomyopathy with an ejection fraction of 20% #6. Severe pulmonary hypertension and elevated right-sided filling pressures #7. History of chronic alcohol abuse, chronic and ongoing #8. History of chronic bronchial asthma, unspecified #9. History of hypertension #10. History of sarcoidosis Plan: Today's chest x-rays labs and blood gases have been reviewed We'll continue with same ventilator settings, dropped FiO2 down to 70% and continue weaning to keep O2 saturations at 92-94% Patient is on multiple vasopressors, renal function continues to worsen, however patient will not likely to tolerate dialysis at this time Remains on Impella device Nephrology is closely following, we'll be adding bicarbonate infusion Cardiology is following, Currently transfer to tertiary care facility for possibility of ECMO is being attempted [facility] and [facility] have not accepted the patient for ECMO, we'll clarify with discharge planning and the transfer teams for what reason [facility] apparently has accepted the patient but has no available beds Continue with empiric antibiotics Patient's condition is critical and her prognosis is extremely guarded We'll continue to follow her closely in the intensive care unit I performed a history & physical examination of the patient and discussed their management with my nurse practitioner, Dipti Escudero. I reviewed the nurse practitioner's note and agree with the documented findings and plan of care. Lung sounds are positive for dim breath sounds throughout the lung srerano. The findings and the impression was discussed with the patient. I attest to the documentation by the nurse practitioner. Time with Patient: Greater than 30 <Tyler Rose - Last Filed: 07/09/21 09:32> Objective - Vital Signs Vital signs: Vital Signs Temp 99.7 F H 07/09/21 08:00 Pulse 128 H 07/09/21 08:00 Resp 34 H 07/09/21 08:00 BP 100/45 07/09/21 06:30 Pulse Ox 97 07/09/21 08:00 Intake & Output 07/08/21 07/09/21 07/09/21 18:59 06:59 18:59 Intake Total 3242.960 1468.114 533.133 Output Total 0 5 0 Balance 3242.960 1463.114 533.133 Intake: IV 396 961 156 0.9 NaCl- 825 150 Dextrose 5% in Water 1, 150 000 ml @ 75 mls/hr IV . [id number] [facility] with Sodium Bicarb (1 Meq/ml) 150 ml Rx#:[id number] Piperacillin-Tazobactam 3 200 100 .375 gm In Sodium Chloride 0.9% 100 ml @ 25 mls/hr IVPB Q8HR [facility] Rx# :[id number] Pressure Bag 36 36 6 Sodium Chloride 0.9% 500 10 ml 500 ml @ 10 mls/hr IV .Q24H [facility] Rx#:[id number] Intake, IV Titration 2086.960 507.114 377.133 Amount Calcium Gluconate 2 gm In 100 Sodium Chloride 0.9% 100 ml @ 100 mls/hr IVPB ONCE ONE Rx#:[id number] Calcium Gluconate 2 gm In 100 Sodium Chloride 0.9% 100 ml @ 100 mls/hr IVPB ONCE ONE Rx#:[id number] Cisatracurium 200 mg In 91.734 200 Sodium Chloride 0.9% 180 ml @ 2 MCG/KG/MIN 12.624 mls/hr IV .[id number] [facility] Rx #:[id number] EPINEPHrine 16 mg In 274.598 Dextrose 5% in Water 250 ml @ 0.5 MCG/KG/MIN 42.75 mls/hr IV .Q5H51M [facility] Rx #:[id number] EPINEPHrine 4 mg In 5.682 Dextrose 5% in Water 250 ml @ 0.01 MCG/KG/MIN 3. 788 mls/hr IV .Q24H [facility] Rx#:[id number] Heparin Sod,Pork in 0.45% 147.384 171.451 NaCl 25,000 unit In 0.45 % NaCl 1 250ml.bag @ Per Protocol IV .Q0M [facility] Rx#: [id number] Heparin Sodium,Porcine 12 132 12 ,500 unit In Dextrose 5% in Water 500 ml @ Per Protocol IV DIRECTED [facility] Rx#:[id number] Magnesium Sulfate-D5w Pmx 200 1 gm In Dextrose/Water 1 100ml.bag @ 100 mls/hr IVPB Q1H [facility] Rx#: [id number] Norepinephrine 32 mg In 143.744 215.514 Sodium Chloride 0.9% 218 ml @ 0.4 MCG/KG/MIN 17.1 mls/hr IV .[id number] [facility] Rx #:[id number] Sodium Chloride 0.9% 1, 750 75 000 ml @ 75 mls/hr IV . [id number] [facility] Rx#:[id number] Sodium Chloride 0.9% 150 47.5 4.6 ml @ 0.03 UNITS/MIN 4.59 mls/hr IV .Q24H [facility] with Vasopressin 60 unit Rx#: [id number] propofoL 1,000 mg In 100 200 Empty Bag 1 bag @ Titrate IV .Q0M [facility] Rx#: [id number] Tube Feeding 110 0 0 Other 650 Output: Urine 0 5 0 Other: Voiding Method Indwelling Catheter Indwelling Catheter ABP, PAP, CO, CI - Last Documented Arterial Blood Pressure 83/69 Cardiac Output 4.2 - Labs CBC & Chem 7: 07/09/21 03:51 07/09/21 03:51 Labs: Abnormal Lab Results - Last 24 Hours (Table) 07/08/21 07/08/21 07/08/21 Range/Units 12:03 16:05 17:36 WBC (3.8-10.6) k/uL RBC (3.80-5.40) m/uL Hgb (11.4-16.0) gm/dL Hct (34.0-46.0) % MCV (80.0-100.0) fL MCH (25.0-35.0) pg Plt Count (150-450) k/uL Neutrophils # (Manual) (1.3-7.7) k/uL Lymphocytes # (Manual) (1.0-4.8) k/uL Metamyelocytes # (Man) (0) k/uL Nucleated RBCs (0-0) /100 WBC Macrocytosis PT (9.0-12.0) sec INR (<1.2) APTT (22.0-30.0) sec ABG pH (7.35-7.45) ABG pCO2 (35-45) mmHg ABG pO2 (83-108) mmHg ABG O2 Saturation (94-97) % Sodium 130 L (137-145) mmol/L Potassium (3.5-5.1) mmol/L Chloride 94 L (98-107) mmol/L Carbon Dioxide (22-30) mmol/L BUN 37 H (7-17) mg/dL Creatinine 3.60 H (0.52-1.04) mg/dL Glucose (74-99) mg/dL POC Glucose (mg/dL) 140 H 73 L (75-99) mg/dL Calcium 6.3 L* (8.4-10.2) mg/dL Total Bilirubin 11.3 H (0.2-1.3) mg/dL AST >34026 H (14-36) U/L ALT 3172 H (4-34) U/L Alkaline Phosphatase 195 H (38-126) U/L Lactate Dehydrogenase (313-618) U/L Total Protein 6.1 L (6.3-8.2) g/dL Albumin 2.8 L (3.5-5.0) g/dL 07/08/21 07/09/21 07/09/21 Range/Units 18:20 03:51 03:51 WBC 13.9 H (3.8-10.6) k/uL RBC 2.54 L (3.80-5.40) m/uL Hgb 9.4 L (11.4-16.0) gm/dL Hct 27.6 L (34.0-46.0) % MCV 108.7 H (80.0-100.0) fL MCH 37.0 H (25.0-35.0) pg Plt Count 138 L (150-450) k/uL Neutrophils # (Manual) 12.90 H (1.3-7.7) k/uL Lymphocytes # (Manual) 0.56 L (1.0-4.8) k/uL Metamyelocytes # (Man) 0.14 H (0) k/uL Nucleated RBCs 20 H (0-0) /100 WBC Macrocytosis Marked A PT 39.3 H (9.0-12.0) sec INR 3.9 H (<1.2) APTT 75.9 H (22.0-30.0) sec ABG pH (7.35-7.45) ABG pCO2 (35-45) mmHg ABG pO2 (83-108) mmHg ABG O2 Saturation (94-97) % Sodium (137-145) mmol/L Potassium (3.5-5.1) mmol/L Chloride (98-107) mmol/L Carbon Dioxide (22-30) mmol/L BUN (7-17) mg/dL Creatinine (0.52-1.04) mg/dL Glucose (74-99) mg/dL POC Glucose (mg/dL) 149 H (75-99) mg/dL Calcium (8.4-10.2) mg/dL Total Bilirubin (0.2-1.3) mg/dL AST (14-36) U/L ALT (4-34) U/L Alkaline Phosphatase (38-126) U/L Lactate Dehydrogenase (313-618) U/L Total Protein (6.3-8.2) g/dL Albumin (3.5-5.0) g/dL 07/09/21 07/09/21 07/09/21 Range/Units 03:51 05:17 05:40 WBC (3.8-10.6) k/uL RBC (3.80-5.40) m/uL Hgb (11.4-16.0) gm/dL Hct (34.0-46.0) % MCV (80.0-100.0) fL MCH (25.0-35.0) pg Plt Count (150-450) k/uL Neutrophils # (Manual) (1.3-7.7) k/uL Lymphocytes # (Manual) (1.0-4.8) k/uL Metamyelocytes # (Man) (0) k/uL Nucleated RBCs (0-0) /100 WBC Macrocytosis PT (9.0-12.0) sec INR (<1.2) APTT (22.0-30.0) sec ABG pH 7.27 L (7.35-7.45) ABG pCO2 46 H (35-45) mmHg ABG pO2 148 H (83-108) mmHg ABG O2 Saturation 99.3 H (94-97) % Sodium 130 L (137-145) mmol/L Potassium 5.2 H (3.5-5.1) mmol/L Chloride 94 L (98-107) mmol/L Carbon Dioxide 20 L (22-30) mmol/L BUN 41 H (7-17) mg/dL Creatinine 4.33 H (0.52-1.04) mg/dL Glucose 69 L (74-99) mg/dL POC Glucose (mg/dL) 66 L (75-99) mg/dL Calcium 6.2 L* (8.4-10.2) mg/dL Total Bilirubin (0.2-1.3) mg/dL AST (14-36) U/L ALT (4-34) U/L Alkaline Phosphatase (38-126) U/L Lactate Dehydrogenase >25997 H (313-618) U/L Total Protein (6.3-8.2) g/dL Albumin (3.5-5.0) g/dL 07/09/21 Range/Units 05:41 WBC (3.8-10.6) k/uL RBC (3.80-5.40) m/uL Hgb (11.4-16.0) gm/dL Hct (34.0-46.0) % MCV (80.0-100.0) fL MCH (25.0-35.0) pg Plt Count (150-450) k/uL Neutrophils # (Manual) (1.3-7.7) k/uL Lymphocytes # (Manual) (1.0-4.8) k/uL Metamyelocytes # (Man) (0) k/uL Nucleated RBCs (0-0) /100 WBC Macrocytosis PT (9.0-12.0) sec INR (<1.2) APTT (22.0-30.0) sec ABG pH (7.35-7.45) ABG pCO2 (35-45) mmHg ABG pO2 (83-108) mmHg ABG O2 Saturation (94-97) % Sodium (137-145) mmol/L Potassium (3.5-5.1) mmol/L Chloride (98-107) mmol/L Carbon Dioxide (22-30) mmol/L BUN (7-17) mg/dL Creatinine (0.52-1.04) mg/dL Glucose (74-99) mg/dL POC Glucose (mg/dL) 156 H (75-99) mg/dL Calcium (8.4-10.2) mg/dL Total Bilirubin (0.2-1.3) mg/dL AST (14-36) U/L ALT (4-34) U/L Alkaline Phosphatase (38-126) U/L Lactate Dehydrogenase (313-618) U/L Total Protein (6.3-8.2) g/dL Albumin (3.5-5.0) g/dL Microbiology - Last 24 Hours (Table) 07/06/21 18:25 Blood Culture - Preliminary Blood No Growth after 48 hours 07/06/21 11:50 Blood Culture - Preliminary Blood No Growth after 48 hours 07/06/21 11:00 Gram Stain - Final Sputum Sputum Culture - Final Assessment and Plan Plan: Patient was seen in conjunction with the nurse practitioner. Oxygenation is stable. Chest x-ray was reviewed. There is massive cardiomegaly. His infiltration more so on the left. The patient remains on IV Zosyn as an empiric antibiotic coverage. The FiO2 was not found to 70% and later on down to 60%. We'll may be able to drop the PEEP at a later stage. The largest dependent on the patient's oxygenation. Meanwhile, we'll leave cardiology to manage the pressors and then follow device. She is obviously hemodynamically critical and unstable presently hypotensive and the patient being supported with an Impala device. The patient is currently at P6 of augmentation with a flow of 2.5 L per minute. She remains on a combination of epinephrine, norepinephrine and vasopressin. There is a concern about an acute kidney injury. Potassium level this morning is at 5.2. Nephrology is on the case. Too unstable for hemodialysis. Condition is extremely critical. There is a very high mortality.
--- NOTE | 2021-07-09 08:47 | P.PN ---
Subjective Patient is seen in follow-up for acute kidney injury. Renal function worsening. Remains oliguric. Patient became hypotensive last night and is currently on maximum dose of Levophed and vasopressin. Receiving IV fluids and tube feeds. Intubated. Blood pressure low despite vasopressor support. HEENT: Intubated. LUNGS: Breath sounds decreased. HEART: Tachycardic. ABDOMEN: Soft, no distention. EXTREMITITES: No edema. Objective - Vital Signs Vital signs: Vital Signs Temp 99.7 F H 07/09/21 08:00 Pulse 128 H 07/09/21 08:00 Resp 34 H 07/09/21 08:00 BP 100/45 07/09/21 06:30 Pulse Ox 97 07/09/21 08:00 Intake & Output 07/08/21 07/09/21 07/09/21 18:59 06:59 18:59 Intake Total 3242.960 1468.114 533.133 Output Total 0 5 0 Balance 3242.960 1463.114 533.133 Intake: IV 396 961 156 0.9 NaCl- 825 150 Dextrose 5% in Water 1, 150 000 ml @ 75 mls/hr IV . [id number] [facility] with Sodium Bicarb (1 Meq/ml) 150 ml Rx#:[id number] Piperacillin-Tazobactam 3 200 100 .375 gm In Sodium Chloride 0.9% 100 ml @ 25 mls/hr IVPB Q8HR [facility] Rx# :[id number] Pressure Bag 36 36 6 Sodium Chloride 0.9% 500 10 ml 500 ml @ 10 mls/hr IV .Q24H [facility] Rx#:[id number] Intake, IV Titration 2086.960 507.114 377.133 Amount Calcium Gluconate 2 gm In 100 Sodium Chloride 0.9% 100 ml @ 100 mls/hr IVPB ONCE ONE Rx#:[id number] Calcium Gluconate 2 gm In 100 Sodium Chloride 0.9% 100 ml @ 100 mls/hr IVPB ONCE ONE Rx#:[id number] Cisatracurium 200 mg In 91.734 200 Sodium Chloride 0.9% 180 ml @ 2 MCG/KG/MIN 12.624 mls/hr IV .[id number] [facility] Rx #:[id number] EPINEPHrine 16 mg In 274.598 Dextrose 5% in Water 250 ml @ 0.5 MCG/KG/MIN 42.75 mls/hr IV .Q5H51M [facility] Rx #:[id number] EPINEPHrine 4 mg In 5.682 Dextrose 5% in Water 250 ml @ 0.01 MCG/KG/MIN 3. 788 mls/hr IV .Q24H [facility] Rx#:[id number] Heparin Sod,Pork in 0.45% 147.384 171.451 NaCl 25,000 unit In 0.45 % NaCl 1 250ml.bag @ Per Protocol IV .Q0M [facility] Rx#: [id number] Heparin Sodium,Porcine 12 132 12 ,500 unit In Dextrose 5% in Water 500 ml @ Per Protocol IV DIRECTED [facility] Rx#:[id number] Magnesium Sulfate-D5w Pmx 200 1 gm In Dextrose/Water 1 100ml.bag @ 100 mls/hr IVPB Q1H [facility] Rx#: [id number] Norepinephrine 32 mg In 143.744 215.514 Sodium Chloride 0.9% 218 ml @ 0.4 MCG/KG/MIN 17.1 mls/hr IV .[id number] [facility] Rx #:[id number] Sodium Chloride 0.9% 1, 750 75 000 ml @ 75 mls/hr IV . [id number] [facility] Rx#:[id number] Sodium Chloride 0.9% 150 47.5 4.6 ml @ 0.03 UNITS/MIN 4.59 mls/hr IV .Q24H [facility] with Vasopressin 60 unit Rx#: [id number] propofoL 1,000 mg In 100 200 Empty Bag 1 bag @ Titrate IV .Q0M [facility] Rx#: [id number] Tube Feeding 110 0 0 Other 650 Output: Urine 0 5 0 Other: Voiding Method Indwelling Catheter Indwelling Catheter ABP, PAP, CO, CI - Last Documented Arterial Blood Pressure 83/69 Cardiac Output 4.2 - Labs CBC & Chem 7: 07/09/21 03:51 07/09/21 03:51 Labs: Abnormal Lab Results - Last 24 Hours (Table) 07/08/21 07/08/21 07/08/21 Range/Units 12:03 16:05 17:36 WBC (3.8-10.6) k/uL RBC (3.80-5.40) m/uL Hgb (11.4-16.0) gm/dL Hct (34.0-46.0) % MCV (80.0-100.0) fL MCH (25.0-35.0) pg Plt Count (150-450) k/uL Neutrophils # (Manual) (1.3-7.7) k/uL Lymphocytes # (Manual) (1.0-4.8) k/uL Metamyelocytes # (Man) (0) k/uL Nucleated RBCs (0-0) /100 WBC Macrocytosis PT (9.0-12.0) sec INR (<1.2) APTT (22.0-30.0) sec ABG pH (7.35-7.45) ABG pCO2 (35-45) mmHg ABG pO2 (83-108) mmHg ABG O2 Saturation (94-97) % Sodium 130 L (137-145) mmol/L Potassium (3.5-5.1) mmol/L Chloride 94 L (98-107) mmol/L Carbon Dioxide (22-30) mmol/L BUN 37 H (7-17) mg/dL Creatinine 3.60 H (0.52-1.04) mg/dL Glucose (74-99) mg/dL POC Glucose (mg/dL) 140 H 73 L (75-99) mg/dL Calcium 6.3 L* (8.4-10.2) mg/dL Total Bilirubin 11.3 H (0.2-1.3) mg/dL AST >36478 H (14-36) U/L ALT 3172 H (4-34) U/L Alkaline Phosphatase 195 H (38-126) U/L Lactate Dehydrogenase (313-618) U/L Total Protein 6.1 L (6.3-8.2) g/dL Albumin 2.8 L (3.5-5.0) g/dL 07/08/21 07/09/21 07/09/21 Range/Units 18:20 03:51 03:51 WBC 13.9 H (3.8-10.6) k/uL RBC 2.54 L (3.80-5.40) m/uL Hgb 9.4 L (11.4-16.0) gm/dL Hct 27.6 L (34.0-46.0) % MCV 108.7 H (80.0-100.0) fL MCH 37.0 H (25.0-35.0) pg Plt Count 138 L (150-450) k/uL Neutrophils # (Manual) 12.90 H (1.3-7.7) k/uL Lymphocytes # (Manual) 0.56 L (1.0-4.8) k/uL Metamyelocytes # (Man) 0.14 H (0) k/uL Nucleated RBCs 20 H (0-0) /100 WBC Macrocytosis Marked A PT 39.3 H (9.0-12.0) sec INR 3.9 H (<1.2) APTT 75.9 H (22.0-30.0) sec ABG pH (7.35-7.45) ABG pCO2 (35-45) mmHg ABG pO2 (83-108) mmHg ABG O2 Saturation (94-97) % Sodium (137-145) mmol/L Potassium (3.5-5.1) mmol/L Chloride (98-107) mmol/L Carbon Dioxide (22-30) mmol/L BUN (7-17) mg/dL Creatinine (0.52-1.04) mg/dL Glucose (74-99) mg/dL POC Glucose (mg/dL) 149 H (75-99) mg/dL Calcium (8.4-10.2) mg/dL Total Bilirubin (0.2-1.3) mg/dL AST (14-36) U/L ALT (4-34) U/L Alkaline Phosphatase (38-126) U/L Lactate Dehydrogenase (313-618) U/L Total Protein (6.3-8.2) g/dL Albumin (3.5-5.0) g/dL 07/09/21 07/09/21 07/09/21 Range/Units 03:51 05:17 05:40 WBC (3.8-10.6) k/uL RBC (3.80-5.40) m/uL Hgb (11.4-16.0) gm/dL Hct (34.0-46.0) % MCV (80.0-100.0) fL MCH (25.0-35.0) pg Plt Count (150-450) k/uL Neutrophils # (Manual) (1.3-7.7) k/uL Lymphocytes # (Manual) (1.0-4.8) k/uL Metamyelocytes # (Man) (0) k/uL Nucleated RBCs (0-0) /100 WBC Macrocytosis PT (9.0-12.0) sec INR (<1.2) APTT (22.0-30.0) sec ABG pH 7.27 L (7.35-7.45) ABG pCO2 46 H (35-45) mmHg ABG pO2 148 H (83-108) mmHg ABG O2 Saturation 99.3 H (94-97) % Sodium 130 L (137-145) mmol/L Potassium 5.2 H (3.5-5.1) mmol/L Chloride 94 L (98-107) mmol/L Carbon Dioxide 20 L (22-30) mmol/L BUN 41 H (7-17) mg/dL Creatinine 4.33 H (0.52-1.04) mg/dL Glucose 69 L (74-99) mg/dL POC Glucose (mg/dL) 66 L (75-99) mg/dL Calcium 6.2 L* (8.4-10.2) mg/dL Total Bilirubin (0.2-1.3) mg/dL AST (14-36) U/L ALT (4-34) U/L Alkaline Phosphatase (38-126) U/L Lactate Dehydrogenase >02590 H (313-618) U/L Total Protein (6.3-8.2) g/dL Albumin (3.5-5.0) g/dL 07/09/21 Range/Units 05:41 WBC (3.8-10.6) k/uL RBC (3.80-5.40) m/uL Hgb (11.4-16.0) gm/dL Hct (34.0-46.0) % MCV (80.0-100.0) fL MCH (25.0-35.0) pg Plt Count (150-450) k/uL Neutrophils # (Manual) (1.3-7.7) k/uL Lymphocytes # (Manual) (1.0-4.8) k/uL Metamyelocytes # (Man) (0) k/uL Nucleated RBCs (0-0) /100 WBC Macrocytosis PT (9.0-12.0) sec INR (<1.2) APTT (22.0-30.0) sec ABG pH (7.35-7.45) ABG pCO2 (35-45) mmHg ABG pO2 (83-108) mmHg ABG O2 Saturation (94-97) % Sodium (137-145) mmol/L Potassium (3.5-5.1) mmol/L Chloride (98-107) mmol/L Carbon Dioxide (22-30) mmol/L BUN (7-17) mg/dL Creatinine (0.52-1.04) mg/dL Glucose (74-99) mg/dL POC Glucose (mg/dL) 156 H (75-99) mg/dL Calcium (8.4-10.2) mg/dL Total Bilirubin (0.2-1.3) mg/dL AST (14-36) U/L ALT (4-34) U/L Alkaline Phosphatase (38-126) U/L Lactate Dehydrogenase (313-618) U/L Total Protein (6.3-8.2) g/dL Albumin (3.5-5.0) g/dL Microbiology - Last 24 Hours (Table) 07/06/21 18:25 Blood Culture - Preliminary Blood No Growth after 48 hours 07/06/21 11:50 Blood Culture - Preliminary Blood No Growth after 48 hours 07/06/21 11:00 Gram Stain - Final Sputum Sputum Culture - Final Assessment and Plan Plan: Assessment: 1. Acute kidney injury secondary to ATN secondary to cardiogenic shock. Creatinine 4.33 today. Oliguric. Baseline creatinine near 1. UA fairly benign. 2. Severe cardiomyopathy with ejection fraction of 20% with moderate mitral regurgitation, severe tricuspid regurgitation and severe pulmonary hypertension. 3. Metabolic acidosis secondary to acute kidney injury. 4. Cardiogenic shock on multiple vasopressors. 5. Mild hyperkalemia secondary to acute kidney injury and metabolic acidosis. 6. Hypocalcemia secondary to acute kidney injury. Plan: Resume bicarb drip at 75 mL an hour. Calcium being replaced. Lokelma 10 g once now. Maintain tube feeds. Repeat BMP this evening. Wean FiO2 and vasopressors. Patient needs renal replacement therapy however she is hemodynamically too unstable to tolerate any form of renal replacement therapy at this time. Continue to monitor closely. Case discussed with the wheel molder as well as cardiology.
[2021-07-09] MEDS: LEVOTHYROXINE IVP 100 MCG/5 ML VIAL IV SCH (09:47)
[2021-07-09 10:52] VITALS: BMI 35.9
[2021-07-09] MEDS: HEPARIN SOD,PORK IN 0.45% NACL 25,000 UNIT in 0.45% NACL 1 250ML.BAG IV SCH (11:32)
[2021-07-09 11:34] LABS: African American GFR (CKD) 13 (>60 ml/min/1.73 sqM); Albumin 2.9 g/dL (3.5-5.0); Alkaline Phosphatase 266 U/L (38-126); Anion Gap 17 mmol/L; Blood Urea Nitrogen 42 mg/dL (7-17); Carbon Dioxide 19 mmol/L (22-30); Chloride 93 mmol/L (98-107); Glucose 105 mg/dL (74-99); Non-African American GFR(CKD) 11 (>60 ml/min/1.73 sqM); Potassium 5.4 mmol/L (3.5-5.1); Sodium 129 mmol/L (137-145); Total Protein 6.2 g/dL (6.3-8.2)
[2021-07-09 11:50] LABS: Calcium 6.4 mg/dL (8.4-10.2)
[2021-07-09 12:03] LABS: Glucose,Whole Blood 103 mg/dL (75-99)
[2021-07-09 12:11] LABS: ALT 2870 U/L (4-34)
[2021-07-09] MEDS: CALCIUM ACETATE 667 MG TAB PO SCH ×2 (12:19→17:18)
[2021-07-09 13:19] LABS: AST >15000 U/L (14-36)
[2021-07-09] MEDS: EPINEPHrine 16 MG in DEXTROSE 5% IN WATER 250 ML IV SCH ×4 (15:09→17:41)
[2021-07-09 15:50] LABS: Potassium 5.4 mmol/L (3.5-5.1)
[2021-07-09] MEDS: SODIUM CHLORIDE 0.9% 150 ML with VASOPRESSIN 60 UNIT IV SCH ×2 (15:59)
[2021-07-09 16:01] LABS: Calcium 6.1 mg/dL (8.4-10.2)
[2021-07-09] MEDS ORDERED: INSULIN REGULAR 100 UNIT/ML VIAL (IV) IV ONE (16:08)
[2021-07-09] MEDS ORDERED: DEXTROSE 50% SYRINGE 50 ML IVP STA (16:08)
[2021-07-09] MEDS ORDERED: SODIUM BICARB 8.4% 50 ML SYR (1 MEQ/ML) IV STA (16:10)
[2021-07-09 17:54] LABS: Glucose,Whole Blood 130 mg/dL (75-99)
--- NOTE | 2021-07-09 20:16 | PN ---
PROGRESS NOTE This 46-year-old female has systolic CHF, severe hypotension, status post Impella placement per Dr. Estrella. Temperature is 98.2. She is resting on the vent. Pulse is 123, improved when she stopped her epinephrine, back on norepinephrine, respiratory rate 30 to 34, blood pressure 100/45, O2 99. Cardiovascular S1, S2. Lungs clear. GI soft. Extremities generalized edema to the right groin. Arterial sheath for Impella device. scoliosis. White count is 13.9, hemoglobin is 9.4, sodium 130, potassium 5.2, BUN is 41, creatinine 4.33. She may need dialysis. She has hypoxemic respiratory failure secondary to cardiogenic shock and placement of Impella device, systolic CHF, ejection fraction 20%, acute kidney injury, lactic acidosis, sepsis, possible aspiration pneumonia, on Zosyn, severe nonischemic cardiomyopathy, severe pulmonary hypertension, chronic alcoholism, hypertension, sarcoidosis, asthma. [facility] and [facility]. Continue with empiric antibiotics. Wean vent as tolerated. Continue vasopressors. Impella device. Prognosis guarded. MMODL / IJN: [id number] /
[2021-07-09] MEDS: HEPARIN SODIUM,PORCINE 12,500 UNIT in DEXTROSE 5% IN WATER 500 ML IV SCH ×2 (20:43)
[2021-07-09 22:08] LABS: Calcium 6.3 mg/dL (8.4-10.2)
[2021-07-09 23:14] LABS: Glucose,Whole Blood 100 mg/dL (75-99)
[2021-07-10] MEDS: NOREPINEPHRINE 32 MG in SODIUM CHLORIDE 0.9% 218 ML IV SCH ×5 (02:21→16:49)
[2021-07-10 03:16] LABS: HGB 9.4 gm/dL (11.4-16.0); Hypochromasia Marked; MCHC 37.8 g/dL (31.0-37.0); MCV 113.1 fL (80.0-100.0); Macrocytosis Marked; Mean Platelet Volume 12.4; Platelet Count 124 k/uL (150-450); RBC 2.21 m/uL (3.80-5.40); RDW 15.5 % (11.5-15.5)
[2021-07-10 03:17] LABS: Anion Gap 25 mmol/L; Blood Urea Nitrogen 45 mg/dL (7-17); Carbon Dioxide 14 mmol/L (22-30); Chloride 88 mmol/L (98-107); Glucose 80 mg/dL (74-99); Potassium 5.7 mmol/L (3.5-5.1); Sodium 127 mmol/L (137-145)
[2021-07-10 03:22] LABS: African American GFR (CKD) 12 (>60 ml/min/1.73 sqM); MCH 42.8 pg (25.0-35.0); Non-African American GFR(CKD) 10 (>60 ml/min/1.73 sqM)
[2021-07-10] MEDS: IPRATROPIUM-ALBUTEROL 3 ML NEB INHALATION SCH ×5 (03:40→22:47)
[2021-07-10] MEDS ORDERED: INSULIN REGULAR 100 UNIT/ML VIAL (IV) IV ONE ×2 (03:43→10:58)
[2021-07-10] MEDS ORDERED: SODIUM ZIRCONIUM CYCLOSILICATE 10 GM PACKET PO ONE (03:44)
[2021-07-10] MEDS ORDERED: DEXTROSE 50% SYRINGE 50 ML IVP STA ×3 (03:44→14:02)
[2021-07-10 03:47] LABS: LDH >21500 U/L (313-618)
[2021-07-10] MEDS: ARTIFICIAL TEARS-HYPROMELLOSE DROPS 15 ML BTL BOTH EYES SCH ×4 (03:47→16:34)
[2021-07-10] MEDS ORDERED: CALCIUM GLUCONATE 2 GM in SODIUM CHLORIDE 0.9% 100 ML IVPB ONE ×2 (04:00→10:44)
[2021-07-10 04:06] LABS: Band Neutrophils % 4 %; Metamyelocytes # (M) 0.54 k/uL (0); Metamyelocytes % 2 %; Monocytes # (M) 0.54 k/uL (0-1.0); Neutrophils % (M) 90 %; Nucleated Red Blood Cells 3 /100 WBC (0-0); Total Cells Counted 200; WBC 26.8 k/uL (3.8-10.6)
[2021-07-10 04:14] LABS: ABG Base Excess -13.5 mmol/L; ABG HCO3 16 mmol/L (21-25); ABG Oxygen Saturation 88.8 % (94-97); ABG PCO2 55 mmHg (35-45); ABG PO2 74 mmHg (83-108); ABG TCO2 18 mmol/L (19-24); Allen Test Performed? Yes
[2021-07-10 04:36] LABS: ABG PH 7.08 (7.35-7.45)
[2021-07-10 05:39] LABS: Glucose,Whole Blood 88 mg/dL (75-99)
[2021-07-10] MEDS: INSULIN ASPART (NovoLOG) 100 UNIT/ML VIAL SQ SCH ×2 (05:39→12:23)
[2021-07-10] MEDS: METOCLOPRAMIDE 5 MG/ML 2 ML VIAL IVP SCH ×2 (05:41→11:23)
[2021-07-10] MEDS: HYDROCORTISONE SUCCINATE 100 MG/2 ML VIAL IV SCH ×2 (05:41→11:24)
[2021-07-10] MEDS: EPINEPHrine 4 MG in DEXTROSE 5% IN WATER 250 ML IV SCH ×2 (05:50)
[2021-07-10] MEDS ORDERED: SODIUM BICARB 8.4% 50 ML SYR (1 MEQ/ML) IV STA ×2 (06:29→11:01)
[2021-07-10] MEDS ORDERED: SODIUM BICARB 8.4% 50 ML SYR (1 MEQ/ML) ONE (06:49)
[2021-07-10] MEDS: CALCIUM ACETATE 667 MG TAB PO SCH ×2 (07:06→13:08)
[2021-07-10 07:39] LABS: INR 6.11; Partial Thromboplastin Time 74.8; Prothrombin Time 52.2
--- NOTE | 2021-07-10 07:53 | P.PN ---
Subjective Progress Note Date: 07/10/21 She remains hemodynamically very unstable on maximum vasopressors with epinephrine, norepinephrine and vasopressin. She is in sinus tachycardia. She continues to have the impella catheter. She has no urine output. She is hemodynamically unstable for hemodialysis. She continues to be severely acidotic. Her most recent echocardiogram showed improvement in her left ventricle systolic function with severe dilatation of the right ventricle and severe hypokinesis. Her lower extremities are cold bilaterally. She has evidence of multi-organ failure with abnormality of her liver kidney in addition to her lungs. No bed is available for ECMO transfer to [facility]. At this point I don't believe the patient is a candidate for ECMO in view of her status. Her lab data showed the pH 7.08, hemoglobin of 9.4, creatinine 4.83 and BUN of 45, potassium is 5.7 and her calcium is 6. She has significant abnormality of her transaminase Head: Normocephalic. Intubated and sedated Eyes: Sclerae nonicteric. Neck: Good carotid upstroke, no bruit, no jugular venous distention. Lungs: Clear to auscultation. No wheezes or rales anteriorly Heart: Tachycardic rate and rhythm, S1-S2, no S3, no rub. Systolic murmur at the base Abdomen: Soft positive bowel sounds no organomegaly. Extremities: No edema, cool extremities to the touch with mottling with catheter in the right femoral artery and venous sheaths in the left femoral vein Impression: 1. [ Cardiogenic shock was biventricular failure, patient is severely acidotic, on high-dose vasopressors with persistent low blood pressure.] 2. [ Multiorgan failure with renal and liver failure and anuria] 3. [ Possible aspiration pneumonia with left-sided infiltrate] 4. [ History of alcoholism] 5. [ Severe pulmonary hypertension] Plan: 1. [ Prognosis is very poor, the likelihood of recovery at this point is e xtremely low] 2. [ We will discuss it further with the family] 3. [ Continue present therapy this time] 4. [ Discussed with Dr. Rose] Objective - Vital Signs Vital signs: Vital Signs Temp 100.6 F H 07/10/21 04:00 Pulse 134 H 07/10/21 07:00 Resp 34 H 07/10/21 07:00 BP 100/45 07/09/21 06:30 Pulse Ox 95 07/10/21 07:00 Intake & Output 07/09/21 07/10/21 07/10/21 18:59 06:59 18:59 Intake Total 2386.851 1895.936 340.883 Output Total 0 0 Balance 2386.851 1895.936 340.883 Weight 101 kg 107 kg Intake: IV 1051 1056 88 0.9 NaCl- 240 120 10 Dextrose 5% in Water 1, 675 900 75 000 ml @ 75 mls/hr IV . [id number] [facility] with Sodium Bicarb (1 Meq/ml) 150 ml Rx#:[id number] Piperacillin-Tazobactam 3 100 .375 gm In Sodium Chloride 0.9% 100 ml @ 25 mls/hr IVPB Q8HR [facility] Rx# :[id number] Pressure Bag 36 36 3 Intake, IV Titration 1325.851 829.936 252.883 Amount Calcium Gluconate 2 gm In 100 Sodium Chloride 0.9% 100 ml @ 100 mls/hr IVPB ONCE ONE Rx#:[id number] Cisatracurium 200 mg In 263.33 Sodium Chloride 0.9% 180 ml @ 2 MCG/KG/MIN 12.624 mls/hr IV .[id number] [facility] Rx #:[id number] Dextrose 5% in Water 1, 150 000 ml @ 75 mls/hr IV . [id number] [facility] with Sodium Bicarb (1 Meq/ml) 150 ml Rx#:[id number] EPINEPHrine 16 mg In 149.883 Dextrose 5% in Water 250 ml @ 0.1 MCG/KG/MIN 10. 075 mls/hr IV .Q24H [facility] Rx#:[id number] EPINEPHrine 16 mg In 15.732 Dextrose 5% in Water 250 ml @ 0.5 MCG/KG/MIN 42.75 mls/hr IV .Q5H51M [facility] Rx #:[id number] EPINEPHrine 4 mg In 243.222 0.947 Dextrose 5% in Water 250 ml @ 0.01 MCG/KG/MIN 3. 788 mls/hr IV .Q24H [facility] Rx#:[id number] Heparin Sod,Pork in 0.45% 204.395 167.134 NaCl 25,000 unit In 0.45 % NaCl 1 250ml.bag @ Per Protocol IV .Q0M [facility] Rx#: [id number] Norepinephrine 32 mg In 349.172 279.106 Sodium Chloride 0.9% 218 ml @ 0.4 MCG/KG/MIN 17.1 mls/hr IV .[id number] [facility] Rx #:[id number] Piperacillin-Tazobactam 3 100 .375 gm In Sodium Chloride 0.9% 100 ml @ 25 mls/hr IVPB Q12H [facility] Rx# :[id number] propofoL 1,000 mg In 100 200 85.749 Empty Bag 1 bag @ Titrate IV .Q0M [facility] Rx#: [id number] Tube Feeding 10 10 Output: Urine 0 0 Other: Voiding Method Indwelling Catheter Indwelling Catheter ABP, PAP, CO, CI - Last Documented Arterial Blood Pressure 101/71 Cardiac Output 4.2 - Labs CBC & Chem 7: 07/10/21 02:45 07/10/21 02:45 Labs: Abnormal Lab Results - Last 24 Hours (Table) 07/09/21 07/09/21 07/09/21 Range/Units 03:51 10:45 12:01 WBC (3.8-10.6) k/uL RBC (3.80-5.40) m/uL Hgb (11.4-16.0) gm/dL Hct (34.0-46.0) % MCV (80.0-100.0) fL MCH (25.0-35.0) pg MCHC (31.0-37.0) g/dL Plt Count (150-450) k/uL Neutrophils # (Manual) (1.3-7.7) k/uL Lymphocytes # (Manual) (1.0-4.8) k/uL Metamyelocytes # (Man) (0) k/uL Nucleated RBCs (0-0) /100 WBC Macrocytosis APTT (22.0-30.0) sec ABG pH (7.35-7.45) ABG pCO2 (35-45) mmHg ABG pO2 (83-108) mmHg ABG HCO3 (21-25) mmol/L ABG Total CO2 (19-24) mmol/L ABG O2 Saturation (94-97) % Sodium 129 L (137-145) mmol/L Potassium 5.4 H (3.5-5.1) mmol/L Chloride 93 L (98-107) mmol/L Carbon Dioxide 19 L (22-30) mmol/L BUN 42 H (7-17) mg/dL Creatinine 4.48 H (0.52-1.04) mg/dL Glucose 105 H (74-99) mg/dL POC Glucose (mg/dL) 103 H (75-99) mg/dL Calcium 6.4 L* (8.4-10.2) mg/dL Phosphorus 9.0 H* (2.5-4.5) mg/dL Total Bilirubin 12.0 H (0.2-1.3) mg/dL AST >66846 H (14-36) U/L ALT 2870 H (4-34) U/L Alkaline Phosphatase 266 H (38-126) U/L Lactate Dehydrogenase (313-618) U/L Total Protein 6.2 L (6.3-8.2) g/dL Albumin 2.9 L (3.5-5.0) g/dL 07/09/21 07/09/21 07/09/21 Range/Units 13:40 15:15 17:51 WBC (3.8-10.6) k/uL RBC (3.80-5.40) m/uL Hgb (11.4-16.0) gm/dL Hct (34.0-46.0) % MCV (80.0-100.0) fL MCH (25.0-35.0) pg MCHC (31.0-37.0) g/dL Plt Count (150-450) k/uL Neutrophils # (Manual) (1.3-7.7) k/uL Lymphocytes # (Manual) (1.0-4.8) k/uL Metamyelocytes # (Man) (0) k/uL Nucleated RBCs (0-0) /100 WBC Macrocytosis APTT 63.6 H (22.0-30.0) sec ABG pH (7.35-7.45) ABG pCO2 (35-45) mmHg ABG pO2 (83-108) mmHg ABG HCO3 (21-25) mmol/L ABG Total CO2 (19-24) mmol/L ABG O2 Saturation (94-97) % Sodium 127 L (137-145) mmol/L Potassium 5.4 H (3.5-5.1) mmol/L Chloride 93 L (98-107) mmol/L Carbon Dioxide 15 L (22-30) mmol/L BUN 43 H (7-17) mg/dL Creatinine 4.51 H (0.52-1.04) mg/dL Glucose (74-99) mg/dL POC Glucose (mg/dL) 130 H (75-99) mg/dL Calcium 6.1 L* (8.4-10.2) mg/dL Phosphorus (2.5-4.5) mg/dL Total Bilirubin (0.2-1.3) mg/dL AST (14-36) U/L ALT (4-34) U/L Alkaline Phosphatase (38-126) U/L Lactate Dehydrogenase (313-618) U/L Total Protein (6.3-8.2) g/dL Albumin (3.5-5.0) g/dL 07/09/21 07/09/21 07/10/21 Range/Units 21:04 23:12 02:45 WBC 26.8 H (3.8-10.6) k/uL RBC 2.21 L (3.80-5.40) m/uL Hgb 9.4 L (11.4-16.0) gm/dL Hct 25.0 L (34.0-46.0) % MCV 113.1 H (80.0-100.0) fL MCH 42.8 H (25.0-35.0) pg MCHC 37.8 H (31.0-37.0) g/dL Plt Count 124 L (150-450) k/uL Neutrophils # (Manual) 25.10 H (1.3-7.7) k/uL Lymphocytes # (Manual) 0.80 L (1.0-4.8) k/uL Metamyelocytes # (Man) 0.54 H (0) k/uL Nucleated RBCs 3 H (0-0) /100 WBC Macrocytosis Marked A APTT (22.0-30.0) sec ABG pH (7.35-7.45) ABG pCO2 (35-45) mmHg ABG pO2 (83-108) mmHg ABG HCO3 (21-25) mmol/L ABG Total CO2 (19-24) mmol/L ABG O2 Saturation (94-97) % Sodium 129 L (137-145) mmol/L Potassium (3.5-5.1) mmol/L Chloride 89 L (98-107) mmol/L Carbon Dioxide 15 L (22-30) mmol/L BUN 44 H (7-17) mg/dL Creatinine 4.61 H (0.52-1.04) mg/dL Glucose (74-99) mg/dL POC Glucose (mg/dL) 100 H (75-99) mg/dL Calcium 6.3 L* (8.4-10.2) mg/dL Phosphorus (2.5-4.5) mg/dL Total Bilirubin (0.2-1.3) mg/dL AST (14-36) U/L ALT (4-34) U/L Alkaline Phosphatase (38-126) U/L Lactate Dehydrogenase (313-618) U/L Total Protein (6.3-8.2) g/dL Albumin (3.5-5.0) g/dL 07/10/21 07/10/21 Range/Units 02:45 04:10 WBC (3.8-10.6) k/uL RBC (3.80-5.40) m/uL Hgb (11.4-16.0) gm/dL Hct (34.0-46.0) % MCV (80.0-100.0) fL MCH (25.0-35.0) pg MCHC (31.0-37.0) g/dL Plt Count (150-450) k/uL Neutrophils # (Manual) (1.3-7.7) k/uL Lymphocytes # (Manual) (1.0-4.8) k/uL Metamyelocytes # (Man) (0) k/uL Nucleated RBCs (0-0) /100 WBC Macrocytosis APTT (22.0-30.0) sec ABG pH 7.08 L* (7.35-7.45) ABG pCO2 55 H (35-45) mmHg ABG pO2 74 L (83-108) mmHg ABG HCO3 16 L (21-25) mmol/L ABG Total CO2 18 L (19-24) mmol/L ABG O2 Saturation 88.8 L (94-97) % Sodium 127 L (137-145) mmol/L Potassium 5.7 H (3.5-5.1) mmol/L Chloride 88 L (98-107) mmol/L Carbon Dioxide 14 L (22-30) mmol/L BUN 45 H (7-17) mg/dL Creatinine 4.83 H (0.52-1.04) mg/dL Glucose (74-99) mg/dL POC Glucose (mg/dL) (75-99) mg/dL Calcium 6.0 L* (8.4-10.2) mg/dL Phosphorus (2.5-4.5) mg/dL Total Bilirubin (0.2-1.3) mg/dL AST (14-36) U/L ALT (4-34) U/L Alkaline Phosphatase (38-126) U/L Lactate Dehydrogenase >26922 H (313-618) U/L Total Protein (6.3-8.2) g/dL Albumin (3.5-5.0) g/dL Microbiology - Last 24 Hours (Table) 07/06/21 18:25 Blood Culture - Preliminary Blood No Growth after 72 hours 07/06/21 11:50 Blood Culture - Preliminary Blood No Growth after 72 hours
--- NOTE | 2021-07-10 08:06 | XR ---
EXAMINATION TYPE: XR chest 1V portable DATE OF EXAM: 07/10/2021 COMPARISON: Chest x-ray 07/09/2021 HISTORY: Intubated TECHNIQUE: Single frontal view of the chest is obtained. FINDINGS: Endotracheal tube, NG tube, left ventricular assist device are overlying appropriate in si milar positions. Right-sided PICC line is present and coursing since the distal tip is overlying supe rior vena cava. No evident pneumothorax or pleural effusion. Heart is enlarged. Bilateral airspace di sease, prominence interstitium is again noted. Apical pleural thickening on the left again seen. Ther e are overlying artifacts. IMPRESSION: Correlate for pneumonia, ARDS, congestive heart failure
[2021-07-10] MEDS: EPINEPHrine 16 MG in DEXTROSE 5% IN WATER 250 ML IV SCH ×6 (08:09→16:17)
[2021-07-10] MEDS: CISATRACURIUM 200 MG in SODIUM CHLORIDE 0.9% 180 ML IV SCH (08:10)
[2021-07-10] MEDS: CHLORHEXIDINE GLUCONATE 15 ML CUP MUCOUS MEM SCH (08:29)
[2021-07-10] MEDS: PANTOPRAZOLE 40 MG/10 ML VIAL IVP SCH (08:29)
[2021-07-10] MEDS: LEVOTHYROXINE IVP 100 MCG/5 ML VIAL IV SCH (08:29)
--- NOTE | 2021-07-10 08:34 | P.PN ---
Subjective Progress Note Date: 07/10/21 Principal diagnosis: Shortness of breath On 07/09/2021 patient seen in follow-up in the intensive care unit, patient was reintubated and placed on mechanical support on the 07/06/2021 following her heart catheterization or worsening hypoxemia. Patient's right heart cath showed pulmonary capillary wedge pressure of 45 mmHg, PA pressure was 68/27 and anemia 45, RV pressure was 64 and end-diastolic pressure of 26 mmHg, cardiac outputs was 4.4 L/m and the cardiac index of 2.2 L/m. LVEDP was 14 mmHg. Heart cath showed no evidence of coronary artery disease. Did show severe pulmonary hypertension with severely elevated right-sided filling pressures and mildly elevated left-sided filling pressures. Patient had the placement of Impella device. Over last 48 hours patient's has remained critical, patient is requiring multiple vasopressors. Her kidney function continued to worsen. Today on 07/09/2021 patient remains intubated and sedated, on assist-control mode of ventilation with a rate of 34, tidal labs 350, FiO2 of 80% and PEEP of 15, this morning's blood gas shows pO2 of 148, pCO2 46, pH is 7.27. Peak airway pressure is 39, and plateau is 35. Today's chest x-ray shows cardiomegaly, no evident pneumothorax or pleural effusion, this does show infiltrates bi laterally, left greater than right. Patient is sedated and paralyzed, she is on Diprivan at 30 mics per kilo per minute, Nimbex is a 2 mics per kilo per minute, 0.9 at 55 ML per hour, norepinephrine is at 0.55 mics per kilo per minute, vasopressin is a 0.03 units per minute, and epinephrine has been added this morning at 0.01 mics per kilo per minute. Today labs have been reviewed showing white blood cell count of 13.9, hemoglobin of 9.4, INR is 3.9, sodium is 1:30, potassium is 5.2, chloride is 94, CO2 is 20, BUN is 41, creatinine is 4.3, calcium 6.2, LDH is greater than 21,500. Patient tested negative for COVID-19. Her culture data is negative, patient did have elevated procalcitonin level of 1.19. she did have low-grade fevers 24 hours with a T-max of 100.7F, she is afebrile this morning, Matos catheter is in, patient is anuric. Enbrel otherwise remains in place at P6, with cardiac output of 4.3 L/m. Nephrology is following, however patient has been extremely hemodynamically unstable and unlikely to be able to tolerate hemodialysis initiation. Currently transfer process has been initiated and transfer was requested to the [facility], [facility], and [facility]. There are currently no available beds at the [facility], and we're told that patient was not accepted at the [facility] or [facility] for the r amrit unknown to us at this time. On 07/10/2021 patient is seen in follow-up in the intensive care unit, she remains critically ill, and her condition continued to worsen in the last 24 hours. Patient remains on multiple vasopressors, remains intubated and sedated and paralyzed on mechanical ventilator with the assist control mode of ventilation with a rate of 34 tidal -350, FiO2 of 90% and PEEP of 15, this morning blood gas shows pO2 of 74, pCO2 55, pH of 7.08 and this was done on 80% FiO2 and above-mentioned ventilator settings, subsequently her FiO2 has been increased to 90%. Today's chest x-ray shows cardiomegaly, diffuse interstitial infiltrates. Patient is currently on D5 W with 3 A of bicarbonate at a rate of 75 ML per hour, Diprivan and is at 30 mics per kilo per minute, Nimbex is at 1 palomo per kilo per minute, heparin infusion per weight-based protocol, vasopressin at 0.03 units per minutes, norepinephrine is at 1 palomo per kilo per minute. She has been amenorrheic, in view of hemodynamic instability she has been unable to be initiated on hemodialysis. Nephrology is closely following, despite the multiple pressors she remains hypotensive, blood pressure is 69/49, tachycardic in sinus mechanism with a rate of 1:30 BPM. Patient is having high residuals and for that reason tube feedings have been placed on hold, her extremities cool, mottled and her fingernails on her right hand are extremely cyanotic and almost black. There is no palpable pulse in the bilateral pedal areas, no popliteal pulse in the right lower extremity, there is a Doppler pulse in the left lower extremity. Patient remains on Impella at P6 flow, and her cardiac output is 4.1 L/m. Patient has been completely a neurotic for the past 48 hours. Patient remains on hydrocortisone at 50 mg every 6 hours for hypotension. She remains on empiric antibiotics in the form of Zosyn so far her culture data remains negative. She has had some low grade fevers overnight with a temp of 100.6F. His lab 7 reviewed, her white blood cell count is up to 26.8, hemoglobin is 9.4 sodium is 124, potassium is 5.7 for which the patient received 2 doses of low palmar per nephrology, chloride is 88, CO2 is 14, BUN is 45, creatinine is 4.83, calcium is 6.0, LDH remains quite elevated and unchanged compared to last 3 days at 21,500. Cardiology is following, patient has evidence of multiorgan failure related to cardiogenic shock. No bed is available for ECMO transferred to the [facility]. Objective - Vital Signs Vital signs: Vital Signs Temp 99.8 F H 07/10/21 08:00 Pulse 130 H 07/10/21 08:00 Resp 34 H 07/10/21 08:00 BP 105/50 07/10/21 08:00 Pulse Ox 95 07/10/21 07:00 Intake & Output 07/09/21 07/10/21 07/10/21 18:59 06:59 18:59 Intake Total 2386.851 1895.936 969.267 Output Total 0 0 550 Balance 2386.851 1895.936 419.267 Weight 101 kg 107 kg Intake: IV 1051 1056 186 0.9 NaCl- 240 120 30 Dextrose 5% in Water 1, 675 900 150 000 ml @ 75 mls/hr IV . [id number] DIVYA with Sodium Bicarb (1 Meq/ml) 150 ml Rx#:[id number] Piperacillin-Tazobactam 3 100 .375 gm In Sodium Chloride 0.9% 100 ml @ 25 mls/hr IVPB Q8HR DIVYA Rx# :[id number] Pressure Bag 36 36 6 Intake, IV Titration 1325.851 829.936 783.267 Amount Calcium Gluconate 2 gm In 100 Sodium Chloride 0.9% 100 ml @ 100 mls/hr IVPB ONCE ONE Rx#:[id number] Cisatracurium 200 mg In 263.33 119.718 Sodium Chloride 0.9% 180 ml @ 2 MCG/KG/MIN 12.624 mls/hr IV .[id number] [facility] Rx #:[id number] Dextrose 5% in Water 1, 150 000 ml @ 100 mls/hr IV . [id number] DIVYA with Sodium Bicarb (1 Meq/ml) 150 ml Rx#:[id number] EPINEPHrine 16 mg In 149.883 73.041 Dextrose 5% in Water 250 ml @ 0.1 MCG/KG/MIN 10. 075 mls/hr IV .Q24H DIVYA Rx#:[id number] EPINEPHrine 16 mg In 15.732 Dextrose 5% in Water 250 ml @ 0.5 MCG/KG/MIN 42.75 mls/hr IV .[id number] [facility] Rx #:[id number] EPINEPHrine 4 mg In 243.222 0.947 Dextrose 5% in Water 250 ml @ 0.01 MCG/KG/MIN 3. 788 mls/hr IV .Q24H [facility] Rx#:[id number] Heparin Sod,Pork in 0.45% 204.395 167.134 NaCl 25,000 unit In 0.45 % NaCl 1 250ml.bag @ Per Protocol IV .Q0M [facility] Rx#: [id number] Heparin Sodium,Porcine 12 15 ,500 unit In Dextrose 5% in Water 500 ml @ Per Protocol IV DIRECTED [facility] Rx#:[id number] Norepinephrine 32 mg In 349.172 279.106 218.025 Sodium Chloride 0.9% 218 ml @ 0.4 MCG/KG/MIN 17.1 mls/hr IV .[id number] [facility] Rx #:[id number] Piperacillin-Tazobactam 3 100 100 .375 gm In Sodium Chloride 0.9% 100 ml @ 25 mls/hr IVPB Q12H [facility] Rx# :[id number] Sodium Chloride 0.9% 150 4.6 ml @ 0.03 UNITS/MIN 4.59 mls/hr IV .Q24H [facility] with Vasopressin 60 unit Rx#: [id number] propofoL 1,000 mg In 100 200 85.749 Empty Bag 1 bag @ Titrate IV .Q0M [facility] Rx#: [id number] Tube Feeding 10 10 0 Output: Gastric Drainage 550 Urine 0 0 Other: Voiding Method Indwelling Catheter Indwelling Catheter ABP, PAP, CO, CI - Last Documented Arterial Blood Pressure 69/60 Cardiac Output 4.2 - Exam GENERAL EXAM: 46 yo female, intubated and paralyzed 46-year-old -Citizen Of [place] female, on assist-control with a rate of 34, TV is 350, FiO2 of 90% and PEEP of 15 on multiple vasopressors, hypotensive with bp 69/49 HEAD: Normocephalic/atraumatic. EYES: Normal reaction of pupils, equal size. Conjunctiva pink, sclera white. NOSE: Clear with pink turbinates. THROAT: No erythema or exudates. NECK: No masses, no JVD, no thyroid enlargement, no adenopathy. CHEST: No chest wall deformity. Symmetrical expansion. LUNGS: Equal air entry with no crackles, wheeze, rhonchi or dullness. CVS: Regular rate and rhythm, normal S1 and S2, no gallops, no murmurs, no rubs ABDOMEN: Soft, nontender. No hepatosplenomegaly, normal bowel sounds, no guarding or rigidity. EXTREMITIES: No clubbing, no edema, mottling and ischemic changes of right hand digits, and right foot toes, and upper and lower extremities. Monica. lower extremities below the ankle, the skin is cool to touch, and patient has Doppler pulse in the posterior popliteal pulse in the left lower extremity, no palpable or doppler pulses in monica post tibial or pedal areas. Right groin arterial sheath for Impella device with P6 flow, venous sheath in the left groin MUSCULOSKELETAL: Muscle strength and tone normal. SPINE: No scoliosis or deformity SKIN: No rashes CENTRAL NERVOUS SYSTEM: Intubated, sedated and paralyzed No focal deficits, tone is normal in all 4 extremities. - Labs CBC & Chem 7: 07/10/21 02:45 07/10/21 02:45 Labs: Abnormal Lab Results - Last 24 Hours (Table) 07/09/21 07/09/21 07/09/21 Range/Units 03:51 10:45 12:01 WBC (3.8-10.6) k/uL RBC (3.80-5.40) m/uL Hgb (11.4-16.0) gm/dL Hct (34.0-46.0) % MCV (80.0-100.0) fL MCH (25.0-35.0) pg MCHC (31.0-37.0) g/dL Plt Count (150-450) k/uL Neutrophils # (Manual) (1.3-7.7) k/uL Lymphocytes # (Manual) (1.0-4.8) k/uL Metamyelocytes # (Man) (0) k/uL Nucleated RBCs (0-0) /100 WBC Macrocytosis APTT (22.0-30.0) sec ABG pH (7.35-7.45) ABG pCO2 (35-45) mmHg ABG pO2 (83-108) mmHg ABG HCO3 (21-25) mmol/L ABG Total CO2 (19-24) mmol/L ABG O2 Saturation (94-97) % Sodium 129 L (137-145) mmol/L Potassium 5.4 H (3.5-5.1) mmol/L Chloride 93 L (98-107) mmol/L Carbon Dioxide 19 L (22-30) mmol/L BUN 42 H (7-17) mg/dL Creatinine 4.48 H (0.52-1.04) mg/dL Glucose 105 H (74-99) mg/dL POC Glucose (mg/dL) 103 H (75-99) mg/dL Calcium 6.4 L* (8.4-10.2) mg/dL Phosphorus 9.0 H* (2.5-4.5) mg/dL Total Bilirubin 12.0 H (0.2-1.3) mg/dL AST >80400 H (14-36) U/L ALT 2870 H (4-34) U/L Alkaline Phosphatase 266 H (38-126) U/L Lactate Dehydrogenase (313-618) U/L Total Protein 6.2 L (6.3-8.2) g/dL Albumin 2.9 L (3.5-5.0) g/dL 07/09/21 07/09/21 07/09/21 Range/Units 13:40 15:15 17:51 WBC (3.8-10.6) k/uL RBC (3.80-5.40) m/uL Hgb (11.4-16.0) gm/dL Hct (34.0-46.0) % MCV (80.0-100.0) fL MCH (25.0-35.0) pg MCHC (31.0-37.0) g/dL Plt Count (150-450) k/uL Neutrophils # (Manual) (1.3-7.7) k/uL Lymphocytes # (Manual) (1.0-4.8) k/uL Metamyelocytes # (Man) (0) k/uL Nucleated RBCs (0-0) /100 WBC Macrocytosis APTT 63.6 H (22.0-30.0) sec ABG pH (7.35-7.45) ABG pCO2 (35-45) mmHg ABG pO2 (83-108) mmHg ABG HCO3 (21-25) mmol/L ABG Total CO2 (19-24) mmol/L ABG O2 Saturation (94-97) % Sodium 127 L (137-145) mmol/L Potassium 5.4 H (3.5-5.1) mmol/L Chloride 93 L (98-107) mmol/L Carbon Dioxide 15 L (22-30) mmol/L BUN 43 H (7-17) mg/dL Creatinine 4.51 H (0.52-1.04) mg/dL Glucose (74-99) mg/dL POC Glucose (mg/dL) 130 H (75-99) mg/dL Calcium 6.1 L* (8.4-10.2) mg/dL Phosphorus (2.5-4.5) mg/dL Total Bilirubin (0.2-1.3) mg/dL AST (14-36) U/L ALT (4-34) U/L Alkaline Phosphatase (38-126) U/L Lactate Dehydrogenase (313-618) U/L Total Protein (6.3-8.2) g/dL Albumin (3.5-5.0) g/dL 07/09/21 07/09/21 07/10/21 Range/Units 21:04 23:12 02:45 WBC 26.8 H (3.8-10.6) k/uL RBC 2.21 L (3.80-5.40) m/uL Hgb 9.4 L (11.4-16.0) gm/dL Hct 25.0 L (34.0-46.0) % MCV 113.1 H (80.0-100.0) fL MCH 42.8 H (25.0-35.0) pg MCHC 37.8 H (31.0-37.0) g/dL Plt Count 124 L (150-450) k/uL Neutrophils # (Manual) 25.10 H (1.3-7.7) k/uL Lymphocytes # (Manual) 0.80 L (1.0-4.8) k/uL Metamyelocytes # (Man) 0.54 H (0) k/uL Nucleated RBCs 3 H (0-0) /100 WBC Macrocytosis Marked A APTT (22.0-30.0) sec ABG pH (7.35-7.45) ABG pCO2 (35-45) mmHg ABG pO2 (83-108) mmHg ABG HCO3 (21-25) mmol/L ABG Total CO2 (19-24) mmol/L ABG O2 Saturation (94-97) % Sodium 129 L (137-145) mmol/L Potassium (3.5-5.1) mmol/L Chloride 89 L (98-107) mmol/L Carbon Dioxide 15 L (22-30) mmol/L BUN 44 H (7-17) mg/dL Creatinine 4.61 H (0.52-1.04) mg/dL Glucose (74-99) mg/dL POC Glucose (mg/dL) 100 H (75-99) mg/dL Calcium 6.3 L* (8.4-10.2) mg/dL Phosphorus (2.5-4.5) mg/dL Total Bilirubin (0.2-1.3) mg/dL AST (14-36) U/L ALT (4-34) U/L Alkaline Phosphatase (38-126) U/L Lactate Dehydrogenase (313-618) U/L Total Protein (6.3-8.2) g/dL Albumin (3.5-5.0) g/dL 07/10/21 07/10/21 Range/Units 02:45 04:10 WBC (3.8-10.6) k/uL RBC (3.80-5.40) m/uL Hgb (11.4-16.0) gm/dL Hct (34.0-46.0) % MCV (80.0-100.0) fL MCH (25.0-35.0) pg MCHC (31.0-37.0) g/dL Plt Count (150-450) k/uL Neutrophils # (Manual) (1.3-7.7) k/uL Lymphocytes # (Manual) (1.0-4.8) k/uL Metamyelocytes # (Man) (0) k/uL Nucleated RBCs (0-0) /100 WBC Macrocytosis APTT (22.0-30.0) sec ABG pH 7.08 L* (7.35-7.45) ABG pCO2 55 H (35-45) mmHg ABG pO2 74 L (83-108) mmHg ABG HCO3 16 L (21-25) mmol/L ABG Total CO2 18 L (19-24) mmol/L ABG O2 Saturation 88.8 L (94-97) % Sodium 127 L (137-145) mmol/L Potassium 5.7 H (3.5-5.1) mmol/L Chloride 88 L (98-107) mmol/L Carbon Dioxide 14 L (22-30) mmol/L BUN 45 H (7-17) mg/dL Creatinine 4.83 H (0.52-1.04) mg/dL Glucose (74-99) mg/dL POC Glucose (mg/dL) (75-99) mg/dL Calcium 6.0 L* (8.4-10.2) mg/dL Phosphorus (2.5-4.5) mg/dL Total Bilirubin (0.2-1.3) mg/dL AST (14-36) U/L ALT (4-34) U/L Alkaline Phosphatase (38-126) U/L Lactate Dehydrogenase >77319 H (313-618) U/L Total Protein (6.3-8.2) g/dL Albumin (3.5-5.0) g/dL Microbiology - Last 24 Hours (Table) 07/06/21 18:25 Blood Culture - Preliminary Blood No Growth after 72 hours 07/06/21 11:50 Blood Culture - Preliminary Blood No Growth after 72 hours Assessment and Plan Plan: Assessment: #1. Acute hypoxic respiratory failure, multifactorial, related to cardiogenic shock. Patient was admitted to the hospital on 07/01/2021 with altered mental status, shortness of breath, and acute hypoxic respiratory failure. Was intubated on 07/01/2021, was successfully extubated on 07/04/2021 and reintubated again on 07/06/2021 and currently remains on the ventilator, sedated and paralyzed. Note the COVID-19 PCR was negative. #2. Acute cardiogenic shock, status post right and left heart catheterization and placement of an Impala device on 06/28/2021. There is evidence of multi- organ failure, on multiple vasopressors. Impella remains in place at P6 flow #3. Acute kidney injury, likely cardiorenal #4. Anion gap metabolic acidosis likely related to lactic acidosis secondary to acute cardiogenic shock #4. Possible sepsis, rule out possibility of aspiration pneumonia, on Zosyn. So far sputum blood cultures and urine culture have shown no growth #5. Severe nonischemic cardiomyopathy with an ejection fraction of 20% #6. Severe pulmonary hypertension and elevated right-sided filling pressures #7. History of chronic alcohol abuse, chronic and ongoing #8. History of chronic bronchial asthma, unspecified #9. History of hypertension #10. History of sarcoidosis Plan: Today's chest x-rays labs and blood gases have been reviewed We'll continue with same ventilator settings, Patient is on multiple vasopressors, Impella remains in place Patient remains anuric, however she will not likely to tolerate dialysis at this time Nephrology is closely following, bicarbonate infusion rate to increase to 100 ml/hr Cardiology is following, [facility] has no available beds Continue with empiric antibiotics Patient's condition is critical, family is coming in to discuss her condition and code status We'll continue to follow her closely in the intensive care unit I performed a history & physical examination of the patient and discussed their management with my nurse practitioner, Dipti Escudero. I reviewed the nurse practitioner's note and agree with the documented findings and plan of care. Lung sounds are positive for dim breath sounds throughout the lung serrano. The findings and the impression was discussed with the patient. I attest to the documentation by the nurse practitioner. Time with Patient: Greater than 30
[2021-07-10 09:03] VITALS: BP 84/51
--- NOTE | 2021-07-10 09:11 | P.PN ---
Subjective Patient is seen in follow-up for acute kidney injury. Renal function worsening. Remains oliguric. Her condition continues to deteriorate. Remains on high- dose of multiple vasopressors. Blood pressure is a systolic 80s. Blood pressure low despite vasopressor support. HEENT: Intubated. LUNGS: Breath sounds decreased. HEART: Tachycardic. ABDOMEN: Soft, no distention. EXTREMITITES: 1+ edema. Discoloration noted in the extremities. Objective - Vital Signs Vital signs: Vital Signs Temp 99.8 F H 07/10/21 08:00 Pulse 131 H 07/10/21 09:00 Resp 34 H 07/10/21 09:00 BP 84/51 07/10/21 09:00 Pulse Ox 95 07/10/21 07:00 Intake & Output 07/09/21 07/10/21 07/10/21 18:59 06:59 18:59 Intake Total 2386.851 1895.936 969.267 Output Total 0 0 550 Balance 2386.851 1895.936 419.267 Weight 101 kg 107 kg Intake: IV 1051 1056 186 0.9 NaCl- 240 120 30 Dextrose 5% in Water 1, 675 900 150 000 ml @ 75 mls/hr IV . [id number] DIVYA with Sodium Bicarb (1 Meq/ml) 150 ml Rx#:[id number] Piperacillin-Tazobactam 3 100 .375 gm In Sodium Chloride 0.9% 100 ml @ 25 mls/hr IVPB Q8HR [facility]YA Rx# :[id number] Pressure Bag 36 36 6 Intake, IV Titration 1325.851 829.936 783.267 Amount Calcium Gluconate 2 gm In 100 Sodium Chloride 0.9% 100 ml @ 100 mls/hr IVPB ONCE ONE Rx#:[id number] Cisatracurium 200 mg In 263.33 119.718 Sodium Chloride 0.9% 180 ml @ 2 MCG/KG/MIN 12.624 mls/hr IV .[id number] [facility]YA Rx #:[id number] Dextrose 5% in Water 1, 150 000 ml @ 100 mls/hr IV . [id number] DIVYA with Sodium Bicarb (1 Meq/ml) 150 ml Rx#:[id number] EPINEPHrine 16 mg In 149.883 73.041 Dextrose 5% in Water 250 ml @ 0.1 MCG/KG/MIN 10. 075 mls/hr IV .Q24H [facility] Rx#:[id number] EPINEPHrine 16 mg In 15.732 Dextrose 5% in Water 250 ml @ 0.5 MCG/KG/MIN 42.75 mls/hr IV .Q5H51M [facility] Rx #:[id number] EPINEPHrine 4 mg In 243.222 0.947 Dextrose 5% in Water 250 ml @ 0.01 MCG/KG/MIN 3. 788 mls/hr IV .Q24H [facility] Rx#:[id number] Heparin Sod,Pork in 0.45% 204.395 167.134 NaCl 25,000 unit In 0.45 % NaCl 1 250ml.bag @ Per Protocol IV .Q0M [facility] Rx#: [id number] Heparin Sodium,Porcine 12 15 ,500 unit In Dextrose 5% in Water 500 ml @ Per Protocol IV DIRECTED DIVYA Rx#:[id number] Norepinephrine 32 mg In 349.172 279.106 218.025 Sodium Chloride 0.9% 218 ml @ 0.4 MCG/KG/MIN 17.1 mls/hr IV .[id number] [facility] Rx #:[id number] Piperacillin-Tazobactam 3 100 100 .375 gm In Sodium Chloride 0.9% 100 ml @ 25 mls/hr IVPB Q12H [facility] Rx# :[id number] Sodium Chloride 0.9% 150 4.6 ml @ 0.03 UNITS/MIN 4.59 mls/hr IV .Q24H [facility] with Vasopressin 60 unit Rx#: [id number] propofoL 1,000 mg In 100 200 85.749 Empty Bag 1 bag @ Titrate IV .Q0M [facility] Rx#: [id number] Tube Feeding 10 10 0 Output: Gastric Drainage 550 Urine 0 0 Other: Voiding Method Indwelling Catheter Indwelling Catheter ABP, PAP, CO, CI - Last Documented Arterial Blood Pressure 72/63 Cardiac Output 4.2 - Labs CBC & Chem 7: 07/10/21 02:45 07/10/21 02:45 Labs: Abnormal Lab Results - Last 24 Hours (Table) 07/09/21 07/09/21 07/09/21 Range/Units 03:51 10:45 12:01 WBC (3.8-10.6) k/uL RBC (3.80-5.40) m/uL Hgb (11.4-16.0) gm/dL Hct (34.0-46.0) % MCV (80.0-100.0) fL MCH (25.0-35.0) pg MCHC (31.0-37.0) g/dL Plt Count (150-450) k/uL Neutrophils # (Manual) (1.3-7.7) k/uL Lymphocytes # (Manual) (1.0-4.8) k/uL Metamyelocytes # (Man) (0) k/uL Nucleated RBCs (0-0) /100 WBC Macrocytosis APTT (22.0-30.0) sec ABG pH (7.35-7.45) ABG pCO2 (35-45) mmHg ABG pO2 (83-108) mmHg ABG HCO3 (21-25) mmol/L ABG Total CO2 (19-24) mmol/L ABG O2 Saturation (94-97) % Sodium 129 L (137-145) mmol/L Potassium 5.4 H (3.5-5.1) mmol/L Chloride 93 L (98-107) mmol/L Carbon Dioxide 19 L (22-30) mmol/L BUN 42 H (7-17) mg/dL Creatinine 4.48 H (0.52-1.04) mg/dL Glucose 105 H (74-99) mg/dL POC Glucose (mg/dL) 103 H (75-99) mg/dL Calcium 6.4 L* (8.4-10.2) mg/dL Phosphorus 9.0 H* (2.5-4.5) mg/dL Total Bilirubin 12.0 H (0.2-1.3) mg/dL AST >98508 H (14-36) U/L ALT 2870 H (4-34) U/L Alkaline Phosphatase 266 H (38-126) U/L Lactate Dehydrogenase (313-618) U/L Total Protein 6.2 L (6.3-8.2) g/dL Albumin 2.9 L (3.5-5.0) g/dL 07/09/21 07/09/21 07/09/21 Range/Units 13:40 15:15 17:51 WBC (3.8-10.6) k/uL RBC (3.80-5.40) m/uL Hgb (11.4-16.0) gm/dL Hct (34.0-46.0) % MCV (80.0-100.0) fL MCH (25.0-35.0) pg MCHC (31.0-37.0) g/dL Plt Count (150-450) k/uL Neutrophils # (Manual) (1.3-7.7) k/uL Lymphocytes # (Manual) (1.0-4.8) k/uL Metamyelocytes # (Man) (0) k/uL Nucleated RBCs (0-0) /100 WBC Macrocytosis APTT 63.6 H (22.0-30.0) sec ABG pH (7.35-7.45) ABG pCO2 (35-45) mmHg ABG pO2 (83-108) mmHg ABG HCO3 (21-25) mmol/L ABG Total CO2 (19-24) mmol/L ABG O2 Saturation (94-97) % Sodium 127 L (137-145) mmol/L Potassium 5.4 H (3.5-5.1) mmol/L Chloride 93 L (98-107) mmol/L Carbon Dioxide 15 L (22-30) mmol/L BUN 43 H (7-17) mg/dL Creatinine 4.51 H (0.52-1.04) mg/dL Glucose (74-99) mg/dL POC Glucose (mg/dL) 130 H (75-99) mg/dL Calcium 6.1 L* (8.4-10.2) mg/dL Phosphorus (2.5-4.5) mg/dL Total Bilirubin (0.2-1.3) mg/dL AST (14-36) U/L ALT (4-34) U/L Alkaline Phosphatase (38-126) U/L Lactate Dehydrogenase (313-618) U/L Total Protein (6.3-8.2) g/dL Albumin (3.5-5.0) g/dL 07/09/21 07/09/21 07/10/21 Range/Units 21:04 23:12 02:45 WBC 26.8 H (3.8-10.6) k/uL RBC 2.21 L (3.80-5.40) m/uL Hgb 9.4 L (11.4-16.0) gm/dL Hct 25.0 L (34.0-46.0) % MCV 113.1 H (80.0-100.0) fL MCH 42.8 H (25.0-35.0) pg MCHC 37.8 H (31.0-37.0) g/dL Plt Count 124 L (150-450) k/uL Neutrophils # (Manual) 25.10 H (1.3-7.7) k/uL Lymphocytes # (Manual) 0.80 L (1.0-4.8) k/uL Metamyelocytes # (Man) 0.54 H (0) k/uL Nucleated RBCs 3 H (0-0) /100 WBC Macrocytosis Marked A APTT (22.0-30.0) sec ABG pH (7.35-7.45) ABG pCO2 (35-45) mmHg ABG pO2 (83-108) mmHg ABG HCO3 (21-25) mmol/L ABG Total CO2 (19-24) mmol/L ABG O2 Saturation (94-97) % Sodium 129 L (137-145) mmol/L Potassium (3.5-5.1) mmol/L Chloride 89 L (98-107) mmol/L Carbon Dioxide 15 L (22-30) mmol/L BUN 44 H (7-17) mg/dL Creatinine 4.61 H (0.52-1.04) mg/dL Glucose (74-99) mg/dL POC Glucose (mg/dL) 100 H (75-99) mg/dL Calcium 6.3 L* (8.4-10.2) mg/dL Phosphorus (2.5-4.5) mg/dL Total Bilirubin (0.2-1.3) mg/dL AST (14-36) U/L ALT (4-34) U/L Alkaline Phosphatase (38-126) U/L Lactate Dehydrogenase (313-618) U/L Total Protein (6.3-8.2) g/dL Albumin (3.5-5.0) g/dL 07/10/21 07/10/21 Range/Units 02:45 04:10 WBC (3.8-10.6) k/uL RBC (3.80-5.40) m/uL Hgb (11.4-16.0) gm/dL Hct (34.0-46.0) % MCV (80.0-100.0) fL MCH (25.0-35.0) pg MCHC (31.0-37.0) g/dL Plt Count (150-450) k/uL Neutrophils # (Manual) (1.3-7.7) k/uL Lymphocytes # (Manual) (1.0-4.8) k/uL Metamyelocytes # (Man) (0) k/uL Nucleated RBCs (0-0) /100 WBC Macrocytosis APTT (22.0-30.0) sec ABG pH 7.08 L* (7.35-7.45) ABG pCO2 55 H (35-45) mmHg ABG pO2 74 L (83-108) mmHg ABG HCO3 16 L (21-25) mmol/L ABG Total CO2 18 L (19-24) mmol/L ABG O2 Saturation 88.8 L (94-97) % Sodium 127 L (137-145) mmol/L Potassium 5.7 H (3.5-5.1) mmol/L Chloride 88 L (98-107) mmol/L Carbon Dioxide 14 L (22-30) mmol/L BUN 45 H (7-17) mg/dL Creatinine 4.83 H (0.52-1.04) mg/dL Glucose (74-99) mg/dL POC Glucose (mg/dL) (75-99) mg/dL Calcium 6.0 L* (8.4-10.2) mg/dL Phosphorus (2.5-4.5) mg/dL Total Bilirubin (0.2-1.3) mg/dL AST (14-36) U/L ALT (4-34) U/L Alkaline Phosphatase (38-126) U/L Lactate Dehydrogenase >93567 H (313-618) U/L Total Protein (6.3-8.2) g/dL Albumin (3.5-5.0) g/dL Microbiology - Last 24 Hours (Table) 07/06/21 18:25 Blood Culture - Preliminary Blood No Growth after 72 hours 07/06/21 11:50 Blood Culture - Preliminary Blood No Growth after 72 hours Assessment and Plan Plan: Assessment: 1. Acute kidney injury secondary to ATN secondary to cardiogenic shock. Creatinine 4.83 today. Oliguric. Baseline creatinine near 1. UA fairly benign. 2. Severe cardiomyopathy with ejection fraction of 20% with moderate mitral regurgitation, severe tricuspid regurgitation and severe pulmonary hypertension. 3. Metabolic acidosis secondary to acute kidney injury. 4. Cardiogenic shock on multiple vasopressors. 5. Hyperkalemia secondary to acute kidney injury and metabolic acidosis. 6. Hypocalcemia secondary to acute kidney injury. Plan: Increase rate of bicarbonate drip to 100 mL an hour. Calcium being replaced. Patient received IV insulin with D50, bicarb IV push, as well as lokelma this AM. Maintain tube feeds. Follow-up repeat potassium level. Wean FiO2 and vasopressors. Patient needs renal replacement therapy however she is hemodynamically too unstable to tolerate any form of renal replacement therapy at this time. Continue to monitor closely. Prognosis poor.
[2021-07-10 09:21] LABS: Glucose,Whole Blood 46 mg/dL (75-99)
[2021-07-10] MEDS ORDERED: DEXTROSE 50% SYRINGE 50 ML IVP ONE (09:21)
[2021-07-10] MEDS: METOPROLOL TARTRATE 25 MG TAB PO SCH (09:33)
[2021-07-10 09:41] LABS: Glucose,Whole Blood 149 mg/dL (75-99)
[2021-07-10 09:50] LABS: Albumin 2.5 g/dL (3.5-5.0); Carbon Dioxide 16 mmol/L (22-30); Chloride 89 mmol/L (98-107); Total Bilirubin 12.6 mg/dL (0.2-1.3); Total Protein 5.6 g/dL (6.3-8.2)
[2021-07-10 09:52] LABS: Alkaline Phosphatase 306 U/L (38-126); Anion Gap 24 mmol/L; Blood Urea Nitrogen 43 mg/dL (7-17); Potassium 5.8 mmol/L (3.5-5.1); Sodium 129 mmol/L (137-145)
[2021-07-10 09:57] LABS: African American GFR (CKD) 11 (>60 ml/min/1.73 sqM); Non-African American GFR(CKD) 9 (>60 ml/min/1.73 sqM)
[2021-07-10 10:36] LABS: Calcium 6.2 mg/dL (8.4-10.2); Glucose 41 mg/dL (74-99)
[2021-07-10 10:40] LABS: ALT 2062 U/L (4-34)
[2021-07-10 11:14] LABS: AST >15000 U/L (14-36)
[2021-07-10] MEDS: DEXTROSE 5% IN WATER 1,000 ML with SODIUM BICARB (1 MEQ/ML) 150 ML IV SCH (11:39)
[2021-07-10] MEDS: SODIUM ZIRCONIUM CYCLOSILICATE 10 GM PACKET PO SCH ×2 (11:43→16:08)
[2021-07-10 12:24] LABS: Glucose,Whole Blood 106 mg/dL (75-99)
[2021-07-10] MEDS: PIPERACILLIN-TAZOBACTAM 3.375 GM in SODIUM CHLORIDE 0.9% 100 ML IVPB SCH (12:52)
[2021-07-10 14:03] LABS: Glucose,Whole Blood 73 mg/dL (75-99)
[2021-07-10 14:06] VITALS: RESP 34; TEMP 99.3
[2021-07-10 14:43] LABS: Glucose,Whole Blood 160 mg/dL (75-99)
[2021-07-10] MEDS: HEPARIN SODIUM,PORCINE 12,500 UNIT in DEXTROSE 5% IN WATER 500 ML IV SCH ×2 (15:32)
[2021-07-10] MEDS: HEPARIN SOD,PORK IN 0.45% NACL 25,000 UNIT in 0.45% NACL 1 250ML.BAG IV SCH (15:33)
[2021-07-10 17:10] VITALS: PULSE 123
--- NOTE | 2021-07-13 10:39 | CDI ---
Documentation Clarification Form Date: 07/13/21 From: Torie Uribe Admit Date: 07/01/2021 10:36:00 AM Patient Name: Kaela Dennis Visit Number: [id number] Discharge Date: 07/10/2021 05:17:00 PM ATTENTION: The Clinical Documentation Specialists (CDI) and [facility] Coding Staff appreciate your assistance in clarifying documentation. Please respond to the clarification below the line at the bottom and electronically sign. The CDI & [facility] Coding staff will review the response and follow-up if needed. Please note: Queries are made part of the Legal Health Record. If you have any questions, please contact the author of this message via ITS. Dr. Carlos A Reid, Cardiac arrest is documented in 07/07 PN. Please clarify the cause of cardiac arrest. History/Risk Factors: alcohol dependence w withdrawal, NSTEMI, ATN, acute hypoxic respiratory failure, sepsis w septic shock, aspiration pneumonia, non- ischemic cardiomyopathy Clinical Indicators: Systolic heart failure who went and had Impella placed today due to poor cardiac output. Failing all treatments at this point. Failed transfer for ECMO machine turned down by two hospitals. She had Impella placed as mentioned above today. She was re-intubated on 07/06. Remains in severe cardiac arrest. On norepinephrine, Nimbex, propofol, ativan, morphine Treatment: Mechanical ventilation, Impella inserted, norepinephrine Please clarify the relationship, if any, which is clinically appropriate for this patient: [ ] Cardiac arrest is due to cardiac condition [ ] Cardiac arrest is due to other specified condition [ ] Other explanation of clinical findings (please specify) [ ] Unable to determine (no explanation for clinical findings) MTDD
--- NOTE | 2021-07-28 15:35 | PN ---
PROGRESS NOTE ADDENDUM TO PROGRESS NOTE: Cardiac arrest secondary to multifactorial, including nonischemic cardiomyopathy, aspiration pneumonia, septic shock, non-STEMI, acute tubular necrosis, possibly some alcohol withdrawal. [id number] / IJN: [id number] /
--- NOTE | 2021-07-31 11:07 | CDI ---
Documentation Clarification Form Date: 07/31/21 From: Torie Uribe Admit Date: 07/01/2021 10:36:00 AM Patient Name: Kaela Dennis Visit Number: [id number] Discharge Date: 07/10/2021 05:17:00 PM ATTENTION: The Clinical Documentation Specialists (CDI) and [facility] Coding Staff appreciate your assistance in clarifying documentation. Please respond to the clarification below the line at the bottom and electronically sign. The CDI & [facility] Coding staff will review the response and follow-up if needed. Please note: Queries are made part of the Legal Health Record. If you have any questions, please contact the author of this message via ITS. Dr. Carlos A Reid, Your patient has an abnormal lab value: magnesium of 1.1, 1.0, 0.8 Please clarify if there is an additional diagnosis and/or clinical significance related to this value. History/Risk Factors: alcohol dependence w withdrawal, NSTEMI, ATN, acute hypoxic respiratory failure, sepsis w septic shock, aspiration pneumonia, non- ischemic cardiomyopathy Clinical indicators: EMS was originally called to the house and the patient reported that she has history of alcohol abuse with low magnesium levels. Treatment: Magnesioum Sulfate-55W pmx Is there an additional diagnosis and/or clinical significance related to the above lab result/information? [ ] Hypomagnesium [ ] No additional diagnosis/Not clinically significant [ ] Unable to determine MTDD
--- NOTE | 2021-07-31 17:55 | PN ---
PROGRESS NOTE Hypomagnesemia. MMODL / IJN: [id number] /
--- NOTE | 2021-09-01 19:30 | DS ---
DISCHARGE SUMMARY DATE OF ADMISSION: 07/06/2021 DATE OF : 07/31/2021 She was seen by drafter plumbing in the ICU for multiple days for intubation secondary to worsening hypoxemia secondary to severe right heart pulmonary pressure being elevated, severe pulmonary hypertension, severely elevated right-sided filling pressures. She had an Impella device placed due to significant pulmonary hypertension. [place], but no beds available. She remained on the ventilator with increasing PEEP and airway pressures. She was seen by l d rn, drafter plumbing, abstractor and Infectious Disease. In the hospital there were no bedside, as mentioned. Cardiology said she had multiorgan failure related to cardiogenic shock. No bed was available for ECMO at [facility]. She was off the vent at one time and then she got reintubated for worsening breathing and worsening of right-sided heart failure. The patient was made terminal at the end, as she did not do well and did not respond any treatments. DIAGNOSIS: 1. Acute hypoxemic respiratory failure related to cardiogenic shock. 2. Severely elevated right-sided lung pressures. 3. She had right and left heart catheterization, placement of Impella device. 4. Multiorgan failure. 5. Cardiorenal and kidney disease. 6. Metabolic acidosis. 7. Possible aspiration pneumonia with sepsis. 8. Severe nonischemic cardiomyopathy. 9. Severe pulmonary hypertension. 10.Chronic alcohol abuse, chronic and ongoing. 11.Chronic bronchial asthma. 12.Hypertension. 13.History of sarcoidosis. The patient, as mentioned, did not respond to any treatments. No seen and family made her no code at the very end. She did not improve for a whole month in the hospital. Please see drafter plumbing note also. MMODL / IJN: [id number] /
== END 2021-07-10 17:17 | disposition expired | DRG 215 ==
LOC: EC 07:32 → SUPCPDRO 07:32 → 3SCARD 10:36 → 2SICU 15:58
PROVIDERS: ADMIT Family Medicine; ATTEND Family Medicine
PROC: 4A133J1 Monitoring of Arterial Pulse, Peripheral, Percutaneous Approach (ICD-10-PCS; 2021-07-01)
PROC: 03HY32Z Insertion of Monitoring Device into Upper Artery, Percutaneous Approach (ICD-10-PCS; 2021-07-01)
PROC: 0BH18EZ Insertion of Endotracheal Airway into Trachea, Via Natural or Artificial Opening Endoscopic (ICD-10-PCS; 2021-07-01)
PROC: 5A1945Z Respiratory Ventilation, 24-96 Consecutive Hours (ICD-10-PCS; 2021-07-01)
PROC: 4A133B1 Monitoring of Arterial Pressure, Peripheral, Percutaneous Approach (ICD-10-PCS; 2021-07-01)
PROC: 3E033XZ Introduction of Vasopressor into Peripheral Vein, Percutaneous Approach (ICD-10-PCS; 2021-07-01)
PROC: 5A09357 Assistance with Respiratory Ventilation, Less than 24 Consecutive Hours, Continuous Positive Airway Pressure (ICD-10-PCS; 2021-07-01)
PROC: 02HV33Z Insertion of Infusion Device into Superior Vena Cava, Percutaneous Approach (ICD-10-PCS; 2021-07-02)
PROC: 05H933Z Insertion of Infusion Device into Right Brachial Vein, Percutaneous Approach (ICD-10-PCS; 2021-07-02)
PROC: 05HB33Z Insertion of Infusion Device into Right Basilic Vein, Percutaneous Approach (ICD-10-PCS; 2021-07-02)
PROC: 0D9670Z Drainage of Stomach with Drainage Device, Via Natural or Artificial Opening (ICD-10-PCS; 2021-07-02)
PROC: 3E0G76Z Introduction of Nutritional Substance into Upper GI, Via Natural or Artificial Opening (ICD-10-PCS; 2021-07-02)
PROC: 02HV33Z Insertion of Infusion Device into Superior Vena Cava, Percutaneous Approach (ICD-10-PCS; 2021-07-03)
PROC: B2111ZZ Fluoroscopy of Multiple Coronary Arteries using Low Osmolar Contrast (ICD-10-PCS; principal; 2021-07-06 12:00)
PROC: 5A0221D Assistance with Cardiac Output using Impeller Pump, Continuous (ICD-10-PCS; principal; 2021-07-06 12:00)
PROC: 02HA3RZ Insertion of Short-term External Heart Assist System into Heart, Percutaneous Approach (ICD-10-PCS; principal; 2021-07-06 12:00)
PROC: 4A023N8 Measurement of Cardiac Sampling and Pressure, Bilateral, Percutaneous Approach (ICD-10-PCS; principal; 2021-07-06 12:00)
PROC: 5A1955Z Respiratory Ventilation, Greater than 96 Consecutive Hours (ICD-10-PCS; 2021-07-06 12:00)
PROC: 0BH17EZ Insertion of Endotracheal Airway into Trachea, Via Natural or Artificial Opening (ICD-10-PCS; 2021-07-06 12:00)
PROC: 02PA3RZ Removal of Short-term External Heart Assist System from Heart, Percutaneous Approach (ICD-10-PCS; 2021-07-10)
DX: I11.0 Hypertensive heart disease with heart failure (principal); I21.4 Non-ST elevation (NSTEMI) myocardial infarction; N17.0 Acute kidney failure with tubular necrosis; J96.01 Acute respiratory failure with hypoxia; R65.21 Severe sepsis with septic shock; J69.0 Pneumonitis due to inhalation of food and vomit; A41.9 Sepsis, unspecified organism; I50.23 Acute on chronic systolic (congestive) heart failure; F10.239 Alcohol dependence with withdrawal, unspecified; J44.0 Chronic obstructive pulmonary disease with (acute) lower respiratory infection; E87.2 Acidosis; E27.40 Unspecified adrenocortical insufficiency; J45.21 Mild intermittent asthma with (acute) exacerbation; J98.11 Atelectasis; F31.30 Bipolar disorder, current episode depressed, mild or moderate severity, unspecified; I42.8 Other cardiomyopathies; D69.6 Thrombocytopenia, unspecified; K72.90 Hepatic failure, unspecified without coma; I27.22 Pulmonary hypertension due to left heart disease; I50.82 Biventricular heart failure; G40.909 Epilepsy, unspecified, not intractable, without status epilepticus; F20.9 Schizophrenia, unspecified; I46.8 Cardiac arrest due to other underlying condition; Z66 Do not resuscitate; Z20.822 Contact with and (suspected) exposure to COVID-19; E83.51 Hypocalcemia; K70.10 Alcoholic hepatitis without ascites; K76.1 Chronic passive congestion of liver; E83.42 Hypomagnesemia; R00.0 Tachycardia, unspecified; Y90.1 Blood alcohol level of 20-39 mg/100 ml; D86.9 Sarcoidosis, unspecified; E87.5 Hyperkalemia; I08.1 Rheumatic disorders of both mitral and tricuspid valves; F41.9 Anxiety disorder, unspecified; E66.9 Obesity, unspecified; Z68.38 Body mass index [BMI] 38.0-38.9, adult; Z79.51 Long term (current) use of inhaled steroids; Z79.891 Long term (current) use of opiate analgesic; Z79.899 Other long term (current) drug therapy; Z86.79 Personal history of other diseases of the circulatory system; Z98.891 History of uterine scar from previous surgery; Z71.3 Dietary counseling and surveillance; Z88.2 Allergy status to sulfonamides
CPT/HCPCS: 36415; 36573; 36600; 70450; 71045; 71275; 72125; 80048; 80053; 80306; 80320; 81001; 81025; 82140; 82533; 82550; 82805; 82810; 83605; 83615; 83690; 83735; 83880; 84100; 84132; 84145; 84146; 84439; 84443; 84484; 85018; 85025; 85379; 85384; 85610; 85652; 85730; 86704; 86706; 86769; 87040; 87070; 87086; 87205; 87340; 87635; 93005; 93306; 93308; 93460; 93970; 94002; 94003; 94640; 94660; 96365; 96366; 96372; 96375; 99285